=== PATIENT | female | born 1965 | race Caucasian/White ===

== ENCOUNTER 2016-07-30 09:33 | Inpatient (IN) | payer MEDICARE, OTHER ==
[~2016-07-30] VITALS: Ht 162.6 cm; Wt 93.5 kg
[~2016-07-30 09:33] MED LIST: ALBU1AER INH; CYCL-36 PO; CYMB60CA PO; DICL25 PO; DOXY100T OR; FEXO180 PO; GLUCTAB PO; GLYB1.2538 PO; INSULIN; LISI2.5T55 PO; LYRI50CA2 PO; OXYC-360 PO; PERC10TA27 PO; PRED20 PO; QUET1TAB65 PO; RANI150C PO; SIMV40TA PO; XANA1TAB6 PO
[2016-07-30 09:35] VITALS: BP 128/62; PULSE 109; RESP 16; TEMP 98.2
--- NOTE | 2016-07-30 09:37 | PD ---
HPI Chief Complaint: Altered Mental Status Time Seen by Provider: 09:37 Travel History International Travel<30 days: No Contact w/Intl Traveler<30days: No Traveled to known affect area: No History of Present Illness HPI 50-year-old female into the emergency room sent by her doctor from the [facility] for an abnormal blood test that was done yesterday. Blood work shows a white count of 27,000 with 58% bands. As per them patient has been on and off altered mental status. Patient is here and awake and answering questions appropriately. Although she has a slurred speech. She knows where she was and she knows the year. She does not recall the date and the month. He cardiac in triage but afebrile. Patient says that she feels fine. She does not have any cough, headache, fever, chills or any pain anywhere. She did the blood test as a pretty top test for oral surgery. Patient says she is due to have 12 teeth taken out. Patient has history of bipolar disorder in addition. Blood pressure is within normal limit. [facility] Past Medical History Narrative Medical List of her past medical, surgical, social and family history is reviewed from the nursing note. Anxiety: Yes COPD: Yes Diabetes: Yes Diminished Hearing: Yes Hypertension: Yes Musculoskeletal: Yes Neurologic: Yes (C SPINE SURGERY) Psychiatric: Yes Reproductive: Yes Respiratory: Yes : 3 Para: 1 Past Surgical History Section: Yes Eye Surgery: Yes Hysterectomy: Yes Neurologic Surgery: Yes (C SPINE SURGERY; LOWER BACK SURGERY) Other Surgery: Yes (RIGHT KNEE SURGERY X 2) Social History Alcohol Use: No Tobacco Use: Yes (QUIT SMOKING TODAY) Substance Use: No Allergies-Medications (Allergen,Severity, Reaction): Coded Allergies: Sulfa (Verified Allergy, Severe, RASH, 03/09/12) Cipro (Verified Allergy, Unknown, 07/30/16) Erythromycin (Verified Allergy, Unknown, 07/30/16) Ofloxacin (Verified Allergy, Unknown, 07/30/16) Comments List of her allergies reviewed from the nursing note. Reported Meds & Prescriptions Reported Meds & Active Scripts Active Reported Aldactone (Spironolactone) 50 Mg Tab 50 Mg PO DAILY Amitiza (Lubiprostone) 24 Mcg Cap 24 Mg PO BID Amitriptyline (Amitriptyline HCl) 25 Mg Tab 25 Mg PO HS Xanax (Alprazolam) 1 Mg Tab 1 Mg PO Q8H PRN Novolog Inj (Insulin Aspart) 1,000 Unit/10 Ml Vial 0 SQ DIRECTED Sliding Scale as directed. Zantac (Ranitidine HCl) 150 Mg Tab 150 Mg PO BID Senna S (Sennosides-Docusate Sodium) 8.6-50 Mg Tab 2 Tab PO HS Symbicort Inh (Budesonide/Formoterol Fumarate) 160-4.5 Mcg/Act Aero 1 Puff INH Q12HR Atrovent HFA 12.9 GM Inh (Ipratropium Buckner) 17 Mcg/Act Aer 2 Puff INH QID Lyrica (Pregabalin) 100 Mg Cap 100 Mg PO DAILY Percocet (Oxycodone-Acetaminophen) 10-325 mg Tab 1 Tab PO Q6H PRN Duoneb (Ipratropium-Albuterol Neb) 0.5-2.5 Mg/3 Ml Neb 1 Nebule INH Q6HR NEB PRN Quetiapine (Quetiapine Fumarate) 300 Mg Tab 300 Mg PO HS Liquitears Opth (Polyvinyl Alcohol) 1.4% Soln 2 Drop EACH EYE Q2HR PRN Nyata (Nystatin (Topical)) 100,000 Unit/Gm Pow 100,000 Units TOP DAILY Melatonin (Melatonin (Bulk)) 1 Pow Pow 3 Mg PO HS Quetiapine Fumarate ER (Quetiapine Fumarate) 150 Mg Tab 100 Mg PO BID Restasis Opth Drops (Cyclosporine Opth Drops) 0.05% Emul 1 Drop EACH EYE HS Sodium Chloride 1 Gm Tab 1 Gm PO DAILY Metformin ER (Metformin HCl) 1,000 Mg Ada 1,000 Mg PO BID With evening meal Novolog Inj (Insulin Aspart) 1,000 Unit/10 Ml Vial 7 Units SQ TIDAC Depakote DR (Divalproex Sodium) 500 Mg Tabdr 500 Mg PO Q8HR Atorvastatin (Atorvastatin Calcium) 20 Mg Tab 20 Mg PO HS Flexeril (Cyclobenzaprine HCl) 10 Mg Tab 10 Mg PO TID Neurontin (Gabapentin) 300 Mg Cap 900 Mg PO TID Lantus Inj (Insulin Glargine) 1,000 Unit/10 Ml Vial 26 Units SQ HS Narrative Medication List of her home medications reviewed from the nursing note. Review of Systems Except as stated in HPI: all other systems reviewed are Neg Physical Exam Narrative GENERAL: Awake, alert, obese, no obvious distress, slurred speech SKIN: Warm and dry. HEAD: Atraumatic. Normocephalic. EYES: Pupils equal and round. No scleral icterus. No injection or drainage. ENT: No nasal bleeding or discharge. Mucous membranes pink and moist. NECK: Trachea midline. No JVD. CARDIOVASCULAR: Regular rate and rhythm. No murmur appreciated. RESPIRATORY: No accessory muscle use. Clear to auscultation. Breath sounds equal bilaterally. GASTROINTESTINAL: Abdomen soft, non-tender, nondistended. Hepatic and splenic margins not palpable. MUSCULOSKELETAL: No obvious deformities. No clubbing. No cyanosis. No edema. NEUROLOGICAL: Awake and alert. No obvious cranial nerve deficits. Motor grossly within normal limits. Slurred speech. PSYCHIATRIC: Appropriate mood and affect; insight and judgment normal. Data Data Last Documented VS Vital Signs Date Time Temp Pulse Resp B/P Pulse Ox O2 Delivery O2 Flow Rate FiO2 07/30/16 09:40 92 Nasal Cannula 2.00 07/30/16 09:40 103 16 07/30/16 09:35 98.2 128/62 Orders Complete Blood Count With Diff (07/30/16 09:45) Comprehensive Metabolic Panel (07/30/16 09:45) Lactic Acid Sepsis Protocol (07/30/16 09:45) Urinalysis - C+S If Indicated (07/30/16 09:45) Blood Culture (07/30/16 09:45) Chest, Single Ap (07/30/16 09:45) Blood Glucose (07/30/16 09:45) Ecg Monitoring (07/30/16 09:45) Iv Access Insert/Monitor (07/30/16 09:45) Oximetry (07/30/16 09:45) Oxygen Administration (07/30/16 09:45) Ct Brain W/O Iv Contrast(Rout) (07/30/16 09:45) Vancomycin Inj (Vancomycin Inj) (07/30/16 09:45) Piperacil-Tazo 4.5 Gm Premix (Zosyn 4.5 (07/30/16 09:45) Sodium Chlor 0.9% 1000 Ml Inj (Ns 1000 M (07/30/16 09:45) Sodium Chlor 0.9% 1000 Ml Inj (Ns 1000 M (07/30/16 09:45) Sodium Chlor 0.9% 1000 Ml Inj (Ns 1000 M (07/30/16 09:45) ^ Straight Catheter (07/30/16 10:44) Admit Order (Ed Use Only) (07/30/16 11:10) Labs Laboratory Tests Test 07/30/16 09:50 White Blood Count 26.0 TH/MM3 Red Blood Count 4.69 MIL/MM3 Hemoglobin 11.7 GM/DL Hematocrit 35.5 % Mean Corpuscular Volume 75.5 FL Mean Corpuscular Hemoglobin 24.9 PG Mean Corpuscular Hemoglobin 32.9 % Concent Red Cell Distribution Width 16.9 % Platelet Count 433 TH/MM3 Mean Platelet Volume 6.6 FL Neutrophils (%) (Auto) 72.4 % Lymphocytes (%) (Auto) 16.1 % Monocytes (%) (Auto) 10.4 % Eosinophils (%) (Auto) 0.8 % Basophils (%) (Auto) 0.3 % Neutrophils # (Auto) 18.9 TH/MM3 Lymphocytes # (Auto) 4.2 TH/MM3 Monocytes # (Auto) 2.7 TH/MM3 Eosinophils # (Auto) 0.2 TH/MM3 Basophils # (Auto) 0.1 TH/MM3 CBC Comment AUTO DIFF Differential Total Cells 100 Counted Neutrophils % (Manual) 57 % Band Neutrophils % 17 % Lymphocytes % 17 % Monocytes % 9 % Neutrophils # (Manual) 19.2 TH/MM3 Differential Comment FINAL DIFF MANUAL Toxic Granulation 1+ Platelet Estimate NORMAL Platelet Morphology Comment NORMAL Ovalocytes 1+ Sodium Level 136 MEQ/L Potassium Level 3.7 MEQ/L Chloride Level 96 MEQ/L Carbon Dioxide Level 29.9 MEQ/L Anion Gap 10 MEQ/L Blood Urea Nitrogen 4 MG/DL Creatinine 0.48 MG/DL Estimat Glomerular Filtration 136 ML/MIN Rate Random Glucose 90 MG/DL Hemoglobin A1c 8.5 % Lactic Acid Level 2.7 mmol/L Calcium Level 8.4 MG/DL Total Bilirubin 0.2 MG/DL Aspartate Amino Transf 8 U/L (AST/SGOT) Alanine Aminotransferase 11 U/L (ALT/SGPT) Alkaline Phosphatase 135 U/L Total Protein 6.1 GM/DL Albumin 2.4 GM/DL Triglycerides Level 136 MG/DL Cholesterol Level 76 MG/DL LDL Cholesterol 15 MG/DL HDL Cholesterol 33.5 MG/DL Cholesterol/HDL Ratio 2.26 RATIO Lipase 27 U/L Thyroid Stimulating Hormone 2.140 uIU/ML 3rd Gen Valproic Acid (Depakene) Level 110 MCG/ML Ethyl Alcohol Level LESS THAN 3 MG/DL MDM Medical Decision Making Medical Screen Exam Complete: Yes Emergency Medical Condition: Yes Medical Record Reviewed: Yes Differential Diagnosis Sepsis, pneumonia, UTI Narrative Course 11:14 AM blood test results are back and patient does have leukocytosis and bandemia. Her lactic acid is elevated as well. I gave her IV Zosyn, IV Vancomycin and IV fluid as per the sepsis protocol. Chest x-rays within normal limits. Awaiting for the UA. She her source is unknown for the septicemia. She is admitted to the residents at this point. Critical Care Narrative Aggregate critical care time was 30 minutes. Time to perform other separately billable procedures was not included in the critical care time. My time did not include minutes spent treating any other patients simultaneously or on activities that did not directly contribute to the patient's treatment. The services I provided to this patient were to treat and/or prevent clinically significant deterioration that could result in: Sepsis, sepsis protocol I provided critical care services requiring my management, as noted below: Chart data review, documentation time, medication orders and management, vital sign assessments/reviewing monitor data, ordering and reviewing lab tests, ordering and interpreting/reviewing x-rays and diagnostic studies, care of the patient and discussion of the patient with the admitting physicians. Procedures EKG Prior to Arrival: No Sepsis Criteria SIRS Criteria (2 or more): Heart rate over 90, WBC > 76126, < 4000 or > 10% bands Severe Sepsis (+one): Lactate >2 Diagnosis Primary Impression: Sepsis Qualified Code: A41.9 - Sepsis, due to unspecified organism Admitting Information Admitting Physician Requests: Fabián Miner MD Jul 30, 2016 09:37
[2016-07-30 09:40] VITALS: O2SAT 92
[2016-07-30] MEDS ORDERED: VANCOMYCIN INJ 1,000 MG in SODIUM CHLOR 0.9% 250 ML INJ 250 ML IV STA (09:45)
[2016-07-30] MEDS ORDERED: PIPERACIL-TAZO 4.5 GM PREMIX 100 ML IV STA (09:45)
[2016-07-30] MEDS ORDERED: SODIUM CHLOR 0.9% 1000 ML INJ 1,000 ML IV ONE ×3 (09:45)
[2016-07-30 10:11] LABS: AUTOMATED NEUTROPHIL # 18.9 TH/MM3 (1.8-7.7); BASOPHIL # 0.1 TH/MM3 (0-0.2); BASOPHIL % 0.3 % (0.0-2.0); EOSINOPHIL # 0.2 TH/MM3 (0-0.4); EOSINOPHIL % 0.8 % (0.0-4.0); HEMATOCRIT 35.5 % (35.0-46.0); LYMPH % 16.1 % (9.0-44.0); LYMPHOCYTE # 4.2 TH/MM3 (1.0-4.8); MEAN CELL VOLUME 75.5 FL (80.0-100.0); MEAN CORPUSCULAR HEMOGLOBIN 24.9 PG (27.0-34.0); MEAN CORPUSCULAR HGB CONC 32.9 % (32.0-36.0); MONO % 10.4 % (0.0-8.0); NEUT % 72.4 % (16.0-70.0); PLATELET COUNT 433 TH/MM3 (150-450); RED BLOOD COUNT 4.69 MIL/MM3 (4.00-5.30); RED CELL DISTRIBUTION WIDTH 16.9 % (11.6-17.2)
[2016-07-30 10:13] LABS: HEMO FLAGS AUTO DIFF
--- NOTE | 2016-07-30 10:23 | RADRPT ---
EXAM DATE/TIME: 07/30/2016 09:55 [facility] COMPARISON: CHEST SINGLE AP, March 09, 2012, 9:49. INDICATIONS : Syncope. Fall. MEDICAL HISTORY : None. SURGICAL HISTORY : None. ENCOUNTER: Initial ACUITY: 1 day PAIN SCORE: 0/10 LOCATION: Bilateral chest FINDINGS: A single view of the chest demonstrates the lungs to be symmetrically aerated without evidence of mas s, infiltrate or effusion. The cardiomediastinal contours are unremarkable. Osseous structures are intact. CONCLUSION: No acute disease. No significant change has occurred. Lefty Alexander MD on July 30, 2016 at 10:21 Board Certified Radiologist. This report was verified electronically.
[2016-07-30] MEDS ORDERED: NYST0.1P TOP (10:27)
[2016-07-30] MEDS ORDERED: DEPA500T PO (10:27)
[2016-07-30] MEDS ORDERED: NOVOLOGP2 SQ ×2 (10:27→10:28)
[2016-07-30] MEDS ORDERED: REST0.05 EACH EYE (10:27)
[2016-07-30] MEDS ORDERED: METF-382 PO (10:27)
[2016-07-30] MEDS ORDERED: ATOR20TA15 PO (10:27)
[2016-07-30] MEDS ORDERED: NEUR300C PO (10:27)
[2016-07-30] MEDS ORDERED: LANTUS2P SQ (10:27)
[2016-07-30] MEDS ORDERED: CYCL1TAB29 PO (10:27)
[2016-07-30] MEDS ORDERED: QUET-87 PO (10:27)
[2016-07-30] MEDS ORDERED: SODI1TAB PO (10:27)
[2016-07-30] MEDS ORDERED: MELAPOW2 PO (10:27)
[2016-07-30] MEDS ORDERED: SENN8.6T8 PO (10:28)
[2016-07-30] MEDS ORDERED: AMIT25TA9 PO (10:28)
[2016-07-30] MEDS ORDERED: AMIT24CA5 PO (10:28)
[2016-07-30] MEDS ORDERED: QUET1TAB10 PO (10:28)
[2016-07-30] MEDS ORDERED: ALDA50TA2 PO (10:28)
[2016-07-30] MEDS ORDERED: XANA1TAB2 PO (10:28)
[2016-07-30] MEDS ORDERED: POLY120S EACH EYE (10:28)
[2016-07-30] MEDS ORDERED: IPRASOL NEB (10:28)
[2016-07-30] MEDS ORDERED: SYMB160A INH (10:28)
[2016-07-30] MEDS ORDERED: ZANT150T2 PO (10:28)
[2016-07-30] MEDS ORDERED: IPRA17I INH (10:28)
[2016-07-30] MEDS ORDERED: LYRI100C PO (10:28)
[2016-07-30] MEDS ORDERED: PERC10TA27 PO (10:28)
[2016-07-30 10:29] LABS: ALT (GPT) 11 U/L (10-53); ANION GAP 10 MEQ/L (5-15); AST (GOT) 8 U/L (15-37); BICARBONATE 29.9 MEQ/L (21.0-32.0); BLOOD UREA NITROGEN 4 MG/DL (7-18); CHLORIDE 96 MEQ/L (98-107); GLOMERULAR FILTRATION RATE 136 ML/MIN (>89); POTASSIUM 3.7 MEQ/L (3.5-5.1); SODIUM (NA) 136 MEQ/L (136-145)
[2016-07-30 10:31] LABS: ALKALINE PHOSPHATASE 135 U/L (45-117); TOTAL BILIRUBIN ADULT 0.2 MG/DL (0.2-1.0)
--- NOTE | 2016-07-30 10:41 | RADRPT ---
EXAM DATE/TIME: 07/30/2016 10:19 [facility] COMPARISON: No previous studies available for comparison. INDICATIONS : Altered mental status. Dizziness. Blurred vision. RADIATION DOSE: 38.18 CTDIvol (mGy) MEDICAL HISTORY : Hypertension. Chronic obstructive pulmonary disease. Diabetes. SURGICAL HISTORY : C-spine surgery. ENCOUNTER: Initial ACUITY: 2 days PAIN SCALE: 0/10 LOCATION: cranial TECHNIQUE: Multiple contiguous axial images were obtained of the head. Using automated exposure control and adj ustment of the mA and/or kV according to patient size, radiation dose was kept as low as reasonably a chievable to obtain optimal diagnostic quality images. FINDINGS: CEREBRUM: The ventricles are normal for age. No evidence of midline shift, mass lesion, hemorrhage or acute in farction. No extra-axial fluid collections are seen. POSTERIOR FOSSA: The cerebellum and brainstem are intact. The 4th ventricle is midline. The cerebellopontine angle i s unremarkable. EXTRACRANIAL: The visualized portion of the orbits is intact. SKULL: The calvaria is intact. No evidence of skull fracture. CONCLUSION: No acute disease. No evidence of acute infarct, hemorrhage, mass or edema. Leroy Herrera MD on July 30, 2016 at 10:38 Board Certified Radiologist. This report was verified electronically.
[2016-07-30 10:56] LABS: BANDS 17 % (0-6); NEUTROPHIL # MANUAL DIFF 19.2 TH/MM3 (1.8-7.7); POLYS (SEG NEUTROPHILS) 57 % (16-70); WBC DIFF SAMPLE 100
[2016-07-30 10:57] LABS: OVALOCYTES 1+ (NORMAL); PLATELET ESTIMATE SMEAR NORMAL (NORMAL); PLATELET MORPHOLOGY NORMAL (NORMAL); SCAN/DIFF FINAL DIFF MANUAL; TOXIC GRANULATION 1+ (NORMAL)
--- NOTE | 2016-07-30 11:40 | HHI.HP ---
[facility] Service Family Medicine Primary Care Physician Candido Bird MD Admission Diagnosis sepsis, leukocytosis Diagnoses: International Travel<30 Days: No Contact w/Intl Traveler<30days: No Known Affected Area: No History of Present Illness Patient is a 50-year-old female with a past medical history of insulin- dependent diabetes, bipolar depression, panic disorder, hyperlipidemia, that presents to the [place] ED from [facility] for an abnormal white blood cell count that was performed in preparation for dental surgery. The CBC performed at the [facility] showed a white blood cell count of 27,000 with 58% bands. The patient's nurse at the rehabilitation center states that she did not actually meet her this morning; by the time she got to the patient's room, she had already left for [place]. She did not take any of her medications today. The patient states that one week ago she fell and hit her head, and has had nausea and dizziness since then. She has also been very sleepy and states that right now, all she wants to do is sleep. She denies vomiting. She does not remember when last she had a bowel movement but states that she had diarrhea the last time. She has also not had much of an appetite. She complains of abdominal pain from 2 hernias in her only current region. She states that she had abdominal hernia surgery about 2 months ago. However they continue to recur, but her surgeon told her that they are just cosmetic and there's nothing to do right now. She would like to have hernia surgery if possible during this admission. (Dulce Guajardo MD R1) Review of Systems Constitutional: COMPLAINS OF: Dizziness, Change in appetite (does not want to eat), DENIES: Fever, Chills, Night Sweats Eyes: DENIES: Blurred vision, Eye pain, Vision loss Ears, nose, mouth, throat: DENIES: Nasal discharge, Running Nose, Sinus Pain Respiratory: COMPLAINS OF: Cough (occaionally), Sputum production (occasionally ), Shortness of breath Cardiovascular: COMPLAINS OF: Chest pain (only during panic attacks), DENIES: Syncope Gastrointestinal: COMPLAINS OF: Abdominal pain (hernia), Constipation, DENIES : Nausea, Vomiting Genitourinary: DENIES: Abnormal vaginal bleeding, Dysuria Musculoskeletal: COMPLAINS OF: Joint pain (hands, back, knees), Back pain, Neck pain Integumentary: DENIES: Pruritus, Rash Neurologic: DENIES: Headache, Paresthesias, Seizures Psychiatric: DENIES: Hallucinations, Suicidal Ideation, Homicidal Ideation (Eko ,Dulce Gary MD R1) Past Family Social History Past Medical History -Major depressive disorder -Bipolar disorder -Anxiety disorder -Insulin-dependent diabetes -Polyneuropathy -Uterine cancer -Hyperlipidemia -GERD -COPD -Migraine headache -Acute conjunctivitis, left eye Past Surgical History section Eye surgery Hysterectomy C-spine surgery, lower back surgery Right knee surgery 2 Umbilical hernia Surgery Reported Medications Reported Meds & Active Scripts Active Reported Aldactone (Spironolactone) 50 Mg Tab 50 Mg PO DAILY Amitiza (Lubiprostone) 24 Mcg Cap 24 Mg PO BID Amitriptyline (Amitriptyline HCl) 25 Mg Tab 25 Mg PO HS Xanax (Alprazolam) 1 Mg Tab 1 Mg PO Q8H PRN Novolog Inj (Insulin Aspart) 1,000 Unit/10 Ml Vial 0 SQ DIRECTED Sliding Scale as directed. Zantac (Ranitidine HCl) 150 Mg Tab 150 Mg PO BID Senna S (Sennosides-Docusate Sodium) 8.6-50 Mg Tab 2 Tab PO HS Symbicort Inh (Budesonide/Formoterol Fumarate) 160-4.5 Mcg/Act Aero 1 Puff INH Q12HR Atrovent HFA 12.9 GM Inh (Ipratropium [place]) 17 Mcg/Act Aer 2 Puff INH QID Lyrica (Pregabalin) 100 Mg Cap 100 Mg PO DAILY Percocet (Oxycodone-Acetaminophen) 10-325 mg Tab 1 Tab PO Q6H PRN Duoneb (Ipratropium-Albuterol Neb) 0.5-2.5 Mg/3 Ml Neb 1 Nebule INH Q6HR NEB PRN Quetiapine (Quetiapine Fumarate) 300 Mg Tab 300 Mg PO HS Liquitears Opth (Polyvinyl Alcohol) 1.4% Soln 2 Drop EACH EYE Q2HR PRN Nyata (Nystatin (Topical)) 100,000 Unit/Gm Pow 100,000 Units TOP DAILY Melatonin (Melatonin (Bulk)) 1 Pow Pow 3 Mg PO HS Quetiapine Fumarate ER (Quetiapine Fumarate) 150 Mg Tab 100 Mg PO BID Restasis Opth Drops (Cyclosporine Opth Drops) 0.05% Emul 1 Drop EACH EYE HS Sodium Chloride 1 Gm Tab 1 Gm PO DAILY Metformin ER (Metformin HCl) 1,000 Mg Ada 1,000 Mg PO BID With evening meal Novolog Inj (Insulin Aspart) 1,000 Unit/10 Ml Vial 7 Units SQ TIDAC Depakote DR (Divalproex Sodium) 500 Mg Tabdr 500 Mg PO Q8HR Atorvastatin (Atorvastatin Calcium) 20 Mg Tab 20 Mg PO HS Flexeril (Cyclobenzaprine HCl) 10 Mg Tab 10 Mg PO TID Neurontin (Gabapentin) 300 Mg Cap 900 Mg PO TID Lantus Inj (Insulin Glargine) 1,000 Unit/10 Ml Vial 26 Units SQ HS (Dulce Guajardo MD R1) Allergies: Coded Allergies: Sulfa (Verified Allergy, Severe, RASH, 03/09/12) Cipro (Verified Allergy, Unknown, 07/30/16) Erythromycin (Verified Allergy, Unknown, 07/30/16) Ofloxacin (Verified Allergy, Unknown, 07/30/16) Family History Mother, sister - DM Heart disease - unknown HTN - unknown Social History Normally smokes 1ppd x 33 years Denies alcohol use Lives in retirement - been there for >1 year (Dulce Guajardo MD R1) Physical Exam Vital Signs Vital Signs Date Time Temp Pulse Resp B/P Pulse Ox O2 Delivery O2 Flow Rate FiO2 07/30/16 09:40 103 16 92 Room Air 07/30/16 09:40 92 Nasal Cannula 2 07/30/16 09:40 92 Nasal Cannula 2 07/30/16 09:35 98.2 109 16 128/62 Physical Exam GENERAL: This is a well-nourished, well-developed patient, in no apparent distress. SKIN: No rashes, ecchymoses or lesions. Cool and dry. No sacral ulcers HEAD: Tender bitemporally, no lumps or lesions identified. Normocephalic. No facial drooping EYES: Pupils equal round and reactive. Extraocular motions intact. No scleral icterus. No injection or drainage. ENT: Nose without bleeding, purulent drainage or septal hematoma. Throat without erythema, tonsillar hypertrophy or exudate. Uvula midline. Airway patent. NECK: Trachea midline. No JVD or lymphadenopathy. Supple, nontender, no meningeal signs. CARDIOVASCULAR: Tachycardic rate and regular rhythm without murmurs, gallops, or rubs. RESPIRATORY: Clear to auscultation. Breath sounds equal bilaterally but poor effort. No wheezes, rales, or rhonchi. GASTROINTESTINAL: Obese abdomen, umbilical surgical scar from previous hernia surgery, tender to palpation mostly in the mid and right lower abdomen with some guarding MUSCULOSKELETAL: Extremities without clubbing, cyanosis, or edema. No joint tenderness, effusion, or edema noted. No calf tenderness. NEUROLOGICAL: Awake and alert. Cranial nerves II through XII intact. Intact finger to nose. Patient unable to lift up lower extremities from the bed due to chronic low back pain. Five out of 5 muscle strength in all muscle groups. Slurred speech. Laboratory Laboratory Tests Test 07/30/16 09:50 White Blood Count 26.0 Red Blood Count 4.69 Hemoglobin 11.7 Hematocrit 35.5 Mean Corpuscular Volume 75.5 Mean Corpuscular Hemoglobin 24.9 Mean Corpuscular Hemoglobin 32.9 Concent Red Cell Distribution Width 16.9 Platelet Count 433 Mean Platelet Volume 6.6 Neutrophils (%) (Auto) 72.4 Lymphocytes (%) (Auto) 16.1 Monocytes (%) (Auto) 10.4 Eosinophils (%) (Auto) 0.8 Basophils (%) (Auto) 0.3 Neutrophils # (Auto) 18.9 Lymphocytes # (Auto) 4.2 Monocytes # (Auto) 2.7 Eosinophils # (Auto) 0.2 Basophils # (Auto) 0.1 CBC Comment AUTO DIFF Differential Total Cells 100 Counted Neutrophils % (Manual) 57 Band Neutrophils % 17 Lymphocytes % 17 Monocytes % 9 Neutrophils # (Manual) 19.2 Differential Comment FINAL DIFF MANUAL Toxic Granulation 1+ Platelet Estimate NORMAL Platelet Morphology Comment NORMAL Ovalocytes 1+ Sodium Level 136 Potassium Level 3.7 Chloride Level 96 Carbon Dioxide Level 29.9 Anion Gap 10 Blood Urea Nitrogen 4 Creatinine 0.48 Estimat Glomerular Filtration 136 Rate Random Glucose 90 Lactic Acid Level 2.7 Calcium Level 8.4 Total Bilirubin 0.2 Aspartate Amino Transf 8 (AST/SGOT) Alanine Aminotransferase 11 (ALT/SGPT) Alkaline Phosphatase 135 Total Protein 6.1 Albumin 2.4 Date/Time Procedure Status Source Growth 07/30/16 09:50 Aerobic Blood Culture Received Blood Peripheral Pending 07/30/16 09:50 Anaerobic Blood Culture Received Blood Peripheral Pending (Eko,Dulce Gary MD R1) Result Diagram: 07/30/16 0950 07/30/16 0950 Imaging Last [address] 07/30/1645 Signed Impressions: Service Date/Time: July 10:19 - CONCLUSION: No acute disease. No evidence of acute infarct, hemorrhage, mass or edema. Leroy Herrera MD Chest X-Ray 07/30/1645 Signed Impressions: Service Date/Time: July 09:55 - CONCLUSION: No acute disease. No significant change has occurred. Lefty Alexander MD Chest X-Ray 07/30/16 0000 Signed Impressions: Service Date/Time: July 12:30 - CONCLUSION: 1. Minimal basilar atelectasis or scarring. No effusion or pneumothorax. Lefty Alexander MD Course Patient received 31 L normal saline boluses in the ED. Vancomycin and Zosyn were administered. (Dulce Guajardo MD R1) Assessment and Plan Assessment and Plan 50-year-old female with a past medical history of diabetes, bipolar depression, panic disorder, uterine cancer, and hyperlipidemia presents to the [place] ED from her retirement with a chief complaint of altered mental status and elevated white blood cell count. Patient meets sepsis criteria with tachycardia , elevated white blood cell count, and elevated lactate of 2.7. At this time the source is unknown. The patient will be admitted for workup of sepsis, administration of IV antibiotics and fluids. Code Status Full code Discussed Condition With Seen and examined with Dr. Anderson, PGY 2. Discussed with Dr. Mayers. (Dulce Guajardo MD R1) Attending Attestation The patient has been seen and examined. The chart and all resident notes have been reviewed. I agree that inpatient care is appropriate and that a two midnight stay is expected for the reasons documented in the resident history and physical. I have discussed this with the resident and certify the resident s order for inpatient admission. (Sendy Mayers MD) Problem List: (1) Sepsis Status: Acute Plan: -Patient meets SIRS criteria with elevated WBC at 26 and tachycardia to 109 on admission -Afebrile admission -Source unknown currently - will work up -Lactic acid was initially elevated at 2.7, decreased to 1.2 -Chest x-ray not concerning for pneumonia, shows minimal basilar atelectasis or scarring -Urinalysis shows large leukocyte esterase with 17 WBC but may be contaminated due to 15 squamous epithelial cells -We will repeat urinalysis with catheterized specimen -Blood cultures pending -Will treat empirically with: Vancomycin 1000 mg IV every 12 hours, patient received one dose in the ED Zosyn 3.375 mg IV every 6 hours, patient received one dose in the ED Normal saline at 155 mL per hour -Tylenol 650 mg Q6h PRN pain 1-10 of fever greater than 101F -Zofran 4mg IV Q6h PRN nausea/vomiting (2) Altered mental status Status: Acute Plan: -The nature of patient's altered mental status is unclear, retirement did not report her being altered -Patient reports dizziness on sitting up from a supine position -However patient takes multiple medications in similar classes, which can contribute to AMS -In addition, patient reports recently falling and hitting her head, which can cause concussive symptoms -Valproic acid level was elevated at 110, reference range 50-100 -We will hold patient's valproic acid until recheck is within normal limits -Also hold Amitriptyline and reduce Gabapentin dose to 300mg TID -Psychiatry consult to assist with medication management -CT head without contrast was negative for acute infarct, hemorrhage, mass, or edema -EKG ordered -2-D echo ordered but patient refused -Orthostatic vital signs -UDS -Will consider EEG if patient's status worsens -Continuous pulse oximetry with supplemental oxygen -Vital signs every 4 hours -Neurochecks every 4 hours -OOB with assistance -Fall precautions -Monitor Is & Os (3) Recent history of diarrhea Status: Acute Plan: -Pt reports recent history of diarrheal stools although she says she feels constipated currently -Will check C difficile antigen -Empiric treatment with Flagyl 500mg PO Q8h -Discontinue antibiotic if negative (4) Chronic Medical Problems Status: Acute Plan: Diabetes: Hemoglobin A1c 8.5. Random glucose 90 on CMP. Patient takes Lantus 26 units subcutaneous at bedtime at home as well as Novolin sliding scale Will hold home Lantus. Accu-Cheks with low NovoLog SSI. Will add Levemir as needed Diabetic polyneuropathy: Continue gabapentin at reduced dose of 300 mg by mouth 3 times a day, Lyrica COPD: Albuterol nebulizer every 4 hours while awake Hypertension: Patient was normotensive on admission. Continue spironolactone 50 mg by mouth daily. Will monitor blood pressures and cover with hydralazine when necessary as needed -Hydralazine 10mg PO QID prn SBP >= 160, DBP >= 90 -Vasotec 1.25mg IV Q8h prn SBP >= 180, DBP >= 100 Hyperlipidemia: Continue atorvastatin 20 mg by mouth at bedtime Bipolar Depression: Holding amitriptyline and Depakote as above Panic/anxiety disorder: Will continue Seroquel 100 mg by mouth twice a day and 300 mg by mouth at bedtime Chronic low back pain: Home Percocet 10-325 mg every 6 hours when necessary. Holding Flexeril due to AMS and dizziness (5) FEN/DVT PPX/GI PPX Status: Acute Plan: Fluids: NS @ 155 mls/hr IV Electrolytes: Will monitor and replace as needed Nutrition: Heart healthy diet DVT Prophylaxis: Lovenox 40 mg subcutaneous GI Prophylaxis: Protonix 40 mg PO daily AM labs: CBC, CMP (Dulce Guajardo MD R1) Physician Certification 2 Midnight Certification Type: Admission for Inpatient Services Order for Inpatient Services The services are ordered in accordance with Medicare regulations or non- Medicare payer requirements, as applicable. In the case of services not specified as inpatient-only, they are appropriately provided as inpatient services in accordance with the 2-midnight benchmark. Estimated LOS (days): 3 days is the estimated time the patient will need to remain in the hospital, assuming treatment plan goals are met and no additional complications. Post-Hospital Plan: SNF (Dulce Guajardo MD R1) Problem Qualifiers (1) Sepsis: Qualified Code: A41.9 - Sepsis, due to unspecified organism Dulce Guajardo MD R1 Jul 30, 2016 11:40 Sendy Mayers MD Jul 31, 2016 09:25
[2016-07-30 12:00] LABS: LACTIC ACID GHOST NOT REPORTABLE
[2016-07-30] MEDS ORDERED: ONDANSETRON HCL 4 MG/2 ML VIAL IV PRN (12:15)
[2016-07-30] MEDS ORDERED: ACETAMINOPHEN 325 MG TAB PO PRN (12:15)
[2016-07-30] MEDS ORDERED: hydrALAZINE HCL 10 MG TAB PO PRN (12:15)
[2016-07-30] MEDS ORDERED: SYRINGE/BAG 1 EA PO SCH (12:15)
[2016-07-30 12:30] VITALS: BP 126/64; PULSE 103; RESP 16; O2SAT 98
[2016-07-30] MEDS ORDERED: GLUCAGON 1 MG/ML VIAL OTHER PRN (12:30)
[2016-07-30] MEDS ORDERED: DEXTROSE 50% IN WATER 50 ML VIAL(D50) IV PUSH PRN (12:30)
[2016-07-30] MEDS ORDERED: RESP: ALBUTEROL 2.5 MG/3 ML NEB (PRN) NEB (12:30)
[2016-07-30] MEDS: POLYETHYLENE GLYCOL 17 GM PKG PO SCH (12:45)
[2016-07-30 12:46] LABS: BACTERIA, URINE RARE /hpf; BLOOD, URINE NEG (NEG); GLUCOSE,URINE NEG (NEG); KETONE, URINE NEG (NEG); MUCUS URINE FEW /lpf (OCC); NITRITE,URINE NEG (NEG); PH, URINE 6.5 (5.0-8.5); SQUAMOUS EPITHELIAL CELL URINE 15 /hpf (0-5); TRANSITIONAL EPI CELLS, URINE <1 /hpf; URINE COLOR YELLOW (YELLW/STRAW)
[2016-07-30 12:58] LABS: COMMENT (UR) CATH-CULTURE IND; CULTURE IF INDICATED CATH CULTURE IND
[2016-07-30 13:00] VITALS: BP 134/68; PULSE 103; RESP 16; O2SAT 96
[2016-07-30] MEDS ORDERED: GABAPENTIN 300 MG CAP PO SCH (13:00)
[2016-07-30] MEDS: BUDESONIDE-FORMOTEROL 160/4.5 MCG INHALER INH SCH ×2 (13:35→22:55)
[2016-07-30] MEDS: ENOXAPARIN SODIUM 40 MG/0.4 ML SYRINGE SQ SCH (13:36)
[2016-07-30] MEDS ORDERED: DIVALPROEX DR 500 MG TABEC PO SCH (14:00)
[2016-07-30 14:02] LABS: HDL CHOLESTEROL 33.5 MG/DL (40.0-60.0)
[2016-07-30] MEDS: NICOTINE 7 MG/24 HR PATCH TD SCH (14:14)
[2016-07-30] MEDS: SODIUM CHLOR 0.9% 1000 ML INJ 1,000 ML IV SCH ×2 (14:15→17:29)
--- NOTE | 2016-07-30 14:21 | RADRPT ---
EXAM DATE/TIME: 07/30/2016 12:30 [place] COMPARISON: No previous studies available for comparison. INDICATIONS : Weakness, high WBC, dizziness. MEDICAL HISTORY : None. SURGICAL HISTORY : None. ENCOUNTER: Initial ACUITY: 2 days PAIN SCORE: 0/10 LOCATION: Bilateral chest FINDINGS: PA and lateral views of the chest demonstrate no focal consolidation. Minimal basilar atelectasis or scarring. No effusion. No pneumothorax noted heart size within normal limits. CONCLUSION: 1. Minimal basilar atelectasis or scarring. No effusion or pneumothorax. Lefty Alexander MD on July 30, 2016 at 14:18 Board Certified Radiologist. This report was verified electronically.
[2016-07-30 14:32] LABS: HEMOGLOBIN A1a 1.6 %; HEMOGLOBIN A1b 1.4 %; HEMOGLOBIN Ao 81.4 %; HEMOGLOBIN F 1.3 %; HEMOGLOBIN LA1C 1.7 %; HEMOGLOBIN P3 3.5 %
[2016-07-30 14:35] LABS: LDL CHOLESTEROL 15 MG/DL (0-99)
[2016-07-30] MEDS: QUEtiapine FUMARATE 100 MG TAB PO SCH ×2 (15:45→22:57)
[2016-07-30] MEDS: PREGABALIN 100 MG CAP PO SCH (15:45)
[2016-07-30] MEDS: INSULIN ASPART SUPPLEMENTAL SCALE SQ SCH ×2 (16:00→21:00)
[2016-07-30] MEDS: metroNIDAZOLE 500 MG TAB PO SCH ×2 (16:00→22:56)
[2016-07-30] MEDS: RESP: ALBUTEROL 2.5 MG/IPRATROPIUM 0.5 MG NEB (SCH) NEB ×2 (16:05→19:35)
[2016-07-30] MEDS: PIPERACIL-TAZO 3.375 GM PREMIX 50 ML IV SCH ×2 (16:46→23:00)
[2016-07-30 17:00] VITALS: BP 149/91; PULSE 97; RESP 20; TEMP 96.6; O2SAT 97
[2016-07-30] MEDS: ALPRAZolam 1 MG TAB PO PRN (17:22)
[2016-07-30] MEDS: oxyCODONE/ACETAMINOPHEN 10 MG/325 MG TAB PO PRN ×2 (17:23→23:23)
[2016-07-30] MEDS: GABAPENTIN 300 MG CAP PO SCH (17:23)
[2016-07-30] MEDS ORDERED: ENALAPRILAT 1.25 MG/ML VIAL IV PUSH PRN (19:15)
[2016-07-30 20:00] VITALS: BP_SYST 119; BP_SYST 125; BP_SYST 131; BP_DIAS 55; BP_DIAS 56; PULSE 103; PULSE 106; RESP 18; RESP 19; TEMP 97.6; TEMP 98.2; O2SAT 93; O2SAT 96
[2016-07-30] MEDS ORDERED: CYCLOSPORINE OPTH EACH EYE SCH (21:00)
[2016-07-30] MEDS: REMOVE OLD NICODERM (NICOTINE) PATCH TD SCH (21:00)
[2016-07-30] MEDS ORDERED: QUEtiapine FUMARATE 100 MG TAB PO SCH (21:00)
[2016-07-30] MEDS ORDERED: QUEtiapine FUMARATE 300 MG TAB PO SCH (21:00)
--- NOTE | 2016-07-30 21:16 | HHI.FPPN ---
Subjective Subjective Patient seen and examined. Case reviewed and discussed Please refer to resident H&P for further details regarding HPI, ROS, PMH, SurgHx , FH and SocHx In summary, patient is a 50yoF presenting with a one week history of lightheadedness. Of note, she was hospitalized one week ago after a fall and treated for hyponatremia. Her SNF noted her to have leukocytosis >20k and sent her to the hospital for evaluation She is seen in her hospital bed in the ED and has no complaints to offer aside from her lightheadedness and fatigue. She reports she has been very sleepy over the last week No fevers, chills, urinary or resp symptoms. No cough, shortness of breath. She does complain of diarrhea. [facility] Objective Objective Last Impressions Head CT 07/30/16944 Signed Impressions: Service Date/Time: July 10:19 - CONCLUSION: No acute disease. No evidence of acute infarct, hemorrhage, mass or edema. Leroy Herrera MD Chest X-Ray 07/30/16944 Signed Impressions: Service Date/Time: July 09:55 - CONCLUSION: No acute disease. No significant change has occurred. Lefty Alexander MD Laboratory Tests - Abnormals Test 07/30/16 07/30/16 09:50 12:20 White Blood Count 26.0 TH/MM3 Mean Corpuscular Volume 75.5 FL Mean Corpuscular Hemoglobin 24.9 PG Mean Platelet Volume 6.6 FL Neutrophils (%) (Auto) 72.4 % Monocytes (%) (Auto) 10.4 % Neutrophils # (Auto) 18.9 TH/MM3 Monocytes # (Auto) 2.7 TH/MM3 Band Neutrophils % 17 % Monocytes % 9 % Neutrophils # (Manual) 19.2 TH/MM3 Toxic Granulation 1+ Ovalocytes 1+ Chloride Level 96 MEQ/L Blood Urea Nitrogen 4 MG/DL Creatinine 0.48 MG/DL Hemoglobin A1c 8.5 % Lactic Acid Level 2.7 mmol/L Calcium Level 8.4 MG/DL Aspartate Amino Transf 8 U/L (AST/SGOT) Alkaline Phosphatase 135 U/L Total Protein 6.1 GM/DL Albumin 2.4 GM/DL Cholesterol Level 76 MG/DL HDL Cholesterol 33.5 MG/DL Lipase 27 U/L Valproic Acid (Depakene) Level 110 MCG/ML Urine Turbidity HAZY Urine Leukocyte Esterase LARGE Urine WBC 17 /hpf Urine Bacteria RARE /hpf Urine Mucus FEW /lpf Vital Signs 07/30/16 07/30/16 07/30/16 07/30/16 09:35 09:40 09:40 09:40 Temp 98.2 Pulse 109 103 Resp 16 16 B/P 128/62 Pulse Ox 92 92 92 O2 Delivery Nasal Cannula Nasal Cannula Room Air O2 Flow Rate 2 2 07/30/16 07/30/16 07/30/16 12:30 13:00 17:00 Temp 96.6 Pulse 103 103 97 Resp 16 16 20 B/P 126/64 134/68 149/91 Pulse Ox 98 96 97 O2 Delivery Room Air Nasal Cannula O2 Flow Rate 2 Physical exam GENERAL: wdwn female, sitting in her hospital bed, NAD SKIN: Warm and dry. No rashes HEAD: Normocephalic. AT EYES: No scleral icterus. No injection or drainage. ENT: OP with poor dentition, multiple broken teeth which are tender to palpation , no obvious purulent drainage. NECK: Supple, trachea midline. No JVD or lymphadenopathy. CARDIOVASCULAR: Regular rate and rhythm without murmurs, gallops, or rubs. RESPIRATORY: Breath sounds equal and clear bilaterally. No accessory muscle use. GASTROINTESTINAL: Abdomen soft, mild diffuse tenderness, nondistended. Normal active BS. MUSCULOSKELETAL: No cyanosis, or edema. NO calf tenderness. BACK: Nontender without obvious deformity. No CVA tenderness. NEURO: Awake, but sleepy. Slightly slurred speech. Follows commands, answers questions. Assessment Assessment 50yoF admitted with: SIRS r/o C diff colitis Bipolar Polypharmacy Valproic acid toxicity Severe leukocytosis Falls at NH PLAN PLAN Blood cultures, urine Check c diff Empiric antibiotic therapy IVF resuscitation Hold select home meds- as patient has many sedating medications Monitor valproic acid level Check UDS Trend cbc DVT proph Patient seen and examined. Case reviewed and discussed Agree with plan of care as discussed with me and documented in the resident note. Sendy Mayers MD Jul 30, 2016 21:16
[2016-07-30 21:56] LABS: AUTOMATED NEUTROPHIL # 15.5 TH/MM3 (1.8-7.7); BASOPHIL # 0.1 TH/MM3 (0-0.2); BASOPHIL % 0.4 % (0.0-2.0); EOSINOPHIL # 0.2 TH/MM3 (0-0.4); EOSINOPHIL % 0.8 % (0.0-4.0); LYMPH % 17.4 % (9.0-44.0); LYMPHOCYTE # 3.7 TH/MM3 (1.0-4.8); MEAN CELL VOLUME 75.7 FL (80.0-100.0); MEAN CORPUSCULAR HEMOGLOBIN 24.8 PG (27.0-34.0); MEAN CORPUSCULAR HGB CONC 32.8 % (32.0-36.0); MONO % 9.4 % (0.0-8.0); PLATELET COUNT 372 TH/MM3 (150-450); RED BLOOD COUNT 3.83 MIL/MM3 (4.00-5.30); RED CELL DISTRIBUTION WIDTH 16.8 % (11.6-17.2); WHITE BLOOD COUNT 21.5 TH/MM3 (4.0-11.0)
[2016-07-30 22:02] LABS: HEMO FLAGS AUTO DIFF
[2016-07-30 22:35] LABS: BANDS 15 % (0-6); BASOPHILS 1 % (0-2); EOSINOPHILS 1 % (0-4); MYELOCYTES 1 % (0-0); NEUTROPHIL # MANUAL DIFF 15.7 TH/MM3 (1.8-7.7); POLYS (SEG NEUTROPHILS) 57 % (16-70); WBC DIFF SAMPLE 100
[2016-07-30 22:37] LABS: SCAN/DIFF FINAL DIFF MANUAL
[2016-07-30 22:38] LABS: OVALOCYTES 1+ (NORMAL); PLATELET ESTIMATE SMEAR NORMAL (NORMAL); PLATELET MORPHOLOGY NORMAL (NORMAL)
[2016-07-30] MEDS: DOCUSATE SODIUM 50 MG/SENNA 8.6 MG TAB PO SCH (22:57)
[2016-07-30] MEDS: ATORVASTATIN 20 MG TAB PO SCH (22:57)
[2016-07-30] MEDS: VANCOMYCIN INJ 1,000 MG in SODIUM CHLOR 0.9% 250 ML INJ 250 ML IV SCH (23:04)
[2016-07-31] VITALS (7 sets, daily range): BP systolic 98–142; BP diastolic 58–78; PULSE 89–99; RESP 17–20; TEMP 96.5–98.2; O2SAT 93–97
[2016-07-31] MEDS: ARTIFICIAL TEARS OPTH SOLN 15 ML BTL EACH EYE PRN (00:11)
[2016-07-31 02:31] LABS: AMPHETAMINE, URINE NEG (NEG); BARBITURATES, URINE NEG (NEG); COCAINE, URINE NEG (NEG)
[2016-07-31] MEDS: PIPERACIL-TAZO 3.375 GM PREMIX 50 ML IV SCH ×3 (04:15→17:12)
[2016-07-31] MEDS: INSULIN ASPART SUPPLEMENTAL SCALE SQ SCH ×4 (05:39→22:43)
[2016-07-31] MEDS: oxyCODONE/ACETAMINOPHEN 10 MG/325 MG TAB PO PRN ×3 (05:42→18:18)
[2016-07-31 06:49] LABS: AUTOMATED NEUTROPHIL # 12.9 TH/MM3 (1.8-7.7); BASOPHIL # 0.1 TH/MM3 (0-0.2); BASOPHIL % 0.3 % (0.0-2.0); EOSINOPHIL # 0.3 TH/MM3 (0-0.4); EOSINOPHIL % 1.8 % (0.0-4.0); HEMATOCRIT 30.5 % (35.0-46.0); LYMPH % 16.5 % (9.0-44.0); MEAN CELL VOLUME 75.8 FL (80.0-100.0); MEAN CORPUSCULAR HEMOGLOBIN 24.8 PG (27.0-34.0); MEAN CORPUSCULAR HGB CONC 32.8 % (32.0-36.0); MONO % 9.4 % (0.0-8.0); PLATELET COUNT 376 TH/MM3 (150-450); RED BLOOD COUNT 4.02 MIL/MM3 (4.00-5.30)
[2016-07-31 06:51] LABS: HEMO FLAGS AUTO DIFF
[2016-07-31 07:16] LABS: ALKALINE PHOSPHATASE 110 U/L (45-117); ALT (GPT) 7 U/L (10-53); ANION GAP 6 MEQ/L (5-15); AST (GOT) 6 U/L (15-37); BICARBONATE 34.5 MEQ/L (21.0-32.0); BLOOD UREA NITROGEN 4 MG/DL (7-18); CHLORIDE 97 MEQ/L (98-107); GLOMERULAR FILTRATION RATE 164 ML/MIN (>89); MAGNESIUM 1.5 MG/DL (1.5-2.5); POTASSIUM 3.1 MEQ/L (3.5-5.1); SODIUM (NA) 137 MEQ/L (136-145); TOTAL BILIRUBIN ADULT 0.2 MG/DL (0.2-1.0)
[2016-07-31] MEDS: RESP: ALBUTEROL 2.5 MG/IPRATROPIUM 0.5 MG NEB (SCH) NEB ×4 (08:02→19:25)
[2016-07-31 08:12] LABS: BANDS 37 % (0-6); EOSINOPHILS 2 % (0-4); METAMYELOCYTES 1 % (0-1); NEUTROPHIL # MANUAL DIFF 13.7 TH/MM3 (1.8-7.7); PLATELET ESTIMATE SMEAR NORMAL (NORMAL); POLYS (SEG NEUTROPHILS) 38 % (16-70); WBC DIFF SAMPLE 100
[2016-07-31 08:13] LABS: OVALOCYTES 1+ (NORMAL); PLATELET MORPHOLOGY NORMAL (NORMAL); SCAN/DIFF FINAL DIFF MANUAL
[2016-07-31] MEDS: POLYETHYLENE GLYCOL 17 GM PKG PO SCH (09:00)
[2016-07-31] MEDS: DOCUSATE SODIUM 50 MG/SENNA 8.6 MG TAB PO SCH ×2 (09:00→22:19)
[2016-07-31] MEDS: ALPRAZolam 1 MG TAB PO PRN (09:58)
[2016-07-31] MEDS: SPIRONOLACTONE 50 MG TAB PO SCH (09:58)
[2016-07-31] MEDS: PREGABALIN 100 MG CAP PO SCH (09:58)
[2016-07-31] MEDS: NICOTINE 7 MG/24 HR PATCH TD SCH (09:58)
[2016-07-31] MEDS: QUEtiapine FUMARATE 100 MG TAB PO SCH (09:59)
[2016-07-31] MEDS: metroNIDAZOLE 500 MG TAB PO SCH ×2 (09:59→17:13)
[2016-07-31] MEDS: GABAPENTIN 300 MG CAP PO SCH ×3 (09:59→17:13)
[2016-07-31] MEDS: BUDESONIDE-FORMOTEROL 160/4.5 MCG INHALER INH SCH ×2 (09:59→22:29)
[2016-07-31] MEDS: VANCOMYCIN INJ 1,000 MG in SODIUM CHLOR 0.9% 250 ML INJ 250 ML IV SCH (10:43)
[2016-07-31] MEDS ORDERED: DIATRIZOATE MEGLUM/DIATRIZOATE SOD 9 ML CUP PO ONE (11:00)
--- NOTE | 2016-07-31 11:54 | PD.CONS ---
Provisional Diagnosis Admission Date Jul 30, 2016 at 11:11 [place] I. Bipolar disorder Slade II. Deferred Slade III. COPD, GERD, DM, migraine, HTN, Slade IV. Previous suicidal attempts Slade V. 55 History of Present Illness Service Psychiatry Consult Requested By Primary Care Physician Candido Bird MD HPI The patient is a 50-year-old woman, domicile in a [facility], single , poor family support, with psychiatric history of bipolar disorder, anxiety, no previous psychiatric hospitalizations, 2 previous suicide attempts, receiving outpatient psychiatric care in his living facility by visiting psychiatrist, she is on Depakote 500 mg twice a day, Seroquel 100 mg in the morning and 400 mg at night, Xanax 1 mg 3 times a day Amitriptyline 25 mg at bedtime, past medical history of insulin-dependent diabetes, hyperlipidemia, GERD, COPD, that presents to the [facility] from [facility] for an abnormal white blood cell count that was performed in preparation for dental surgery. The CBC performed at the [facility] showed a white blood cell count of 27,000 with 58% bands. Depakote levels were also increased, 110, now 70. On psychiatric evaluation patient is found sleeping, difficult to arouse, once awaking irritable, lethargic, with slurred speech at times incoherent. Patient stated that she is feeling much better now, but very sleepy. She denies any potential distress, she reports sadness related with her current medical condition, but denies depression, denies anxiety, denies hopelessness, denies helplessness denies worthlessness, denies problems with appetite or sleep, denies suicidal and homicidal ideation. She also denies psychosis, denies paranoia, denies visual and auditory hallucinations. Patient reports that she has many reasons to live for, she has a granddaughter that she loves and she is a God believer. Patient is fully oriented 3, with fragmented thought, , at times thought blocking due to the sedation. Patient denies anxiety at this moment. She denies the use of drugs and alcohol. Review of Systems Constitutional: DENIES: Diaphoretic episodes, Fatigue, Fever, Weight gain, Weight loss, Chills, Dizziness, Change in appetite, Night Sweats Endocrine: DENIES: Abnorml menstrual pattern, Heat/cold intolerance, Polydipsia , Polyuria, Polyphagia Eyes: DENIES: Blurred vision, Diplopia, Eye inflammation, Eye pain, Vision loss , Photosensitivity, Double Vision Respiratory: DENIES: Apneas, Cough, Snoring, Wheezing, Hemoptysis, Sputum production, Shortness of breath Cardiovascular: DENIES: Chest pain, Palpitations, Syncope, Dyspnea on Exertion , PND, Lower Extremity Edema, Orthopnea, Claudication Integumentary: DENIES: Abnormal pigmentation, Pruritus, Rash, Nail changes, Breast masses, Breast skin changes, Nipple discharge Hematologic/lymphatic: DENIES: Bruising, Lymphadenopathy Immunologic/allergic: DENIES: Eczema, Urticaria Neurologic: DENIES: Abnormal gait, Headache, Localized weakness, Paresthesias, Seizures, Speech Problems, Tremor, Poor Balance Psychiatric: DENIES: Anxiety, Confusion, Mood changes, Depression, Hallucinations, Agitation, Suicidal Ideation, Homicidal Ideation, Delusions Past Family Social History Coded Allergies: Sulfa (Verified Allergy, Severe, RASH, 03/09/12) Cipro (Verified Allergy, Unknown, 07/30/16) Erythromycin (Verified Allergy, Unknown, 07/30/16) Ofloxacin (Verified Allergy, Unknown, 07/30/16) Reported Medications Spironolactone (Aldactone)50 Mg Tab50 Mg PO DAILY #30 TAB Ref 0 07/30/16 Lubiprostone (Amitiza)24 Mcg Cap24 Mg PO BID Ref 0 07/30/16 Amitriptyline 25 Mg Tab25 Mg PO HS #30 TAB Ref 0 07/30/16 Alprazolam (Xanax)1 Mg Tab1 Mg PO Q8H PRN (ANXIETY) Ref 0 07/30/16 Insulin Aspart Inj (Novolog Inj)1,000 Unit/10 Ml Vial SQ DIRECTED #10 ML Ref 0 Sliding Scale as directed. 07/30/16 Ranitidine (Zantac)150 Mg [id number] Mg PO BID #60 TAB Ref 0 07/30/16 Sennosides-Docusate Sodium (Senna S)8.6-50 Mg Tab2 Tab PO HS 07/30/16 Budesonide-Formoterol Inh (Symbicort Inh)160-4.5 Mcg/Act Aero1 Puff INH Q12HR # 1 INHALER Ref 0 07/30/16 Ipratropium HFA 12.9 GM Inh (Atrovent HFA 12.9 GM Inh)17 Mcg/Act Aer2 Puff INH QID #1 INHALER Ref 0 07/30/16 Pregabalin (Lyrica)100 Mg [id number] Mg PO DAILY #30 CAP Ref 0 07/30/16 Oxycodone-Acetaminophen (Percocet)10-325 mg Tab1 Tab PO Q6H PRN (PAIN) Ref 0 07/30/16 Ipratropium-Albuterol Neb (Duoneb)0.5-2.5 Mg/3 Ml Neb1 Nebule INH Q6HR NEB PRN ( WHEEZING) #120 NEBULE Ref 0 07/30/16 Quetiapine 300 Mg Pbf356 Mg PO HS #30 TAB Ref 0 07/30/16 Polyvinyl Alcohol Opth (Liquitears Opth)1.4% Soln2 Drop EACH EYE Q2HR PRN (DRY EYE) 07/30/16 Nystatin (Topical) (Nyata)100,000 Unit/Gm Bac275,000 Units TOP DAILY 07/30/16 Melatonin (Bulk) (Melatonin)1 Pow Pow3 Mg PO HS 07/30/16 Quetiapine Fumarate (Quetiapine Fumarate ER)150 Mg [id number] Mg PO BID 07/30/16 Cyclosporine Opth Drops (Restasis Opth Drops)0.05% Emul1 Drop EACH EYE HS #1 BOX Ref 0 07/30/16 Sodium Chloride 1 Gm Tab1 Gm PO DAILY Ref 0 07/30/16 Metformin ER 1,000 Mg Taber1,000 Mg PO BID #30 TAB Ref 0 With evening meal 07/30/16 Insulin Aspart Inj (Novolog Inj)1,000 Unit/10 Ml Vial7 Units SQ TIDAC #10 ML Ref 0 07/30/16 Divalproex (Niharika KEYS)500 Mg [id number] Mg PO Q8HR #60 TAB Ref 0 07/30/16 Atorvastatin 20 Mg Tab20 Mg PO HS #30 TAB Ref 0 07/30/16 Cyclobenzaprine (Flexeril)10 Mg Tab10 Mg PO TID #90 TAB Ref 0 07/30/16 Gabapentin (Neurontin)300 Mg Hap864 Mg PO TID #90 CAP Ref 0 07/30/16 Insulin Glargine Inj (Lantus Inj)1,000 Unit/10 Ml Vial26 Units SQ HS Ref 0 07/30/16 Current Medications Medications (Trade) Dose Ordered Sig/Krystal Route Start Time Stop Time Status Last Admin (Lovenox Inj) 40 mg Q24H SQ 07/30/16 14:00 (Apresoline) 10 mg Q6H PRN PO 07/30/16 12:15 Ondansetron HCl 4 mg 4 mg Q6H PRN IV 07/30/16 12:15 (NS 1000 ml Inj) 1,000 ml @ 155 mls/hr Q6H28M IV 07/30/16 12:01 07/30/16 17:29 (Tylenol) 650 mg Q4H PRN PO 07/30/16 12:15 (Habitrol 7 Mg Patch.24 Hr) 1 patch DAILY TD 07/30/16 12:15 07/31/16 09:58 (Xanax) 1 mg Q8H PRN PO 07/30/16 12:15 07/31/16 09:58 (Elavil) 25 mg HS PO 07/30/16 21:00 Hold (Lipitor) 20 mg HS PO 07/30/16 21:00 07/30/16 22:57 (Symbicort 160-4.5 Inh) 1 puff Q12HR INH 07/30/16 14:00 07/31/16 09:59 (Percocet 10-325 Mg) 1 tab Q6H PRN PO 07/30/16 12:15 07/31/16 05:42 (Tears Naturale Opth Soln) 2 drop Q2HR PRN EACH EYE 07/30/16 12:15 07/31/16 00:11 (Aldactone) 50 mg DAILY PO 07/31/16 09:00 07/31/16 09:58 Patient Own Medication PT OWN MED: Cyclosporine Opth .. HS EACH EYE 07/30/16 21:00 Hold (Ladan-Colace) 2 tab BID PO 07/30/16 21:00 07/30/16 22:57 (Miralax) 17 gm DAILY PO 07/30/16 12:45 (D50w (Vial) Inj) 25 ml UNSCH PRN IV PUSH 07/30/16 12:30 Glucagon 1 mg 1 mg UNSCH PRN OTHER 07/30/16 12:30 Vancomycin HCl 1000 mg/Sodium Chloride 250 ml @ 250 mls/hr Q12H IV 07/30/16 22:00 07/31/16 10:43 (Zosyn 3.375 Gm Premix) 50 ml @ 100 mls/hr Q6H IV 07/30/16 16:00 07/31/16 09:58 Miscellaneous Information 1 HS TD 07/30/16 21:00 07/30/16 21:00 (Flagyl) 500 mg Q8H PO 07/30/16 16:00 07/31/16 09:59 (Neurontin) 300 mg TID PO 07/30/16 18:00 07/31/16 09:59 (SEROquel) 100 mg BID PO 07/30/16 15:45 07/31/16 09:59 (Lyrica) 100 mg DAILY PO 07/30/16 15:45 07/31/16 09:58 (SEROquel) 300 mg HS PO 07/30/16 21:00 07/31/16 00:11 (Vasotec Inj) 1.25 mg Q8H PRN IV PUSH 07/30/16 19:15 Family History She denies Social History Patient was born and raised in [place], she does in [facility], she is in a [facility], she is single, unemployed, her highest level of education is college. Physical Exam Vital Signs Vital Signs Date Time Temp Pulse Resp B/P Pulse Ox O2 Delivery O2 Flow Rate FiO2 07/31/16 08:07 97 21 07/31/16 08:00 97.1 89 20 98/58 07/30/16 13:00 Nasal Cannula 2 I/O 07/30/16 07/30/16 07/31/16 08:00 16:00 00:00 Intake Total 480 ml Balance 480 ml Mental Status Examination Appearance woman, overweight, disheveled, irritable, poorly cooperative, at times incoherent Speech: Other (slurred ) Orientation: x3 Memory: Unremarkable Thought Process: Logical Thought Content: Unremarkable Hallucination Type: None Attention and Concentration: Good Suicidal Ideation: No Homicidal Ideation: No Previous Homicide Attempts: No Judgement: Impulsive Affect: Irritable Mood: Irritable Motor Activity: Normal gait Assessment & Plan Problem List: (1) Bipolar disorder in full remission Assessment & Plan: At the moment of this evaluation the patient does not present any symptomatology of depression, anxiety, jay or psychosis. Patient denies suicidal or homicidal ideation, she denies visual and auditory hallucinations. She does seems to be lethargic, sedated, with marked slurred speech. Since Depakote level is now therapeutic, and continue Depakote 500 mg twice a day and also the Seroquel just at 400 mg at night, discontinued the daytime dose of Seroquel until patient is less sedated. Hold Xanax and amitriptyline. Patient does not meet criteria for psychiatric admission at this moment. Psycho education, support, motivation provided. Consult outpatient. ICD Code: F31.70 Assessment & Plan Estimated LOS: David Cristina MD Jul 31, 2016 11:54
--- NOTE | 2016-07-31 12:10 | HHI.FPPN ---
Subjective Remarks Patient was lying up in bed this morning. She stated that she did not sleep much last night. She continues to endorse severe abdominal pain. Conversation was a bit difficult, but patient was able to be redirected enough to convince her to consent to a CT of her abdomen with oral contrast and an echocardiogram of her heart. (Dulce Guajardo MD R1) Objective Vitals Vital Signs Date Time Temp Pulse Resp B/P Pulse Ox O2 Delivery O2 Flow Rate FiO2 07/31/16 08:07 97 21 07/31/16 08:00 97.1 89 20 98/58 94 07/31/16 07:00 19 07/31/16 00:00 98.2 94 17 102/58 94 07/30/16 20:00 97.6 103 18 96 07/30/16 20:00 119/55 07/30/16 20:00 98.2 106 19 125/55 93 07/30/16 17:00 96.6 97 20 149/91 97 07/30/16 13:00 103 16 134/68 96 Nasal Cannula 2 07/30/16 12:30 103 16 126/64 98 Room Air I/O 07/30/16 07/30/16 07/30/16 07/31/16 07/31/16 07/31/16 07:00 15:00 23:00 07:00 15:00 23:00 Intake Total 480 ml 367 ml Balance 480 ml 367 ml Intake Oral 480 ml IV Total 367 ml # Voids 1 # Bowel Movements 0 (Dulce Guajardo MD R1) Result Diagram: 07/31/16 0630 07/31/16 0630 Imaging Last 48 hours Impressions Abdomen/Pelvis CT 07/31/16 0000 Signed Impressions: Service Date/Time: Sunday, July 31, 2016 13:04 - CONCLUSION: Moderate severity uncomplicated pancolitis. This is nonspecific, presumably infectious. C. difficile colitis would be in the differential. Active ulcerative colitis would be conceivable if the patient has that history. Hector Blackwell MD Head CT 07/30/1645 Signed Impressions: Service Date/Time: July 10:19 - CONCLUSION: No acute disease. No evidence of acute infarct, hemorrhage, mass or edema. Leroy Herrera MD Chest X-Ray 3/9/17 0945 Signed Impressions: Service Date/Time: July 09:55 - CONCLUSION: No acute disease. No significant change has occurred. Lefty Alexander MD Chest X-Ray 07/30/16 0000 Signed Impressions: Service Date/Time: July 12:30 - CONCLUSION: 1. Minimal basilar atelectasis or scarring. No effusion or pneumothorax. Lefty Alexander MD Objective Remarks GENERAL: This is a well-nourished, well-developed patient, in no apparent distress. SKIN: No rashes, ecchymoses or lesions. Cool and dry. HEAD: Normocephalic. No facial drooping EYES: Pupils equal round and reactive. Extraocular motions intact. No scleral icterus. No injection or drainage. ENT: Nose without bleeding, purulent drainage or septal hematoma. Throat without erythema, tonsillar hypertrophy or exudate. Uvula midline. Airway patent. NECK: Trachea midline. No JVD or lymphadenopathy. Supple, nontender, no meningeal signs. CARDIOVASCULAR: Tachycardic rate and regular rhythm without murmurs, gallops, or rubs. RESPIRATORY: Clear to auscultation. Breath sounds equal bilaterally but poor effort. No wheezes, rales, or rhonchi. GASTROINTESTINAL: Obese abdomen, umbilical surgical scar from previous hernia surgery, exquisitely tender to palpation mostly in the mid and right lower abdomen with guarding MUSCULOSKELETAL: Extremities without clubbing, cyanosis, or edema. No joint tenderness, effusion, or edema noted. No calf tenderness. NEUROLOGICAL: Awake and alert. Cranial nerves II through XII intact. Intact finger to nose. Moving all extremities. Five out of 5 muscle strength in all muscle groups. Slurred speech. (Eko,Dulce U R1) A/P Assessment and Plan 50-year-old female with a past medical history of diabetes, bipolar depression, panic disorder, uterine cancer, and hyperlipidemia presents to the [facility] from her [facility]ial with a chief complaint of altered mental status and elevated white blood cell count. Patient meets sepsis criteria with tachycardia , elevated white blood cell count, and elevated lactate of 2.7, which trended down to 1.2. The patient was admitted for workup of sepsis, administration of IV antibiotics and fluids. CT abdomen and pelvis was performed on 07/31 which showed uncomplicated pancolitis with high suspicion for clostridium difficile infection. Stool sample will be sent for analysis for C. difficile. Discharge Planning Pending clinical improvement (Eko,Dulce Gary MD R1) Attending Attestation Patient seen and examined with the resident team. Case reviewed and discussed Agree with plan of care as discussed with me and documented in the resident note. (Sendy Mayers MD) Problem List: (1) Sepsis Status: Acute Plan: -Patient met SIRS criteria on admission with elevated WBC at 26 and tachycardia to 109 on admission -Afebrile admission -Source suspected to be C. difficile colitis -Lactic acid was initially elevated at 2.7, decreased to 1.2 -Chest x-ray not concerning for pneumonia, shows minimal basilar atelectasis or scarring -Repeat catheterized urinalysis pending, initial urinalysis appeared to be contaminated -Blood cultures pending -Continue Vancomycin 1000 mg IV every 12 hours, patient received one dose in the ED Zosyn 3.375 mg IV every 6 hours, patient received one dose in the ED Normal saline at 155 mL per hour -Tylenol 650 mg Q6h PRN pain 1-10 of fever greater than 101F -Zofran 4mg IV Q6h PRN nausea/vomiting (2) Altered mental status Status: Acute Plan: -The nature of patient's altered mental status is unclear, custodial did not report her being altered -Patient reports dizziness on sitting up from a supine position -However patient takes multiple medications in similar classes, which can contribute to AMS -In addition, patient reports recently falling and hitting her head, which can cause concussive symptoms -Valproic acid level was elevated at 110, reference range 50-100, now within normal limits at 70 -Psychiatry consult to assist with medication management, recommend: -Continue Depakote 500 mg PO twice a day -Continue Seroquel 400 mg by mouth at bedtime -Hold Xanax and amitriptyline -CT head without contrast was negative for acute infarct, hemorrhage, mass, or edema -EKG showed sinus tachycardia with no ST changes suspicious for a STEMI -2-D echo ordered -Orthostatic vital signs WNL -UDS positive for benzodiazepine, for which patient has a prescription -Will consider EEG if patient's status worsens -Continuous pulse oximetry with supplemental oxygen -Vital signs every 4 hours -Neurochecks every 4 hours -OOB with assistance -Fall precautions -Monitor Is & Os (3) Recent history of diarrhea Status: Acute Plan: -Pt reports recent history of diarrheal stools although she says she feels constipated currently -CT abdomen/pelvis shows moderate severity uncomplicated pancolitis, presumably infectious with C. difficile colitis and ulcerative colitis in the differential -Will check C difficile antigen once patient has a stool sample -Empiric treatment with Flagyl 500mg PO Q8h (4) Chronic Medical Problems Status: Acute Plan: Diabetes: Hemoglobin A1c 8.5. Random glucose 90 on CMP. Patient takes Lantus 26 units subcutaneous at bedtime at home as well as Novolin sliding scale Will hold home Lantus. Accu-Cheks with low NovoLog SSI. Will add Levemir as needed Diabetic polyneuropathy: Continue gabapentin at reduced dose of 300 mg by mouth 3 times a day, continue Lyrica at current home dose COPD: Albuterol nebulizer every 4 hours while awake Hypertension: Patient was normotensive on admission. Continue spironolactone 50 mg by mouth daily. Will monitor blood pressures and cover with hydralazine when necessary as needed -Hydralazine 10mg PO QID prn SBP >= 160, DBP >= 90 -Vasotec 1.25mg IV Q8h prn SBP >= 180, DBP >= 100 Hyperlipidemia: Continue atorvastatin 20 mg by mouth at bedtime Bipolar Depression: Holding amitriptyline and Xanax Panic/anxiety disorder: Per psychiatry recommendations, will continue Seroquel 300 mg by mouth at bedtime Chronic low back pain: Continue home Percocet 10-325 mg every 6 hours when necessary. Holding Flexeril due to AMS and dizziness (5) FEN/DVT PPX/GI PPX Status: Acute Plan: Fluids: NS @ 155 mls/hr IV Electrolytes: Will monitor and replace as needed Nutrition: Heart healthy diet DVT Prophylaxis: Lovenox 40 mg subcutaneous GI Prophylaxis: Protonix 40 mg PO daily (Dulce Guajardo MD R1) Problem Qualifiers (1) Sepsis: Qualified Code: A41.9 - Sepsis, due to unspecified organism Dulce Guajardo MD R1 Jul 31, 2016 12:10 Sendy Mayers MD Jul 31, 2016 16:23
[2016-07-31] MEDS ORDERED: IOHEXOL 350 MG/ML 10 ML VIAL (for RAD DIAG) IV ONE (13:09)
[2016-07-31] MEDS: ENOXAPARIN SODIUM 40 MG/0.4 ML SYRINGE SQ SCH (13:28)
--- NOTE | 2016-07-31 13:34 | RADRPT ---
EXAM DATE/TIME: 07/31/2016 13:04 [facility] COMPARISON: No previous studies available for comparison. INDICATIONS : Leukocytosis. IV CONTRAST: 90 cc Omnipaque 350 (iohexol) IV ORAL CONTRAST: Prescribed oral contrast ingested. RADIATION DOSE: 15.00 CTDIvol (mGy) MEDICAL HISTORY : Hypertension. Gastroesophageal reflux disease. Hernia, hiatal.Diabetes. SURGICAL HISTORY : Hysterectomy. section. ENCOUNTER: Initial ACUITY: 1 day PAIN SCALE: 3/10 LOCATION: Bilateral abdomen TECHNIQUE: Volumetric scanning of the abdomen and pelvis was performed. Using automated exposure control and ad justment of the mA and/or kV according to patient size, radiation dose was kept as low as reasonably achievable to obtain optimal diagnostic quality images. FINDINGS: LOWER LUNGS: Mild dependent consolidation seen of both bases, right more so than left. LIVER: Homogeneous density without lesion. There is no dilation of the biliary tree. No calcified gallston es. SPLEEN: Normal size without lesion. PANCREAS: Within normal limits. KIDNEYS: Normal in size and shape. There is no mass, stone or hydronephrosis. ADRENAL GLANDS: Within normal limits. VASCULAR: There is no aortic aneurysm. BOWEL/MESENTERY: Moderate severity wall thickening and inflammatory changes are seen diffusely of the colon. There is probably an associated degree of colonic ileus. I don't see an obstruction. No abscess or perforation . ABDOMINAL WALL: Within normal limits. RETROPERITONEUM: There is no lymphadenopathy. BLADDER: No wall thickening or mass. REPRODUCTIVE: Within normal limits. INGUINAL: There is no lymphadenopathy or hernia. MUSCULOSKELETAL: No acute bony abnormality. CONCLUSION: Moderate severity uncomplicated pancolitis. This is nonspecific, presumably infectious. C. difficile colitis would be in the differential. Active ulcerative colitis would be conceivable if the patient h as that history. Hector Blackwell MD on July 31, 2016 at 13:26 Board Certified Radiologist. This report was verified electronically.
[2016-07-31] MEDS ORDERED: DIVALPROEX DR 500 MG TABEC PO SCH (14:00)
[2016-07-31] MEDS: GABAPENTIN 400 MG CAP PO SCH (18:18)
--- NOTE | 2016-07-31 19:02 | EC ---
Study Study Date:07/31/2016 STUDY CONCLUSIONS SUMMARY - Left ventricle: The cavity size was normal. Wall thickness was normal. Systolic function was normal. The estimated ejection fraction was in the range of 55% to 60%. Wall motion was normal; there were no regional wall motion abnormalities. - Aortic valve: Valve area: 2.09cm^2 (Vmax). If LV function is below 40, please consider prescribing an ACEI or ARB or document rationale for non-use. PROCEDURE DATA STUDY STATUS: Elective. Procedure: Transthoracic echocardiography. Image quality was good. Scanning was performed from the parasternal, apical, and subcostal acoustic windows. Study completion: The patient tolerated the procedure well. Transthoracic echocardiography. M-mode, complete 2D, complete spectral Doppler, and color Doppler. Height: Height: 64in. Weight: Weight: 204.6lb. Body mass index: BMI: 35.2kg/m^2. Body surface area: BSA: 1.98m^2. Patient status: Inpatient. CARDIAC ANATOMY LEFT VENTRICLE: The cavity size was normal. Wall thickness was normal. Systolic function was normal. The estimated ejection fraction was in the range of 55% to 60%. Wall motion was normal; there were no regional wall motion abnormalities. AORTIC VALVE: Trileaflet; normal thickness leaflets. Doppler: Transvalvular velocity was within the normal range. There was no stenosis. No regurgitation. Valve area: 2.09cm^2 (Vmax). Indexed valve area: 1.06cm^2/m^2 (Vmax). Peak gradient: 12mm Hg (S). AORTA: Aortic root: The aortic root was normal in size. MITRAL VALVE: Structurally normal valve. Doppler: Transvalvular velocity was within the normal range. There was no evidence for stenosis. No regurgitation. Peak gradient: 4mm Hg (D). LEFT ATRIUM: The atrium was normal in size. RIGHT VENTRICLE: The cavity size was normal. Wall thickness was normal. PULMONIC VALVE: Doppler: Transvalvular velocity was within the normal range. There was no evidence for stenosis. No regurgitation. TRICUSPID VALVE: Structurally normal valve. Doppler: Transvalvular velocity was within the normal range. No regurgitation. PULMONARY ARTERY: The main pulmonary artery was normal-sized. Systolic pressure was within the normal range. RIGHT ATRIUM: The atrium was normal in size. PERICARDIUM: There was no pericardial effusion. SYSTEMIC VEINS: Inferior vena cava: The vessel was normal in size. Patient weight: 204.6lb _Ejection fraction:_ 65-75% _Fractional shortening:_ 32% up to 5Kg 5-11.5Kg 11.6-22.9Kg 23-45Kg 45-57Kg Aortic Root 7-13 <17 13-22 17-27 17-27 LA diam 6-13 <23 24-38 33-47 37-40 RVID 10-17 7-15 7-15 7-18 8-17 LVIDd 12-22 <32 24-38 33-47 37-40 LVPW 2-4 3-6 5-7 6-8 7-8 IVS 2-4 3-6 5-7 6-8 7-8 BASIC MEASUREMENTS ADULT NORMAL Left ventricle LV internal dimension, ED, chordal *39 mm 43-52 level, PLAX LV internal dimension, ES, chordal 29.3 mm 23-38 level, PLAX Fractional shortening, chordal level, *25 % >29 PLAX LV posterior wall thickness, ED 9.51 mm IVS/LVPW ratio, ED 0.96 <1.3 Ventricular septum Septal thickness, ED 9.1 mm Aortic valve Leaflet separation 19 mm 15-26 BASIC MEASUREMENTS ADULT NORMAL Aortic valve Leaflet separation 19 mm 15-26 Aorta Root diameter, ED 25 mm 20-37 Left atrium Anterior-posterior dimension, ES 34 mm 19-40 Anterior-posterior dimension index, ES 1.72 cm/m^2 <2.2 LA/aortic root ratio 1.36 DOPPLER MEASUREMENTS ADULT NORMAL Main pulmonary artery Pressure, S 30 mm Hg =30 Aortic valve Peak velocity, S 170 cm/s Peak gradient, S 12 mm Hg Valve area, Vmax 2.09 cm^2 Valve area index, Vmax 1.06 cm^2/m^2 Mitral valve Peak E-wave velocity 96.3 cm/s Peak A-wave velocity 104 cm/s Deceleration time 222 ms 150-230 Peak gradient, D 4 mm Hg Peak E/A ratio 0.9 Tricuspid valve Regurgitant peak velocity 271 cm/s Peak RV-RA gradient, S 29 mm Hg Maximal regurgitant velocity 271 cm/s Systemic veins Estimated CVP 10 mm Hg Right ventricle RV pressure, S *39 mm Hg <30 Pulmonic valve Peak velocity, S 148 cm/s LEGEND: Mean values are shown as u=mean value. Asterisk (*) childs values outside specified normal range. Prepared and signed by Juan Ramon Alexis [id number]
--- NOTE | 2016-07-31 19:42 | EKG ---
Date Performed: 07/30/2016 Time Performed: 20:16:43 PTAGE: 50 years EKG: SINUS TACHYCARDIA NONSPECIFIC T-WAVE ABNORMALITY ABNORMAL RHYTHM ECG INTERPRETATION BASED O N A DEFAULT AGE OF 39 YEARS PREVIOUS TRACING : 03/09/2012 09.30 Compared to prior tracing no significant change DOCTOR: Tyler Benitez Interpretating Date/Time 07/31/2016 19:40:53
[2016-07-31] MEDS: REMOVE OLD NICODERM (NICOTINE) PATCH TD SCH (21:00)
[2016-07-31] MEDS: AMITRIPTYLINE HCL 25 MG TAB PO SCH (21:00)
--- NOTE | 2016-07-31 21:50 | PD.ID.CON ---
History of Present Illness Service ID Consult Requested By Dr Green Reason for Consult leukocytosis Primary Care Physician Candido Bird MD Diagnoses: History of Present Illness 50 yo female with multiple medical and psych problems co abdominal pain for weeks, got worse in the last 2 weeks also diarrhea x 2 weeks, liquid, no blood; poor appetite Pt resides in [facility] Abdomen with cárdenas colitis Pt is afebrile but significant leukocytoss in 18-22 K range with bandemia of 37 % She is on zosyn and vancomycin Pt is not cooperative on stoiol collection Review of Systems Except as stated in HPI: all other systems reviewed are Neg Past Family Social History Allergies: Coded Allergies: Sulfa (Verified Allergy, Severe, RASH, 03/09/12) Cipro (Verified Allergy, Unknown, 07/30/16) Erythromycin (Verified Allergy, Unknown, 07/30/16) Ofloxacin (Verified Allergy, Unknown, 07/30/16) Past Medical History -Major depressive disorder -Bipolar disorder -Anxiety disorder -Insulin-dependent diabetes -Polyneuropathy -Uterine cancer -Hyperlipidemia -GERD -COPD -Migraine headache -Acute conjunctivitis, left eye Past Surgical History section Eye surgery Hysterectomy C-spine surgery, lower back surgery Right knee surgery 2 Umbilical hernia Surgery Active Ordered Medications Medications where reviewed in EMR Antibiotics Include: zosyn and vancomycin Family History Non-Contributory. Social History + Tobacco. 1ppd x 33 yrs No ETOH. No Illicit Drugs. resides in group home Physical Exam Vital Signs Vital Signs Date Time Temp Pulse Resp B/P Pulse Ox O2 Delivery O2 Flow Rate FiO2 07/31/16 20:00 98.0 99 18 127/62 93 07/31/16 19:31 94 21 07/31/16 16:12 97.3 97 18 121/68 94 07/31/16 12:00 96.5 95 18 142/78 94 07/31/16 08:07 97 21 07/31/16 08:00 97.1 89 20 98/58 94 07/31/16 07:00 19 07/31/16 00:00 98.2 94 17 102/58 94 Physical Exam CONSTITUTIONAL/GENERAL: This is an adequately nourished patient, in no apparent distress. TUBES/LINES/DRAINS: SKIN: No jaundice, rashes, or lesions. Skin temperature appropriate. Not diaphoretic. HEAD: Atraumatic. Normocephalic. EYES: Pupils equal and round and reactive. Extraocular motions intact. No scleral icterus. No injection or drainage. Fundi not examined. ENT: Hearing grossly normal. Nose without bleeding or purulent drainage. Oral mucosae moist, poor dentition NECK: Trachea midline. Supple, nontender. No palpable thyroid enlargement or nodularity. CARDIOVASCULAR: Regular rate and rhythm without murmurs, gallops, or rubs. No JVD. Peripheral pulses symmetric. RESPIRATORY/CHEST: Symmetric, unlabored respirations. Clear to auscultation. Breath sounds equal bilaterally. No wheezes, rales, or rhonchi. GASTROINTESTINAL: Abdomen soft, markedly tender to palpation in all 4 quadrants with g/ ? rebound, + moderaretely distended. No hepato-splenomegaly, or palpable masses. No guarding. Bowel sounds present GENITOURINARY: Without palpable bladder distension. MUSCULOSKELETAL: Extremities without clubbing, cyanosis, or edema. No joint tenderness or effusion noted. No calf tenderness. No mottling or clubbing. LYMPHATICS: No palpable cervical or supraclavicular adenopathy. NEUROLOGICAL: Awake and alert. Motor and sensory grossly within normal limits. Follows commands.Normal speech Moves all extremities. PSYCHIATRIC: No obvious anxiety/depression. no apparent hallucinations or other psychotic thought process. Laboratory Laboratory Tests Test 07/30/16 07/31/16 21:50 06:30 White Blood Count 21.5 18.0 Red Blood Count 3.83 4.02 Hemoglobin 9.5 10.0 Hematocrit 29.0 30.5 Mean Corpuscular Volume 75.7 75.8 Mean Corpuscular Hemoglobin 24.8 24.8 Mean Corpuscular Hemoglobin 32.8 32.8 Concent Red Cell Distribution Width 16.8 17.0 Platelet Count 372 376 Mean Platelet Volume 6.3 6.4 Neutrophils (%) (Auto) 72.0 72.0 Lymphocytes (%) (Auto) 17.4 16.5 Monocytes (%) (Auto) 9.4 9.4 Eosinophils (%) (Auto) 0.8 1.8 Basophils (%) (Auto) 0.4 0.3 Neutrophils # (Auto) 15.5 12.9 Lymphocytes # (Auto) 3.7 3.0 Monocytes # (Auto) 2.0 1.7 Eosinophils # (Auto) 0.2 0.3 Basophils # (Auto) 0.1 0.1 CBC Comment AUTO DIFF AUTO DIFF Differential Total Cells 100 100 Counted Neutrophils % (Manual) 57 38 Band Neutrophils % 15 37 Lymphocytes % 22 16 Monocytes % 3 6 Eosinophils % 1 2 Basophils % 1 Neutrophils # (Manual) 15.7 13.7 Myelocytes 1 Differential Comment FINAL DIFF FINAL DIFF MANUAL MANUAL Platelet Estimate NORMAL NORMAL Platelet Morphology Comment NORMAL NORMAL Ovalocytes 1+ 1+ Metamyelocytes 1 Atypical Lymphocytes Sodium Level 137 Potassium Level 3.1 Chloride Level 97 Carbon Dioxide Level 34.5 Anion Gap 6 Blood Urea Nitrogen 4 Creatinine 0.41 Estimat Glomerular Filtration 164 Rate Random Glucose 144 Calcium Level 7.6 Phosphorus Level 3.4 Magnesium Level 1.5 Total Bilirubin 0.2 Aspartate Amino Transf 6 (AST/SGOT) Alanine Aminotransferase 7 (ALT/SGPT) Alkaline Phosphatase 110 Total Protein 5.1 Albumin 1.9 Valproic Acid (Depakene) Level 70 Date/Time Procedure Status Source Growth 07/30/16 12:20 Urine Culture - Preliminary Resulted Urine Catheterized Urine IMMATURE GROWTH - REINCUBATE 07/30/16 09:50 Aerobic Blood Culture - Preliminary Resulted Blood Peripheral NO GROWTH IN 1 DAY 07/30/16 09:50 Anaerobic Blood Culture - Preliminary Resulted Blood Peripheral NO GROWTH IN 1 DAY Result Diagram: 07/31/16 0630 07/31/16 0630 Imaging Last Impressions Abdomen/Pelvis CT 07/31/16 0000 Signed Impressions: Service Date/Time: Sunday, July 31, 2016 13:04 - CONCLUSION: Moderate severity uncomplicated pancolitis. This is nonspecific, presumably infectious. C. difficile colitis would be in the differential. Active ulcerative colitis would be conceivable if the patient has that history. Hector Blackwell MD Head CT 07/30/16944 Signed Impressions: Service Date/Time: July 10:19 - CONCLUSION: No acute disease. No evidence of acute infarct, hemorrhage, mass or edema. Leroy Herrera MD Chest X-Ray 07/30/16944 Signed Impressions: Service Date/Time: July 09:55 - CONCLUSION: No acute disease. No significant change has occurred. Lefty Alexander MD Assessment and Plan Assessment and Plan Colitis, likely C.diff (exposure risk factors), quite severe Leukocytosis - 2/2 C.diff Bacteriuria - disregard current UA since she has 15 sq epi cells present - stool for C.diff - FALGUNI lu - start po radha and Alessia Lucero MD Jul 31, 2016 21:49
[2016-07-31] MEDS: ATORVASTATIN 20 MG TAB PO SCH (22:18)
[2016-07-31] MEDS: QUEtiapine FUMARATE 200 MG TAB PO SCH (22:19)
[2016-07-31] MEDS: DIVALPROEX DR 500 MG TABEC PO SCH (22:19)
[2016-07-31] MEDS: VANCOMYCIN 500 MG VIAL (FOR ORAL USE ONLY) PO SCH (22:25)
[2016-07-31] MEDS: metroNIDAZOLE 500 MG INJ 100 ML IV SCH (23:27)
[2016-08-01] VITALS (8 sets, daily range): BP systolic 109–133; BP diastolic 60–77; PULSE 95–102; RESP 18–20; TEMP 96.7–97.9; O2SAT 90–98
[2016-08-01 03:47] LABS: C. DIFF EPI 027 PRESUMPTIVE NEGATIVE (NEGATIVE); C. DIFF TOXIN PCR NEGATIVE (NEGATIVE)
[2016-08-01] MEDS: VANCOMYCIN 500 MG VIAL (FOR ORAL USE ONLY) PO SCH ×5 (03:49→22:00)
[2016-08-01] MEDS: ARTIFICIAL TEARS OPTH SOLN 15 ML BTL EACH EYE PRN (04:42)
[2016-08-01] MEDS: oxyCODONE/ACETAMINOPHEN 10 MG/325 MG TAB PO PRN ×3 (04:42→19:37)
[2016-08-01] MEDS: INSULIN ASPART SUPPLEMENTAL SCALE SQ SCH ×4 (05:44→20:59)
[2016-08-01 06:05] LABS: AUTOMATED NEUTROPHIL # 14.9 TH/MM3 (1.8-7.7); BASOPHIL % 0.2 % (0.0-2.0); EOSINOPHIL # 0.1 TH/MM3 (0-0.4); EOSINOPHIL % 0.7 % (0.0-4.0); HEMATOCRIT 31.4 % (35.0-46.0); LYMPH % 17.7 % (9.0-44.0); LYMPHOCYTE # 3.8 TH/MM3 (1.0-4.8); MEAN CORPUSCULAR HEMOGLOBIN 24.9 PG (27.0-34.0); MEAN CORPUSCULAR HGB CONC 33.2 % (32.0-36.0); NEUT % 69.4 % (16.0-70.0); PLATELET COUNT 447 TH/MM3 (150-450); RED BLOOD COUNT 4.19 MIL/MM3 (4.00-5.30); RED CELL DISTRIBUTION WIDTH 16.4 % (11.6-17.2); WHITE BLOOD COUNT 21.5 TH/MM3 (4.0-11.0)
[2016-08-01 06:07] LABS: ALT (GPT) 8 U/L (10-53); ANION GAP 10 MEQ/L (5-15); AST (GOT) 5 U/L (15-37); BICARBONATE 28.2 MEQ/L (21.0-32.0); BLOOD UREA NITROGEN 3 MG/DL (7-18); CHLORIDE 99 MEQ/L (98-107); GLOMERULAR FILTRATION RATE 147 ML/MIN (>89); POTASSIUM 3.6 MEQ/L (3.5-5.1); SODIUM (NA) 137 MEQ/L (136-145)
[2016-08-01 06:08] LABS: ALKALINE PHOSPHATASE 119 U/L (45-117); TOTAL BILIRUBIN ADULT 0.1 MG/DL (0.2-1.0)
[2016-08-01 06:09] LABS: HEMO FLAGS AUTO DIFF
[2016-08-01] MEDS: RESP: ALBUTEROL 2.5 MG/IPRATROPIUM 0.5 MG NEB (SCH) NEB ×4 (07:54→19:37)
[2016-08-01 07:56] LABS: BANDS 24 % (0-6); BASOPHILS 1 % (0-2); MYELOCYTES 2 % (0-0); NEUTROPHIL # MANUAL DIFF 16.8 TH/MM3 (1.8-7.7); POLYS (SEG NEUTROPHILS) 52 % (16-70); WBC DIFF SAMPLE 100
[2016-08-01 07:57] LABS: OVALOCYTES 1+ (NORMAL); PLATELET ESTIMATE SMEAR NORMAL (NORMAL); PLATELET MORPHOLOGY NORMAL (NORMAL); SCAN/DIFF FINAL DIFF MANUAL
--- NOTE | 2016-08-01 08:36 | HHI.FPPN ---
Subjective Remarks Patient lying comfortably in bed, not agitated this morning, except that she wanted has Xanax medication which was stopped by psychiatry to be reinstated. Informed her about her echo, CT scan results and negative C. difficile test. I let her know that we may need another stool sample for further stool studies and she was very agreeable. Also discussed the possibility of colonoscopy which she said she would agree to last long as she sedated. (Dulce Guajardo MD R1) Objective Vitals Vital Signs Date Time Temp Pulse Resp B/P Pulse Ox O2 Delivery O2 Flow Rate FiO2 08/01/16 07:57 98 21 08/01/16 05:44 20 08/01/16 04:00 97.0 101 18 133/67 97 08/01/16 00:00 97.1 102 18 115/60 92 07/31/16 20:00 98.0 99 18 127/62 93 07/31/16 19:31 94 21 07/31/16 16:12 97.3 97 18 121/68 94 07/31/16 12:00 96.5 95 18 142/78 94 I/O 07/31/16 07/31/16 07/31/16 08/01/16 08/01/16 08/01/16 07:00 15:00 23:00 07:00 15:00 23:00 Intake Total 367 ml 840 ml 1042 ml 984 ml Balance 367 ml 840 ml 1042 ml 984 ml Intake Oral 840 ml 480 ml 240 ml IV Total 367 ml 562 ml 744 ml # Voids 4 3 1 # Bowel Movements 1 (Dulce Guajardo MD R1) Result Diagram: 08/01/16 0436 08/01/16 0436 Imaging Last Impressions Abdomen/Pelvis CT 07/31/16 0000 Signed Impressions: Service Date/Time: Sunday, July 31, 2016 13:04 - CONCLUSION: Moderate severity uncomplicated pancolitis. This is nonspecific, presumably infectious. C. difficile colitis would be in the differential. Active ulcerative colitis would be conceivable if the patient has that history. Hector Blackwell MD Head CT 07/30/16 0945 Signed Impressions: Service Date/Time: July 10:19 - CONCLUSION: No acute disease. No evidence of acute infarct, hemorrhage, mass or edema. Leroy Herrera MD Chest X-Ray 07/30/16 0945 Signed Impressions: Service Date/Time: July 09:55 - CONCLUSION: No acute disease. No significant change has occurred. Lefty Alexander MD Objective Remarks GENERAL: This is a well-nourished, well-developed patient, in no apparent distress. SKIN: No rashes, ecchymoses or lesions. Cool and dry. HEAD: Normocephalic. No facial droop EYES: Pupils equal round and reactive. Extraocular motions intact. No scleral icterus. No injection or drainage. ENT: Nose without bleeding, purulent drainage or septal hematoma. Throat without erythema, tonsillar hypertrophy or exudate. Uvula midline. Airway patent. NECK: Trachea midline. No JVD or lymphadenopathy. Supple, nontender, no meningeal signs. CARDIOVASCULAR: Tachycardic rate and regular rhythm without murmurs, gallops, or rubs. RESPIRATORY: Clear to auscultation. Breath sounds equal bilaterally but poor effort. No wheezes, rales, or rhonchi. GASTROINTESTINAL: Obese abdomen, umbilical surgical scar from previous hernia surgery, exquisitely tender to palpation mostly in the mid and right lower abdomen with guarding MUSCULOSKELETAL: Extremities without clubbing, cyanosis, or edema. No joint tenderness, effusion, or edema noted. No calf tenderness. NEUROLOGICAL: Awake and alert. Cranial nerves II through XII intact. Intact finger to nose. Moving all extremities appropriately. (JarrodoDulce MD R1) A/P Assessment and Plan 50-year-old female with a past medical history of diabetes, bipolar depression, panic disorder, uterine cancer, and hyperlipidemia presents to [facility] from her [facility] with a chief complaint of altered mental status and elevated white blood cell count. Patient meets sepsis criteria with tachycardia , elevated white blood cell count, and elevated lactate of 2.7, which trended down to 1.2. The patient was admitted for workup of sepsis, administration of IV antibiotics and fluids. CT abdomen and pelvis was performed on 07/31 which showed uncomplicated pancolitis with high suspicion for clostridium difficile infection ulcerative colitis. Stool sample was negative for C. difficile. Discharge Planning Pending clinical improvement (JarrodoDulce MD R1) Attending Attestation Patient seen and examined. Case reviewed and discussed. Agree with plan of care as discussed with me and documented in the resident note. (Sendy Mayers MD) Problem List: (1) Pancolitis Status: Acute Plan: -Patient met SIRS criteria on admission with elevated WBC at 26 and tachycardia to 109 on admission -Afebrile on admission -Lactic acid was initially elevated at 2.7, decreased to 1.2 -Blood cultures no growth 1 day -Chest x-ray not concerning for pneumonia, only shows minimal basilar atelectasis or scarring -Source suspected to be C. difficile colitis, however C. difficile test was negative -We'll check for stool enteric pathogens, ova and parasites, stool leukocytes, H. pylori -ID consulted -Started Vancomycin 125 mg Q6h PO suspension by mouth -Flagyl 500 mg IV every 8 hours -Antibiotic history Vancomycin 1000 mg IV every 12 hours, discontinued on 07/31 Zosyn 3.375 mg IV every 6 hours, discontinued on 07/31 -Tylenol 650 mg Q6h PRN pain 1-10 of fever greater than 101F -Zofran 4mg IV Q6h PRN nausea/vomiting (2) Altered mental status Status: Resolved Plan: -The nature of patient's altered mental status is unclear, fdc did not report her being altered -Patient reports dizziness on sitting up from a supine position -However patient takes multiple medications in similar classes, which can contribute to AMS -In addition, patient reports recently falling and hitting her head, which can cause concussive symptoms -Valproic acid level was elevated at 110, reference range 50-100, now within normal limits at 70 -Psychiatry consult to assist with medication management, recommend: -Continue Depakote 500 mg PO twice a day -Continue Seroquel 400 mg by mouth at bedtime -Hold Xanax and amitriptyline -CT head without contrast was negative for acute infarct, hemorrhage, mass, or edema -EKG showed sinus tachycardia with no ST changes suspicious for a STEMI -2-D echo ordered -Orthostatic vital signs WNL -UDS positive for benzodiazepine, for which patient has a prescription -Will consider EEG if patient's status worsens -Continuous pulse oximetry with supplemental oxygen -Vital signs every 4 hours -Neurochecks every 4 hours -OOB with assistance -Fall precautions -Monitor Is & Os (3) Recent history of diarrhea Status: Acute Plan: -Pt reports recent history of diarrheal stools although she says she feels constipated currently -CT abdomen/pelvis shows moderate severity uncomplicated pancolitis, presumably infectious with C. difficile colitis and ulcerative colitis in the differential -Will check C difficile antigen once patient has a stool sample -Empiric treatment with Flagyl 500mg PO Q8h (4) Chronic Medical Problems Status: Acute Plan: Diabetes: Hemoglobin A1c 8.5. Patient takes Lantus 26 units subcutaneous at bedtime at home as well as Novolin sliding scale Will hold home Lantus. Accu-Cheks with low NovoLog SSI. Will add Levemir as needed Diabetic polyneuropathy: Continue gabapentin at reduced dose of 400 mg by mouth 3 times a day, continue Lyrica at current home dose COPD: Albuterol nebulizer every 4 hours while awake Hypertension: Patient was normotensive on admission -Continue spironolactone 50 mg by mouth daily -Hydralazine 10mg PO QID prn SBP >= 160, DBP >= 90 -Vasotec 1.25mg IV Q8h prn SBP >= 180, DBP >= 100 Hyperlipidemia: Continue atorvastatin 20 mg by mouth at bedtime Bipolar Depression: Holding amitriptyline and Xanax Panic/anxiety disorder: Per psychiatry recommendations, will continue Seroquel 400 mg by mouth at bedtime Chronic low back pain: Continue home Percocet 10-325 mg every 6 hours when necessary. Holding Flexeril due to AMS and dizziness (5) FEN/DVT PPX/GI PPX Status: Acute Plan: Fluids: Oral fluids Electrolytes: Will monitor and replace as needed Nutrition: Heart healthy diet DVT Prophylaxis: Lovenox 40 mg subcutaneous GI Prophylaxis: Protonix 40 mg PO daily (Dulce Guajardo MD R1) Dulce Guajardo MD R1 Aug 01, 2016 08:36 Sendy Mayers MD Aug 06, 2016 17:46
[2016-08-01] MEDS: DOCUSATE SODIUM 50 MG/SENNA 8.6 MG TAB PO SCH (09:00)
[2016-08-01] MEDS: POLYETHYLENE GLYCOL 17 GM PKG PO SCH (09:00)
[2016-08-01] MEDS: GABAPENTIN 400 MG CAP PO SCH ×3 (09:03→18:10)
[2016-08-01] MEDS: BUDESONIDE-FORMOTEROL 160/4.5 MCG INHALER INH SCH ×2 (09:03→20:38)
[2016-08-01] MEDS: SPIRONOLACTONE 50 MG TAB PO SCH (09:03)
[2016-08-01] MEDS: DIVALPROEX DR 500 MG TABEC PO SCH ×2 (09:03→20:55)
[2016-08-01] MEDS: PREGABALIN 100 MG CAP PO SCH (09:04)
[2016-08-01] MEDS: NICOTINE 7 MG/24 HR PATCH TD SCH (09:04)
[2016-08-01] MEDS: metroNIDAZOLE 500 MG INJ 100 ML IV SCH ×2 (09:05→18:14)
[2016-08-01] MEDS: ENOXAPARIN SODIUM 40 MG/0.4 ML SYRINGE SQ SCH (13:59)
--- NOTE | 2016-08-01 14:33 | PD.CONS ---
HPI History of Present Illness This is a 50 year old female with a past medical history of insulin-dependent diabetes, bipolar depression, panic disorder, hyperlipidemia, who was sent to the emergency department for abnormal out patient labs that were done for preparation for dental surgery. [place] [address]. Abdomen/ Pelvis CT 07/31/16 Moderate severity uncomplicated pancolitis. This is nonspecific, presumably infectious. C. difficile colitis would be in the differential. Active ulcerative colitis would be conceivable if the patient has that history. Patient reports diarrhea on off for a couple of months. Sates , for a while there she couldn't go out to a smoke a cigarette which is something that she loves to do. States, she would have the diarrhea for few days , then have normal bms for few days. She report a loss in appetite recently. She denies nausea, vomiting, or hematochezia or melena. She reports diffused abdomen cramps especially preceding having a BM. She denies recent abx, sick contact or travel. Denies previous history of this, denies previous colonoscopy. Stools negative for C-diff, stool cx pending. (Cris Gunter) PFSH Past Medical History - Major depressive disorder -Bipolar disorder -Anxiety disorder -Insulin-dependent diabetes -Polyneuropathy -Uterine cancer -Hyperlipidemia -GERD -COPD -Migraine headache -Acute conjunctivitis, left eye Past Surgical History section Eye surgery Hysterectomy C-spine surgery, lower back surgery Right knee surgery 2 Umbilical hernia Surgery (Cris Gunter) Coded Allergies: Sulfa (Verified Allergy, Severe, RASH, 03/09/12) Cipro (Verified Allergy, Unknown, 07/30/16) Erythromycin (Verified Allergy, Unknown, 07/30/16) Ofloxacin (Verified Allergy, Unknown, 07/30/16) Medications Current Medications Medications (Trade) Dose Ordered Sig/Krystal Route Start Time Stop Time Status Last Admin (Lovenox Inj) 40 mg Q24H SQ 07/30/16 14:00 07/31/16 13:28 (Apresoline) 10 mg Q6H PRN PO 07/30/16 12:15 (Zofran Inj) 4 mg Q6H PRN IV 07/30/16 12:15 (Tylenol) 650 mg Q4H PRN PO 07/30/16 12:15 (Habitrol 7 Mg Patch.24 Hr) 1 patch DAILY TD 07/30/16 12:15 08/01/16 09:04 (Xanax) 1 mg Q8H PRN PO 07/30/16 12:15 Hold 07/31/16 09:58 (Elavil) 25 mg HS PO 07/30/16 21:00 (Lipitor) 20 mg HS PO 07/30/16 21:00 07/31/16 22:18 (Symbicort 160-4.5 Inh) 1 puff Q12HR INH 07/30/16 14:00 08/01/16 09:03 (Percocet 10-325 Mg) 1 tab Q6H PRN PO 07/30/16 12:15 08/01/16 11:23 (Tears Naturale Opth Soln) 2 drop Q2HR PRN EACH EYE 07/30/16 12:15 08/01/16 04:42 (Aldactone) 50 mg DAILY PO 07/31/16 09:00 08/01/16 09:03 Patient Own Medication PT OWN MED: Cyclosporine Opth .. HS EACH EYE 07/30/16 21:00 Hold (Ladan-Colace) 2 tab BID PO 07/30/16 21:00 Hold 07/31/16 22:19 (D50w (Vial) Inj) 25 ml UNSCH PRN IV PUSH 07/30/16 12:30 (Glucagon Inj) 1 mg UNSCH PRN OTHER 07/30/16 12:30 Miscellaneous Information 1 HS TD 07/30/16 21:00 07/31/16 21:00 (Lyrica) 100 mg DAILY PO 07/30/16 15:45 08/01/16 09:04 (Vasotec Inj) 1.25 mg Q8H PRN IV PUSH 07/30/16 19:15 (Depakote Dr) 500 mg Q12HR PO 07/31/16 21:00 08/01/16 09:03 (Neurontin) 400 mg TID PO 07/31/16 18:00 08/01/16 09:03 (SEROquel) 400 mg HS PO 07/31/16 21:00 07/31/16 22:19 Vancomycin HCl 125 mg 125 mg Q6H PO 07/31/16 22:00 08/01/16 10:00 (Flagyl 500 Mg Inj) 100 ml @ 100 mls/hr Q8H IV 08/01/16 01:00 08/01/16 09:05 (Xanax) 0.5 mg Q8H PRN PO 08/01/16 11:45 Family History No family history of colon cancer or IBD Social History Normally smokes 1ppd x 33 years Denies alcohol use (Cris Gunter) Review of Systems Constitutional: COMPLAINS OF: Fatigue, Change in appetite Endocrine: DENIES: Polyuria Eyes: DENIES: Double Vision Ears, nose, mouth, throat: DENIES: Hoarseness Respiratory: DENIES: Shortness of breath Cardiovascular: DENIES: Lower Extremity Edema Gastrointestinal: COMPLAINS OF: Abdominal pain, Diarrhea, Anorexia, DENIES: Black stools, Bloody stools, Constipation, Nausea, Vomiting, Difficulty Swallowing, Swelling of Abdomen, Heartburn, Hematemesis Genitourinary: DENIES: Nocturia Musculoskeletal: DENIES: Back pain Integumentary: DENIES: Jaundice Hematologic/lymphatic: DENIES: Bruising Immunologic/allergic: DENIES: Eczema Neurologic: DENIES: Abnormal gait Psychiatric: COMPLAINS OF: Anxiety (Cris Gunter) GI Exam Vitals I&O Vital Signs Date Time Temp Pulse Resp B/P Pulse Ox O2 Delivery O2 Flow Rate FiO2 08/01/16 11:50 97.9 100 20 129/69 92 08/01/16 07:57 98 21 08/01/16 07:50 96.7 95 20 113/64 90 08/01/16 05:44 20 08/01/16 04:00 97.0 101 18 133/67 97 08/01/16 00:00 97.1 102 18 115/60 92 07/31/16 20:00 98.0 99 18 127/62 93 07/31/16 19:31 94 21 07/31/16 16:12 97.3 97 18 121/68 94 I/O 07/31/16 07/31/16 07/31/16 08/01/16 08/01/16 08/01/16 07:00 15:00 23:00 07:00 15:00 23:00 Intake Total 367 ml 840 ml 1042 ml 984 ml Balance 367 ml 840 ml 1042 ml 984 ml Intake Oral 840 ml 480 ml 240 ml IV Total 367 ml 562 ml 744 ml # Voids 4 3 1 # Bowel Movements 1 Imaging Last Impressions Abdomen/Pelvis CT 07/31/16 0000 Signed Impressions: Service Date/Time: Sunday, July 31, 2016 13:04 - CONCLUSION: Moderate severity uncomplicated pancolitis. This is nonspecific, presumably infectious. C. difficile colitis would be in the differential. Active ulcerative colitis would be conceivable if the patient has that history. Hector Blackwell MD Head CT 07/30/1645 Signed Impressions: Service Date/Time: July 10:19 - CONCLUSION: No acute disease. No evidence of acute infarct, hemorrhage, mass or edema. Leroy Herrera MD Chest X-Ray 07/30/1645 Signed Impressions: Service Date/Time: July 09:55 - CONCLUSION: No acute disease. No significant change has occurred. Lefty Alexander MD Laboratory Test 07/31/16 08/01/16 08/01/16 17:30 02:32 04:36 Nasal Screen MRSA (PCR) NEGATIVE Stool C. difficile Toxin (PCR) NEGATIVE Stl C. difficile Toxin PRESUMPTIVE Epiderm 027 NEGATIVE White Blood Count 21.5 TH/MM3 Red Blood Count 4.19 MIL/MM3 Hemoglobin 10.4 GM/DL Hematocrit 31.4 % Mean Corpuscular Volume 75.0 FL Mean Corpuscular Hemoglobin 24.9 PG Mean Corpuscular Hemoglobin 33.2 % Concent Red Cell Distribution Width 16.4 % Platelet Count 447 TH/MM3 Mean Platelet Volume 6.8 FL Neutrophils (%) (Auto) 69.4 % Lymphocytes (%) (Auto) 17.7 % Monocytes (%) (Auto) 12.0 % Eosinophils (%) (Auto) 0.7 % Basophils (%) (Auto) 0.2 % Neutrophils # (Auto) 14.9 TH/MM3 Lymphocytes # (Auto) 3.8 TH/MM3 Monocytes # (Auto) 2.6 TH/MM3 Eosinophils # (Auto) 0.1 TH/MM3 Basophils # (Auto) 0.0 TH/MM3 CBC Comment AUTO DIFF Differential Total Cells 100 Counted Neutrophils % (Manual) 52 % Band Neutrophils % 24 % Lymphocytes % 12 % Monocytes % 9 % Basophils % 1 % Neutrophils # (Manual) 16.8 TH/MM3 Myelocytes 2 % Differential Comment FINAL DIFF MANUAL Platelet Estimate NORMAL Platelet Morphology Comment NORMAL Ovalocytes 1+ Sodium Level 137 MEQ/L Potassium Level 3.6 MEQ/L Chloride Level 99 MEQ/L Carbon Dioxide Level 28.2 MEQ/L Anion Gap 10 MEQ/L Blood Urea Nitrogen 3 MG/DL Creatinine 0.45 MG/DL Estimat Glomerular Filtration 147 ML/MIN Rate Random Glucose 115 MG/DL Calcium Level 8.3 MG/DL Total Bilirubin 0.1 MG/DL Aspartate Amino Transf 5 U/L (AST/SGOT) Alanine Aminotransferase 8 U/L (ALT/SGPT) Alkaline Phosphatase 119 U/L Total Protein 5.5 GM/DL Albumin 2.0 GM/DL Date/Time Procedure Status Source Growth 08/01/16 02:32 Cryptosporidium Exam Received Stool Stool Pending 08/01/16 02:32 Stool Pus (JENNIFER) Received Stool Stool Pending 08/01/16 02:32 Giardia Antigen (JENNIFER) Received Stool Stool Pending 08/01/16 02:32 Received Stool Stool Pending 07/30/16 12:20 Urine Culture - Final Complete Urine Catheterized Urine 10-50,000 CFU/ML MIXED GRAM POSITIVE ... 07/30/16 09:50 Aerobic Blood Culture - Preliminary Resulted Blood Peripheral NO GROWTH IN 2 DAYS 07/30/16 09:50 Anaerobic Blood Culture - Preliminary Resulted Blood Peripheral NO GROWTH IN 2 DAYS Physical Examination HEENT: normocephalic; atraumatic; no jaundice. NECK: Neck is supple, no JVD, no lymphadenopathy. CHEST: Chest is clear to auscultation and percussion. CARDIAC: Regular rate and rhythm with no murmur gallop or rubs. ABDOMEN: Soft, nondistended, obese, diffused tenderness but more on RUQ ; no hepatosplenomegaly; bowel sounds are present in all four quadrants. EXTREMITIES: No clubbing, cyanosis, or edema. SKIN: Normal; no rash; no jaundice. SHOWER ROOM ATTENDANT: No focal deficits; alert and oriented times three. (Cris Gunter) Assessment and Plan Plan - Pancolitis- on off diarrhea for a couple of months Abdomen/Pelvis CT 07/31/16 Moderate severity uncomplicated pancolitis. This is nonspecific, presumably infectious. C. difficile colitis would be in the differential. Active ulcerative colitis would be conceivable if the patient has that history. Patient reports diarrhea on off for a couple of months. Sates, for a while there she couldn't go out to a smoke a cigarette which is something that she loves to do. States, she would have the diarrhea for few days, then have normal bms for few days. She report a loss in appetite recently. She denies nausea, vomiting, or hematochezia or melena. She reports diffused abdomen cramps especially preceding having a BM. She denies recent abx, sick contact or travel. Denies previous history of this, denies previous colonoscopy. Stools negative for C-diff, stool cx pending. - SIRS/leukocytosis/ tachycardiac on admission- urine, and blood cx pending, Zosyn and jonio, flagyl, ID on the case - AMS - Not clear etiology improving - Bipolar, anxiety issues per attending, psych consulted Plan: - GLADIS - Cont. Flagyl and vanco - Colonoscopy on Wednesday - Clear liquid tomorrow - Golytely tomorrow - NPO Wednesday mn - Monitor labs - Supportive care - Patient seen and examined by Dr. Lund and myself and this note is written on his behalf. (Cris Gunter) Physician Comments Seen and examined with OCCUPATIONAL THERAPY DIRECTOR, colitis, on antibiotics. Egd/colonoscopy on wednesday. Thank you (Doris Lund MD) Cris Gunter Aug 01, 2016 14:33 Doris Lund MD Aug 02, 2016 14:45
[2016-08-01] MEDS: ALPRAZolam 0.5 MG TAB PO PRN (19:37)
[2016-08-01] MEDS: FAMOTIDINE 20 MG TAB PO PRN ×2 (20:54→22:24)
[2016-08-01] MEDS: ATORVASTATIN 20 MG TAB PO SCH (20:55)
[2016-08-01] MEDS: QUEtiapine FUMARATE 200 MG TAB PO SCH (20:56)
[2016-08-01] MEDS: REMOVE OLD NICODERM (NICOTINE) PATCH TD SCH (20:59)
[2016-08-01] MEDS: AMITRIPTYLINE HCL 25 MG TAB PO SCH (21:00)
[2016-08-02] VITALS (8 sets, daily range): BP systolic 114–128; BP diastolic 63–73; PULSE 98–102; RESP 17–20; TEMP 96.9–99.8; O2SAT 90–98
[2016-08-02] MEDS: metroNIDAZOLE 500 MG INJ 100 ML IV SCH ×3 (00:27→16:12)
[2016-08-02] MEDS: oxyCODONE/ACETAMINOPHEN 10 MG/325 MG TAB PO PRN ×4 (01:56→21:06)
[2016-08-02] MEDS ORDERED: DIPHENOXYLATE/ATROPINE 2.5 MG/0.025 MG TAB PO ONE (02:00)
[2016-08-02] MEDS ORDERED: PANTOPRAZOLE SOD 20 MG DELAYED RELEASE TAB PO ONE (02:00)
[2016-08-02] MEDS: VANCOMYCIN 500 MG VIAL (FOR ORAL USE ONLY) PO SCH ×4 (04:00→21:14)
[2016-08-02] MEDS: INSULIN ASPART SUPPLEMENTAL SCALE SQ SCH ×4 (05:43→21:08)
[2016-08-02] MEDS: RESP: ALBUTEROL 2.5 MG/IPRATROPIUM 0.5 MG NEB (SCH) NEB ×3 (07:29→15:56)
[2016-08-02] MEDS: DIVALPROEX DR 500 MG TABEC PO SCH ×2 (09:58→21:07)
[2016-08-02] MEDS: PREGABALIN 100 MG CAP PO SCH (09:58)
[2016-08-02] MEDS: SPIRONOLACTONE 50 MG TAB PO SCH (09:58)
[2016-08-02] MEDS: GABAPENTIN 400 MG CAP PO SCH ×3 (09:58→16:18)
[2016-08-02] MEDS: BUDESONIDE-FORMOTEROL 160/4.5 MCG INHALER INH SCH ×2 (09:59→21:09)
[2016-08-02] MEDS: NICOTINE 7 MG/24 HR PATCH TD SCH (10:05)
[2016-08-02 10:29] LABS: BASOPHIL # 0.1 TH/MM3 (0-0.2); BASOPHIL % 0.5 % (0.0-2.0); EOSINOPHIL # 0.2 TH/MM3 (0-0.4); EOSINOPHIL % 1.2 % (0.0-4.0); HEMATOCRIT 32.2 % (35.0-46.0); LYMPH % 16.2 % (9.0-44.0); LYMPHOCYTE # 2.8 TH/MM3 (1.0-4.8); MEAN CELL VOLUME 75.9 FL (80.0-100.0); MEAN CORPUSCULAR HEMOGLOBIN 25.3 PG (27.0-34.0); MEAN CORPUSCULAR HGB CONC 33.3 % (32.0-36.0); MONO % 13.5 % (0.0-8.0); NEUT % 68.6 % (16.0-70.0); PLATELET COUNT 577 TH/MM3 (150-450); RED BLOOD COUNT 4.25 MIL/MM3 (4.00-5.30); WHITE BLOOD COUNT 17.5 TH/MM3 (4.0-11.0)
[2016-08-02 10:30] LABS: HEMO FLAGS AUTO DIFF
--- NOTE | 2016-08-02 10:42 | HHI.FPPN ---
Subjective Remarks Patient is feeling okay this morning. She is resting comfortably and sleeping fine. She continues to have the same abdominal pain. Denies fever, chills. No chest pain or shortness of breath. (Fabian Anderson MD R2) Objective Vitals Vital Signs Date Time Temp Pulse Resp B/P Pulse Ox O2 Delivery O2 Flow Rate FiO2 08/02/16 07:50 98.1 102 20 119/66 90 08/02/16 07:31 93 21 08/02/16 04:00 97.0 98 17 115/63 95 08/02/16 03:28 19 08/02/16 00:00 96.9 98 18 117/68 96 08/01/16 20:00 97.5 97 18 118/65 97 121/77 123/67 08/01/16 19:37 92 21 08/01/16 15:50 96.7 99 20 109/71 93 08/01/16 11:50 97.9 100 20 129/69 92 I/O 08/01/16 08/01/16 08/01/16 08/02/16 08/02/16 08/02/16 07:00 15:00 23:00 07:00 15:00 23:00 Intake Total 984 ml 924 ml 870 ml 240 ml Balance 984 ml 924 ml 870 ml 240 ml Intake Oral 240 ml 924 ml 720 ml 240 ml IV Total 744 ml 150 ml # Voids 1 4 4 2 # Bowel Movements 1 1 1 1 (Fabian Anderson MD R2) Result Diagram: 08/02/16 0951 08/01/16 0436 Objective Remarks GENERAL: This is a well-nourished, well-developed patient, in no apparent distress. SKIN: No rashes, ecchymoses or lesions. Cool and dry. HEAD: Normocephalic. No facial droop EYES: Pupils equal round and reactive. Extraocular motions intact. No scleral icterus. No injection or drainage. ENT: Nose without bleeding, purulent drainage or septal hematoma. Throat without erythema, tonsillar hypertrophy or exudate. Uvula midline. Airway patent. NECK: Trachea midline. No JVD or lymphadenopathy. Supple, nontender, no meningeal signs. CARDIOVASCULAR: Tachycardic rate and regular rhythm without murmurs, gallops, or rubs. RESPIRATORY: Clear to auscultation. Breath sounds equal bilaterally but poor effort. No wheezes, rales, or rhonchi. GASTROINTESTINAL: Obese abdomen, umbilical surgical scar from previous hernia surgery, tender to palpation in all 4 abdominal quadrants. MUSCULOSKELETAL: Extremities without clubbing, cyanosis, or edema. No joint tenderness, effusion, or edema noted. No calf tenderness. NEUROLOGICAL: Awake and alert. Cranial nerves II through XII intact. Intact finger to nose. Moving all extremities appropriately. (Fabian Anderson MD R2) A/P Assessment and Plan 50-year-old female with a past medical history of diabetes, bipolar depression, panic disorder, uterine cancer, and hyperlipidemia presents to the [facility] from her [facility] with a chief complaint of altered mental status and elevated white blood cell count. Patient meets sepsis criteria with tachycardia , elevated white blood cell count, and elevated lactate of 2.7, which trended down to 1.2. The patient was admitted for workup of sepsis, administration of IV antibiotics and fluids. CT abdomen and pelvis was performed on 07/31 which showed uncomplicated pancolitis with high suspicion for clostridium difficile infection ulcerative colitis. Stool sample was negative for C. difficile. Discharge Planning Pending clinical improvement (Fabian Anderson MD R2) Attending Attestation Patient seen and examined. Case reviewed and discussed. Agree with plan of care as discussed with me and documented in the resident note. (Sendy Mayers MD) Problem List: (1) Pancolitis Status: Acute Plan: GI consult Infectious disease consult Vancomycin by mouth 125 mg every 6 hours (started 07/31) Flagyl 500 mg IV every 8 hours (started 07/31) Leukocytosis improving GI planning for colonoscopy on Wednesday Nothing by mouth at midnight Pain controlled: Percocet 1 tab every 6 hours. Chronic pain meds continued as discussed below (2) Altered mental status Status: Resolved Plan: This is likely the patient's baseline as discussed with her [facility]. (3) Recent history of diarrhea Status: Acute Plan: C. difficile negative Continue treatment of pancolitis as above (4) Chronic Medical Problems Status: Acute Plan: Diabetes: Hemoglobin A1c 8.5. Patient takes Lantus 26 units subcutaneous at bedtime at home as well as Novolin sliding scale Will hold home Lantus. Accu-Cheks with low NovoLog SSI. Will add Levemir as needed Diabetic polyneuropathy: Continue gabapentin at reduced dose of 400 mg by mouth 3 times a day, continue Lyrica at current home dose COPD: Albuterol nebulizer every 4 hours while awake Hypertension: Patient was normotensive on admission -Continue spironolactone 50 mg by mouth daily -Hydralazine 10mg PO QID prn SBP >= 160, DBP >= 90 -Vasotec 1.25mg IV Q8h prn SBP >= 180, DBP >= 100 Hyperlipidemia: Continue atorvastatin 20 mg by mouth at bedtime Bipolar Depression: Holding amitriptyline and Xanax Panic/anxiety disorder: Per psychiatry recommendations, will continue Seroquel 400 mg by mouth at bedtime Chronic low back pain: Continue home Percocet 10-325 mg every 6 hours when necessary. Holding Flexeril due to AMS and dizziness (5) FEN/DVT PPX/GI PPX Status: Acute Plan: Fluids: Tolerating by mouth Electrolytes: Will monitor and replace as needed Nutrition: Clear liquid diet. Nothing by mouth at midnight for expected colonoscopy DVT Prophylaxis: Lovenox 40 mg subcutaneous GI Prophylaxis: Protonix 40 mg PO daily (Fabian Anderson MD R2) Fabian Anderson MD R2 Aug 02, 2016 10:42 Sendy Mayers MD Aug 06, 2016 17:46
[2016-08-02 10:46] LABS: ALKALINE PHOSPHATASE 123 U/L (45-117); ALT (GPT) 7 U/L (10-53); ANION GAP 8 MEQ/L (5-15); AST (GOT) 6 U/L (15-37); BICARBONATE 30.6 MEQ/L (21.0-32.0); BLOOD UREA NITROGEN 2 MG/DL (7-18); CHLORIDE 100 MEQ/L (98-107); GLOMERULAR FILTRATION RATE 203 ML/MIN (>89); POTASSIUM 3.3 MEQ/L (3.5-5.1); SODIUM (NA) 139 MEQ/L (136-145); TOTAL BILIRUBIN ADULT 0.2 MG/DL (0.2-1.0)
--- NOTE | 2016-08-02 11:03 | HHI.GIFU ---
Subjective Remarks 50 yo female lying in bed in no apparent distress. Reports she continues to have diffuse abdominal pain prior to having a BM. Has had a few BM today. No nausea or vomiting. (Yu Reina) Objective Vitals I&O Vital Signs Date Time Temp Pulse Resp B/P Pulse Ox O2 Delivery O2 Flow Rate FiO2 08/02/16 07:50 98.1 102 20 119/66 90 08/02/16 07:31 93 21 08/02/16 04:00 97.0 98 17 115/63 95 08/02/16 03:28 19 08/02/16 00:00 96.9 98 18 117/68 96 08/01/16 20:00 97.5 97 18 118/65 97 121/77 123/67 08/01/16 19:37 92 21 08/01/16 15:50 96.7 99 20 109/71 93 08/01/16 11:50 97.9 100 20 129/69 92 I/O 08/01/16 08/01/16 08/01/16 08/02/16 08/02/16 08/02/16 07:00 15:00 23:00 07:00 15:00 23:00 Intake Total 984 ml 924 ml 870 ml 240 ml Balance 984 ml 924 ml 870 ml 240 ml Intake Oral 240 ml 924 ml 720 ml 240 ml IV Total 744 ml 150 ml # Voids 1 4 4 2 # Bowel Movements 1 1 1 1 Laboratory Laboratory Tests Test 08/02/16 09:51 White Blood Count 17.5 Red Blood Count 4.25 Hemoglobin 10.7 Hematocrit 32.2 Mean Corpuscular Volume 75.9 Mean Corpuscular Hemoglobin 25.3 Mean Corpuscular Hemoglobin 33.3 Concent Red Cell Distribution Width 17.0 Platelet Count 577 Mean Platelet Volume 6.9 Neutrophils (%) (Auto) 68.6 Lymphocytes (%) (Auto) 16.2 Monocytes (%) (Auto) 13.5 Eosinophils (%) (Auto) 1.2 Basophils (%) (Auto) 0.5 Neutrophils # (Auto) 12.0 Lymphocytes # (Auto) 2.8 Monocytes # (Auto) 2.4 Eosinophils # (Auto) 0.2 Basophils # (Auto) 0.1 CBC Comment AUTO DIFF Sodium Level 139 Potassium Level 3.3 Chloride Level 100 Carbon Dioxide Level 30.6 Anion Gap 8 Blood Urea Nitrogen 2 Creatinine 0.34 Estimat Glomerular Filtration 203 Rate Random Glucose 106 Calcium Level 7.9 Total Bilirubin 0.2 Aspartate Amino Transf 6 (AST/SGOT) Alanine Aminotransferase 7 (ALT/SGPT) Alkaline Phosphatase 123 Total Protein 5.5 Albumin 1.8 Date/Time Procedure Status Source Growth 08/01/16 02:32 Cryptosporidium Exam Resulted Stool Stool Pending 08/01/16 02:32 Stool Pus (JENNIFER) - Final Resulted Stool Stool RARE WBC 08/01/16 02:32 Giardia Antigen (JENNIFER) Resulted Stool Stool Pending 08/01/16 02:32 Received Stool Stool Pending 07/30/16 12:20 Urine Culture - Final Complete Urine Catheterized Urine 10-50,000 CFU/ML MIXED GRAM POSITIVE ... 07/30/16 09:50 Aerobic Blood Culture - Preliminary Resulted Blood Peripheral NO GROWTH IN 2 DAYS 07/30/16 09:50 Anaerobic Blood Culture - Preliminary Resulted Blood Peripheral NO GROWTH IN 2 DAYS Imaging Last Impressions Abdomen/Pelvis CT 07/31/16 0000 Signed Impressions: Service Date/Time: Sunday, July 31, 2016 13:04 - CONCLUSION: Moderate severity uncomplicated pancolitis. This is nonspecific, presumably infectious. C. difficile colitis would be in the differential. Active ulcerative colitis would be conceivable if the patient has that history. Hector Blackwell MD Head CT 07/30/1630 Signed Impressions: Service Date/Time: July 10:19 - CONCLUSION: No acute disease. No evidence of acute infarct, hemorrhage, mass or edema. Leroy Herrera MD Chest X-Ray 07/30/16944 Signed Impressions: Service Date/Time: July 09:55 - CONCLUSION: No acute disease. No significant change has occurred. Lefty Alexander MD Physical Exam HEENT: PERRLA; normocephalic; atraumatic; no jaundice. NECK: Neck is supple, no JVD, no lymphadenopathy. CHEST: CTA CARDIAC: RRR with no murmur gallop or rubs. ABDOMEN: Soft, nondistended, nontender; no hepatosplenomegaly; bowel sounds x 4 quadrants. EXTREMITIES: No clubbing, cyanosis, or edema. SKIN: Normal; no rash; no jaundice. BAR ROLLER: No focal deficits; A&O x3. (Yu Reina) Assessment and Plan Plan ASSESSMENT: -Pancolitis--Intermittent diarrhea for a couple of months. Abdomen/Pelvis CT 03/09-->Moderate severity uncomplicated pancolitis. This is nonspecific, presumably infectious. C. difficile colitis would be in the differential. Active ulcerative colitis would be conceivable if the patient has that history. Recent loss of appetite. Denies nausea, vomiting, or hematochezia or melena. Diffuse abdominal cramps especially preceding having a BM. She denies recent abx , sick contact or travel. Denies previous history of this, denies previous colonoscopy. Stools negative for C-diff, stool cx pending. - SIRS/leukocytosis/ tachycardiac on admission--Urine culture shows possible contamination, blood culture no growth in 2 days. Leukocytosis improving, Neutrophils 68.6% and WBC 17.5. Zosyn and [place], yl, ID on the case. - AMS--Not clear etiology improving. This is baseline per attending. - Bipolar, anxiety issues per attending, psych consulted PLAN: - GLADIS - Cont. Flagyl and Vanco - Colonoscopy on Wednesday - Clear liquid diet today - Golytely prep today - NPO today at ID - Monitor labs - Supportive care -Further recommendations to follow based on results of above. Patient seen and examined by Dr. Lund and myself and this note is written on his behalf. (Yu Reina) Physician Comments Seen and examined with MILAD, colonoscopy tomorrow for colitis. Stool studies - ve so far. Continue antibiotics. (Doris Lund MD) Yu Reina Aug 02, 2016 11:03 Doris Lund MD Aug 02, 2016 15:05
[2016-08-02 11:15] LABS: BANDS 30 % (0-6); EOSINOPHILS 2 % (0-4); MYELOCYTES 2 % (0-0); POLYS (SEG NEUTROPHILS) 42 % (16-70); WBC DIFF SAMPLE 100
[2016-08-02 11:16] LABS: KERATOCYTES OCC (NORMAL); OVALOCYTES 1+ (NORMAL); PLATELET ESTIMATE SMEAR HIGH (NORMAL); PLATELET MORPHOLOGY NORMAL (NORMAL); SCAN/DIFF FINAL DIFF MANUAL
[2016-08-02] MEDS: ENOXAPARIN SODIUM 40 MG/0.4 ML SYRINGE SQ SCH (14:31)
[2016-08-02] MEDS ORDERED: PEG (High)/E-LYTE SOLN 4000 ML BTL PO ONE (16:00)
[2016-08-02] MEDS: ALPRAZolam 0.5 MG TAB PO PRN (16:16)
[2016-08-02] MEDS: FAMOTIDINE 20 MG TAB PO PRN (18:04)
[2016-08-02] MEDS: AMITRIPTYLINE HCL 25 MG TAB PO SCH (21:07)
[2016-08-02] MEDS: QUEtiapine FUMARATE 200 MG TAB PO SCH (21:07)
[2016-08-02] MEDS: ATORVASTATIN 20 MG TAB PO SCH (21:07)
[2016-08-02] MEDS: REMOVE OLD NICODERM (NICOTINE) PATCH TD SCH (21:09)
[2016-08-03] VITALS (8 sets, daily range): BP systolic 105–129; BP diastolic 55–72; PULSE 88–110; RESP 18–22; TEMP 96.6–98.6; O2SAT 88–97
[2016-08-03] MEDS: metroNIDAZOLE 500 MG INJ 100 ML IV SCH ×3 (01:09→16:59)
[2016-08-03] MEDS: VANCOMYCIN 500 MG VIAL (FOR ORAL USE ONLY) PO SCH ×3 (04:16→17:00)
[2016-08-03] MEDS: ALPRAZolam 0.5 MG TAB PO PRN ×3 (04:16→22:41)
[2016-08-03] MEDS: oxyCODONE/ACETAMINOPHEN 10 MG/325 MG TAB PO PRN ×3 (04:16→18:10)
[2016-08-03] MEDS: INSULIN ASPART SUPPLEMENTAL SCALE SQ SCH ×4 (06:11→22:53)
[2016-08-03] MEDS: RESP: ALBUTEROL 2.5 MG/IPRATROPIUM 0.5 MG NEB (SCH) NEB ×2 (07:51→13:36)
[2016-08-03] MEDS: DIVALPROEX DR 500 MG TABEC PO SCH ×2 (08:12→22:35)
[2016-08-03] MEDS: GABAPENTIN 400 MG CAP PO SCH ×3 (08:12→18:11)
[2016-08-03] MEDS: PREGABALIN 100 MG CAP PO SCH (08:12)
[2016-08-03] MEDS: NICOTINE 7 MG/24 HR PATCH TD SCH (08:12)
[2016-08-03] MEDS: SPIRONOLACTONE 50 MG TAB PO SCH (08:12)
[2016-08-03] MEDS: BUDESONIDE-FORMOTEROL 160/4.5 MCG INHALER INH SCH ×2 (08:12→22:33)
--- NOTE | 2016-08-03 09:40 | HHI.FPPN ---
Subjective Remarks Patient has been nothing by mouth since midnight, tolerated the GoLYTELY bowel prep moderately well. She still reports crampy abdominal pain. It is about the same as yesterday. She reports feeling feverish over the past 24 hours, but there have been no documented elevated temperatures. She denies any blood in her stool. She denies chest pain, shortness of breath, or syncopal episodes. She has had several bowel movements since midnight. (Delonte Ugalde MD R2) Objective Vitals Vital Signs Date Time Temp Pulse Resp B/P Pulse Ox O2 Delivery O2 Flow Rate FiO2 08/03/16 09:16 98.0 110 18 105/63 93 08/03/16 04:00 98.6 105 18 129/65 95 08/03/16 00:00 98.5 106 18 118/66 94 122/72 124/68 08/02/16 20:00 98.0 99 18 128/73 95 08/02/16 15:58 98 21 08/02/16 15:00 99.8 101 20 114/63 90 08/02/16 11:30 98.0 99 20 125/71 94 I/O 08/02/16 08/02/16 08/02/16 08/03/16 08/03/16 08/03/16 07:00 15:00 23:00 07:00 15:00 23:00 Intake Total 240 ml 402 ml 970 ml 110 ml Output Total 3 ml 450 ml Balance 240 ml 399 ml 520 ml 110 ml Intake Oral 240 ml 402 ml 720 ml IV Total 250 ml 110 ml Output Urine Total 3 ml 450 ml # Voids 2 1 # Bowel Movements 1 1 1 1 (Delonte Ugalde MD R2) Result Diagram: 08/02/1651 08/02/16 0951 Objective Remarks GENERAL: This is a well-nourished, well-developed patient, in no apparent distress. SKIN: No rashes, ecchymoses or lesions. Cool and dry. HEAD: Normocephalic. No facial droop EYES: Pupils equal round and reactive. Extraocular motions intact. No scleral icterus. No injection or drainage. ENT: Nose without bleeding, purulent drainage or septal hematoma. Throat without erythema, tonsillar hypertrophy or exudate. Uvula midline. Airway patent. NECK: Trachea midline. No JVD or lymphadenopathy. Supple, nontender, no meningeal signs. CARDIOVASCULAR: Tachycardic rate and regular rhythm without murmurs, gallops, or rubs. RESPIRATORY: Clear to auscultation. Breath sounds equal bilaterally but poor effort. No wheezes, rales, or rhonchi. GASTROINTESTINAL: Obese abdomen, umbilical surgical scar from previous hernia surgery, tender to palpation in all 4 abdominal quadrants. MUSCULOSKELETAL: Extremities without clubbing, cyanosis, or edema. No joint tenderness, effusion, or edema noted. No calf tenderness. NEUROLOGICAL: Awake and alert. Cranial nerves II through XII intact. Intact finger to nose. Moving all extremities appropriately. (Delonte Ugalde MD R2) A/P Assessment and Plan 50-year-old female with a past medical history of diabetes, bipolar depression, panic disorder, uterine cancer, and hyperlipidemia presents to the [facility] ED from her [facility] with a chief complaint of altered mental status and elevated white blood cell count. Patient meets sepsis criteria with tachycardia , elevated white blood cell count, and elevated lactate of 2.7, which trended down to 1.2. The patient was admitted for workup of sepsis, administration of IV antibiotics and fluids. CT abdomen and pelvis was performed on 07/31 which showed uncomplicated pancolitis with high suspicion for clostridium difficile infection ulcerative colitis. Stool sample was negative for C. difficile. Discharge Planning Pending clinical improvement (Delonte Ugalde MD R2) Attending Attestation Patient seen and examined. Case reviewed and discussed. Agree with plan of care as discussed with me and documented in the resident note. (Sendy Mayers MD) Problem List: (1) Pancolitis Status: Acute Plan: GI consult Infectious disease consult Vancomycin by mouth 125 mg every 6 hours (started 07/31--) Flagyl 500 mg IV every 8 hours (started 07/31--) Leukocytosis improving Colonoscopy to be done 08/03. Nothing by mouth since midnight Pain controlled: Percocet 1 tab every 6 hours. Chronic pain meds continued as discussed below. (2) Altered mental status Status: Resolved Plan: This is likely the patient's baseline as discussed with her [facility]. Likely related to polypharmacy. (3) Recent history of diarrhea Status: Acute Plan: C. difficile negative Continue treatment of pancolitis as above (4) Chronic Medical Problems Status: Acute Plan: Diabetes: Hemoglobin A1c 8.5. Patient takes Lantus 26 units subcutaneous at bedtime at home as well as Novolin sliding scale Will hold home Lantus. Accu-Cheks with low NovoLog SSI. Will add Levemir as needed Diabetic polyneuropathy: Continue gabapentin at reduced dose of 400 mg by mouth 3 times a day, continue Lyrica at current home dose COPD: Albuterol nebulizer every 4 hours while awake Hypertension: Patient was normotensive on admission -Continue spironolactone 50 mg by mouth daily -Hydralazine 10mg PO QID prn SBP >= 160, DBP >= 90 -Vasotec 1.25mg IV Q8h prn SBP >= 180, DBP >= 100 Hyperlipidemia: Continue atorvastatin 20 mg by mouth at bedtime Bipolar Depression: Holding amitriptyline and Xanax Panic/anxiety disorder: Per psychiatry recommendations, will continue Seroquel 400 mg by mouth at bedtime Chronic low back pain: Continue home Percocet 10-325 mg every 6 hours when necessary. Holding Flexeril due to AMS and dizziness (5) FEN/DVT PPX/GI PPX Status: Acute Plan: Fluids: Tolerating by mouth Electrolytes: Will monitor and replace as needed Nutrition: Clear liquid diet. Nothing by mouth at midnight for expected colonoscopy DVT Prophylaxis: Lovenox 40 mg subcutaneous GI Prophylaxis: Famotidine [address] Mayers. (Delonte Ugalde MD R2) Delonte Ugalde MD R2 Aug 03, 2016 09:40 Sendy Mayers MD Aug 06, 2016 17:46
[2016-08-03] MEDS ORDERED: PROPOFOL 200 MG/20 ML AMP IV ONE (10:27)
--- NOTE | 2016-08-03 10:41 | GIPROC ---
[facility] [address] [facility], [address] COLONOSCOPY PROCEDURE REPORT EXAM DATE: 08/03/2016 PATIENT NAME: Felipa Rockwell MR #: [id number] BIRTHDATE: 1965 ENDOSCOPIST: Doris Lund MD ORDER #: [id number] [employer]BER[employer] SALES MANAGER: Deheraj Walls and Demian Sargent STATUS: inpatient INDICATIONS: The patient is a 50 yr old female here for a colonoscopy due to abdominal pain and unexplained diarrhea PROCEDURE PERFORMED: Colonoscopy with biopsy MEDICATIONS: None and Per Anesthesia. PREP QUALITY: The [place] Bowel Prep Score was Right colon 0, Mid colon 1, and Left colon 1. Total = 2. PREP TYPE:GoLytely ESTIMATED BLOOD LOSS: None CONSENT: The patient understands the risks and benefits of the procedure and understands that these risks include, but are not limited to: sedation, allergic reaction, infection, perforation and/or bleeding. Alternative means of evaluation and treatment include, among others: physical exam, x-rays, and/or surgical intervention. The patient elects to proceed with this endoscopic procedure. medical equipment was checked for proper function. Hand hygiene and appropriate measures for infection prevention was taken. After the risks, benefits and alternatives of the procedure were thoroughly explained, Informed consent was verified, confirmed and timeout was successfully executed by the treatment team. A digital exam revealed external hemorrhoids The Pentax [id number] endoscope was introduced through the anus and advanced to the cecum, which was identified by both the appendix and ileocecal valve. The instrument was then slowly withdrawn as the colon was fully examined. COLON FINDINGS: A circumferential diffuse patch of abnormal mucosa was found throughout the entire examined colon. The mucosa was congested, erythematous, friable and had granularity and superficial ulcers. This was likely consistent with ulcerative colitis disease. Multiple biopsies were performed using cold forceps. Retroflexed views revealed internal hemorrhoids and Retroflexed views revealed small internal hemorrhoids The scope was then completely withdrawn from the patient and the procedure terminated. PROCEDURE WITHDRAWAL TIME:6minutes ADVERSE EVENTS: There were no complications. IMPRESSIONS: 1. Circumferential diffuse abnormal mucosa was found throughout the entire examined colon; The mucosa was congested, erythematous, friable and had granularity and superficial ulcers; multiple biopsies were performed using cold forceps 2. Retroflexed views revealed internal hemorrhoids 3. Retroflexed views revealed small internal hemorrhoids 4. Revealed external hemorrhoids RECOMMENDATIONS: 1. Await biopsy results. Biopsy results will not be ready for 7-10 days. If you don't hear from us in two weeks, call our office for results. 2. Continue surveillance 3. Yearly hemoccult 4. Solumederol 40mg 1vp Q 8 hours RECALL: Return 4 weeks Colonoscopy, pending biopsy results Doris Lund MD eSigned: Doris Lund MD 08/03/2016 10:40 AM cc: PATIENT NAME: Felipa Rockwell MR#: [id number]
[2016-08-03] MEDS: ENOXAPARIN SODIUM 40 MG/0.4 ML SYRINGE SQ SCH (14:04)
[2016-08-03] MEDS: methylPREDNISolone SOD SUCC 40 MG/1 ML VIAL IV PUSH SCH ×2 (14:04→22:32)
[2016-08-03 14:21] LABS: BASOPHIL # 0.1 TH/MM3 (0-0.2); BASOPHIL % 0.4 % (0.0-2.0); EOSINOPHIL # 0.2 TH/MM3 (0-0.4); EOSINOPHIL % 1.1 % (0.0-4.0); HEMATOCRIT 29.7 % (35.0-46.0); LYMPH % 18.3 % (9.0-44.0); LYMPHOCYTE # 3.2 TH/MM3 (1.0-4.8); MEAN CELL VOLUME 75.1 FL (80.0-100.0); MEAN CORPUSCULAR HEMOGLOBIN 24.6 PG (27.0-34.0); MEAN CORPUSCULAR HGB CONC 32.8 % (32.0-36.0); MONO % 12.5 % (0.0-8.0); NEUT % 67.7 % (16.0-70.0); PLATELET COUNT 460 TH/MM3 (150-450); RED BLOOD COUNT 3.96 MIL/MM3 (4.00-5.30); WHITE BLOOD COUNT 17.7 TH/MM3 (4.0-11.0)
[2016-08-03 14:22] LABS: HEMO FLAGS AUTO DIFF
[2016-08-03 14:54] LABS: ANION GAP 9 MEQ/L (5-15); AST (GOT) 7 U/L (15-37); BICARBONATE 31.5 MEQ/L (21.0-32.0); BLOOD UREA NITROGEN 2 MG/DL (7-18); CHLORIDE 99 MEQ/L (98-107); GLOMERULAR FILTRATION RATE 218 ML/MIN (>89); POTASSIUM 3.1 MEQ/L (3.5-5.1); SODIUM (NA) 139 MEQ/L (136-145)
[2016-08-03 14:57] LABS: ALKALINE PHOSPHATASE 128 U/L (45-117); ALT (GPT) 8 U/L (10-53); TOTAL BILIRUBIN ADULT 0.2 MG/DL (0.2-1.0)
[2016-08-03 15:36] LABS: BANDS 19 % (0-6); BASOPHILS 1 % (0-2); EOSINOPHILS 1 % (0-4); MYELOCYTES 1 % (0-0); NEUTROPHIL # MANUAL DIFF 14.3 TH/MM3 (1.8-7.7); POLYS (SEG NEUTROPHILS) 61 % (16-70); WBC DIFF SAMPLE 100
[2016-08-03 15:37] LABS: OVALOCYTES 1+ (NORMAL); PLATELET ESTIMATE SMEAR HIGH (NORMAL); PLATELET MORPHOLOGY NORMAL (NORMAL); SCAN/DIFF FINAL DIFF MANUAL; STOMATOCYTES 1+ (NORMAL)
[2016-08-03] MEDS ORDERED: POTASSIUM CHLORIDE 10 MEQ CONTROLLED RELEASE TAB PO ONE (17:15)
--- NOTE | 2016-08-03 18:04 | HHI.PR ---
Addendum to Inpatient Note Additional Information colonooscopy results noted: cw ulcerative colitis - dc empiric C.diff tx Alessia Hernandez MD Aug 03, 2016 18:04
[2016-08-03] MEDS: REMOVE OLD NICODERM (NICOTINE) PATCH TD SCH (21:00)
[2016-08-03] MEDS: ATORVASTATIN 20 MG TAB PO SCH (22:32)
[2016-08-03] MEDS: AMITRIPTYLINE HCL 25 MG TAB PO SCH (22:32)
[2016-08-03] MEDS: QUEtiapine FUMARATE 200 MG TAB PO SCH (22:32)
[2016-08-04] VITALS (9 sets, daily range): BP systolic 101–112; BP diastolic 59–72; PULSE 61–93; RESP 18–22; TEMP 96.6–98.1; O2SAT 92–97
[2016-08-04] MEDS: oxyCODONE/ACETAMINOPHEN 10 MG/325 MG TAB PO PRN ×4 (00:08→21:05)
[2016-08-04 03:31] LABS: NORTRIPTYLINE <20 ng/mL (70-170)
[2016-08-04] MEDS: methylPREDNISolone SOD SUCC 40 MG/1 ML VIAL IV PUSH SCH ×3 (05:42→21:15)
[2016-08-04] MEDS: INSULIN ASPART SUPPLEMENTAL SCALE SQ SCH ×4 (05:47→21:31)
[2016-08-04 08:42] LABS: AUTOMATED NEUTROPHIL # 14.3 TH/MM3 (1.8-7.7); BASOPHIL # 0.1 TH/MM3 (0-0.2); BASOPHIL % 0.6 % (0.0-2.0); EOSINOPHIL % 0.2 % (0.0-4.0); HEMATOCRIT 31.1 % (35.0-46.0); LYMPH % 9.4 % (9.0-44.0); LYMPHOCYTE # 1.6 TH/MM3 (1.0-4.8); MEAN CELL VOLUME 74.6 FL (80.0-100.0); MEAN CORPUSCULAR HEMOGLOBIN 24.3 PG (27.0-34.0); MEAN CORPUSCULAR HGB CONC 32.6 % (32.0-36.0); MONO % 3.3 % (0.0-8.0); NEUT % 86.5 % (16.0-70.0); PLATELET COUNT 444 TH/MM3 (150-450); RED BLOOD COUNT 4.16 MIL/MM3 (4.00-5.30); RED CELL DISTRIBUTION WIDTH 17.3 % (11.6-17.2); WHITE BLOOD COUNT 16.5 TH/MM3 (4.0-11.0)
[2016-08-04 08:43] LABS: HEMO FLAGS AUTO DIFF
[2016-08-04 09:00] LABS: BICARBONATE 34.2 MEQ/L (21.0-32.0)
[2016-08-04 09:15] LABS: BANDS 6 % (0-6); MYELOCYTES 2 % (0-0); NEUTROPHIL # MANUAL DIFF 14.9 TH/MM3 (1.8-7.7); POLYS (SEG NEUTROPHILS) 82 % (16-70); WBC DIFF SAMPLE 100
[2016-08-04 09:16] LABS: OVALOCYTES 1+ (NORMAL); PLATELET ESTIMATE SMEAR NORMAL (NORMAL); PLATELET MORPHOLOGY NORMAL (NORMAL); SCAN/DIFF FINAL DIFF MANUAL
[2016-08-04] MEDS: BUDESONIDE-FORMOTEROL 160/4.5 MCG INHALER INH SCH ×2 (09:55→21:14)
[2016-08-04] MEDS: SPIRONOLACTONE 50 MG TAB PO SCH (09:55)
[2016-08-04] MEDS: GABAPENTIN 400 MG CAP PO SCH ×3 (09:55→17:37)
[2016-08-04] MEDS: PREGABALIN 100 MG CAP PO SCH (09:55)
[2016-08-04] MEDS: NICOTINE 7 MG/24 HR PATCH TD SCH (09:55)
[2016-08-04] MEDS: DIVALPROEX DR 500 MG TABEC PO SCH ×2 (09:55→21:14)
--- NOTE | 2016-08-04 12:20 | HHI.FPPN ---
Subjective Remarks Patient doing well, continues to have tolerable abd pain. 8 bowel movements noted over the past 24 hours. No fever, chills, chest pain, sob. (Rebeka Shultz MD) Objective Vitals Vital Signs Date Time Temp Pulse Resp B/P Pulse Ox O2 Delivery O2 Flow Rate FiO2 08/04/16 11:00 93 Nasal Cannula 2.00 08/04/16 10:00 97.8 78 20 108/72 93 08/04/16 04:00 97.7 61 18 111/60 93 08/04/16 02:13 93 Nasal Cannula 08/04/16 00:00 96.7 93 18 112/67 93 08/03/16 20:00 96.6 102 18 106/63 94 08/03/16 16:00 96.6 100 22 119/70 93 08/03/16 12:30 97.5 88 20 109/55 97 I/O 08/03/16 08/03/16 08/03/16 08/04/16 08/04/16 08/04/16 07:00 15:00 23:00 07:00 15:00 23:00 Intake Total 110 ml 560 ml 960 ml 360 ml Output Total 400 ml Balance 110 ml 560 ml 560 ml 360 ml Intake Oral 360 ml 960 ml 360 ml IV Total 110 ml 200 ml Output Urine Total 400 ml # Voids 1 3 2 1 # Bowel Movements 1 5 2 1 0 (Rebeka Shultz MD) Result Diagram: 08/04/16 0800 08/04/16 0800 Objective Remarks GENERAL: This is a well-nourished, well-developed patient, in no apparent distress. SKIN: No rashes, ecchymoses or lesions. Cool and dry. HEAD: Normocephalic. No facial droop EYES: Pupils equal round and reactive. Extraocular motions intact. No scleral icterus. No injection or drainage. ENT: Nose without bleeding, purulent drainage or septal hematoma. Throat without erythema, tonsillar hypertrophy or exudate. Uvula midline. Airway patent. NECK: Trachea midline. No JVD or lymphadenopathy. Supple, nontender, no meningeal signs. CARDIOVASCULAR: Tachycardic rate and regular rhythm without murmurs, gallops, or rubs. RESPIRATORY: Clear to auscultation. Breath sounds equal bilaterally but poor effort. No wheezes, rales, or rhonchi. GASTROINTESTINAL: Obese abdomen, umbilical surgical scar from previous hernia surgery, tender to palpation in all 4 abdominal quadrants. MUSCULOSKELETAL: Extremities without clubbing, cyanosis, or edema. No joint tenderness, effusion, or edema noted. No calf tenderness. NEUROLOGICAL: Awake and alert. Cranial nerves II through XII intact. Intact finger to nose. Moving all extremities appropriately. (Rebeka Shultz MD) Urinary Catheter: No (Rebeka Shultz MD) Vascular Central Line Catheter: No (Rebeka Shultz MD) A/P Assessment and Plan 50-year-old female with a past medical history of diabetes, bipolar depression, panic disorder, uterine cancer, and hyperlipidemia presents to the [facility] ED from her longterm with a chief complaint of altered mental status and elevated white blood cell count. Patient meets sepsis criteria with tachycardia , elevated white blood cell count, and elevated lactate of 2.7, which trended down to 1.2. The patient was admitted for workup of sepsis, administration of IV antibiotics and fluids. CT abdomen and pelvis was performed on 07/31 which showed uncomplicated pancolitis with high suspicion for clostridium difficile infection ulcerative colitis. Stool sample was negative for C. difficile. Discharge Planning Pending clinical improvement (Rebeka Shultz MD) Attending Attestation Patient seen and examined. Case reviewed and discussed. Agree with plan of care as discussed with me and documented in the resident note. (Sendy Mayers MD) Problem List: (1) Ulcerative colitis Status: Acute Plan: GI consulted. Colonoscopy completed on 08/03, consistent with UC. Leukocytosis improving. Infectious disease consulted -Solumedrol 40 mg IV q8h -DC Vancomycin by mouth 125 mg every 6 hours (started 07/31--08/03) -DC Flagyl 500 mg IV every 8 hours (started 07/31--08/03) -Awaiting further GI recs -Pain controlled: Percocet 1 tab every 6 hours prn pain. Chronic pain meds continued as discussed below. (2) Pancolitis Status: Acute Plan: GI consult Infectious disease consult Vancomycin by mouth 125 mg every 6 hours (started 07/31--) Flagyl 500 mg IV every 8 hours (started 07/31--) Leukocytosis improving Colonoscopy to be done 08/03. Nothing by mouth since midnight Pain controlled: Percocet 1 tab every 6 hours. Chronic pain meds continued as discussed below. (3) Altered mental status Status: Resolved Plan: This is likely the patient's baseline as discussed with her longterm. Likely related to polypharmacy. (4) Recent history of diarrhea Status: Acute Plan: C. difficile negative Continue treatment of UC as above (5) Chronic Medical Problems Status: Acute Plan: Diabetes: Hemoglobin A1c 8.5. Patient takes Lantus 26 units subcutaneous at bedtime at home as well as Novolin sliding scale Will hold home Lantus. Accu-Cheks with low NovoLog SSI. Patient receiving 16 U in the past 24 hours. Will add Levemir as needed Diabetic polyneuropathy: Continue gabapentin at reduced dose of 400 mg by mouth 3 times a day, continue Lyrica at current home dose COPD: Albuterol nebulizer every 4 hours while awake Hypertension: Patient was normotensive on admission -Continue spironolactone 50 mg by mouth daily -Hydralazine 10mg PO QID prn SBP >= 160, DBP >= 90 -Vasotec 1.25mg IV Q8h prn SBP >= 180, DBP >= 100 Hyperlipidemia: Continue atorvastatin 20 mg by mouth at bedtime Bipolar Depression: Holding amitriptyline and Xanax Panic/anxiety disorder: Per psychiatry recommendations, will continue Seroquel 400 mg by mouth at bedtime Chronic low back pain: Continue home Percocet 10-325 mg every 6 hours when necessary. Holding Flexeril due to AMS and dizziness (6) FEN/DVT PPX/GI PPX Status: Acute Plan: Fluids: Tolerating by mouth Electrolytes: Will monitor and replace as needed Nutrition: Heart healthy diet DVT Prophylaxis: Lovenox 40 mg subcutaneous GI Prophylaxis: Famotidine 20 mg. sdw: Dr. Belinda Shultz WDW Dr. Mayers (Rebeka Shultz MD) Rebeka Shultz MD Aug 04, 2016 12:20 Sendy Mayers MD Aug 06, 2016 17:46
[2016-08-04] MEDS: ENOXAPARIN SODIUM 40 MG/0.4 ML SYRINGE SQ SCH (13:37)
[2016-08-04] MEDS: ALPRAZolam 0.5 MG TAB PO PRN ×2 (13:41→21:15)
--- NOTE | 2016-08-04 16:58 | HHI.GIFU ---
Subjective Remarks Feeling better,still has lower abdominal tenderness, (Kaia Sandoval) Objective Vitals I&O Vital Signs Date Time Temp Pulse Resp B/P Pulse Ox O2 Delivery O2 Flow Rate FiO2 08/04/16 12:00 98.1 85 18 110/67 92 08/04/16 11:00 93 Nasal Cannula 2.00 08/04/16 10:00 97.8 78 20 108/72 93 08/04/16 04:00 97.7 61 18 111/60 93 08/04/16 02:13 93 Nasal Cannula 08/04/16 00:00 96.7 93 18 112/67 93 08/03/16 20:00 96.6 102 18 106/63 94 I/O 08/03/16 08/03/16 08/03/16 08/04/16 08/04/16 08/04/16 07:00 15:00 23:00 07:00 15:00 23:00 Intake Total 110 ml 560 ml 960 ml 1320 ml Output Total 400 ml Balance 110 ml 560 ml 560 ml 1320 ml Intake Oral 360 ml 960 ml 1320 ml IV Total 110 ml 200 ml Output Urine Total 400 ml # Voids 1 3 2 2 # Bowel Movements 1 5 2 1 0 Laboratory Laboratory Tests Test 08/04/16 08:00 White Blood Count 16.5 Red Blood Count 4.16 Hemoglobin 10.1 Hematocrit 31.1 Mean Corpuscular Volume 74.6 Mean Corpuscular Hemoglobin 24.3 Mean Corpuscular Hemoglobin 32.6 Concent Red Cell Distribution Width 17.3 Platelet Count 444 Mean Platelet Volume 6.7 Neutrophils (%) (Auto) 86.5 Lymphocytes (%) (Auto) 9.4 Monocytes (%) (Auto) 3.3 Eosinophils (%) (Auto) 0.2 Basophils (%) (Auto) 0.6 Neutrophils # (Auto) 14.3 Lymphocytes # (Auto) 1.6 Monocytes # (Auto) 0.5 Eosinophils # (Auto) 0.0 Basophils # (Auto) 0.1 CBC Comment AUTO DIFF Differential Total Cells 100 Counted Neutrophils % (Manual) 82 Band Neutrophils % 6 Lymphocytes % 6 Monocytes % 4 Neutrophils # (Manual) 14.9 Myelocytes 2 Differential Comment FINAL DIFF MANUAL Platelet Estimate NORMAL Platelet Morphology Comment NORMAL Ovalocytes 1+ Hematology Comments Sodium Level 134 Potassium Level 4.0 Chloride Level 96 Carbon Dioxide Level 34.2 Anion Gap 4 Blood Urea Nitrogen 4 Creatinine 0.32 Estimat Glomerular Filtration 218 Rate Random Glucose 247 Calcium Level 8.1 Date/Time Procedure Status Source Growth 08/01/16 02:32 Cryptosporidium Exam - Final Complete Stool Stool NEGATIVE - NO CRYPTOSPORIDIUM ANTIGEN... 08/01/16 02:32 Stool Pus (JENNIFER) - Final Complete Stool Stool RARE WBC 08/01/16 02:32 Giardia Antigen (JENNIFER) - Final Complete Stool Stool NEGATIVE - NO GIARDIA ANTIGEN DETECTE... 08/01/16 02:32 - Final Complete Stool Stool NO ENTERIC PATHOGENS DETECTED BY PCR... Imaging Last Impressions Abdomen/Pelvis CT 07/31/16 0000 Signed Impressions: Service Date/Time: Sunday, July 31, 2016 13:04 - CONCLUSION: Moderate severity uncomplicated pancolitis. This is nonspecific, presumably infectious. C. difficile colitis would be in the differential. Active ulcerative colitis would be conceivable if the patient has that history. Hector Blackwell MD Head CT 07/30/16 0945 Signed Impressions: Service Date/Time: July 10:19 - CONCLUSION: No acute disease. No evidence of acute infarct, hemorrhage, mass or edema. Leroy Herrera MD Chest X-Ray 07/30/16 0945 Signed Impressions: Service Date/Time: July 09:55 - CONCLUSION: No acute disease. No significant change has occurred. Lefty Alexander MD Physical Exam HEENT: PERRLA; normocephalic; atraumatic; no jaundice. NECK: Neck is supple, no JVD, no lymphadenopathy. CHEST: CTA CARDIAC: RRR with no murmur gallop or rubs. ABDOMEN: Soft, nondistended, tender; no hepatosplenomegaly; bowel sounds x 4 quadrants. EXTREMITIES: No clubbing, cyanosis, or edema. SKIN: Normal; no rash; no jaundice. AED TRAINER: No focal deficits; A&O x3. (Kaia Sandoval) Assessment and Plan Plan ASSESSMENT: -Pancolitis--Intermittent diarrhea for a couple of months. Abdomen/Pelvis CT 03/09-->Moderate severity uncomplicated pancolitis. This is nonspecific, presumably infectious. C. difficile colitis would be in the differential. Active ulcerative colitis would be conceivable if the patient has that history. Recent loss of appetite. Denies nausea, vomiting, or hematochezia or melena. Diffuse abdominal cramps especially preceding having a BM. She denies recent abx , sick contact or travel. Denies previous history of this, denies previous colonoscopy. Stools negative for C-diff, stool cx pending. - SIRS/leukocytosis/ tachycardiac on admission--Urine culture shows possible contamination, blood culture no growth in 2 days. Leukocytosis improving, Neutrophils 68.6% and WBC 17.5. Zosyn and Vanco, Flagyl, ID on the case. - AMS--Not clear etiology improving. This is baseline per attending. - Bipolar, anxiety issues per attending, psych consulted 08/04/12-Still having loose stools colonoscopy done 08/03/13 showed --1. Circumferential diffuse abnormal mucosa was found throughout the entire examined colon; The mucosa was congested, erythematous, friable and had granularity and superficial ulcers; multiple biopsies were performed and showed findings consistent with chronic inflammatory bowel disease -ulcerative colitis. C- diff negative. PLAN: - Heart healthy diet - Continue steroids - Discontinue Flagyl and Vanco - Monitor labs - Supportive care Will sign off can follow up outpatient with GI. Patient seen and examined by Dr. Lund and myself and this note is written on his behalf. (Kaia Sandoval) Physician Comments Seen and examined with MILAD, Colonoscopy/biopsies suggestive of IBD. Switch solumederol to po prednisone 30 mg tomorrow , dc antibiotics. Add Asacol 800mg 1 po tid with meals. Gi fu upon dc in 1 week. Will sign off, thank you (Doris Lund MD) Kaia Sandoval Aug 04, 2016 16:58 Doris Lund MD Aug 04, 2016 18:06
[2016-08-04] MEDS: REMOVE OLD NICODERM (NICOTINE) PATCH TD SCH (21:00)
[2016-08-04] MEDS: AMITRIPTYLINE HCL 25 MG TAB PO SCH (21:14)
[2016-08-04] MEDS: ATORVASTATIN 20 MG TAB PO SCH (21:14)
[2016-08-04] MEDS: QUEtiapine FUMARATE 200 MG TAB PO SCH (22:48)
[2016-08-04] MEDS ORDERED: RESP: ALBUTEROL 2.5 MG/IPRATROPIUM 0.5 MG NEB (PRN) NEB (23:00)
[2016-08-05] VITALS (7 sets, daily range): BP systolic 112–146; BP diastolic 72–74; PULSE 63–73; RESP 16–20; TEMP 95.7–98.2; O2SAT 90–97
[2016-08-05] MEDS: oxyCODONE/ACETAMINOPHEN 10 MG/325 MG TAB PO PRN ×3 (06:10→18:26)
[2016-08-05] MEDS: methylPREDNISolone SOD SUCC 40 MG/1 ML VIAL IV PUSH SCH ×3 (06:11→21:36)
[2016-08-05] MEDS: INSULIN ASPART SUPPLEMENTAL SCALE SQ SCH ×4 (06:12→21:32)
--- NOTE | 2016-08-05 07:22 | HHI.FPPN ---
Subjective Remarks Patient sleeping wehn I entered the room. Overall she feels well. She is complaining of chronic lower back pain and being uncomfortable in the hospital bed. This is at her baseline. Her abdominal pain is "getting better." Her diarrhea is decreased and she had one BM at 3 am that was semi-formed but still liquidy. She denies chest pain, sob, or vomiting. She is tolerating whole meals and likes the hamburgers at the hospital. (Delonte Ugalde MD R2) Objective Vitals Vital Signs Date Time Temp Pulse Resp B/P Pulse Ox O2 Delivery O2 Flow Rate FiO2 08/05/16 00:00 97.3 73 16 112/74 97 08/04/16 23:59 97 Nasal Cannula 2.50 08/04/16 20:10 96.6 78 18 101/59 95 08/04/16 16:00 96.7 72 22 106/69 95 08/04/16 12:00 98.1 85 18 110/67 92 08/04/16 11:00 93 Nasal Cannula 2.00 08/04/16 10:00 97.8 78 20 108/72 93 I/O 08/04/16 08/04/16 08/04/16 08/05/16 08/05/16 08/05/16 07:00 15:00 23:00 07:00 15:00 23:00 Intake Total 1320 ml 1000 ml 300 ml Balance 1320 ml 1000 ml 300 ml Intake Oral 1320 ml 1000 ml 300 ml # Voids 2 2 3 2 # Bowel Movements 1 0 0 0 (Delonte Ugalde MD R2) Result Diagram: 08/04/16 0800 08/04/16 0800 Objective Remarks GENERAL: This is a well-nourished, well-developed patient, in no apparent distress. SKIN: No rashes, ecchymoses or lesions. Cool and dry. HEAD: Normocephalic. No facial droop EYES: Pupils equal round and reactive. Extraocular motions intact. No scleral icterus. No injection or drainage. ENT: Nose without bleeding, purulent drainage or septal hematoma. Throat without erythema, tonsillar hypertrophy or exudate. Uvula midline. Airway patent. NECK: Trachea midline. No JVD or lymphadenopathy. Supple, nontender, no meningeal signs. CARDIOVASCULAR: Tachycardic rate and regular rhythm without murmurs, gallops, or rubs. RESPIRATORY: Clear to auscultation. Breath sounds equal bilaterally but poor effort. No wheezes, rales, or rhonchi. GASTROINTESTINAL: Obese abdomen, umbilical surgical scar from previous hernia surgery, tender to palpation in all 4 abdominal quadrants. MUSCULOSKELETAL: Extremities without clubbing, cyanosis, or edema. No joint tenderness, effusion, or edema noted. No calf tenderness. NEUROLOGICAL: Awake and alert. Cranial nerves II through XII intact. Intact finger to nose. Moving all extremities appropriately. (Delonte Ugalde MD R2) A/P Assessment and Plan 50-year-old female with a past medical history of diabetes, bipolar depression, panic disorder, uterine cancer, and hyperlipidemia presents to the [facility] ED from her alf with a chief complaint of altered mental status and elevated white blood cell count. Patient meets sepsis criteria with tachycardia , elevated white blood cell count, and elevated lactate of 2.7, which trended down to 1.2. The patient was admitted for workup of sepsis, administration of IV antibiotics and fluids. CT abdomen and pelvis was performed on 07/31 which showed uncomplicated pancolitis with high suspicion for clostridium difficile infection ulcerative colitis. Stool sample was negative for C. difficile. Colonoscopy was suggestive of ulcerative colitis and steroids were initiated. She has been cleared from GI standpoint. Discharge Planning Pending clinical improvement (Delonte Ugalde MD R2) Attending Attestation Patient seen and examined. Case reviewed and discussed. Agree with plan of care as discussed with me and documented in the resident note. (Sendy Mayers MD) Problem List: (1) Ulcerative colitis Status: Acute Plan: GI consulted. Colonoscopy completed on 08/03, consistent with UC. Leukocytosis improving. Infectious disease consulted -Solumedrol 40 mg IV q8h -->20 mg q 8 hr. We will transition to PO equivalent tomorrow 08/06, ~prednisone 160 mg daily (after 3 days of IV steroid). Will need gradual wean as outpatient and close follow up with GI. -DC Vancomycin by mouth 125 mg every 6 hours (started 07/31--08/03) -DC Flagyl 500 mg IV every 8 hours (started 07/31--08/03) -Cleared by GI. -Pain controlled: Percocet 1 tab every 6 hours prn pain. Chronic pain meds continued as discussed below. (2) Pancolitis Status: Acute Plan: GI consult Infectious disease consult Vancomycin by mouth 125 mg every 6 hours (started 07/31--) Flagyl 500 mg IV every 8 hours (started 07/31--) Leukocytosis improving Colonoscopy to be done 08/03. Nothing by mouth since midnight Pain controlled: Percocet 1 tab every 6 hours. Chronic pain meds continued as discussed below. (3) Altered mental status Status: Resolved Plan: This is likely the patient's baseline as discussed with her alf. Likely related to polypharmacy. (4) Recent history of diarrhea Status: Acute Plan: C. difficile negative Continue treatment of UC as above (5) Chronic Medical Problems Status: Acute Plan: Diabetes: Hemoglobin A1c 8.5. Patient takes Lantus 26 units subcutaneous at bedtime at home as well as Novolin sliding scale Will hold home Lantus. Accu-Cheks with low NovoLog SSI. Patient receiving 24 U in the past 24 hours. Will add levemir 10 units BID. Diabetic polyneuropathy: Continue gabapentin at reduced dose of 400 mg by mouth 3 times a day, continue Lyrica at current home dose COPD: Albuterol nebulizer every 4 hours while awake Hypertension: Patient was normotensive on admission -Continue spironolactone 50 mg by mouth daily -Hydralazine 10mg PO QID prn SBP >= 160, DBP >= 90 -Vasotec 1.25mg IV Q8h prn SBP >= 180, DBP >= 100 Hyperlipidemia: Continue atorvastatin 20 mg by mouth at bedtime Bipolar Depression: Holding amitriptyline and Xanax Panic/anxiety disorder: Per psychiatry recommendations, will continue Seroquel 400 mg by mouth at bedtime Chronic low back pain: Continue home Percocet 10-325 mg every 6 hours when necessary. Holding Flexeril due to AMS and dizziness (6) FEN/DVT PPX/GI PPX Status: Acute Plan: Fluids: Tolerating by mouth Electrolytes: Will monitor and replace as needed Nutrition: Heart healthy diet DVT Prophylaxis: Lovenox 40 mg subcutaneous GI Prophylaxis: Famotidine [address] Mayers (Delonte Ugalde MD R2) Delonte Ugalde MD R2 Aug 05, 2016 07:22 Sendy Mayers MD Aug 06, 2016 17:45
[2016-08-05 09:41] LABS: AUTOMATED NEUTROPHIL # 15.5 TH/MM3 (1.8-7.7); BASOPHIL % 0.2 % (0.0-2.0); EOSINOPHIL # 0.2 TH/MM3 (0-0.4); EOSINOPHIL % 1.1 % (0.0-4.0); LYMPHOCYTE # 2.3 TH/MM3 (1.0-4.8); MEAN CORPUSCULAR HEMOGLOBIN 24.8 PG (27.0-34.0); MEAN CORPUSCULAR HGB CONC 32.2 % (32.0-36.0); MONO % 4.8 % (0.0-8.0); NEUT % 81.9 % (16.0-70.0); PLATELET COUNT 371 TH/MM3 (150-450); RED BLOOD COUNT 4.02 MIL/MM3 (4.00-5.30); RED CELL DISTRIBUTION WIDTH 16.6 % (11.6-17.2)
[2016-08-05 09:44] LABS: HEMO FLAGS AUTO DIFF
[2016-08-05 09:49] LABS: ALKALINE PHOSPHATASE 127 U/L (45-117); ALT (GPT) 8 U/L (10-53); ANION GAP 9 MEQ/L (5-15); AST (GOT) 9 U/L (15-37); BICARBONATE 26.7 MEQ/L (21.0-32.0); CHLORIDE 92 MEQ/L (98-107); GLOMERULAR FILTRATION RATE 164 ML/MIN (>89); POTASSIUM 4.7 MEQ/L (3.5-5.1); SODIUM (NA) 128 MEQ/L (136-145); TOTAL BILIRUBIN ADULT LESS THAN 0.1 MG/DL (0.2-1.0)
[2016-08-05 09:53] LABS: BLOOD UREA NITROGEN 7 MG/DL (7-18)
[2016-08-05 10:38] LABS: BANDS 22 % (0-6); NEUTROPHIL # MANUAL DIFF 16.7 TH/MM3 (1.8-7.7); POLYS (SEG NEUTROPHILS) 66 % (16-70); WBC DIFF SAMPLE 100
[2016-08-05 10:39] LABS: OVALOCYTES 1+ (NORMAL); TOXIC VACUOLATION PRESENT (NONE SEEN)
[2016-08-05 10:40] LABS: PLATELET ESTIMATE SMEAR NORMAL (NORMAL); PLATELET MORPHOLOGY NORMAL (NORMAL)
[2016-08-05 10:42] LABS: SCAN/DIFF FINAL DIFF MANUAL
[2016-08-05 10:43] LABS: KERATOCYTES 1+ (NORMAL)
[2016-08-05] MEDS: BUDESONIDE-FORMOTEROL 160/4.5 MCG INHALER INH SCH ×2 (12:32→21:33)
[2016-08-05] MEDS: GABAPENTIN 400 MG CAP PO SCH ×3 (12:33→18:26)
[2016-08-05] MEDS: DIVALPROEX DR 500 MG TABEC PO SCH ×2 (12:33→21:34)
[2016-08-05] MEDS: INSULIN DETEMIR 100 UNITS/ML VIAL SQ SCH ×2 (12:33→21:33)
[2016-08-05] MEDS: REMOVE OLD NICODERM (NICOTINE) PATCH TD SCH (12:34)
[2016-08-05] MEDS: PREGABALIN 100 MG CAP PO SCH (12:34)
[2016-08-05] MEDS: NICOTINE 7 MG/24 HR PATCH TD SCH (12:34)
[2016-08-05] MEDS: ALPRAZolam 0.5 MG TAB PO PRN ×2 (12:34→21:33)
[2016-08-05] MEDS: SPIRONOLACTONE 50 MG TAB PO SCH (12:34)
[2016-08-05] MEDS: ENOXAPARIN SODIUM 40 MG/0.4 ML SYRINGE SQ SCH (13:38)
[2016-08-05] MEDS: ATORVASTATIN 20 MG TAB PO SCH (21:34)
[2016-08-05] MEDS: AMITRIPTYLINE HCL 25 MG TAB PO SCH (21:34)
[2016-08-06] VITALS (8 sets, daily range): BP systolic 116–154; BP diastolic 63–89; PULSE 56–100; RESP 16–20; TEMP 95.8–97.7; O2SAT 93–96
[2016-08-06] MEDS: QUEtiapine FUMARATE 200 MG TAB PO SCH ×2 (00:13→20:55)
[2016-08-06] MEDS: oxyCODONE/ACETAMINOPHEN 10 MG/325 MG TAB PO PRN ×4 (00:14→21:59)
[2016-08-06] MEDS: INSULIN ASPART SUPPLEMENTAL SCALE SQ SCH ×4 (06:13→21:02)
[2016-08-06] MEDS: methylPREDNISolone SOD SUCC 40 MG/1 ML VIAL IV PUSH SCH (06:13)
[2016-08-06] MEDS ORDERED: PILL SPLITTER OTHER PRN (07:15)
[2016-08-06 08:24] LABS: AUTOMATED NEUTROPHIL # 13.9 TH/MM3 (1.8-7.7); BASOPHIL # 0.1 TH/MM3 (0-0.2); BASOPHIL % 0.5 % (0.0-2.0); LYMPH % 13.1 % (9.0-44.0); LYMPHOCYTE # 2.3 TH/MM3 (1.0-4.8); MEAN CELL VOLUME 74.3 FL (80.0-100.0); MEAN CORPUSCULAR HEMOGLOBIN 25.4 PG (27.0-34.0); MEAN CORPUSCULAR HGB CONC 34.2 % (32.0-36.0); NEUT % 80.4 % (16.0-70.0); PLATELET COUNT 524 TH/MM3 (150-450); RED BLOOD COUNT 4.04 MIL/MM3 (4.00-5.30); RED CELL DISTRIBUTION WIDTH 16.6 % (11.6-17.2); WHITE BLOOD COUNT 17.3 TH/MM3 (4.0-11.0)
[2016-08-06 08:26] LABS: HEMO FLAGS AUTO DIFF
[2016-08-06 08:29] LABS: BICARBONATE 29.6 MEQ/L (21.0-32.0); POTASSIUM 4.5 MEQ/L (3.5-5.1)
[2016-08-06 09:34] LABS: BANDS 28 % (0-6); METAMYELOCYTES 3 % (0-1); MYELOCYTES 10 % (0-0); NEUTROPHIL # MANUAL DIFF 14.4 TH/MM3 (1.8-7.7); POLYS (SEG NEUTROPHILS) 42 % (16-70); WBC DIFF SAMPLE 100
[2016-08-06 09:35] LABS: OVALOCYTES 1+ (NORMAL); PLATELET ESTIMATE SMEAR HIGH (NORMAL); PLATELET MORPHOLOGY NORMAL (NORMAL); SCAN/DIFF FINAL DIFF MANUAL
[2016-08-06] MEDS: SPIRONOLACTONE 50 MG TAB PO SCH (09:43)
[2016-08-06] MEDS: ALPRAZolam 0.5 MG TAB PO PRN ×2 (09:43→20:58)
[2016-08-06] MEDS: REMOVE OLD NICODERM (NICOTINE) PATCH TD SCH (09:44)
[2016-08-06] MEDS: INSULIN DETEMIR 100 UNITS/ML VIAL SQ SCH (09:44)
[2016-08-06] MEDS: NICOTINE 7 MG/24 HR PATCH TD SCH (09:44)
[2016-08-06] MEDS: GABAPENTIN 400 MG CAP PO SCH ×3 (09:45→18:52)
[2016-08-06] MEDS: DIVALPROEX DR 500 MG TABEC PO SCH ×2 (09:45→20:55)
[2016-08-06] MEDS: predniSONE 20 MG TAB PO SCH (09:46)
[2016-08-06] MEDS: BUDESONIDE-FORMOTEROL 160/4.5 MCG INHALER INH SCH ×2 (09:46→20:57)
[2016-08-06] MEDS: PREGABALIN 100 MG CAP PO SCH (09:46)
--- NOTE | 2016-08-06 11:13 | HHI.FPPN ---
Subjective Remarks Patient was seen and examined this morning. She notes that she feels tired. She has the same abdominal pain "because of hernia" as before. She notes normal non- bloody bowel movements, no nausea or vomiting. She does not want to go home today. Notably, her bedside glucose has been in the upper 300s (max 420) in the last 24 hr. Levemir 10U BID was initiated yesterday evening. She is getting up and moving around without dizziness or other difficulty. (Leidy Shultz MD R1 ) Objective Vitals Vital Signs Date Time Temp Pulse Resp B/P Pulse Ox O2 Delivery O2 Flow Rate FiO2 08/06/16 09:49 16 08/06/16 07:50 95.8 61 20 128/79 95 08/06/16 06:16 96.9 56 16 148/89 96 08/06/16 00:00 97.4 66 16 129/79 94 08/05/16 20:00 97.5 68 16 139/74 94 08/05/16 19:28 93 21 08/05/16 15:50 98.2 72 20 127/72 97 08/05/16 15:00 93 Nasal Cannula 21 08/05/16 11:50 97.3 64 20 146/74 I/O 08/05/16 08/05/16 08/05/16 08/06/16 08/06/16 08/06/16 07:00 15:00 23:00 07:00 15:00 23:00 Intake Total 300 ml 840 ml 300 ml Balance 300 ml 840 ml 300 ml Intake Oral 300 ml 840 ml 300 ml # Voids 2 3 1 # Bowel Movements 0 1 0 (Leidy Shultz MD R1) Result Diagram: 08/06/16 0603 08/06/16 0603 Imaging Last Impressions Abdomen/Pelvis CT 07/31/16 0000 Signed Impressions: Service Date/Time: Sunday, July 31, 2016 13:04 - CONCLUSION: Moderate severity uncomplicated pancolitis. This is nonspecific, presumably infectious. C. difficile colitis would be in the differential. Active ulcerative colitis would be conceivable if the patient has that history. Hector Blackwell MD Head CT 07/30/16 0945 Signed Impressions: Service Date/Time: July 10:19 - CONCLUSION: No acute disease. No evidence of acute infarct, hemorrhage, mass or edema. Leroy Herrera MD Chest X-Ray 07/30/16 0993 Signed Impressions: Service Date/Time: July 09:55 - CONCLUSION: No acute disease. No significant change has occurred. Lefty Alexander MD Objective Remarks GENERAL: This is a well-nourished, well-developed female, resting in bed. SKIN: No rashes, ecchymoses or lesions. Cool and dry. HEAD: Normocephalic. Atraumatic. EYES: Pupils equal round and reactive. Extraocular motions intact. No scleral icterus. No injection or drainage. ENT: Nose without bleeding, purulent drainage or septal hematoma. Throat without erythema, tonsillar hypertrophy or exudate. Uvula midline. Airway patent. NECK: Trachea midline. No JVD or lymphadenopathy. Supple, nontender, no meningeal signs. CARDIOVASCULAR: Regular rate and regular rhythm without murmurs, gallops, or rubs. RESPIRATORY: Clear to auscultation. Breath sounds equal bilaterally but poor effort. No wheezes, rales, or rhonchi. GASTROINTESTINAL: Obese abdomen, umbilical surgical scar from previous hernia surgery, not obviously tender to palpation today. Bowel sounds are normal. MUSCULOSKELETAL: Extremities without clubbing, cyanosis, or edema. No joint tenderness, effusion, or edema noted. No calf tenderness. NEUROLOGICAL: Awake and alert. Cranial nerves II through XII intact. Grossly normal strength in extremities. Moving all extremities appropriately. Medications and IVs Inpatient Medications Acetaminophen (Tylenol) 650 mg Q4H PRN PO SEE LABEL COMMENTS; Start 07/30/16 at 12:15 Albuterol Sulfate (Albuterol Neb) 2.5 mg Q4HR NEB PRN NEB SHORTNESS OF BREATH; Start 07/30/16 at 12:30; Stop 07/30/16 at 15:40; Status DC Albuterol/ Ipratropium (Duoneb Neb) 1 ampule Q4HR NEB PRN NEB SHORTNESS OF BREATH Last administered on 08/04/16 23:58; Start 08/04/16 at 23:00 Alprazolam (Xanax) 0.5 mg Q8H PRN PO ANXIETY AND/OR AGITATION Last administered on 08/06/16 09:43; Start 08/01/16 at 11:45 Amitriptyline HCl (Elavil) 25 mg HS PO Last administered on 08/05/16 21:34; Start 07/30/16 at 21:00 Artificial Tears (Tears Naturale Opth Soln) 2 drop Q2HR PRN EACH EYE DRY EYE Last administered on 08/01/16 04:42; Start 07/30/16 at 12:15 Atorvastatin Calcium (Lipitor) 20 mg HS PO Last administered on 08/05/16 21:34 ; Start 07/30/16 at 21:00 Azathioprine (Imuran) 50 mg DAILY@06 PO Last administered on 08/06/16 13:30; Start 08/06/16 at 12:15 Budesonide/ Formoterol Fumarate (Symbicort 160-4.5 Inh) 1 puff Q12HR INH Last administered on 08/06/16 09:46; Start 07/30/16 at 14:00 Dextrose (D50w (Vial) Inj) 25 ml UNSCH PRN IV PUSH HYPOGLYCEMIA-SEE COMMENTS; Start 07/30/16 at 12:30 Diatrizoate Meglum/ Diatrizoate Sod ( Gastroview Liq) 18 ml ONCE ONCE PO Last administered on 07/31/16 10:42; Start 07/31/16 at 11:00; Stop 07/31/16 at 11:01; Status DC Diphenoxylate HCl/ Atropine (Lomotil Tab) 1 tab ONCE ONCE PO Last administered on 08/02/16 01:55; Start 08/02/16 at 02:00; Stop 08/02/16 at 02:01 ; Status DC Divalproex Sodium (Depakote Dr) 500 mg Q12HR PO Last administered on 08/06/16 09:45; Start 07/31/16 at 21:00 Enalaprilat (Vasotec Inj) 1.25 mg Q8H PRN IV PUSH SBP >= 180, DBP >= 100; Start 07/30/16 at 19:15 Enoxaparin Sodium (Lovenox Inj) 40 mg Q24H SQ Last administered on 08/05/16 13 :38; Start 07/30/16 at 14:00 Famotidine (Pepcid) 20 mg BID PRN PO ACID REFLUX Last administered on 3/12/ 17at 18:04; Start 08/01/16 at 21:00 Gabapentin (Neurontin) 400 mg TID PO Last administered on 08/06/16 13:30; Start 07/31/16 at 18:00 Glucagon (Glucagon Inj) 1 mg UNSCH PRN OTHER HYPOGLYCEMIA-SEE COMMENTS; Start 07/30/16 at 12:30 Hydralazine HCl (Apresoline) 10 mg Q6H PRN PO SBP>160, DBP>90; Start 07/30/16 at 12:15 Insulin Aspart (NovoLOG SUPPLEMENTAL SCALE) 1 ACHS SLIDING SCALE SQ Last administered on 08/06/16 13:30; Start 08/05/16 at 21:00 Insulin Aspart 1 1 ACHS SLIDING SCALE SQ Last administered on 08/05/16 16:23 ; Start 07/30/16 at 16:00; Stop 08/05/16 at 20:45; Status DC Insulin Detemir (Levemir Inj) 10 units BID SQ Last administered on 08/06/16 09 :44; Start 08/05/16 at 09:00 Methylprednisolone Sodium Succinate (SoluMEDROL INJ) 20 mg Q8HR IV PUSH Last administered on 08/06/16 06:13; Start 08/05/16 at 22:00; Stop 08/06/16 at 06:57 ; Status DC Metronidazole (Flagyl 500 Mg Inj) 100 ml @ 100 mls/hr Q8H IV Last administered on 08/03/16 16:59; Start 08/01/16 at 01:00; Stop 08/03/16 at 18:05 ; Status DC Metronidazole (Flagyl) 500 mg Q8H PO Last administered on 07/31/16 17:13; Start 07/30/16 at 16:00; Stop 07/31/16 at 22:02; Status DC Miscellaneous (Pill Splitter) 1 ea UNSCH PRN OTHER SEE LABEL COMMENTS; Start at 07:15 Miscellaneous Information 1 HS TD Last administered on 08/06/16 09:44; Start 07/30/16 at 21:00 Nicotine (Habitrol 7 Mg Patch.24 Hr) 1 patch DAILY TD Last administered on 08/06 09:44; Start 07/30/16 at 12:15 Ondansetron HCl 4 mg 4 mg Q6H PRN IV NAUSEA OR VOMITING Last administered on 23:19; Start 07/30/16 at 12:15 Oxycodone/ Acetaminophen (Percocet 10-325 Mg) 1 tab Q6H PRN PO PAIN Last administered on 08/06/16 06:14; Start 07/30/16 at 12:15 Pantoprazole Sodium (Protonix) 20 mg ONCE ONCE PO ; Start 08/02/16 at 02:00; Stop 08/02/16 at 02:01; Status DC Patient Own Medication PT OWN MED: Cyclosporine Opth .. HS EACH EYE ; Start 07/30/16 at 21:00; Status Hold Piperacillin Sod/ Tazobactam Sod (Zosyn 3.375 Gm Premix) 50 ml @ 100 mls/hr Q6H IV Last administered on 07/31/16 17:12; Start 07/30/16 at 16:00; Stop 07/31 at 21:51; Status DC Piperacillin Sod/ Tazobactam Sod (Zosyn 4.5 Gm Premix) 100 ml @ 200 mls/hr ONCE STAT IV Last administered on 07/30/16 10:33; Start 07/30/16 at 09:45; Stop 07/30/16 at 10:14; Status DC Polyethylene Glycol (Miralax) 17 gm DAILY PO ; Start 07/30/16 at 12:45; Stop 04/09 at 11:35; Status DC Polyethylene Glycol/ Electrolytes (Colyte Liq) 4,000 ml ONCE ONCE PO Last administered on 08/02/16 16:11; Start 08/02/16 at 16:00; Stop 08/02/16 at 16:01 ; Status DC Potassium Chloride (KCl) 30 meq ONCE ONCE PO Last administered on 08/03/16 18 :10; Start 08/03/16 at 17:15; Stop 08/03/16 at 17:16; Status DC Prednisone (Deltasone) 30 mg DAILY PO Last administered on 08/06/16 09:46; Start 08/06/16 at 09:00 Pregabalin (Lyrica) 100 mg DAILY PO Last administered on 08/06/16 09:46; Start 07/30/16 at 15:45 Quetiapine Fumarate (SEROquel) 400 mg HS PO Last administered on 08/06/16 00: 13; Start 07/31/16 at 21:00 Senna/Docusate Sodium (Ladan-Colace) 2 tab BID PO Last administered on 22:19; Start 07/30/16 at 21:00; Status Hold Sodium Chloride (NS 1000 ml Inj) 1,000 ml @ 155 mls/hr Q6H28M IV Last administered on 07/30/16 17:29; Start 07/30/16 at 12:01; Stop 08/01/16 at 06:24; Status DC Spironolactone (Aldactone) 50 mg DAILY PO Last administered on 08/06/16 09:43 ; Start 07/31/16 at 09:00 Vancomycin HCl 125 mg 125 mg Q6H PO Last administered on 08/03/16 17:00; Start 07/31/16 at 22:00; Stop 08/03/16 at 18:05; Status DC Vancomycin HCl 1000 mg/Sodium Chloride 250 ml @ 250 mls/hr Q12H IV Last administered on 07/31/16 10:43; Start 07/30/16 at 22:00; Stop 07/31/16 at 21:51 ; Status DC (Leidy Shultz MD R1) A/P Assessment and Plan 50-year-old female with a past medical history of diabetes, bipolar depression, panic disorder, uterine cancer, and hyperlipidemia presents to the [place] ED from her skilled nursing with a chief complaint of altered mental status and elevated white blood cell count. Patient meets sepsis criteria with tachycardia , elevated white blood cell count, and elevated lactate of 2.7, which trended down to 1.2. The patient was admitted for workup of sepsis, administration of IV antibiotics and fluids. CT abdomen and pelvis was performed on 07/31 which showed uncomplicated pancolitis with high suspicion for clostridium difficile infection ulcerative colitis. Stool sample was negative for C. difficile. Colonoscopy was suggestive of ulcerative colitis and steroids were initiated. She has been cleared from GI standpoint to continue PO prednisone and azathioprine as outpatient, with follow-up with GI one week after discharge. Discharge Planning Possibly tomorrow, blood sugars are elevated and insulin needs to be adjusted ( Leidy Shultz MD R1) Attending Attestation Patient seen and examined. Case reviewed and discussed. Agree with plan of care as discussed with me and documented in the resident note. (Sendy Mayers MD) Problem List: (1) Ulcerative colitis Status: Acute Plan: GI consulted. Colonoscopy completed on 08/03, consistent with UC. Leukocytosis improving. Infectious disease consulted -Solumedrol 40 mg IV q8h per GI, transitioned to prednisone 30mg daily. She will start azathioprine 50 mg daily as well. -DC Vancomycin by mouth 125 mg every 6 hours (started 07/31--08/03) -DC Flagyl 500 mg IV every 8 hours (started 07/31--08/03) -Cleared by GI. -Pain controlled: Percocet 1 tab every 6 hours prn pain. Chronic pain meds continued as discussed below. (2) Pancolitis Status: Acute Plan: GI consult Infectious disease consult Vancomycin by mouth 125 mg every 6 hours (started 07/31--discontinued 08/03) Flagyl 500 mg IV every 8 hours (started 07/31--discontinued 08/03) Leukocytosis improving Colonoscopy completed 08/03 showing IBD Pain controlled: Percocet 1 tab every 6 hours. Chronic pain meds continued as discussed below. (3) Altered mental status Status: Resolved Plan: This is likely the patient's baseline as discussed with her skilled nursing. Likely related to polypharmacy. (4) Recent history of diarrhea Status: Acute Plan: C. difficile negative Continue treatment of UC as above (5) Chronic Medical Problems Status: Acute Plan: Diabetes: Hemoglobin A1c 8.5. Patient takes Lantus 26 units subcutaneous at bedtime at home as well as Novolin sliding scale Will hold home Lantus. Accu-Cheks with moderate NovoLog SSI. Patient required 12 U insulin this after due to BSG 380s, 36U total since last night in addition to Levemir 10 units BID started last night, will likely need increase tomorrow. Will initiate diabetic diet though she had not eaten much today per nurse Diabetic polyneuropathy: Continue gabapentin at reduced dose of 400 mg by mouth 3 times a day, continue Lyrica at current home dose COPD: Albuterol nebulizer every 4 hours while awake Hypertension: Patient was normotensive on admission -Continue spironolactone 50 mg by mouth daily -Hydralazine 10mg PO QID prn SBP >= 160, DBP >= 90 -Vasotec 1.25mg IV Q8h prn SBP >= 180, DBP >= 100 Hyperlipidemia: Continue atorvastatin 20 mg by mouth at bedtime Bipolar Depression/Panic/anxiety disorder: Per psychiatry recommendations, will continue Seroquel 400 mg by mouth at bedtime. Otherwise, continue psych meds at home dose aside from Xanax, which was decreased to 0.5mg q8hr PRN Chronic low back pain: Continue home Percocet 10-325 mg every 6 hours when necessary. Holding Flexeril due to AMS and dizziness (6) FEN/DVT PPX/GI PPX Status: Acute Plan: Fluids: Tolerating by mouth Electrolytes: Will monitor and replace as needed Nutrition: Heart healthy diet DVT Prophylaxis: Lovenox 40 mg subcutaneous GI Prophylaxis: Famotidine [address] Mayers (Leidy Shultz MD R1) Leidy Shultz MD R1 Aug 06, 2016 11:13 Sendy Mayers MD Aug 06, 2016 17:45
[2016-08-06] MEDS ORDERED: PRED20 PO (12:15)
[2016-08-06] MEDS ORDERED: QUET1TAB9 PO (12:15)
[2016-08-06] MEDS ORDERED: ALPR.5 PO (12:15)
[2016-08-06] MEDS ORDERED: AZAT50 PO (12:15)
--- NOTE | 2016-08-06 12:16 | HHI.DCPOC ---
Discharge Care Plan Diagnosis: (1) Ulcerative colitis Goals to Promote Your Health * To prevent worsening of your condition and complications * To maintain your health at the optimal level Directions to Meet Your Goals Take your medications as prescribed Follow your dietary instruction Follow activity as directed Keep your appointments as scheduled Take your immunizations and boosters as scheduled If your symptoms worsen call your PCP, if no PCP go to Urgent Care Center or Emergency Room Smoking is Dangerous to Your Health. Avoid second hand smoke Call the 24-hour hour crisis hotline for domestic abuse at Leidy Shultz MD R1 Aug 06, 2016 12:16 Sendy Mayers MD Aug 06, 2016 17:45
[2016-08-06] MEDS: azaTHIOprine 50 MG TAB PO SCH (13:30)
[2016-08-06] MEDS ORDERED: PERC10TA27 PO (14:32)
[2016-08-06] MEDS ORDERED: OXYC1TAB36 PO (14:53)
[2016-08-06] MEDS ORDERED: INSULIN ASPART 1,000 UNITS/10 ML VIAL SQ ONE (17:15)
[2016-08-06] MEDS: ENOXAPARIN SODIUM 40 MG/0.4 ML SYRINGE SQ SCH (17:27)
[2016-08-06] MEDS: INSULIN ASPART 1,000 UNITS/10 ML VIAL SQ SCH (19:11)
[2016-08-06] MEDS: AMITRIPTYLINE HCL 25 MG TAB PO SCH (20:55)
[2016-08-06] MEDS: ATORVASTATIN 20 MG TAB PO SCH (20:55)
[2016-08-06] MEDS ORDERED: INSULIN DETEMIR 100 UNITS/ML VIAL SQ SCH (21:00)
[2016-08-07] VITALS: BP 119/57; PULSE 88; RESP 18; TEMP 97.1; O2SAT 93
[2016-08-07 04:00] VITALS: BP 134/71; PULSE 63; RESP 18; TEMP 97.6; O2SAT 96
[2016-08-07] MEDS: azaTHIOprine 50 MG TAB PO SCH (05:34)
[2016-08-07] MEDS: oxyCODONE/ACETAMINOPHEN 10 MG/325 MG TAB PO PRN (05:38)
[2016-08-07] MEDS: INSULIN ASPART SUPPLEMENTAL SCALE SQ SCH ×3 (05:40→16:18)
[2016-08-07 07:17] LABS: BASOPHIL # 0.1 TH/MM3 (0-0.2); BASOPHIL % 0.7 % (0.0-2.0); EOSINOPHIL % 0.2 % (0.0-4.0); HEMATOCRIT 35.1 % (35.0-46.0); LYMPH % 29.6 % (9.0-44.0); LYMPHOCYTE # 4.9 TH/MM3 (1.0-4.8); MEAN CELL VOLUME 75.4 FL (80.0-100.0); MEAN CORPUSCULAR HEMOGLOBIN 24.5 PG (27.0-34.0); MEAN CORPUSCULAR HGB CONC 32.5 % (32.0-36.0); MONO % 8.8 % (0.0-8.0); NEUT % 60.7 % (16.0-70.0); PLATELET COUNT 468 TH/MM3 (150-450); RED BLOOD COUNT 4.65 MIL/MM3 (4.00-5.30); RED CELL DISTRIBUTION WIDTH 16.7 % (11.6-17.2); WHITE BLOOD COUNT 16.4 TH/MM3 (4.0-11.0)
[2016-08-07 07:21] LABS: HEMO FLAGS AUTO DIFF
[2016-08-07 07:39] LABS: BICARBONATE 29.6 MEQ/L (21.0-32.0); POTASSIUM 3.9 MEQ/L (3.5-5.1)
--- NOTE | 2016-08-07 08:25 | HHI.FPPN ---
Subjective Remarks Patient was seen and examined this morning. She states she continues to feel tired bulbi ready to go back to her rehabilitation today. She notes that her sugars are still high and she would "hate to have to come back for high blood sugars." She notes that her belly pain is persistent and stable. She denies having had a bowel movement since her colonoscopy but is passing flatus. She denies any issues with urination. She denies fevers, chills, chest pain, shortness of breath. She denies leg pain. (Leidy Shultz MD R1) Objective Vitals Vital Signs Date Time Temp Pulse Resp B/P Pulse Ox O2 Delivery O2 Flow Rate FiO2 08/07/16 04:00 97.6 63 18 134/71 96 08/07/16 00:00 97.1 88 18 119/57 93 08/06/16 23:05 20 08/06/16 20:57 97.7 100 16 116/63 95 08/06/16 20:02 93 21 08/06/16 16:24 16 08/06/16 15:00 97.7 95 20 154/80 95 08/06/16 13:31 93 Nasal Cannula 21 08/06/16 11:50 97.6 68 20 142/80 96 I/O 08/06/16 08/06/16 08/06/16 08/07/16 08/07/16 08/07/16 07:00 15:00 23:00 07:00 15:00 23:00 Intake Total 300 ml 240 ml 480 ml Balance 300 ml 240 ml 480 ml Intake Oral 300 ml 240 ml 480 ml # Voids 1 3 2 # Bowel Movements 0 0 (Leidy Shultz MD R1) Result Diagram: 08/07/16 0633 08/07/16 0633 Imaging Last Impressions Abdomen/Pelvis CT 07/31/16 0000 Signed Impressions: Service Date/Time: Sunday, July 31, 2016 13:04 - CONCLUSION: Moderate severity uncomplicated pancolitis. This is nonspecific, presumably infectious. C. difficile colitis would be in the differential. Active ulcerative colitis would be conceivable if the patient has that history. Hector Blackwell MD Head CT 07/30/16 0945 Signed Impressions: Service Date/Time: July 10:19 - CONCLUSION: No acute disease. No evidence of acute infarct, hemorrhage, mass or edema. Leroy Herrera MD Chest X-Ray 07/30/16 [id number] Signed Impressions: Service Date/Time: July 09:55 - CONCLUSION: No acute disease. No significant change has occurred. Lefty Alexander MD Objective Remarks GENERAL: This is a well-nourished, well-developed obese female, resting in bed. SKIN: No rashes, ecchymoses or lesions. Cool and dry. HEAD: Normocephalic. Atraumatic. EYES: Pupils equal round and reactive. Extraocular motions intact. No scleral icterus. No injection or drainage. ENT: Nose without bleeding, purulent drainage or septal hematoma. Throat without erythema, tonsillar hypertrophy or exudate. Uvula midline. Airway patent. NECK: Trachea midline. No JVD or lymphadenopathy. CARDIOVASCULAR: Regular rate and regular rhythm without murmurs, gallops, or rubs. RESPIRATORY: Clear to auscultation. Breath sounds equal bilaterally. No wheezes , rales, or rhonchi. GASTROINTESTINAL: Obese abdomen, umbilical surgical scar from previous hernia surgery, not tender to palpation today. Bowel sounds are normal. MUSCULOSKELETAL: Extremities without clubbing, cyanosis, or edema. No joint tenderness, effusion, or edema noted. No calf tenderness. NEUROLOGICAL: Awake and alert. Cranial nerves II through XII intact. Grossly normal strength in extremities. Moving all extremities appropriately. Medications and IVs Inpatient Medications Acetaminophen (Tylenol) 650 mg Q4H PRN PO SEE LABEL COMMENTS; Start 07/30/16 at 12:15 Albuterol Sulfate (Albuterol Neb) 2.5 mg Q4HR NEB PRN NEB SHORTNESS OF BREATH; Start 07/30/16 at 12:30; Stop 07/30/16 at 15:40; Status DC Albuterol/ Ipratropium (Duoneb Neb) 1 ampule Q4HR NEB PRN NEB SHORTNESS OF BREATH Last administered on 08/04/16 23:58; Start 08/04/16 at 23:00 Alprazolam (Xanax) 0.5 mg Q8H PRN PO ANXIETY AND/OR AGITATION Last administered on 08/06/16 20:58; Start 08/01/16 at 11:45 Amitriptyline HCl (Elavil) 25 mg HS PO Last administered on 08/06/16 20:55; Start 07/30/16 at 21:00 Artificial Tears (Tears Naturale Opth Soln) 2 drop Q2HR PRN EACH EYE DRY EYE Last administered on 08/01/16 04:42; Start 07/30/16 at 12:15 Atorvastatin Calcium (Lipitor) 20 mg HS PO Last administered on 08/06/16 20:55 ; Start 07/30/16 at 21:00 Azathioprine (Imuran) 50 mg DAILY@06 PO Last administered on 08/07/16 05:34; Start 08/06/16 at 12:15 Budesonide/ Formoterol Fumarate (Symbicort 160-4.5 Inh) 1 puff Q12HR INH Last administered on 08/06/16 20:57; Start 07/30/16 at 14:00 Dextrose (D50w (Vial) Inj) 25 ml UNSCH PRN IV PUSH HYPOGLYCEMIA-SEE COMMENTS; Start 07/30/16 at 12:30 Diatrizoate Meglum/ Diatrizoate Sod ( Gastroview Liq) 18 ml ONCE ONCE PO Last administered on 07/31/16 10:42; Start 07/31/16 at 11:00; Stop 07/31/16 at 11:01; Status DC Diphenoxylate HCl/ Atropine (Lomotil Tab) 1 tab ONCE ONCE PO Last administered on 08/02/16 01:55; Start 08/02/16 at 02:00; Stop 08/02/16 at 02:01 ; Status DC Divalproex Sodium (Depakote Dr) 500 mg Q12HR PO Last administered on 08/06/16 20:55; Start 07/31/16 at 21:00 Enalaprilat (Vasotec Inj) 1.25 mg Q8H PRN IV PUSH SBP >= 180, DBP >= 100; Start 07/30/16 at 19:15 Enoxaparin Sodium (Lovenox Inj) 40 mg Q24H SQ Last administered on 08/06/16 17 :27; Start 07/30/16 at 14:00 Famotidine (Pepcid) 20 mg BID PRN PO ACID REFLUX Last administered on 18:04; Start 08/01/16 at 21:00 Gabapentin (Neurontin) 400 mg TID PO Last administered on 08/06/16 18:52; Start 07/31/16 at 18:00 Glucagon (Glucagon Inj) 1 mg UNSCH PRN OTHER HYPOGLYCEMIA-SEE COMMENTS; Start 07/30/16 at 12:30 Hydralazine HCl (Apresoline) 10 mg Q6H PRN PO SBP>160, DBP>90; Start 07/30/16 at 12:15 Insulin Aspart (NovoLOG SUPPLEMENTAL SCALE) 1 ACHS SLIDING SCALE SQ Last administered on 08/07/16 05:40; Start 08/05/16 at 21:00 Insulin Aspart (NovoLOG INJ) 10 units ONCE ONCE SQ Last administered on 17:27; Start 08/06/16 at 17:15; Stop 08/06/16 at 17:16; Status DC Insulin Aspart 1 1 ACHS SLIDING SCALE SQ Last administered on 08/05/16 16:23 ; Start 07/30/16 at 16:00; Stop 08/05/16 at 20:45; Status DC Insulin Detemir (Levemir Inj) 20 units BID SQ ; Start 08/07/16 at 09:00 Methylprednisolone Sodium Succinate (SoluMEDROL INJ) 20 mg Q8HR IV PUSH Last administered on 08/06/16 06:13; Start 08/05/16 at 22:00; Stop 08/06/16 at 06:57 ; Status DC Metronidazole (Flagyl 500 Mg Inj) 100 ml @ 100 mls/hr Q8H IV Last administered on 08/03/16 16:59; Start 08/01/16 at 01:00; Stop 08/03/16 at 18:05 ; Status DC Metronidazole (Flagyl) 500 mg Q8H PO Last administered on 07/31/16 17:13; Start 07/30/16 at 16:00; Stop 07/31/16 at 22:02; Status DC Miscellaneous (Pill Splitter) 1 ea UNSCH PRN OTHER SEE LABEL COMMENTS; Start at 07:15 Miscellaneous Information 1 HS TD Last administered on 08/06/16 09:44; Start 07/30/16 at 21:00 Nicotine (Habitrol 7 Mg Patch.24 Hr) 1 patch DAILY TD Last administered on 08/06 09:44; Start 07/30/16 at 12:15 Ondansetron HCl 4 mg 4 mg Q6H PRN IV NAUSEA OR VOMITING Last administered on 23:19; Start 07/30/16 at 12:15 Oxycodone/ Acetaminophen (Percocet 10-325 Mg) 1 tab Q6H PRN PO PAIN Last administered on 08/07/16 05:38; Start 07/30/16 at 12:15 Pantoprazole Sodium (Protonix) 20 mg ONCE ONCE PO ; Start 08/02/16 at 02:00; Stop 08/02/16 at 02:01; Status DC Patient Own Medication PT OWN MED: Cyclosporine Opth . HS EACH EYE ; Start 07/30/16 at 21:00; Status Hold Piperacillin Sod/ Tazobactam Sod (Zosyn 3.375 Gm Premix) 50 ml @ 100 mls/hr Q6H IV Last administered on 07/31/16 17:12; Start 07/30/16 at 16:00; Stop 07/31 at 21:51; Status DC Piperacillin Sod/ Tazobactam Sod (Zosyn 4.5 Gm Premix) 100 ml @ 200 mls/hr ONCE STAT IV Last administered on 07/30/16 10:33; Start 07/30/16 at 09:45; Stop 07/30/16 at 10:14; Status DC Polyethylene Glycol (Miralax) 17 gm DAILY PO ; Start 07/30/16 at 12:45; Stop 04/09 at 11:35; Status DC Polyethylene Glycol/ Electrolytes (Colyte Liq) 4,000 ml ONCE ONCE PO Last administered on 08/02/16 16:11; Start 08/02/16 at 16:00; Stop 08/02/16 at 16:01 ; Status DC Potassium Chloride (KCl) 30 meq ONCE ONCE PO Last administered on 08/03/16 18 :10; Start 08/03/16 at 17:15; Stop 08/03/16 at 17:16; Status DC Prednisone (Deltasone) 30 mg DAILY PO Last administered on 08/06/16 09:46; Start 08/06/16 at 09:00 Pregabalin (Lyrica) 100 mg DAILY PO Last administered on 08/06/16 09:46; Start 07/30/16 at 15:45 Quetiapine Fumarate (SEROquel) 400 mg HS PO Last administered on 08/06/16 20: 55; Start 07/31/16 at 21:00 Senna/Docusate Sodium (Ladan-Colace) 2 tab BID PO Last administered on 22:19; Start 07/30/16 at 21:00; Status Hold Sodium Chloride (NS 1000 ml Inj) 1,000 ml @ 155 mls/hr Q6H28M IV Last administered on 07/30/16 17:29; Start 07/30/16 at 12:01; Stop 08/01/16 at 06:24; Status DC Spironolactone (Aldactone) 50 mg DAILY PO Last administered on 08/06/16 09:43 ; Start 07/31/16 at 09:00 Vancomycin HCl 125 mg 125 mg Q6H PO Last administered on 08/03/16 17:00; Start 07/31/16 at 22:00; Stop 08/03/16 at 18:05; Status DC Vancomycin HCl 1000 mg/Sodium Chloride 250 ml @ 250 mls/hr Q12H IV Last administered on 07/31/16 10:43; Start 07/30/16 at 22:00; Stop 07/31/16 at 21:51 ; Status DC (Leidy Shultz MD R1) Urinary Catheter: No (Leidy Shultz MD R1) Vascular Central Line Catheter: No (Leidy Shultz MD R1) A/P Assessment and Plan 50-year-old female with a past medical history of diabetes, bipolar depression, panic disorder, uterine cancer, and hyperlipidemia presents to the [facility] ED from her halfway with a chief complaint of altered mental status and elevated white blood cell count. Patient meets sepsis criteria with tachycardia , elevated white blood cell count, and elevated lactate of 2.7, which trended down to 1.2. The patient was admitted for workup of sepsis, administration of IV antibiotics and fluids. CT abdomen and pelvis was performed on 07/31 which showed uncomplicated pancolitis with high suspicion for clostridium difficile infection ulcerative colitis. Stool sample was negative for C. difficile. Colonoscopy was suggestive of ulcerative colitis and steroids were initiated. She has been cleared from GI standpoint to continue PO prednisone and azathioprine as outpatient, with follow-up with GI one week after discharge. Discharge Planning Possibly today or tomorrow, blood sugars are elevated and insulin needs to be adjusted (Leidy Shultz MD R1) Attending Attestation Patient examined and case discussed with resident physicians I have read the above note and agree with the assessment/plan as discussed with me I was involved in all medical decision making for this patient Raymond Adams M.D. (Raymond Adams MD) Problem List: (1) Ulcerative colitis Status: Acute Plan: GI consulted. Colonoscopy completed on 08/03, consistent with UC. Leukocytosis improving. Infectious disease consulted -Solumedrol 40 mg IV q8h per GI for 3 days post procedure, transitioned to prednisone 30mg daily. She will start azathioprine 50 mg daily as well. -DC Vancomycin by mouth 125 mg every 6 hours (started 07/31--08/03) -DC Flagyl 500 mg IV every 8 hours (started 07/31--08/03) -Cleared by GI. -Pain controlled: Percocet 1 tab every 6 hours prn pain. Chronic pain meds continued as discussed below. (2) Pancolitis Status: Acute Plan: GI consult Infectious disease consult Vancomycin by mouth 125 mg every 6 hours (started 07/31--discontinued 08/03) Flagyl 500 mg IV every 8 hours (started 07/31--discontinued 08/03) Leukocytosis improving Colonoscopy completed 08/03 showing IBD Pain controlled: Percocet 1 tab every 6 hours. Chronic pain meds continued as discussed below. (3) Altered mental status Status: Resolved Plan: This is likely the patient's baseline as discussed with her halfway. Likely related to polypharmacy. (4) Recent history of diarrhea Status: Acute Plan: C. difficile negative Continue treatment of UC as above (5) Chronic Medical Problems Status: Acute Plan: Diabetes: As above Diabetic polyneuropathy: Continue gabapentin at reduced dose of 400 mg by mouth 3 times a day, continue Lyrica at current home dose COPD: Albuterol nebulizer every 4 hours while awake Hypertension: Patient was normotensive on admission -Continue spironolactone 50 mg by mouth daily -Hydralazine 10mg PO QID prn SBP >= 160, DBP >= 90 -Vasotec 1.25mg IV Q8h prn SBP >= 180, DBP >= 100 Hyperlipidemia: Continue atorvastatin 20 mg by mouth at bedtime Bipolar Depression/Panic/anxiety disorder: Per psychiatry recommendations, will continue Seroquel 400 mg by mouth at bedtime. Otherwise, continue psych meds at home dose aside from Xanax, which was decreased to 0.5mg q8hr PRN Chronic low back pain: Continue home Percocet 10-325 mg every 6 hours when necessary. Holding Flexeril due to AMS and dizziness (6) Diabetes mellitus Status: Acute Plan: Hemoglobin A1c 8.5. Patient takes Lantus 26 units subcutaneous at bedtime at home as well as Novolin sliding scale Hold home Lantus Accu-Cheks with moderate NovoLog SSI Patient is at bedside glucoses approximately 420 with serum reflecting this value Patient required a total of 53 additional units of NovoLog by SSI over the last 24 hours. She received 15 units of Levemir overnight on 08/05. Switch to Levemir 20 units twice a day today, continue NovoLog 5 units 3 times a day before meals, with moderate SSI. Diabetic diet Once showing better blood sugar control, patient may be discharged (7) FEN/DVT PPX/GI PPX Status: Acute Plan: Fluids: Tolerating by mouth Electrolytes: Will monitor and replace as needed Nutrition: Heart healthy diet DVT Prophylaxis: Lovenox 40 mg subcutaneous GI Prophylaxis: Famotidine [address] Mayers (Leidy Shultz MD R1) Leidy Shultz MD R1 Aug 07, 2016 08:25 Raymond Adams MD Aug 07, 2016 16:28
[2016-08-07 08:28] LABS: BANDS 21 % (0-6); EOSINOPHILS 1 % (0-4); METAMYELOCYTES 5 % (0-1); MYELOCYTES 9 % (0-0); OVALOCYTES 1+ (NORMAL); POLYS (SEG NEUTROPHILS) 32 % (16-70); WBC DIFF SAMPLE 100
[2016-08-07 08:29] LABS: PLATELET ESTIMATE SMEAR HIGH (NORMAL); PLATELET MORPHOLOGY NORMAL (NORMAL)
[2016-08-07 08:31] LABS: ACANTHOCYTES OCC (NORMAL); KERATOCYTES OCC (NORMAL)
[2016-08-07 08:32] LABS: SCAN/DIFF FINAL DIFF MANUAL; TOXIC VACUOLATION PRESENT (NONE SEEN)
[2016-08-07] MEDS ORDERED: INSULIN DETEMIR 100 UNITS/ML VIAL SQ SCH (09:00)
[2016-08-07 09:15] VITALS: BP 144/75; PULSE 66; RESP 16; TEMP 96; O2SAT 97
[2016-08-07] MEDS: GABAPENTIN 400 MG CAP PO SCH ×3 (09:25→16:18)
[2016-08-07] MEDS: predniSONE 20 MG TAB PO SCH (09:25)
[2016-08-07] MEDS: PREGABALIN 100 MG CAP PO SCH (09:25)
[2016-08-07] MEDS: DIVALPROEX DR 500 MG TABEC PO SCH (09:26)
[2016-08-07] MEDS: NICOTINE 7 MG/24 HR PATCH TD SCH (09:26)
[2016-08-07] MEDS: SPIRONOLACTONE 50 MG TAB PO SCH (09:26)
[2016-08-07] MEDS: INSULIN ASPART 1,000 UNITS/10 ML VIAL SQ SCH ×3 (09:26→16:17)
[2016-08-07 10:00] VITALS: O2SAT 96
[2016-08-07 12:00] VITALS: BP 138/80; PULSE 73; RESP 16; TEMP 97.2; O2SAT 96
[2016-08-07] MEDS: BUDESONIDE-FORMOTEROL 160/4.5 MCG INHALER INH SCH (15:23)
[2016-08-07 16:00] VITALS: BP 110/60; PULSE 90; RESP 16; TEMP 97.3; O2SAT 97
[2016-08-07] MEDS: ENOXAPARIN SODIUM 40 MG/0.4 ML SYRINGE SQ SCH (16:19)
--- NOTE | 2016-08-07 17:31 | HHI.DS ---
Discharge Summary Admission Date Jul 30, 2016 at 11:11 Discharge Date: Aug 07, 2016 Admitting Diagnosis sepsis, leukocytosis (1) Ulcerative colitis Plan: GI consulted. Colonoscopy completed on 08/03, consistent with UC. Leukocytosis improving. Infectious disease consulted -Solumedrol 40 mg IV q8h per GI for 3 days post procedure, transitioned to prednisone 30mg daily. -Azathioprine 50 mg daily started 08/06/16 to be continued as outpatient. -DC Vancomycin by mouth 125 mg every 6 hours (started 07/31--08/03) -DC Flagyl 500 mg IV every 8 hours (started 07/31--08/03) -Cleared by GI. -Pain controlled: Percocet 1 tab every 6 hours prn pain. Chronic pain meds continued as discussed below. (2) Pancolitis Plan: GI consulted as above Infectious disease consulted as inpt, assisted in management of complicated inflammatory bowel, as was considered possibly infectious at admission Vancomycin by mouth 125 mg every 6 hours (started 07/31--discontinued 08/03) Flagyl 500 mg IV every 8 hours (started 07/31--discontinued 08/03) Leukocytosis improving Colonoscopy completed 08/03 showing ulcerative colitis Pain controlled: Percocet 1 tab every 6 hours. Chronic pain meds continued as discussed below. (3) Altered mental status Plan: This is likely the patient's baseline as discussed with her longterm. Likely related to polypharmacy. (4) Recent history of diarrhea Plan: C. difficile negative Continue treatment of UC as above (5) Chronic Medical Problems Plan: Diabetes: As above Diabetic polyneuropathy: Continue gabapentin at reduced dose of 400 mg by mouth 3 times a day, continue Lyrica at current home dose COPD: Albuterol nebulizer every 4 hours while awake Hypertension: Patient was normotensive on admission -Continue spironolactone 50 mg by mouth daily -Hydralazine 10mg PO QID prn SBP >= 160, DBP >= 90 -Vasotec 1.25mg IV Q8h prn SBP >= 180, DBP >= 100 Hyperlipidemia: Continue atorvastatin 20 mg by mouth at bedtime Bipolar Depression/Panic/anxiety disorder: Per psychiatry recommendations, will continue Seroquel 400 mg by mouth at bedtime. Otherwise, continue psych meds at home dose aside from Xanax, which was decreased to 0.5mg q8hr PRN Chronic low back pain: Continue home Percocet 10-325 mg every 6 hours when necessary. Holding Flexeril due to AMS and dizziness (6) Diabetes mellitus Plan: Hemoglobin A1c 8.5. Patient takes Lantus 26 units subcutaneous at bedtime at home as well as Novolin sliding scale Hold home Lantus Accu-Cheks with moderate NovoLog SSI Patient is at bedside glucoses approximately 420 with serum reflecting this value Patient required a total of 53 additional units of NovoLog by SSI over the last 24 hours. She received 15 units of Levemir overnight on 08/05. Switch to Levemir 20 units twice a day today, continue NovoLog 5 units 3 times a day before meals, with moderate SSI. Diabetic diet Once showing better blood sugar control, patient may be discharged (7) FEN/DVT PPX/GI PPX Plan: Fluids: Tolerating by mouth Electrolytes: Will monitor and replace as needed Nutrition: Heart healthy diet DVT Prophylaxis: Lovenox 40 mg subcutaneous GI Prophylaxis: Famotidine [address] [facility], infectious disease Brief History Patient is a 50-year-old female with a past medical history of insulin- dependent diabetes, bipolar depression, panic disorder, hyperlipidemia, that presents to the [place] ED from [facility] for an abnormal white blood cell count that was performed in preparation for dental surgery. The CBC performed at the rehabilitation center showed a white blood cell count of 27,000 with 58% bands. The patient's nurse at the rehabilitation center states that she did not actually meet her this morning; by the time she got to the patient's room, she had already left for [place]. She did not take any of her medications today. The patient states that one week ago she fell and hit her head, and has had nausea and dizziness since then. She has also been very sleepy and states that right now, all she wants to do is sleep. She denies vomiting. She does not remember when last she had a bowel movement but states that she had diarrhea the last time. She has also not had much of an appetite. She complains of abdominal pain from 2 hernias in her only current region. She states that she had abdominal hernia surgery about 2 months ago. However they continue to recur, but her surgeon told her that they are just cosmetic and there's nothing to do right now. She would like to have hernia surgery if possible during this admission. CBC/BMP: 08/07/16 0633 08/07/16 0633 Significant Findings Laboratory Tests Test 08/05/16 08/06/16 08/06/16 08/07/16 08:45 06:03 17:20 06:33 White Blood Count 19.0 TH/MM3 17.3 TH/MM3 16.4 TH/MM3 (4.0-11.0) (4.0-11.0) (4.0-11.0) Hemoglobin 10.0 GM/DL 10.3 GM/DL 11.4 GM/DL (11.6-15.3) (11.6-15.3) (11.6-15.3) Hematocrit 31.0 % 30.0 % (35.0-46.0) (35.0-46.0) Mean Corpuscular Volume 77.0 FL 74.3 FL 75.4 FL (80.0-100.0) (80.0-100.0) (80.0-100.0) Mean Corpuscular Hemoglobin 24.8 PG 25.4 PG 24.5 PG (27.0-34.0) (27.0-34.0) (27.0-34.0) Neutrophils (%) (Auto) 81.9 % 80.4 % (16.0-70.0) (16.0-70.0) Neutrophils # (Auto) 15.5 TH/MM3 13.9 TH/MM3 10.0 TH/MM3 (1.8-7.7) (1.8-7.7) (1.8-7.7) Band Neutrophils % 22 % (0-6) 28 % (0-6) 21 % (0-6) Lymphocytes % 5 % (9-44) Neutrophils # (Manual) 16.7 TH/MM3 14.4 TH/MM3 11.0 TH/MM3 (1.8-7.7) (1.8-7.7) (1.8-7.7) Toxic Vacuolation PRESENT (NONE PRESENT (NONE SEEN) SEEN) Ovalocytes 1+ (NORMAL) 1+ (NORMAL) 1+ (NORMAL) Keratocytes 1+ (NORMAL) OCC (NORMAL) Sodium Level 128 MEQ/L 130 MEQ/L 135 MEQ/L (136-145) (136-145) (136-145) Chloride Level 92 MEQ/L 90 MEQ/L 93 MEQ/L (98-107) (98-107) (98-107) Creatinine 0.41 MG/DL 0.42 MG/DL 0.46 MG/DL (0.50-1.00) (0.50-1.00) (0.50-1.00) Random Glucose 318 MG/DL 324 MG/DL 419 MG/DL 229 MG/DL (74-106) (74-106) (74-106) (74-106) Calcium Level 7.9 MG/DL 8.4 MG/DL 8.3 MG/DL (8.5-10.1) (8.5-10.1) (8.5-10.1) Total Bilirubin LESS THAN 0.1 MG/DL (0.2-1.0) Aspartate Amino Transf 9 U/L (15-37) (AST/SGOT) Alanine Aminotransferase 8 U/L (10-53) (ALT/SGPT) Alkaline Phosphatase 127 U/L (45-117) Total Protein 5.4 GM/DL (6.4-8.2) Albumin 1.9 GM/DL (3.4-5.0) Platelet Count 524 TH/MM3 468 TH/MM3 (150-450) (150-450) Monocytes # (Auto) 1.0 TH/MM3 1.4 TH/MM3 (0-0.9) (0-0.9) Metamyelocytes 3 % (0-1) 5 % (0-1) Myelocytes 10 % (0-0) 9 % (0-0) Platelet Estimate HIGH (NORMAL) HIGH (NORMAL) Mean Platelet Volume 6.5 FL (7.0-11.0) Monocytes (%) (Auto) 8.8 % (0.0-8.0) Lymphocytes # (Auto) 4.9 TH/MM3 (1.0-4.8) Acanthocytes OCC (NORMAL) Imaging Last Impressions Abdomen/Pelvis CT 07/31/16 0000 Signed Impressions: Service Date/Time: Sunday, July 31, 2016 13:04 - CONCLUSION: Moderate severity uncomplicated pancolitis. This is nonspecific, presumably infectious. C. difficile colitis would be in the differential. Active ulcerative colitis would be conceivable if the patient has that history. Hector Blackwell MD Head CT 07/30/1645 Signed Impressions: Service Date/Time: July 10:19 - CONCLUSION: No acute disease. No evidence of acute infarct, hemorrhage, mass or edema. Leroy Herrera MD Chest X-Ray 07/30/1645 Signed Impressions: Service Date/Time: July 09:55 - CONCLUSION: No acute disease. No significant change has occurred. Lefty Alexander MD PE at Discharge GENERAL: This is a well-nourished, well-developed obese female, resting in bed. SKIN: No rashes, ecchymoses or lesions. Cool and dry. HEAD: Normocephalic. Atraumatic. EYES: Pupils equal round and reactive. Extraocular motions intact. No scleral icterus. No injection or drainage. ENT: Nose without bleeding, purulent drainage or septal hematoma. Throat without erythema, tonsillar hypertrophy or exudate. Uvula midline. Airway patent. NECK: Trachea midline. No JVD or lymphadenopathy. CARDIOVASCULAR: Regular rate and regular rhythm without murmurs, gallops, or rubs. RESPIRATORY: Clear to auscultation. Breath sounds equal bilaterally. No wheezes , rales, or rhonchi. GASTROINTESTINAL: Obese abdomen, umbilical surgical scar from previous hernia surgery, not tender to palpation today. Bowel sounds are normal. MUSCULOSKELETAL: Extremities without clubbing, cyanosis, or edema. No joint tenderness, effusion, or edema noted. No calf tenderness. NEUROLOGICAL: Awake and alert. Cranial nerves II through XII intact. Grossly normal strength in extremities. Moving all extremities appropriately. Hospital Course Patient admitted from long-term stay at [facility], presenting with altered mental status. She was noted to have increased WBC count to 26 at a pre- procedural dental appointment. She was also noted to have sustained a fall approximately one week before presentation. CT head on admission negative for bleed or other acute change. UA was dirty but not obvious source of infection. She was noted to have abdominal pain, with CT abdomen/pelvis showing pancolitis. C diff was negative. Vancomycin and Flagyl were initiated empirically. GI was consulted. She underwent colonoscopy on 08/03 with findings suggesting of IBD, and was started on IV solumedrol that day (antibx were discontinued). She remained afebrile throughout hospital stay. She did have tachycardia on 08/05 which resolved. Echocardiogram was performed during hospitalization which was unremarkable. She has history of psychiatric illness for which she is on multiple psychotropic medications, and psychiatry was consulted to assist in medication management. Symptoms improved, patient cleared for discharge 08/06 on PO prednisone, Asacol, and follow-up with GI. She is to continue psych meds including Xanax, Amitryptiline, Lyrica, Depakote, and Seroquel, and will follow up with Psychiatry. She was discharged back to [facility] through assistance on 08/07 after her elevated blood sugars were managed for another day with insulin titration, likely related to steroid initiation. Pt Condition on Discharge: Stable Discharge Disposition: Discharge to SNF Discharge Instructions DIET: Follow Instructions for: Heart Healthy Diet Activities you can perform: Regular-No Restrictions Follow up Referrals: Appointment for Follow Up - 1 Week Gastroenterology - 1 Week with Doris Lund MD New Medications: Azathioprine (Azathioprine) 50 Mg Tab 50 MG PO DAILY Hazardous agent use appropriate precautions for handling and disposal. Inflammation #30 Ref 0 TAB Oxycodone-Acetaminophen (Oxycodone-Acetaminophen) 10-325 mg Tab 1 TAB PO Q6H PRN PAIN #30 Ref 0 TAB Alprazolam (Xanax) 0.5 Mg Tab 0.5 MG PO Q8H PRN ANXIETY AND/OR AGITATION #30 TAB Prednisone (Prednisone) 20 Mg Tab 30 MG PO DAILY #30 TAB Quetiapine (Quetiapine) 200 Mg Tab 400 MG PO HS #30 TAB Continued Medications: Amitriptyline (Amitriptyline) 25 Mg Tab 25 MG PO HS Control Depression #30 Ref 0 TAB Atorvastatin (Atorvastatin) 20 Mg Tab 20 MG PO HS Cholesterol Management #30 Ref 0 TAB Budesonide-Formoterol Inh (Symbicort Inh) 160-4.5 Mcg/Act Aero 1 PUFF INH Q12HR #1 Ref 0 INHALER Cyclobenzaprine (Flexeril) 10 Mg Tab 10 MG PO TID Muscle Spasm #90 Ref 0 TAB Cyclosporine Opth Drops (Restasis Opth Drops) 0.05% Emul 1 DROP EACH EYE HS Dry Eye #1 Ref [address] (Depakote DR) 500 Mg Tabdr 500 MG PO Q8HR Control Seizures #60 Ref 0 TAB Gabapentin (Neurontin) 300 Mg Cap 900 MG PO TID #90 Ref 0 CAP Insulin Aspart Inj (Novolog Inj) 1,000 Unit/10 Ml Vial 7 UNITS SQ TIDAC Blood Sugar Management #10 Ref 0 ML Insulin Aspart Inj (Novolog Inj) 1,000 Unit/10 Ml Vial 0 SQ DIRECTED Sliding Scale as directed. Blood Sugar Management #10 Ref 0 ML Insulin Glargine Inj (Lantus Inj) 1,000 Unit/10 Ml Vial 26 UNITS SQ HS Blood Sugar Management Ref 0 VIAL Ipratropium HFA 12.9 GM Inh (Atrovent HFA 12.9 GM Inh) 17 Mcg/Act Aer 2 PUFF INH QID #1 Ref 0 INHALER Ipratropium-Albuterol Neb (Duoneb) 0.5-2.5 Mg/3 Ml Neb 1 NEBULE INH Q6HR NEB PRN WHEEZING #120 Ref 0 NEBULE Melatonin (Bulk) (Melatonin) 1 Pow Pow 3 MG PO HS Metformin ER (Metformin ER) 1,000 Mg Ada 1000 MG PO BID With evening meal Blood Sugar Management #30 Ref 0 TAB Nystatin (Topical) (Nyata) 100,000 Unit/Gm Pow 023105 UNITS TOP DAILY Polyvinyl Alcohol Opth (Liquitears Opth) 1.4% Soln 2 DROP EACH EYE Q2HR PRN DRY EYE Pregabalin (Lyrica) 100 Mg Cap 100 MG PO DAILY #30 Ref 0 CAP Ranitidine (Zantac) 150 Mg Tab 150 MG PO BID Reduce Stomach Acid #60 Ref 0 TAB Sennosides-Docusate Sodium (Senna S) 8.6-50 Mg Tab 2 TAB PO HS Sodium Chloride (Sodium Chloride) 1 Gm Tab 1 GM PO DAILY Electrolyte Replacement Ref 0 TAB Spironolactone (Aldactone) 50 Mg Tab 50 MG PO DAILY #30 Ref 0 TAB Discontinued Medications: Alprazolam (Xanax) 1 Mg Tab 1 MG PO Q8H PRN ANXIETY Ref 0 TAB Lubiprostone (Amitiza) 24 Mcg Cap 24 MG PO BID Constipation Ref 0 CAP Quetiapine (Quetiapine) 300 Mg Tab 300 MG PO HS #30 Ref 0 TAB Quetiapine Fumarate (Quetiapine Fumarate ER) 150 Mg Tab 100 MG PO BID Leidy Shultz MD R1 Aug 07, 2016 17:31
== END 2016-08-07 17:38 | DRG 872 ==
LOC: NEPC 09:33 → NEDA 11:11 → HOCA 17:12
PROVIDERS: ADMIT Family Medicine; ATTEND Family Medicine
PROC: 0DBN8ZX Excision of Sigmoid Colon, Via Natural or Artificial Opening Endoscopic, Diagnostic (ICD-10-PCS; 2016-08-03)
PROC: 0DBP8ZX Excision of Rectum, Via Natural or Artificial Opening Endoscopic, Diagnostic (ICD-10-PCS; 2016-08-03)
PROC: 0DBK8ZX Excision of Ascending Colon, Via Natural or Artificial Opening Endoscopic, Diagnostic (ICD-10-PCS; principal; 2016-08-03 09:18)
DX: A41.9 Sepsis, unspecified organism (principal); E11.42 Type 2 diabetes mellitus with diabetic polyneuropathy; K51.019 Ulcerative (chronic) pancolitis with unspecified complications; I10 Essential (primary) hypertension; F41.0 Panic disorder [episodic paroxysmal anxiety]; J44.9 Chronic obstructive pulmonary disease, unspecified; E78.5 Hyperlipidemia, unspecified; F17.210 Nicotine dependence, cigarettes, uncomplicated; G43.909 Migraine, unspecified, not intractable, without status migrainosus; K21.9 Gastro-esophageal reflux disease without esophagitis; F31.70 Bipolar disorder, currently in remission, most recent episode unspecified; G89.29 Other chronic pain; M54.5 Low back pain; Z79.4 Long term (current) use of insulin; K64.8 Other hemorrhoids
CPT/HCPCS: 70450; 71010; 71020; 74177; 76937; 80048; 80053; 80061; 80164; 80307; 80335; 81001; 82947; 82948; 83036; 83605; 83690; 83735; 84100; 84443; 85007; 85027; 87040; 87086; 87205; 87328; 87329; 87338; 87493; 87506; 87641; 88305; 93005; 93306; 94640; 94664; 96365; G0480; J1650; J1815; J2405; J2543; J2920; J3370; J7030; J7050; J7500; J7512; Q9963; Q9967

== ENCOUNTER 2016-08-30 08:46 | Inpatient (IN) | payer MEDICARE, OTHER ==
[2016-08-30] VITALS (8 sets, daily range): BP systolic 113–134; BP diastolic 61–77; PULSE 86–104; RESP 16–20; TEMP 97.5–97.7; O2SAT 92–98
[~2016-08-30] VITALS: Ht 160 cm; Wt 90.2 kg
[~2016-08-30 08:46] MED LIST changes: -ALBU1AER INH; +ALDA50TA2 PO; +ALPR.5 PO; +AMIT25TA9 PO; +ATOR20TA15 PO; +AZAT50 PO; -CYCL-36 PO; +CYCL1TAB29 PO; -CYMB60CA PO; +DEPA500T PO; -DICL25 PO; -DOXY100T OR; -FEXO180 PO; -GLUCTAB PO; -GLYB1.2538 PO; -INSULIN; +IPRA17I INH; +IPRASOL NEB; +LANTUS2P SQ; -LISI2.5T55 PO; +LYRI100C PO; -LYRI50CA2 PO; +MELAPOW2 PO; +METF-382 PO; +NEUR300C PO; +NOVOLOGP2 SQ; +NYST0.1P TOP; -OXYC-360 PO; +OXYC1TAB36 PO; -PERC10TA27 PO; +POLY120S EACH EYE; -QUET1TAB65 PO; +QUET1TAB9 PO; -RANI150C PO; +REST0.05 EACH EYE; +SENN8.6T8 PO; -SIMV40TA PO; +SODI1TAB PO; +SYMB160A INH; -XANA1TAB6 PO; +ZANT150T2 PO
[2016-08-30] MEDS ORDERED: SODIUM CHLOR 0.9% 1000 ML INJ 700 ML IV ONE (09:47)
[2016-08-30] MEDS ORDERED: SODIUM CHLOR 0.9% 1000 ML INJ 1,000 ML IV ONE ×2 (09:47)
[2016-08-30] MEDS ORDERED: PIPERACIL-TAZO 4.5 GM PREMIX 100 ML IV STA (09:47)
[2016-08-30] MEDS ORDERED: VANCOMYCIN INJ 1,000 MG in SODIUM CHLOR 0.9% 250 ML INJ 250 ML IV ONE (10:00)
[2016-08-30] MEDS: RESP: ALBUTEROL 2.5 MG/IPRATROPIUM 0.5 MG NEB (SCH) INH ×2 (10:11→10:12)
--- NOTE | 2016-08-30 10:18 | PD ---
HPI Chief Complaint: Abnormal Results Time Seen by Provider: 09:08 Travel History International Travel<30 days: No Contact w/Intl Traveler<30days: No Traveled to known affect area: No History of Present Illness HPI 50-year-old female came to the emergency room sent from the rehabilitation for possible sepsis. Patient has been complaining of dizziness for almost a week now and her blood test at the rehabilitation done yesterday showed a white count of 33,000. She does have 1-2 episodes of diarrhea as well. No history of fever that was noticed here or at the [place] [facility]. Patient says she has been coughing and has some shortness of breath. She has history of COPD. Her oxygen saturation was 92-93% on room air but would go up to 95% when she took a deep breath. Patient is a difficult historian since once I ask her questions she typically starts talking a lot and answers are tangential and not to the point. PFSH Past Medical History Narrative Medical List of her past medical, surgical, social and family history is reviewed from the nursing note. Arthritis: No Asthma: No Autoimmune Disease: No Bipolar Disorder: Yes Anxiety: Yes Depression: Yes (MANIC) Heart Rhythm Problems: No Cancer: Yes (UTERINE CANCER) Chest Pain: No Congestive Heart Failure: No COPD: Yes Cerebrovascular Accident: No Diabetes: Yes (INSULIN/METFORMIN) Patient Takes Glucophage: Yes Diminished Hearing: Yes GERD: Yes Genitourinary: No Hiatal Hernia: Yes Hypertension: Yes Immune Disorder: No Implanted Vascular Access Dvce: Yes Musculoskeletal: Yes Neurologic: Yes Psychiatric: Yes Reproductive: No Respiratory: Yes Migraines: No Seizures: No Sickle Cell Disease: No Sleep Apnea: No Ulcer: No Influenza Vaccination: No ?: Not : 3 Para: 1 Past Surgical History Abdominal Surgery: No AICD: No Arteriovenous Shunt: No Cardiac Surgery: No Section: Yes Ear Surgery: No Eye Surgery: No Genitourinary Surgery: No Gynecologic Surgery: No Hysterectomy: Yes Insulin Pump: No Joint Replacement: Yes (R KNEE) Neurologic Surgery: Yes (C SPINE SURGERY; LOWER BACK SURGERY) Oral Surgery: No Pacemaker: No Thoracic Surgery: No Tonsillectomy: Yes Other Surgery: Yes (RIGHT KNEE SURGERY X 2) Social History Alcohol Use: No Tobacco Use: Yes ("few" a day) Substance Use: No Allergies-Medications (Allergen,Severity, Reaction): Coded Allergies: Sulfa (Verified Allergy, Severe, RASH, 08/30/16) Cipro (Verified Allergy, Unknown, 08/30/16) Erythromycin (Verified Allergy, Unknown, 08/30/16) Ofloxacin (Verified Allergy, Unknown, 08/30/16) Comments List of her allergies reviewed from the nursing note. Reported Meds & Prescriptions Reported Meds & Active Scripts Active Oxycodone-Acetaminophen 10-325 mg Tab 1 Tab PO Q6H PRN Azathioprine 50 Mg Tab 50 Mg PO DAILY Hazardous agent use appropriate precautions for handling and disposal. Prednisone 20 Mg Tab 30 Mg PO DAILY Quetiapine (Quetiapine Fumarate) 200 Mg Tab 400 Mg PO HS Xanax (Alprazolam) 0.5 Mg Tab 0.5 Mg PO Q8H PRN Reported Duoneb (Ipratropium-Albuterol Neb) 0.5-2.5 Mg/3 Ml Neb 1 Nebule INH Q6HR PRN Atrovent HFA 12.9 GM Inh (Ipratropium [place]) 17 Mcg/Act Aer 2 Puff INH QID Acetaminophen 325 Mg Tab 650 Mg PO Q4HR PRN Restasis Opth Drops (Cyclosporine Opth Drops) 0.05% Emul 2 Drop EACH EYE HS Prednisone (21) 10 mg tab Dose Pack (Prednisone) 10 Mg Pack 10 Mg PO DAILY [address] (Mesalamine) 800 Mg Tab 1,600 Mg PO BID [address] (Doxycycline Hyclate) 100 Mg Tab 100 Mg PO BID Melatonin 3 Mg Tab 3 Mg PO HS Aldactone (Spironolactone) 50 Mg Tab 50 Mg PO DAILY Amitriptyline (Amitriptyline HCl) 25 Mg Tab 25 Mg PO HS Novolog Inj (Insulin Aspart) 1,000 Unit/10 Ml Vial 0 SQ DIRECTED Sliding Scale as directed. Zantac (Ranitidine HCl) 150 Mg Tab 150 Mg PO BID Senna S (Sennosides-Docusate Sodium) 8.6-50 Mg Tab 2 Tab PO HS Symbicort Inh (Budesonide/Formoterol Fumarate) 160-4.5 Mcg/Act Aero 1 Puff INH Q12HR Atrovent HFA 12.9 GM Inh (Ipratropium [place]) 17 Mcg/Act Aer 2 Puff INH QID Lyrica (Pregabalin) 100 Mg Cap 100 Mg PO DAILY Duoneb (Ipratropium-Albuterol Neb) 0.5-2.5 Mg/3 Ml Neb 1 Nebule INH Q6HR NEB PRN Liquitears Opth (Polyvinyl Alcohol) 1.4% Soln 2 Drop EACH EYE Q2HR PRN Nyata (Nystatin (Topical)) 100,000 Unit/Gm Pow 100,000 Units TOP DAILY Restasis Opth Drops (Cyclosporine Opth Drops) 0.05% Emul 1 Drop EACH EYE HS Sodium Chloride 1 Gm Tab 1 Gm PO DAILY Metformin ER (Metformin HCl) 1,000 Mg Ada 1,000 Mg PO BID With evening meal Novolog Inj (Insulin Aspart) 1,000 Unit/10 Ml Vial 7 Units SQ TIDAC Depakote [address] (Divalproex Sodium) 500 Mg Tabdr 500 Mg PO Q8HR Atorvastatin (Atorvastatin Calcium) 20 Mg Tab 20 Mg PO HS Flexeril (Cyclobenzaprine HCl) 10 Mg Tab 10 Mg PO TID Neurontin (Gabapentin) 300 Mg Cap 900 Mg PO TID Lantus Inj (Insulin Glargine) 1,000 Unit/10 Ml Vial 26 Units SQ HS Narrative Medication List of her home medications reviewed from the nursing note Review of Systems Except as stated in HPI: all other systems reviewed are Neg Physical Exam Narrative GENERAL: Awake, alert, obese, moderate distress SKIN: Focused skin assessment warm/dry. Pale HEAD: Atraumatic. Normocephalic. EYES: Pupils equal and round. No scleral icterus. No injection or drainage. ENT: No nasal bleeding or discharge. Mucous membranes pink and moist. NECK: Trachea midline. No JVD. CARDIOVASCULAR: Regular rate and rhythm. No murmur appreciated. RESPIRATORY: Decreased air entry bilaterally, end expiratory wheeze and coarse crackles GASTROINTESTINAL: Abdomen soft, non-tender, nondistended. Hepatic and splenic margins not palpable. MUSCULOSKELETAL: No obvious deformities. No clubbing. No cyanosis. No edema. NEUROLOGICAL: Awake and alert. No obvious cranial nerve deficits. Motor grossly within normal limits. Normal speech. PSYCHIATRIC: Appropriate mood and affect; insight and judgment normal. Data Data Last Documented VS Vital Signs Date Time Temp Pulse Resp B/P Pulse Ox O2 Delivery O2 Flow Rate FiO2 08/30/16 11:00 93 16 128/77 95 Room Air 08/30/16 10:13 21 08/30/16 08:52 97.7 Orders Complete Blood Count With Diff (08/30/16 09:47) Comprehensive Metabolic Panel (08/30/16 09:47) Lactic Acid Sepsis Protocol (08/30/16 09:47) Urinalysis - C+S If Indicated (08/30/16 09:47) Blood Culture (08/30/16 09:47) Chest, Single Ap (08/30/16 09:47) Blood Glucose (08/30/16 09:47) Ecg Monitoring (08/30/16 09:47) Iv Access Insert/Monitor (08/30/16 09:47) Oximetry (08/30/16 09:47) Oxygen Administration (08/30/16 09:47) Piperacil-Tazo 4.5 Gm Premix (Zosyn 4.5 (08/30/16 09:47) Sodium Chlor 0.9% 1000 Ml Inj (Ns 1000 M (08/30/16 09:47) Sodium Chlor 0.9% 1000 Ml Inj (Ns 1000 M (08/30/16 09:47) Sodium Chlor 0.9% 1000 Ml Inj (Ns 1000 M (08/30/16 09:47) Vancomycin Inj (Vancomycin Inj) (08/30/16 10:00) Albuterol-Ipratropium Neb (Duoneb Neb) (08/30/16 10:00) Potassium Chloride Eff (K-Lyte Cl Eff) (08/30/16 11:00) Admit Order (Ed Use Only) (08/30/16 11:26) Labs Laboratory Tests Test 08/30/16 08/30/16 09:56 09:57 White Blood Count 28.8 TH/MM3 Red Blood Count 4.19 MIL/MM3 Hemoglobin 10.4 GM/DL Hematocrit 32.5 % Mean Corpuscular Volume 77.6 FL Mean Corpuscular Hemoglobin 24.8 PG Mean Corpuscular Hemoglobin 32.0 % Concent Red Cell Distribution Width 18.4 % Platelet Count 388 TH/MM3 Mean Platelet Volume 6.9 FL Neutrophils (%) (Auto) 79.1 % Lymphocytes (%) (Auto) 14.6 % Monocytes (%) (Auto) 5.3 % Eosinophils (%) (Auto) 0.8 % Basophils (%) (Auto) 0.2 % Neutrophils # (Auto) 22.7 TH/MM3 Lymphocytes # (Auto) 4.2 TH/MM3 Monocytes # (Auto) 1.5 TH/MM3 Eosinophils # (Auto) 0.2 TH/MM3 Basophils # (Auto) 0.1 TH/MM3 CBC Comment AUTO DIFF Differential Total Cells 100 Counted Neutrophils % (Manual) 35 % Band Neutrophils % 34 % Lymphocytes % 19 % Monocytes % 6 % Eosinophils % 2 % Neutrophils # (Manual) 21.0 TH/MM3 Metamyelocytes 1 % Myelocytes 3 % Nucleated Red Blood Cells 1 /100 WBC Differential Comment FINAL DIFF MANUAL Platelet Estimate NORMAL Platelet Morphology Comment NORMAL Ovalocytes 1+ Sodium Level 134 MEQ/L Potassium Level 3.1 MEQ/L Chloride Level 97 MEQ/L Carbon Dioxide Level 29.4 MEQ/L Anion Gap 8 MEQ/L Blood Urea Nitrogen 5 MG/DL Creatinine 0.44 MG/DL Estimat Glomerular Filtration 151 ML/MIN Rate Random Glucose 122 MG/DL Calcium Level 8.6 MG/DL Total Bilirubin 0.2 MG/DL Aspartate Amino Transf 6 U/L (AST/SGOT) Alanine Aminotransferase 9 U/L (ALT/SGPT) Alkaline Phosphatase 136 U/L Total Creatine Kinase 20 U/L Troponin I LESS THAN 0.02 NG/ML Total Protein 5.9 GM/DL Albumin 2.2 GM/DL Lactic Acid Level 2.2 mmol/L MDM Medical Decision Making Medical Screen Exam Complete: Yes Emergency Medical Condition: Yes Medical Record Reviewed: Yes Differential Diagnosis Sepsis, pneumonia, C. difficile, UTI Narrative Course 10:16 AM a repeat blood work has been ordered from today which includes the sepsis workup. She is covered with IV fluid and antibiotic as per sepsis protocol. Patient will require admission. I have ordered stool for C. difficile as well if she has a bowel movement. Critical Care Narrative Aggregate critical care time was 30 minutes. Time to perform other separately billable procedures was not included in the critical care time. My time did not include minutes spent treating any other patients simultaneously or on activities that did not directly contribute to the patient's treatment. The services I provided to this patient were to treat and/or prevent clinically significant deterioration that could result in: Sepsis, sepsis protocol I provided critical care services requiring my management, as noted below: Chart data review, documentation time, medication orders and management, vital sign assessments/reviewing monitor data, ordering and reviewing lab tests, ordering and interpreting/reviewing x-rays and diagnostic studies, care of the patient and discussion of the patient with the admitting physicians. Procedures EKG Prior to Arrival: No Diagnosis Primary Impression: Leukocytosis Qualified Code: D72.829 - Leukocytosis, unspecified type Additional Impressions: Sepsis Qualified Code: A41.9 - Sepsis, due to unspecified organism Acute exacerbation of chronic obstructive pulmonary disease (COPD) Admitting Information Admitting Physician Requests: it Fabián Denton MD Aug 30, 2016 10:18
[2016-08-30 10:34] LABS: AUTOMATED NEUTROPHIL # 22.7 TH/MM3 (1.8-7.7); BASOPHIL # 0.1 TH/MM3 (0-0.2); BASOPHIL % 0.2 % (0.0-2.0); EOSINOPHIL # 0.2 TH/MM3 (0-0.4); EOSINOPHIL % 0.8 % (0.0-4.0); HEMATOCRIT 32.5 % (35.0-46.0); LYMPH % 14.6 % (9.0-44.0); LYMPHOCYTE # 4.2 TH/MM3 (1.0-4.8); MEAN CELL VOLUME 77.6 FL (80.0-100.0); MEAN CORPUSCULAR HEMOGLOBIN 24.8 PG (27.0-34.0); MONO % 5.3 % (0.0-8.0); NEUT % 79.1 % (16.0-70.0); PLATELET COUNT 388 TH/MM3 (150-450); RED BLOOD COUNT 4.19 MIL/MM3 (4.00-5.30); RED CELL DISTRIBUTION WIDTH 18.4 % (11.6-17.2); WHITE BLOOD COUNT 28.8 TH/MM3 (4.0-11.0)
[2016-08-30 10:35] LABS: HEMO FLAGS AUTO DIFF
--- NOTE | 2016-08-30 10:38 | RADRPT ---
EXAM DATE/TIME: 08/30/2016 09:45 [facility] COMPARISON: CHEST SINGLE AP, July 30, 2016, 9:55. INDICATIONS : Cough MEDICAL HISTORY : None. SURGICAL HISTORY : None. ENCOUNTER: Initial ACUITY: 1 month PAIN SCORE: 0/10 LOCATION: chest FINDINGS: A single view of the chest demonstrates the lungs to be symmetrically aerated without evidence of mas s, infiltrate or effusion. The cardiomediastinal contours are unremarkable. Osseous structures are intact. CONCLUSION: Normal examination. Julia Martínez MD on August 30, 2016 at 10:36 Board Certified Radiologist. This report was verified electronically.
[2016-08-30 10:42] LABS: ALT (GPT) 9 U/L (10-53); ANION GAP 8 MEQ/L (5-15); AST (GOT) 6 U/L (15-37); BICARBONATE 29.4 MEQ/L (21.0-32.0); BLOOD UREA NITROGEN 5 MG/DL (7-18); CHLORIDE 97 MEQ/L (98-107); GLOMERULAR FILTRATION RATE 151 ML/MIN (>89); POTASSIUM 3.1 MEQ/L (3.5-5.1); SODIUM (NA) 134 MEQ/L (136-145)
[2016-08-30 10:45] LABS: ALKALINE PHOSPHATASE 136 U/L (45-117); TOTAL BILIRUBIN ADULT 0.2 MG/DL (0.2-1.0)
[2016-08-30 11:06] LABS: BANDS 34 % (0-6); CORRECTED NUCLEATED RBC 1 /100 WBC (0-0); EOSINOPHILS 2 % (0-4); METAMYELOCYTES 1 % (0-1); MYELOCYTES 3 % (0-0); OVALOCYTES 1+ (NORMAL); PLATELET ESTIMATE SMEAR NORMAL (NORMAL); PLATELET MORPHOLOGY NORMAL (NORMAL); POLYS (SEG NEUTROPHILS) 35 % (16-70); SCAN/DIFF FINAL DIFF MANUAL; WBC DIFF SAMPLE 100
[2016-08-30] MEDS: POTASSIUM CHLORIDE 25 MEQ EFFERVESCENT TAB NG SCH (11:38)
[2016-08-30] MEDS ORDERED: GLUCAGON 1 MG/ML VIAL OTHER PRN (12:00)
[2016-08-30] MEDS ORDERED: SODIUM CHLORIDE 0.9% FLUSH 10 ML FLUSH IV FLUSH PRN (12:00)
[2016-08-30] MEDS ORDERED: DEXTROSE 50% IN WATER 50 ML VIAL(D50) IV PUSH PRN (12:00)
[2016-08-30] MEDS ORDERED: PRED10PA PO (12:06)
[2016-08-30] MEDS ORDERED: ACET325T PO (12:06)
[2016-08-30] MEDS ORDERED: DOXY1TAB6 PO (12:06)
[2016-08-30] MEDS ORDERED: REST0.05 EACH EYE (12:06)
[2016-08-30] MEDS ORDERED: MELA3TAB PO (12:06)
[2016-08-30] MEDS ORDERED: MESA1TAB2 PO (12:06)
--- NOTE | 2016-08-30 12:06 | HHI.HP ---
[facility]ician Unknown Admission Diagnosis Sepsis Diagnoses: (1) Sepsis Diagnosis: Principal (2) Acute exacerbation of chronic obstructive pulmonary disease (COPD) (3) Leukocytosis (4) Diabetes mellitus (5) Ulcerative colitis Chief Complaint: Dyspnea, chest pain, abnormal labs Travel History International Travel<30 Days: No Contact w/Intl Traveler <30 Da: No Traveled to Known Affected Are: No Sepsis Criteria SIRS Criteria (2 or more): Heart rate over 90, WBC > 22793, < 4000 or > 10% bands Sepsis Criteria (SIRS+source): Infect source susp/known Severe Sepsis (+one): Lactate >2 Criteria Outcome: Meets severe sepsis criteria History of Present Illness The patient is a 50-year-old female with history of COPD and ulcerative colitis who presented to the emergency department from [facility] for evaluation of possible sepsis. She has had dizziness, cough, chest pain, dyspnea for the past week. Labs were done yesterday at the [facility] and her white blood cells were elevated at 33,000. She reports diarrhea recently. She was diagnosed with ulcerative colitis last month during her hospitalization here. She describes Sternal chest pain. She reports that it feels like a pressure, tightness. She states that the pain is much worse with coughing or taking a deep breath. Sitting straight up makes the pain better. She feels somewhat short of breath and has been wheezing recently. Review of Systems Constitutional: COMPLAINS OF: Night Sweats, DENIES: Fever, Chills Eyes: DENIES: Blurred vision, Vision loss Ears, nose, mouth, throat: DENIES: Hearing loss Respiratory: COMPLAINS OF: Cough, Wheezing, Shortness of breath, DENIES: Sputum production Cardiovascular: COMPLAINS OF: Chest pain, Dyspnea on Exertion, DENIES: Palpitations, Lower Extremity Edema Gastrointestinal: COMPLAINS OF: Diarrhea, Nausea, DENIES: Abdominal pain, Constipation, Vomiting Genitourinary: DENIES: Urinary frequency, Urinary incontinence, Urgency, Hematuria, Dysuria, Nocturia Musculoskeletal: DENIES: Joint pain, Muscle aches Integumentary: DENIES: Pruritus, Rash Hematologic/lymphatic: DENIES: Bruising Neurologic: DENIES: Headache Past Family Social History Past Medical History History of bipolar disorder History of uterine cancer Diabetes mellitus GERD Anxiety COPD Hypertension Past Surgical History section Cervical spine surgery Lumbar spine surgery Right knee surgery 2 Tonsillectomy Hysterectomy Reported Medications Oxycodone-Acetaminophen 10-325 mg Tab 1 Tab PO Q6H PRN Azathioprine 50 Mg Tab 50 Mg PO DAILY Hazardous agent use appropriate precautions for handling and disposal. Prednisone 20 Mg Tab 30 Mg PO DAILY Quetiapine (Quetiapine Fumarate) 200 Mg Tab 400 Mg PO HS Xanax (Alprazolam) 0.5 Mg Tab 0.5 Mg PO Q8H PRN Aldactone (Spironolactone) 50 Mg Tab 50 Mg PO DAILY Amitriptyline (Amitriptyline HCl) 25 Mg Tab 25 Mg PO HS Novolog Inj (Insulin Aspart) 1,000 Unit/10 Ml Vial 0 SQ DIRECTED Sliding Scale as directed. Zantac (Ranitidine HCl) 150 Mg Tab 150 Mg PO BID Senna S (Sennosides-Docusate Sodium) 8.6-50 Mg Tab 2 Tab PO HS Symbicort Inh (Budesonide/Formoterol Fumarate) 160-4.5 Mcg/Act Aero 1 Puff INH Q12HR Atrovent HFA 12.9 GM Inh (Ipratropium [place]) 17 Mcg/Act Aer 2 Puff INH QID Lyrica (Pregabalin) 100 Mg Cap 100 Mg PO DAILY Duoneb (Ipratropium-Albuterol Neb) 0.5-2.5 Mg/3 Ml Neb 1 Nebule INH Q6HR NEB PRN Liquitears Opth (Polyvinyl Alcohol) 1.4% Soln 2 Drop EACH EYE Q2HR PRN Nyata (Nystatin (Topical)) 100,000 Unit/Gm Pow 100,000 Units TOP DAILY Melatonin (Melatonin (Bulk)) 1 Pow Pow 3 Mg PO HS Restasis Opth Drops (Cyclosporine Opth Drops) 0.05% Emul 1 Drop EACH EYE HS Sodium Chloride 1 Gm Tab 1 Gm PO DAILY Metformin ER (Metformin HCl) 1,000 Mg Ada 1,000 Mg PO BID With evening meal Novolog Inj (Insulin Aspart) 1,000 Unit/10 Ml Vial 7 Units SQ TIDAC Depakote DR (Divalproex Sodium) 500 Mg Tabdr 500 Mg PO Q8HR Atorvastatin (Atorvastatin Calcium) 20 Mg Tab 20 Mg PO HS Flexeril (Cyclobenzaprine HCl) 10 Mg Tab 10 Mg PO TID Neurontin (Gabapentin) 300 Mg Cap 900 Mg PO TID Lantus Inj (Insulin Glargine) 1,000 Unit/10 Ml Vial 26 Units SQ HS Allergies: Coded Allergies: Sulfa (Verified Allergy, Severe, RASH, 08/30/16) Cipro (Verified Allergy, Unknown, 08/30/16) Erythromycin (Verified Allergy, Unknown, 08/30/16) Ofloxacin (Verified Allergy, Unknown, 08/30/16) Family History Patient does not know her family history. Social History Significant history of smoking. Has cut back considerably, but continues to smoke a few cigarettes daily. Denies alcohol or illicit drug use. Physical Exam Vital Signs Vital Signs Date Time Temp Pulse Resp B/P Pulse Ox O2 Delivery O2 Flow Rate FiO2 08/30/16 10:13 92 21 08/30/16 08:52 97.7 98 16 134/74 93 Physical Exam GENERAL: Obese female in no acute distress. HEENT: Normocephalic, atraumatic. Pupils equal, round and reactive. Extraocular movements intact. No scleral icterus. No injection or drainage. Oropharynx is clear. Mucous membranes are moist. Poor dentition. CARDIOVASCULAR: Regular rate and rhythm without murmurs, gallops, or rubs. RESPIRATORY: Diffuse wheeze. Breathing is non-labored. GASTROINTESTINAL: Abdomen soft, non-tender, nondistended. EXTREMITIES: No lower extremity edema. No calf tenderness. PSYCH: Alert and oriented x 3. Laboratory Laboratory Tests Test 08/30/16 08/30/16 09:56 09:57 White Blood Count 28.8 Red Blood Count 4.19 Hemoglobin 10.4 Hematocrit 32.5 Mean Corpuscular Volume 77.6 Mean Corpuscular Hemoglobin 24.8 Mean Corpuscular Hemoglobin 32.0 Concent Red Cell Distribution Width 18.4 Platelet Count 388 Mean Platelet Volume 6.9 Neutrophils (%) (Auto) 79.1 Lymphocytes (%) (Auto) 14.6 Monocytes (%) (Auto) 5.3 Eosinophils (%) (Auto) 0.8 Basophils (%) (Auto) 0.2 Neutrophils # (Auto) 22.7 Lymphocytes # (Auto) 4.2 Monocytes # (Auto) 1.5 Eosinophils # (Auto) 0.2 Basophils # (Auto) 0.1 CBC Comment AUTO DIFF Differential Total Cells 100 Counted Neutrophils % (Manual) 35 Band Neutrophils % 34 Lymphocytes % 19 Monocytes % 6 Eosinophils % 2 Neutrophils # (Manual) 21.0 Metamyelocytes 1 Myelocytes 3 Nucleated Red Blood Cells 1 Differential Comment FINAL DIFF MANUAL Platelet Estimate NORMAL Platelet Morphology Comment NORMAL Ovalocytes 1+ Sodium Level 134 Potassium Level 3.1 Chloride Level 97 Carbon Dioxide Level 29.4 Anion Gap 8 Blood Urea Nitrogen 5 Creatinine 0.44 Estimat Glomerular Filtration 151 Rate Random Glucose 122 Calcium Level 8.6 Total Bilirubin 0.2 Aspartate Amino Transf 6 (AST/SGOT) Alanine Aminotransferase 9 (ALT/SGPT) Alkaline Phosphatase 136 Total Protein 5.9 Albumin 2.2 Lactic Acid Level 2.2 Date/Time Procedure Status Source Growth 08/30/16 09:56 Aerobic Blood Culture Received Blood Peripheral Pending 08/30/16 09:56 Anaerobic Blood Culture Received Blood Peripheral Pending Result Diagram: 08/30/1695508/30/16955 Imaging Last Impressions Chest X-Ray 08/30/1647 Signed Impressions: Service Date/Time: Tuesday, August 30, 2016 09:45 - CONCLUSION: Normal examination. Julia Martínez MD Septic Shock Reassessment Heart: Regular rate and rhythm Lungs: Other (wheeze) Skin: Warm Assessment and Plan Assessment and Plan 1. Severe sepsis: Patient needs criteria based on leukocytosis, tachycardia, elevated serum lactic acid level. Presumed source is respiratory. Chest x-ray appears clear, my reading. Continue empiric antibiotics. Consult infectious disease. Monitor labs. 2. COPD with exacerbation: Continue bronchodilators, steroids, antibiotics, supplemental oxygen. 3. Insulin-dependent diabetes mellitus: Continue basal insulin. Monitor Accu- Cheks and cover with sliding scale insulin. 4. Anxiety, bipolar disorder: Continue Seroquel, Xanax. 5. GERD: Continue Zantac. 6. Hyperlipidemia: Continue statin. 7. Ulcerative colitis: Continue azathioprine. We'll hold prednisone as patient is on Solu-Medrol for COPD exacerbation. 8. Neuropathy: Continue Lyrica. 9. DVT prophylaxis: Subcutaneous heparin. Problem Qualifiers (1) Sepsis: Qualified Code: A41.9 - Sepsis, due to unspecified organism (2) Leukocytosis: Qualified Code: D72.829 - Leukocytosis, unspecified type Lane Harris MD Aug 30, 2016 12:06
[2016-08-30] MEDS ORDERED: ONDANSETRON HCL 4 MG/2 ML VIAL IVP PRN (12:15)
[2016-08-30] MEDS ORDERED: ACETAMINOPHEN 325 MG TAB PO PRN ×2 (12:15)
[2016-08-30] MEDS ORDERED: ARTIFICIAL TEARS OPTH SOLN 15 ML BTL EACH EYE PRN (12:15)
[2016-08-30 12:20] LABS: LACTIC ACID GHOST NOT REPORTABLE
[2016-08-30 12:23] LABS: BLOOD, URINE NEG (NEG); COMMENT (UR) CATH-CULT NOT IND; CULTURE IF INDICATED CATH CULTURE NOT IND; GLUCOSE,URINE NEG (NEG); KETONE, URINE NEG (NEG); NITRITE,URINE NEG (NEG); PH, URINE 6.5 (5.0-8.5); SQUAMOUS EPITHELIAL CELL URINE 1 /hpf (0-5); URINE COLOR YELLOW (YELLW/STRAW)
[2016-08-30] MEDS ORDERED: IPRA17I INH (12:50)
[2016-08-30] MEDS ORDERED: IPRASOL INH (12:50)
[2016-08-30 13:29] LABS: CREATINE KINASE 20 U/L (26-192)
[2016-08-30] MEDS: HEPARIN SODIUM - SQ 10,000 UNITS/ML VIAL SQ SCH ×2 (13:48→20:30)
[2016-08-30] MEDS: DIVALPROEX DR 500 MG TABEC PO SCH ×2 (13:48→20:24)
[2016-08-30] MEDS: ACETAMINOPHEN/HYDROcodone 325 MG/7.5 MG TAB PO PRN ×3 (13:49→22:08)
--- NOTE | 2016-08-30 14:37 | PD.ID.CON ---
History of Present Illness Service ID Consult Requested By Reason for Consult Evaluation and Mment of Sepsis in pt with Ulcerative Colitis. Primary Care Physician Unknown Diagnoses: History of Present Illness is 50 y/o CF with PMHx of COPD, new diagnosis of ulcerative colitis. She reports since discharge she has had cough and has been treated with 3 different antibiotics. She reports sternal chest pain exacerbated by coughing and deep inspiration. She reports a tightness across upper abdomen. [facility] possible sepsis. She has had dizziness, cough, chest pain, dyspnea for the past week. [facility] the [facility] and her white blood cells were elevated at 33,000. She reports diarrhea almost all day at [facility] for last 1 week increased in frequency and volume plus very liquid. She was diagnosed with ulcerative colitis last month during her hospitalization here. ID consulted for evaluation and Mment of Sepsis. Review of Systems ROS Limitations: Poor Historian Past Family Social History Allergies: Coded Allergies: Sulfa (Verified Allergy, Severe, RASH, 08/30/16) Cipro (Verified Allergy, Unknown, 08/30/16) Erythromycin (Verified Allergy, Unknown, 08/30/16) Ofloxacin (Verified Allergy, Unknown, 08/30/16) Past Medical History History of bipolar disorder History of uterine cancer Diabetes mellitus GERD Anxiety COPD Hypertension Past Surgical History section Cervical spine surgery Lumbar spine surgery Right knee surgery 2 Tonsillectomy Hysterectomy Reported Medications Reported Meds & Active Scripts Active Oxycodone-Acetaminophen 10-325 mg Tab 1 Tab PO Q6H PRN Azathioprine 50 Mg Tab 50 Mg PO DAILY Hazardous agent use appropriate precautions for handling and disposal. Prednisone 20 Mg Tab 30 Mg PO DAILY Quetiapine (Quetiapine Fumarate) 200 Mg Tab 400 Mg PO HS Xanax (Alprazolam) 0.5 Mg Tab 0.5 Mg PO Q8H PRN Reported Duoneb (Ipratropium-Albuterol Neb) 0.5-2.5 Mg/3 Ml Neb 1 Nebule INH Q6HR PRN Atrovent HFA 12.9 GM Inh (Ipratropium [place]) 17 Mcg/Act Aer 2 Puff INH QID Acetaminophen 325 Mg Tab 650 Mg PO Q4HR PRN Restasis Opth Drops (Cyclosporine Opth Drops) 0.05% Emul 2 Drop EACH EYE HS Prednisone (21) 10 mg tab Dose Pack (Prednisone) 10 Mg Pack 10 Mg PO DAILY [address] (Mesalamine) 800 Mg Tab 1,600 Mg PO BID [address] (Doxycycline Hyclate) 100 Mg Tab 100 Mg PO BID Melatonin 3 Mg Tab 3 Mg PO HS Aldactone (Spironolactone) 50 Mg Tab 50 Mg PO DAILY Amitriptyline (Amitriptyline HCl) 25 Mg Tab 25 Mg PO HS Novolog Inj (Insulin Aspart) 1,000 Unit/10 Ml Vial 0 SQ DIRECTED Sliding Scale as directed. Zantac (Ranitidine HCl) 150 Mg Tab 150 Mg PO BID Senna S (Sennosides-Docusate Sodium) 8.6-50 Mg Tab 2 Tab PO HS Symbicort Inh (Budesonide/Formoterol Fumarate) 160-4.5 Mcg/Act Aero 1 Puff INH Q12HR Atrovent HFA 12.9 GM Inh (Ipratropium [place]) 17 Mcg/Act Aer 2 Puff INH QID Lyrica (Pregabalin) 100 Mg Cap 100 Mg PO DAILY Duoneb (Ipratropium-Albuterol Neb) 0.5-2.5 Mg/3 Ml Neb 1 Nebule INH Q6HR NEB PRN Liquitears Opth (Polyvinyl Alcohol) 1.4% Soln 2 Drop EACH EYE Q2HR PRN Nyata (Nystatin (Topical)) 100,000 Unit/Gm Pow 100,000 Units TOP DAILY Restasis Opth Drops (Cyclosporine Opth Drops) 0.05% Emul 1 Drop EACH EYE HS Sodium Chloride 1 Gm Tab 1 Gm PO DAILY Metformin ER (Metformin HCl) 1,000 Mg Ada 1,000 Mg PO BID With evening meal Novolog Inj (Insulin Aspart) 1,000 Unit/10 Ml Vial 7 Units SQ TIDAC Depakote DR (Divalproex Sodium) 500 Mg Tabdr 500 Mg PO Q8HR Atorvastatin (Atorvastatin Calcium) 20 Mg Tab 20 Mg PO HS Flexeril (Cyclobenzaprine HCl) 10 Mg Tab 10 Mg PO TID Neurontin (Gabapentin) 300 Mg Cap 900 Mg PO TID Lantus Inj (Insulin Glargine) 1,000 Unit/10 Ml Vial 26 Units SQ HS Active Ordered Medications Current Medications Medications (Trade) Dose Ordered Sig/Krystal Route Start Time Stop Time Status Last Admin (K-Lyte Cl Eff) 25 meq DAILY NG 08/30/16 11:00 08/30/16 11:38 (NS Flush) 2 ml UNSCH PRN IV FLUSH 08/30/16 12:00 (NS Flush) 2 ml BID IV FLUSH 08/30/16 21:00 Heparin Sodium (Porcine) 5000 units 5,000 units Q8H SQ 08/30/16 13:00 08/30/16 13:48 (Zosyn 4.5 Gm Premix) 100 ml @ 200 mls/hr Q6H IV 08/30/16 16:00 (Vibramycin) 100 mg BID PO 08/30/16 21:00 (D50w (Vial) Inj) 25 ml UNSCH PRN IV PUSH 08/30/16 12:00 (Glucagon Inj) 1 mg UNSCH PRN OTHER 08/30/16 12:00 (Tylenol) 650 mg Q4HR PRN PO 08/30/16 12:15 (Xanax) 0.5 mg Q8H PRN PO 08/30/16 12:15 (Elavil) 25 mg HS PO 08/30/16 21:00 (Lipitor) 20 mg HS PO 08/30/16 21:00 (Imuran) 50 mg DAILY PO 08/31/16 09:00 (Symbicort 160-4.5 Inh) 1 puff Q12HR INH 08/30/16 21:00 (Depakote Dr) 500 mg Q8HR PO 08/30/16 14:00 08/30/16 13:48 (NovoLOG INJ) 7 units TIDAC SQ 08/30/16 17:00 (Levemir Inj) 26 units HS SQ 08/30/16 21:00 (Asacol Hd Dr) 1,600 mg BID PO 08/30/16 21:00 (Tears Naturale Opth Soln) 2 drop Q2HR PRN EACH EYE 08/30/16 12:15 (Lyrica) 100 mg DAILY PO 08/31/16 09:00 (SEROquel) 400 mg HS PO 08/30/16 21:00 (Sodium Chloride) 1 gm DAILY PO 08/31/16 09:00 (Aldactone) 50 mg DAILY PO 08/31/16 09:00 Patient Own Medication PT OWN MED:(Cyclosporine Opth Dr... HS EACH EYE 08/30/16 21:00 (Melatonin) 5 mg HS PO 08/30/16 21:00 (Pepcid) 20 mg BID PO 08/30/16 21:00 (Zofran Inj) 4 mg Q6H PRN IVP 08/30/16 12:15 (Milk Of Rupesh Freed) 30 ml Q12H PRN PO 08/30/16 12:15 (Tylenol) 650 mg Q6H PRN PO 08/30/16 12:15 ([place] 5-325 Mg) 1 tab Q4H PRN PO 08/30/16 12:15 ([place] 7.5-325 Mg) 1 tab Q4H PRN PO 08/30/16 12:15 08/30/16 13:49 Family History reviewed and NC to current ID problems. Social History resident of long-term. Smoking many years. Plans on quitting. Physical Exam Vital Signs Vital Signs Date Time Temp Pulse Resp B/P Pulse Ox O2 Delivery O2 Flow Rate FiO2 08/30/16 13:47 97.7 95 20 132/68 98 08/30/16 11:00 93 16 128/77 95 Room Air 08/30/16 10:13 92 21 08/30/16 08:52 97.7 98 16 134/74 93 Physical Exam GENERAL: This is a well-nourished, well-developed patient, in no apparent distress. SKIN: No rashes, ecchymoses or lesions. Cool and dry. HEAD: Atraumatic. Normocephalic. No temporal or scalp tenderness. EYES: Pupils equal round and reactive. Extraocular motions intact. No scleral icterus. No injection or drainage. ENT: Nose without bleeding, purulent drainage or septal hematoma. Throat without erythema, tonsillar hypertrophy or exudate. Uvula midline. Airway patent. NECK: Trachea midline.Supple, nontender, no meningeal signs. CARDIOVASCULAR: RRR RESPIRATORY: Clear to auscultation. Breath sounds equal bilaterally. No wheezes , rales, or rhonchi. GASTROINTESTINAL: Abdomen soft, non-tender, nondistended. MUSCULOSKELETAL: Extremities without clubbing, cyanosis, or edema. NEUROLOGICAL: Awake and alert. Grossly non focal Psych: cooperative, flight of ideas. IV line sites with no e.o infection. Laboratory Laboratory Tests Test 08/30/16 08/30/16 08/30/16 08/30/16 09:56 09:57 12:07 13:28 White Blood Count 28.8 Red Blood Count 4.19 Hemoglobin 10.4 Hematocrit 32.5 Mean Corpuscular Volume 77.6 Mean Corpuscular Hemoglobin 24.8 Mean Corpuscular Hemoglobin 32.0 Concent Red Cell Distribution Width 18.4 Platelet Count 388 Mean Platelet Volume 6.9 Neutrophils (%) (Auto) 79.1 Lymphocytes (%) (Auto) 14.6 Monocytes (%) (Auto) 5.3 Eosinophils (%) (Auto) 0.8 Basophils (%) (Auto) 0.2 Neutrophils # (Auto) 22.7 Lymphocytes # (Auto) 4.2 Monocytes # (Auto) 1.5 Eosinophils # (Auto) 0.2 Basophils # (Auto) 0.1 CBC Comment AUTO DIFF Differential Total Cells 100 Counted Neutrophils % (Manual) 35 Band Neutrophils % 34 Lymphocytes % 19 Monocytes % 6 Eosinophils % 2 Neutrophils # (Manual) 21.0 Metamyelocytes 1 Myelocytes 3 Nucleated Red Blood Cells 1 Differential Comment FINAL DIFF MANUAL Platelet Estimate NORMAL Platelet Morphology Comment NORMAL Ovalocytes 1+ Sodium Level 134 Potassium Level 3.1 Chloride Level 97 Carbon Dioxide Level 29.4 Anion Gap 8 Blood Urea Nitrogen 5 Creatinine 0.44 Estimat Glomerular Filtration 151 Rate Random Glucose 122 Calcium Level 8.6 Total Bilirubin 0.2 Aspartate Amino Transf 6 (AST/SGOT) Alanine Aminotransferase 9 (ALT/SGPT) Alkaline Phosphatase 136 Total Creatine Kinase 20 Troponin I LESS THAN 0.02 Total Protein 5.9 Albumin 2.2 Lactic Acid Level 2.2 1.6 Urine Color YELLOW Urine Turbidity CLEAR Urine pH 6.5 Urine Specific [place] 1.021 Urine Protein TRACE Urine Glucose (UA) NEG Urine Ketones NEG Urine Occult Blood NEG Urine Nitrite NEG Urine Bilirubin NEG Urine Urobilinogen LESS THAN 2.0 Urine Leukocyte Esterase NEG Urine RBC LESS THAN 1 Urine WBC 4 Urine Squamous Epithelial 1 Cells Microscopic Urinalysis Comment CATH-CULT NOT IND Date/Time Procedure Status Source Growth 08/30/16 09:56 Aerobic Blood Culture Received Blood Peripheral Pending 08/30/16 09:56 Anaerobic Blood Culture Received Blood Peripheral Pending Result Diagram: 08/30/1656 08/30/1656 Imaging Last Impressions Chest X-Ray 08/30/16 0947 Signed Impressions: Service Date/Time: Tuesday, August 30, 2016 09:45 - CONCLUSION: Normal examination. Julia Martínez MD Assessment and Plan Assessment and Plan Sepsis present on admission. Possible tracheobronchitis. COPD exacerbation. Diarrhea: Ulcerative colitis but also at risk of Cdiff as she was on antibiotics prior to admission. Bipolar disorder, depression, anxiety, Recs: Continue Zosyn IV Continue Doxy oral Start Oral Vanco Check bladder scan if post void urine > [address] for I/O monitoring and retention. Check Cdiff PCR. Follow cultures Follow clinically. d/w . Roxi Marcus MD Aug 30, 2016 14:37
[2016-08-30] MEDS: PIPERACIL-TAZO 4.5 GM PREMIX 100 ML IV SCH ×2 (15:33→20:23)
[2016-08-30] MEDS: ALPRAZolam 0.5 MG TAB PO PRN ×2 (15:33→23:12)
[2016-08-30] MEDS: INSULIN ASPART SUPPLEMENTAL SCALE SQ SCH ×2 (15:35→20:31)
[2016-08-30] MEDS: RESP: ALBUTEROL 2.5 MG/IPRATROPIUM 0.5 MG NEB (SCH) NEB ×2 (15:41→20:06)
[2016-08-30] MEDS: methylPREDNISolone SOD SUCC 40 MG/1 ML VIAL IV PUSH SCH ×2 (17:49→23:12)
[2016-08-30] MEDS: INSULIN ASPART 1,000 UNITS/10 ML VIAL SQ SCH (17:49)
[2016-08-30] MEDS: VANCOMYCIN 500 MG VIAL (FOR ORAL USE ONLY) PO SCH ×2 (17:50→20:27)
[2016-08-30] MEDS: QUEtiapine FUMARATE 200 MG TAB PO SCH (20:24)
[2016-08-30] MEDS: ATORVASTATIN 20 MG TAB PO SCH (20:25)
[2016-08-30] MEDS: MELATONIN 5 MG TAB PO SCH (20:25)
[2016-08-30] MEDS: DOXYCYCLINE HYCLATE 100 MG CAP PO SCH (20:25)
[2016-08-30] MEDS: FAMOTIDINE 20 MG TAB PO SCH (20:26)
[2016-08-30] MEDS: AMITRIPTYLINE HCL 25 MG TAB PO SCH (20:26)
[2016-08-30] MEDS: INSULIN DETEMIR 100 UNITS/ML VIAL SQ SCH (20:30)
[2016-08-30] MEDS: MESALAMINE HD 800 MG DELAYED RELEASE TAB PO SCH (21:00)
[2016-08-30] MEDS: SODIUM CHLORIDE 0.9% FLUSH 10 ML FLUSH IV FLUSH SCH (21:00)
[2016-08-30] MEDS: CYCLOSPORINE OPTH EACH EYE SCH (21:00)
[2016-08-30] MEDS: BUDESONIDE-FORMOTEROL 160/4.5 MCG INHALER INH SCH (21:00)
[2016-08-30 21:15] LABS: CREATINE KINASE 27 U/L (26-192)
[2016-08-31] VITALS (9 sets, daily range): BP systolic 122–152; BP diastolic 67–83; PULSE 60–85; RESP 16–19; TEMP 97.3–98; O2SAT 95–98
[2016-08-31] MEDS: ACETAMINOPHEN/HYDROcodone 325 MG/7.5 MG TAB PO PRN ×4 (01:59→23:37)
[2016-08-31 02:15] LABS: AUTOMATED NEUTROPHIL # 19.3 TH/MM3 (1.8-7.7); BASOPHIL # 0.1 TH/MM3 (0-0.2); BASOPHIL % 0.5 % (0.0-2.0); EOSINOPHIL % 0.2 % (0.0-4.0); HEMATOCRIT 29.8 % (35.0-46.0); LYMPH % 7.2 % (9.0-44.0); LYMPHOCYTE # 1.5 TH/MM3 (1.0-4.8); MEAN CELL VOLUME 78.2 FL (80.0-100.0); MEAN CORPUSCULAR HEMOGLOBIN 25.2 PG (27.0-34.0); MEAN CORPUSCULAR HGB CONC 32.2 % (32.0-36.0); MONO % 0.7 % (0.0-8.0); NEUT % 91.4 % (16.0-70.0); PLATELET COUNT 347 TH/MM3 (150-450); RED BLOOD COUNT 3.81 MIL/MM3 (4.00-5.30); RED CELL DISTRIBUTION WIDTH 18.4 % (11.6-17.2); WHITE BLOOD COUNT 21.1 TH/MM3 (4.0-11.0)
[2016-08-31 02:22] LABS: HEMO FLAGS AUTO DIFF
[2016-08-31 02:33] LABS: ANION GAP 11 MEQ/L (5-15); BICARBONATE 26.2 MEQ/L (21.0-32.0); BLOOD UREA NITROGEN 5 MG/DL (7-18); CHLORIDE 98 MEQ/L (98-107); CREATINE KINASE 46 U/L (26-192); GLOMERULAR FILTRATION RATE 143 ML/MIN (>89); POTASSIUM 4.3 MEQ/L (3.5-5.1); SODIUM (NA) 135 MEQ/L (136-145)
[2016-08-31 03:13] LABS: BANDS 28 % (0-6); METAMYELOCYTES 6 % (0-1); MYELOCYTES 1 % (0-0); PLATELET ESTIMATE SMEAR NORMAL (NORMAL); PLATELET MORPHOLOGY NORMAL (NORMAL); POLYS (SEG NEUTROPHILS) 60 % (16-70); SCAN/DIFF FINAL DIFF MANUAL; WBC DIFF SAMPLE 100
[2016-08-31 03:14] LABS: ACANTHOCYTES OCC (NORMAL); OVALOCYTES 1+ (NORMAL)
[2016-08-31 03:15] LABS: TOXIC GRANULATION 1+ (NORMAL)
[2016-08-31] MEDS: RESP: ALBUTEROL 2.5 MG/IPRATROPIUM 0.5 MG NEB (SCH) NEB ×4 (03:33→21:18)
[2016-08-31] MEDS: PIPERACIL-TAZO 4.5 GM PREMIX 100 ML IV SCH ×2 (04:18→09:15)
[2016-08-31] MEDS: HEPARIN SODIUM - SQ 10,000 UNITS/ML VIAL SQ SCH ×3 (04:19→20:56)
[2016-08-31] MEDS: DIVALPROEX DR 500 MG TABEC PO SCH ×3 (05:52→20:56)
[2016-08-31] MEDS: methylPREDNISolone SOD SUCC 40 MG/1 ML VIAL IV PUSH SCH ×4 (05:52→23:36)
[2016-08-31] MEDS: INSULIN ASPART SUPPLEMENTAL SCALE SQ SCH ×4 (06:07→20:51)
[2016-08-31] MEDS: INSULIN ASPART 1,000 UNITS/10 ML VIAL SQ SCH ×3 (08:00→16:46)
[2016-08-31] MEDS ORDERED: PANTOPRAZOLE SOD 40 MG DELAYED RELEASE TAB PO SCH (09:00)
[2016-08-31] MEDS: PREGABALIN 100 MG CAP PO SCH (09:00)
[2016-08-31] MEDS: SODIUM CHLORIDE 0.9% FLUSH 10 ML FLUSH IV FLUSH SCH ×2 (09:00→23:40)
[2016-08-31] MEDS: BUDESONIDE-FORMOTEROL 160/4.5 MCG INHALER INH SCH ×2 (09:00→22:27)
[2016-08-31] MEDS: SPIRONOLACTONE 50 MG TAB PO SCH (09:15)
[2016-08-31] MEDS: azaTHIOprine 50 MG TAB PO SCH (09:15)
[2016-08-31] MEDS: MESALAMINE HD 800 MG DELAYED RELEASE TAB PO SCH ×2 (09:15→20:55)
[2016-08-31] MEDS: SODIUM CHLORIDE 1 GRAM TAB PO SCH (09:15)
[2016-08-31] MEDS: VANCOMYCIN 500 MG VIAL (FOR ORAL USE ONLY) PO SCH (09:15)
[2016-08-31] MEDS: FAMOTIDINE 20 MG TAB PO SCH ×2 (09:15→20:55)
[2016-08-31] MEDS: DOXYCYCLINE HYCLATE 100 MG CAP PO SCH (09:15)
[2016-08-31] MEDS: POTASSIUM CHLORIDE 25 MEQ EFFERVESCENT TAB NG SCH (09:16)
[2016-08-31] MEDS: ALPRAZolam 0.5 MG TAB PO PRN ×2 (11:37→19:30)
[2016-08-31] MEDS: ACETAMINOPHEN/HYDROcodone 325 MG/5 MG TAB PO PRN ×2 (11:37→15:22)
[2016-08-31] MEDS: MAGNESIUM HYDROXIDE SUSP 30 ML CUP PO PRN ×2 (11:42→11:50)
--- NOTE | 2016-08-31 11:48 | HHI.PR ---
Subjective Remarks Follow up sepsis, COPD, diabetes. The patient states that she feels "much better " today. Still with wheezing, cough. Objective Vitals Vital Signs Date Time Temp Pulse Resp B/P Pulse Ox O2 Delivery O2 Flow Rate FiO2 08/31/16 09:31 95 21 08/31/16 08:26 97.3 60 19 150/67 98 08/31/16 07:45 78 08/31/16 00:00 97.3 85 18 122/70 95 08/30/16 20:09 97 21 08/30/16 20:00 97.5 86 20 113/61 95 08/30/16 19:50 91 08/30/16 16:00 97.7 104 18 124/62 94 08/30/16 13:47 97.7 95 20 132/68 98 I/O 08/30/16 08/30/16 08/30/16 08/31/16 08/31/16 08/31/16 07:00 15:00 23:00 07:00 15:00 23:00 Intake Total 540 ml 398 ml 482 ml Balance 540 ml 398 ml 482 ml Intake Oral 540 ml 240 ml 480 ml IV Total 158 ml 2 ml Bladder Scan Volume Amount 9 ml # Voids 1 0 2 # Bowel Movements 0 0 0 Result Diagram: 08/31/16 0156 08/31/16 0156 Imaging Last Impressions Chest X-Ray 08/30/1647 Signed Impressions: Service Date/Time: Tuesday, August 30, 2016 09:45 - CONCLUSION: Normal examination. Julia Martínez MD Objective Remarks General: No acute distress. Heart: Regular rate and rhythm. No murmur. Lungs: Diffuse wheeze. Breathing is nonlabored. Abdomen: Soft, nontender, nondistended. Extremities: No lower extremity edema. Psych: Alert and oriented. Procedures None Urinary Catheter: No Vascular Central Line Catheter: No A/P Problem List: (1) Sepsis ICD Code: A41.9 Status: Acute (2) Acute exacerbation of chronic obstructive pulmonary disease (COPD) ICD Code: J44.1 Status: Acute (3) Leukocytosis ICD Code: D72.829 Status: Acute (4) Diabetes mellitus ICD Code: E11.9 Status: Acute (5) Ulcerative colitis ICD Code: K51.90 Status: Acute Assessment and Plan 1. Severe sepsis: Improved. Patient met criteria based on leukocytosis, tachycardia, elevated serum lactic acid level. Presumed source is respiratory. Chest x-ray appears clear, my reading. Continue empiric antibiotics. Appreciate infectious disease recommendations. WBCs are trending down. Lactic acidosis has resolved. 2. COPD with exacerbation: Continue bronchodilators, steroids, antibiotics, supplemental oxygen. 3. Insulin-dependent diabetes mellitus: Continue basal and prandial insulin. Monitor Accu-Cheks and cover with sliding scale insulin. 4. Anxiety, bipolar disorder: Continue Seroquel, Xanax. 5. GERD: Continue Zantac. 6. Hyperlipidemia: Continue statin. 7. Ulcerative colitis: Continue azathioprine. Hold prednisone as patient is on Solu-Medrol for COPD exacerbation. 8. Neuropathy: Continue Lyrica. 9. DVT prophylaxis: Subcutaneous heparin. Problem Qualifiers (1) Sepsis: Qualified Code: A41.9 - Sepsis, due to unspecified organism (2) Leukocytosis: Qualified Code: D72.829 - Leukocytosis, unspecified type Lane Harris MD Aug 31, 2016 11:48
--- NOTE | 2016-08-31 14:05 | EKG ---
Date Performed: 08/30/2016 Time Performed: 12:50:26 PTAGE: 50 years EKG: Sinus rhythm Since previous tracing, no significant change noted NORMAL ECG PREVIOUS TRACING : 07/30/2016 20.16 DOCTOR: Arina Parker Interpretating Date/Time 08/31/2016 14:04:01
--- NOTE | 2016-08-31 14:06 | EKG ---
Date Performed: 08/30/2016 Time Performed: 17:28:54 PTAGE: 50 years EKG: Sinus rhythm Since previous tracing, no significant change noted NORMAL ECG PREVIOUS TRACING : 08/30/2016 12.50 DOCTOR: Arina Parker Interpretating Date/Time 08/31/2016 14:04:16
--- NOTE | 2016-08-31 14:15 | HHI.IDPN ---
Subjective Subjective Remarks is 50 y/o CF with PMHx of COPD, new diagnosis of ulcerative colitis. She reports since discharge she has had cough and has been treated with 3 different antibiotics. She reports sternal chest pain exacerbated by coughing and deep inspiration. She reports a tightness across upper abdomen. She presented to the emergency department from senior living facility for evaluation of possible sepsis. She has had dizziness, cough, chest pain, dyspnea for the past week. Labs were done yesterday at the [facility] and her white blood cells were elevated at 33,000. She reports diarrhea almost all day at [facility] for last 1 week increased in frequency and volume plus very liquid. She was diagnosed with ulcerative colitis last month during her hospitalization here. Overnight events reviewed. No fevers No rash No diarrhea Antibiotics Zosyn IV Vanco oral Doxy oral. Lines Line sites with no e.o infection Past Medical History reviewed Allergies: Coded Allergies: Sulfa (Verified Allergy, Severe, RASH, 08/30/16) Cipro (Verified Allergy, Unknown, 08/30/16) Erythromycin (Verified Allergy, Unknown, 08/30/16) Ofloxacin (Verified Allergy, Unknown, 08/30/16) Objective . Vital Signs Date Time Temp Pulse Resp B/P Pulse Ox O2 Delivery O2 Flow Rate FiO2 08/31/16 12:29 98.0 69 19 149/83 97 08/31/16 09:31 95 21 08/31/16 08:26 97.3 60 19 150/67 98 08/31/16 07:45 78 08/31/16 00:00 97.3 85 18 122/70 95 08/30/16 20:09 97 21 08/30/16 20:00 97.5 86 20 113/61 95 08/30/16 19:50 91 08/30/16 16:00 97.7 104 18 124/62 94 08/30/16 08/30/16 08/31/16 15:00 23:00 07:00 Intake Total 540 ml 398 ml 482 ml Balance 540 ml 398 ml 482 ml Intake Oral 540 ml 240 ml 480 ml IV Total 158 ml 2 ml Bladder Scan Volume Amount 9 ml # Voids 1 0 2 # Bowel Movements 0 0 0 . Laboratory Tests Test 08/30/16 08/31/16 09:56 01:56 White Blood Count 28.8 TH/MM3 21.1 TH/MM3 Red Blood Count 4.19 MIL/MM3 3.81 MIL/MM3 Hemoglobin 10.4 GM/DL 9.6 GM/DL Hematocrit 32.5 % 29.8 % Mean Corpuscular Volume 77.6 FL 78.2 FL Mean Corpuscular Hemoglobin 24.8 PG 25.2 PG Mean Corpuscular Hemoglobin 32.0 % 32.2 % Concent Red Cell Distribution Width 18.4 % 18.4 % Platelet Count 388 TH/MM3 347 TH/MM3 Mean Platelet Volume 6.9 FL 6.9 FL Neutrophils (%) (Auto) 79.1 % 91.4 % Lymphocytes (%) (Auto) 14.6 % 7.2 % Monocytes (%) (Auto) 5.3 % 0.7 % Eosinophils (%) (Auto) 0.8 % 0.2 % Basophils (%) (Auto) 0.2 % 0.5 % Neutrophils # (Auto) 22.7 TH/MM3 19.3 TH/MM3 Lymphocytes # (Auto) 4.2 TH/MM3 1.5 TH/MM3 Monocytes # (Auto) 1.5 TH/MM3 0.1 TH/MM3 Eosinophils # (Auto) 0.2 TH/MM3 0.0 TH/MM3 Basophils # (Auto) 0.1 TH/MM3 0.1 TH/MM3 CBC Comment AUTO DIFF AUTO DIFF Differential Total Cells 100 100 Counted Neutrophils % (Manual) 35 % 60 % Band Neutrophils % 34 % 28 % Lymphocytes % 19 % 5 % Monocytes % 6 % Eosinophils % 2 % Neutrophils # (Manual) 21.0 TH/MM3 20.0 TH/MM3 Metamyelocytes 1 % 6 % Myelocytes 3 % 1 % Nucleated Red Blood Cells 1 /100 WBC Differential Comment FINAL DIFF FINAL DIFF MANUAL MANUAL Platelet Estimate NORMAL NORMAL Platelet Morphology Comment NORMAL NORMAL Ovalocytes 1+ 1+ Toxic Granulation 1+ Acanthocytes OCC Laboratory Tests Test 08/30/16 08/30/16 08/30/16 08/30/16 09:56 09:57 13:28 19:45 Sodium Level 134 MEQ/L Potassium Level 3.1 MEQ/L Chloride Level 97 MEQ/L Carbon Dioxide Level 29.4 MEQ/L Anion Gap 8 MEQ/L Blood Urea Nitrogen 5 MG/DL Creatinine 0.44 MG/DL Estimat Glomerular Filtration 151 ML/MIN Rate Random Glucose 122 MG/DL Calcium Level 8.6 MG/DL Total Bilirubin 0.2 MG/DL Aspartate Amino Transf 6 U/L (AST/SGOT) Alanine Aminotransferase 9 U/L (ALT/SGPT) Alkaline Phosphatase 136 U/L Total Creatine Kinase 20 U/L 27 U/L Troponin I LESS THAN 0.02 LESS THAN 0.02 NG/ML NG/ML Total Protein 5.9 GM/DL Albumin 2.2 GM/DL Lactic Acid Level 2.2 mmol/L 1.6 mmol/L Test 08/31/16 01:56 Sodium Level 135 MEQ/L Potassium Level 4.3 MEQ/L Chloride Level 98 MEQ/L Carbon Dioxide Level 26.2 MEQ/L Anion Gap 11 MEQ/L Blood Urea Nitrogen 5 MG/DL Creatinine 0.46 MG/DL Estimat Glomerular Filtration 143 ML/MIN Rate Random Glucose 192 MG/DL Calcium Level 8.3 MG/DL Total Creatine Kinase 46 U/L Troponin I LESS THAN 0.02 NG/ML Microbiology Date/Time Procedure Status Source Growth 08/30/16 09:45 Aerobic Blood Culture - Preliminary Resulted Blood Peripheral NO GROWTH IN 1 DAY 08/30/16 09:45 Anaerobic Blood Culture - Preliminary Resulted Blood Peripheral NO GROWTH IN 1 DAY 08/30/16 09:56 Aerobic Blood Culture - Preliminary Resulted Blood Peripheral NO GROWTH IN 1 DAY 08/30/16 09:56 Anaerobic Blood Culture - Preliminary Resulted Blood Peripheral NO GROWTH IN 1 DAY Imaging Last Impressions Chest X-Ray 08/30/16946 Signed Impressions: Service Date/Time: Tuesday, August 30, 2016 09:45 - CONCLUSION: Normal examination. Julia Martínez MD Physical Exam GENERAL: This is a well-nourished, well-developed patient, in no apparent distress. SKIN: No rashes, ecchymoses or lesions. Cool and dry. HEAD: Atraumatic. Normocephalic. No temporal or scalp tenderness. EYES: Pupils equal round and reactive. Extraocular motions intact. No scleral icterus. No injection or drainage. ENT: Nose without bleeding, purulent drainage or septal hematoma. Throat without erythema, tonsillar hypertrophy or exudate. Uvula midline. Airway patent. NECK: Trachea midline.Supple, nontender, no meningeal signs. CARDIOVASCULAR: RRR RESPIRATORY: Clear to auscultation. Breath sounds equal bilaterally. No wheezes , rales, or rhonchi. GASTROINTESTINAL: Abdomen soft, non-tender, nondistended. MUSCULOSKELETAL: Extremities without clubbing, cyanosis, or edema. NEUROLOGICAL: Awake and alert. Grossly non focal Psych: cooperative, flight of ideas. IV line sites with no e.o infection. Assessment & Plan Remarks Sepsis present on admission. Possible tracheobronchitis. COPD exacerbation. Leucocytosis: infection, steroids. Diarrhea: Ulcerative colitis but also at risk of Cdiff as she was on antibiotics prior to admission. Bipolar disorder, depression, anxiety, Recs: DC Zosyn IV DC Doxy oral Start oral augmentin DC Oral Vanco (patient had no BMs overnight, is actually reporting constipation. If continues to do well and WBC trending down ok to DC home on oral augmentin for 7 days for tracheobronchitis. Follow cultures Follow clinically. d/w . Roxi Marcus MD Aug 31, 2016 14:14
[2016-08-31] MEDS ORDERED: NICOTINE 14 MG/24 HR PATCH T-DERMAL ONE (20:00)
[2016-08-31] MEDS: INSULIN DETEMIR 100 UNITS/ML VIAL SQ SCH (20:49)
[2016-08-31] MEDS: ATORVASTATIN 20 MG TAB PO SCH (20:55)
[2016-08-31] MEDS: AMOXICILLIN/CLAVULANATE K 500 MG TAB PO SCH (20:56)
[2016-08-31] MEDS: AMITRIPTYLINE HCL 25 MG TAB PO SCH (20:57)
[2016-08-31] MEDS: CYCLOSPORINE OPTH EACH EYE SCH (21:00)
[2016-08-31] MEDS: MELATONIN 5 MG TAB PO SCH (23:38)
[2016-08-31] MEDS: QUEtiapine FUMARATE 200 MG TAB PO SCH (23:38)
[2016-09-01] VITALS (8 sets, daily range): BP systolic 126–155; BP diastolic 62–77; PULSE 67–88; RESP 14–18; TEMP 97.5–97.8; O2SAT 94–97
[2016-09-01] MEDS: MAGNESIUM HYDROXIDE SUSP 30 ML CUP PO PRN (00:30)
[2016-09-01] MEDS: RESP: ALBUTEROL 2.5 MG/IPRATROPIUM 0.5 MG NEB (SCH) NEB ×4 (05:03→21:07)
[2016-09-01] MEDS: methylPREDNISolone SOD SUCC 40 MG/1 ML VIAL IV PUSH SCH ×2 (05:50→20:45)
[2016-09-01] MEDS: HEPARIN SODIUM - SQ 10,000 UNITS/ML VIAL SQ SCH ×3 (05:50→20:44)
[2016-09-01] MEDS: INSULIN ASPART SUPPLEMENTAL SCALE SQ SCH ×4 (05:54→20:46)
[2016-09-01] MEDS: INSULIN ASPART 1,000 UNITS/10 ML VIAL SQ SCH ×3 (05:54→15:36)
[2016-09-01] MEDS: ACETAMINOPHEN/HYDROcodone 325 MG/7.5 MG TAB PO PRN ×4 (05:55→20:44)
[2016-09-01] MEDS: AMOXICILLIN/CLAVULANATE K 500 MG TAB PO SCH ×3 (05:55→20:43)
[2016-09-01] MEDS: DIVALPROEX DR 500 MG TABEC PO SCH ×3 (05:55→20:43)
[2016-09-01] MEDS: FAMOTIDINE 20 MG TAB PO SCH ×2 (08:40→20:43)
[2016-09-01] MEDS: SODIUM CHLORIDE 1 GRAM TAB PO SCH (08:40)
[2016-09-01] MEDS: ALPRAZolam 0.5 MG TAB PO PRN ×2 (08:40→17:07)
[2016-09-01] MEDS: MESALAMINE HD 800 MG DELAYED RELEASE TAB PO SCH ×2 (08:40→20:43)
[2016-09-01] MEDS: SPIRONOLACTONE 50 MG TAB PO SCH (08:40)
[2016-09-01] MEDS: SODIUM CHLORIDE 0.9% FLUSH 10 ML FLUSH IV FLUSH SCH ×2 (08:41→20:45)
[2016-09-01] MEDS: POTASSIUM CHLORIDE 25 MEQ EFFERVESCENT TAB NG SCH (08:41)
[2016-09-01] MEDS: PREGABALIN 100 MG CAP PO SCH (08:41)
[2016-09-01] MEDS: azaTHIOprine 50 MG TAB PO SCH (08:45)
[2016-09-01] MEDS: BUDESONIDE-FORMOTEROL 160/4.5 MCG INHALER INH SCH ×2 (08:47→20:45)
--- NOTE | 2016-09-01 11:09 | HHI.PR ---
Subjective Remarks Follow up sepsis, COPD, diabetes. Patient states that she is feeling somewhat better today. She had a bowel movement this morning. Abdominal pain has improved. Not short of breath currently. Objective Vitals Vital Signs Date Time Temp Pulse Resp B/P Pulse Ox O2 Delivery O2 Flow Rate FiO2 09/01/16 09:57 96 09/01/16 08:32 97.5 72 18 152/77 95 09/01/16 04:00 97.7 68 14 155/74 94 09/01/16 00:00 97.5 67 16 148/66 97 08/31/16 21:20 95 21 08/31/16 20:00 97.4 71 16 152/71 96 08/31/16 16:01 97.8 62 18 145/77 97 08/31/16 15:04 69 08/31/16 12:29 98.0 69 19 149/83 97 I/O 08/31/16 08/31/16 08/31/16 09/01/16 09/01/16 09/01/16 07:00 15:00 23:00 07:00 15:00 23:00 Intake Total 482 ml 700 ml 480 ml 0 ml Balance 482 ml 700 ml 480 ml 0 ml Intake Oral 480 ml 600 ml 480 ml 0 ml IV Total 2 ml 100 ml # Voids 2 2 0 1 # Bowel Movements 0 0 0 0 Result Diagram: 08/31/166 08/31/16 0156 Imaging Last Impressions Chest X-Ray 08/30/16 0947 Signed Impressions: Service Date/Time: Tuesday, August 30, 2016 09:45 - CONCLUSION: Normal examination. Julia Martínez MD Objective Remarks General: No acute distress. Heart: Regular rate and rhythm. No murmur. Lungs: Scattered wheeze. Breathing is nonlabored. Abdomen: Soft, nontender, nondistended. Extremities: No lower extremity edema. Psych: Alert and oriented. Procedures None Urinary Catheter: No Vascular Central Line Catheter: No A/P Problem List: (1) Sepsis ICD Code: A41.9 Status: Acute (2) Acute exacerbation of chronic obstructive pulmonary disease (COPD) ICD Code: J44.1 Status: Acute (3) Leukocytosis ICD Code: D72.829 Status: Acute (4) Diabetes mellitus ICD Code: E11.9 Status: Acute (5) Ulcerative colitis ICD Code: K51.90 Status: Acute Assessment and Plan 1. Severe sepsis: Improved. Patient met criteria based on leukocytosis, tachycardia, elevated serum lactic acid level. Presumed source is respiratory. Chest x-ray appears clear, my reading. Continue empiric antibiotics. Appreciate infectious disease recommendations. WBCs are trending down. Lactic acidosis has resolved. Labs are pending today. 2. COPD with exacerbation: Continue bronchodilators, steroids, antibiotics, supplemental oxygen. Taper steroids. 3. Insulin-dependent diabetes mellitus: Continue basal and prandial insulin. Monitor Accu-Cheks and cover with sliding scale insulin. 4. Anxiety, bipolar disorder: Continue Seroquel, Xanax. 5. GERD: Continue Zantac. 6. Hyperlipidemia: Continue statin. 7. Ulcerative colitis: Continue azathioprine. Continue steroids. 8. Neuropathy: Continue Lyrica. 9. DVT prophylaxis: Subcutaneous heparin. Discharge Planning Possible discharge to SNF tomorrow. Problem Qualifiers (1) Sepsis: Qualified Code: A41.9 - Sepsis, due to unspecified organism (2) Leukocytosis: Qualified Code: D72.829 - Leukocytosis, unspecified type Lane Harris MD Sep 01, 2016 11:09
[2016-09-01 12:00] LABS: AUTOMATED NEUTROPHIL # 19.3 TH/MM3 (1.8-7.7); BASOPHIL # 0.1 TH/MM3 (0-0.2); BASOPHIL % 0.5 % (0.0-2.0); EOSINOPHIL % 0.1 % (0.0-4.0); LYMPH % 12.7 % (9.0-44.0); LYMPHOCYTE # 2.9 TH/MM3 (1.0-4.8); MEAN CELL VOLUME 77.6 FL (80.0-100.0); MEAN CORPUSCULAR HEMOGLOBIN 24.7 PG (27.0-34.0); MEAN CORPUSCULAR HGB CONC 31.9 % (32.0-36.0); MONO % 1.6 % (0.0-8.0); NEUT % 85.1 % (16.0-70.0); PLATELET COUNT 444 TH/MM3 (150-450); RED BLOOD COUNT 4.12 MIL/MM3 (4.00-5.30); RED CELL DISTRIBUTION WIDTH 18.7 % (11.6-17.2); WHITE BLOOD COUNT 22.7 TH/MM3 (4.0-11.0)
[2016-09-01 12:02] LABS: HEMO FLAGS AUTO DIFF
[2016-09-01 12:37] LABS: BICARBONATE 26.9 MEQ/L (21.0-32.0); POTASSIUM 4.5 MEQ/L (3.5-5.1)
[2016-09-01] MEDS: RESP: ALBUTEROL 2.5 MG/IPRATROPIUM 0.5 MG NEB (PRN) NEB (12:41)
[2016-09-01 13:00] LABS: BANDS 26 % (0-6); CORRECTED NUCLEATED RBC 1 /100 WBC (0-0); METAMYELOCYTES 7 % (0-1); MYELOCYTES 2 % (0-0); NEUTROPHIL # MANUAL DIFF 20.2 TH/MM3 (1.8-7.7); OVALOCYTES 1+ (NORMAL); PLATELET ESTIMATE SMEAR NORMAL (NORMAL); PLATELET MORPHOLOGY NORMAL (NORMAL); POLYS (SEG NEUTROPHILS) 54 % (16-70); SCAN/DIFF FINAL DIFF MANUAL; WBC DIFF SAMPLE 100
[2016-09-01 13:01] LABS: ACANTHOCYTES OCC (NORMAL)
[2016-09-01] MEDS: BENZONATATE 100 MG CAP PO PRN ×2 (15:21→23:16)
[2016-09-01] MEDS ORDERED: REMOVE OLD PATCH T-DERMAL ONE (20:00)
[2016-09-01] MEDS: ATORVASTATIN 20 MG TAB PO SCH (20:44)
[2016-09-01] MEDS: MELATONIN 5 MG TAB PO SCH (20:44)
[2016-09-01] MEDS: INSULIN DETEMIR 100 UNITS/ML VIAL SQ SCH (20:46)
[2016-09-01] MEDS: AMITRIPTYLINE HCL 25 MG TAB PO SCH (20:48)
[2016-09-01] MEDS: CYCLOSPORINE OPTH EACH EYE SCH (21:00)
[2016-09-01] MEDS: QUEtiapine FUMARATE 200 MG TAB PO SCH (23:17)
[2016-09-02] VITALS (8 sets, daily range): BP systolic 119–156; BP diastolic 66–77; PULSE 69–91; RESP 17–20; TEMP 97.3–98.3; O2SAT 94–98
[2016-09-02] MEDS: ACETAMINOPHEN/HYDROcodone 325 MG/7.5 MG TAB PO PRN ×6 (00:26→22:04)
[2016-09-02] MEDS: ALPRAZolam 0.5 MG TAB PO PRN ×3 (00:30→18:04)
[2016-09-02] MEDS: RESP: ALBUTEROL 2.5 MG/IPRATROPIUM 0.5 MG NEB (SCH) NEB ×4 (03:22→21:28)
[2016-09-02] MEDS: AMOXICILLIN/CLAVULANATE K 500 MG TAB PO SCH ×3 (06:06→20:56)
[2016-09-02] MEDS: HEPARIN SODIUM - SQ 10,000 UNITS/ML VIAL SQ SCH ×3 (06:07→21:00)
[2016-09-02] MEDS: DIVALPROEX DR 500 MG TABEC PO SCH ×3 (06:07→20:56)
[2016-09-02] MEDS: INSULIN ASPART 1,000 UNITS/10 ML VIAL SQ SCH ×3 (06:08→16:07)
[2016-09-02] MEDS: INSULIN ASPART SUPPLEMENTAL SCALE SQ SCH ×4 (06:08→21:01)
[2016-09-02] MEDS: SODIUM CHLORIDE 0.9% FLUSH 10 ML FLUSH IV FLUSH SCH ×2 (09:00→21:08)
[2016-09-02 10:05] LABS: AUTOMATED NEUTROPHIL # 13.8 TH/MM3 (1.8-7.7); BASOPHIL % 0.2 % (0.0-2.0); HEMATOCRIT 29.4 % (35.0-46.0); LYMPH % 19.7 % (9.0-44.0); LYMPHOCYTE # 3.6 TH/MM3 (1.0-4.8); MEAN CELL VOLUME 76.1 FL (80.0-100.0); MEAN CORPUSCULAR HEMOGLOBIN 25.9 PG (27.0-34.0); MONO % 4.7 % (0.0-8.0); NEUT % 75.4 % (16.0-70.0); PLATELET COUNT 494 TH/MM3 (150-450); RED BLOOD COUNT 3.86 MIL/MM3 (4.00-5.30); RED CELL DISTRIBUTION WIDTH 18.1 % (11.6-17.2); WHITE BLOOD COUNT 18.3 TH/MM3 (4.0-11.0)
[2016-09-02] MEDS: FAMOTIDINE 20 MG TAB PO SCH ×2 (10:09→20:57)
[2016-09-02] MEDS: SODIUM CHLORIDE 1 GRAM TAB PO SCH (10:09)
[2016-09-02] MEDS: MESALAMINE HD 800 MG DELAYED RELEASE TAB PO SCH ×2 (10:10→20:57)
[2016-09-02] MEDS: PREGABALIN 100 MG CAP PO SCH (10:10)
[2016-09-02] MEDS: POTASSIUM CHLORIDE 25 MEQ EFFERVESCENT TAB NG SCH (10:10)
[2016-09-02] MEDS: azaTHIOprine 50 MG TAB PO SCH (10:10)
[2016-09-02] MEDS: SPIRONOLACTONE 50 MG TAB PO SCH (10:10)
[2016-09-02 10:11] LABS: HEMO FLAGS AUTO DIFF
[2016-09-02] MEDS: methylPREDNISolone SOD SUCC 40 MG/1 ML VIAL IV PUSH SCH ×2 (10:11→21:09)
[2016-09-02] MEDS: BUDESONIDE-FORMOTEROL 160/4.5 MCG INHALER INH SCH ×2 (10:11→20:53)
[2016-09-02 10:46] LABS: BANDS 16 % (0-6); METAMYELOCYTES 5 % (0-1); MYELOCYTES 4 % (0-0); NEUTROPHIL # MANUAL DIFF 15.4 TH/MM3 (1.8-7.7); POLYS (SEG NEUTROPHILS) 59 % (16-70); WBC DIFF SAMPLE 100
[2016-09-02 10:47] LABS: OVALOCYTES 1+ (NORMAL); PLATELET ESTIMATE SMEAR HIGH (NORMAL); PLATELET MORPHOLOGY NORMAL (NORMAL); SCAN/DIFF FINAL DIFF MANUAL
--- NOTE | 2016-09-02 13:13 | HHI.PR ---
Subjective Remarks Follow up sepsis, COPD, diabetes. Patient states that she is still wheezing. Still feels weak, but improving. Cough is nonproductive. Objective Vitals Vital Signs Date Time Temp Pulse Resp B/P Pulse Ox O2 Delivery O2 Flow Rate FiO2 09/02/16 11:53 98.3 84 18 131/77 96 09/02/16 09:25 95 21 09/02/16 08:00 97.6 69 18 140/66 94 09/02/16 00:00 97.3 83 17 140/68 98 09/01/16 21:10 94 21 09/01/16 19:55 97.8 83 18 126/62 97 09/01/16 16:12 97.8 70 17 144/71 97 09/01/16 16:12 97 21 I/O 09/01/16 09/01/16 09/01/16 09/02/16 09/02/16 09/02/16 07:00 15:00 23:00 07:00 15:00 23:00 Intake Total 0 ml 840 ml 240 ml Output Total 3 ml Balance 0 ml 837 ml 240 ml Intake Oral 0 ml 840 ml 240 ml Output Urine Total 3 ml # Voids 1 2 # Bowel Movements 0 1 Result Diagram: 09/02/16 0820 09/01/16 1056 Imaging Last Impressions Chest X-Ray 08/30/16 0947 Signed Impressions: Service Date/Time: Tuesday, August 30, 2016 09:45 - CONCLUSION: Normal examination. Julia Martínez MD Objective Remarks General: No acute distress. Heart: Regular rate and rhythm. No murmur. Lungs: Scattered wheeze. Breathing is nonlabored. Abdomen: Soft, nontender, nondistended. Extremities: No lower extremity edema. Psych: Alert and oriented. Procedures None Urinary Catheter: No Vascular Central Line Catheter: No A/P Problem List: (1) Sepsis ICD Code: A41.9 (2) Acute exacerbation of chronic obstructive pulmonary disease (COPD) ICD Code: J44.1 Status: Acute (3) Leukocytosis ICD Code: D72.829 Status: Acute (4) Diabetes mellitus ICD Code: E11.9 Status: Acute (5) Ulcerative colitis ICD Code: K51.90 Status: Acute Assessment and Plan 1. Severe sepsis: Improved. Patient met criteria based on leukocytosis, tachycardia, elevated serum lactic acid level. Presumed source is respiratory. Chest x-ray is negative. Continue empiric antibiotics. Appreciate infectious disease recommendations. WBCs are trending down. Lactic acidosis has resolved. 2. COPD with exacerbation: Continue bronchodilators, steroids, antibiotics, supplemental oxygen. Transition to prednisone. 3. Insulin-dependent diabetes mellitus: Continue basal and prandial insulin. Monitor Accu-Cheks and cover with sliding scale insulin. Glucose has been elevated due to steroids. 4. Anxiety, bipolar disorder: Continue Seroquel, Xanax. 5. GERD: Continue Zantac. 6. Hyperlipidemia: Continue statin. 7. Ulcerative colitis: Continue azathioprine. Continue steroids. 8. Neuropathy: Continue Lyrica. 9. DVT prophylaxis: Subcutaneous heparin. Problem Qualifiers (1) Sepsis: Qualified Code: A41.9 - Sepsis, due to unspecified organism (2) Leukocytosis: Qualified Code: D72.829 - Leukocytosis, unspecified type Lane Harris MD Sep 02, 2016 13:13
[2016-09-02] MEDS: RESP: ALBUTEROL 2.5 MG/IPRATROPIUM 0.5 MG NEB (PRN) NEB (14:02)
[2016-09-02] MEDS: NICOTINE 14 MG/24 HR PATCH T-DERMAL SCH (14:03)
[2016-09-02] MEDS: BENZONATATE 100 MG CAP PO PRN (17:10)
[2016-09-02] MEDS: MELATONIN 5 MG TAB PO SCH (20:55)
[2016-09-02] MEDS: QUEtiapine FUMARATE 200 MG TAB PO SCH (20:55)
[2016-09-02] MEDS: AMITRIPTYLINE HCL 25 MG TAB PO SCH (20:57)
[2016-09-02] MEDS: ATORVASTATIN 20 MG TAB PO SCH (20:57)
[2016-09-02] MEDS ORDERED: REMOVE OLD PATCH T-DERMAL SCH (21:00)
[2016-09-02] MEDS: CYCLOSPORINE OPTH EACH EYE SCH (21:00)
[2016-09-02] MEDS: INSULIN DETEMIR 100 UNITS/ML VIAL SQ SCH (21:01)
[2016-09-03] VITALS: BP 127/65; PULSE 83; RESP 20; TEMP 97.6; O2SAT 93
[2016-09-03] MEDS: ALPRAZolam 0.5 MG TAB PO PRN ×2 (02:39→11:41)
[2016-09-03] MEDS: ACETAMINOPHEN/HYDROcodone 325 MG/5 MG TAB PO PRN (02:42)
[2016-09-03] MEDS: RESP: ALBUTEROL 2.5 MG/IPRATROPIUM 0.5 MG NEB (SCH) NEB ×3 (04:00→15:53)
[2016-09-03 05:19] LABS: AUTOMATED NEUTROPHIL # 12.7 TH/MM3 (1.8-7.7); BASOPHIL % 0.2 % (0.0-2.0); LYMPH % 13.3 % (9.0-44.0); MEAN CELL VOLUME 77.1 FL (80.0-100.0); MEAN CORPUSCULAR HEMOGLOBIN 24.9 PG (27.0-34.0); MEAN CORPUSCULAR HGB CONC 32.2 % (32.0-36.0); MONO % 3.8 % (0.0-8.0); NEUT % 82.7 % (16.0-70.0); PLATELET COUNT 523 TH/MM3 (150-450); RED BLOOD COUNT 4.15 MIL/MM3 (4.00-5.30); RED CELL DISTRIBUTION WIDTH 18.4 % (11.6-17.2); WHITE BLOOD COUNT 15.4 TH/MM3 (4.0-11.0)
[2016-09-03] MEDS: HEPARIN SODIUM - SQ 10,000 UNITS/ML VIAL SQ SCH ×2 (05:41→11:42)
[2016-09-03] MEDS: DIVALPROEX DR 500 MG TABEC PO SCH ×2 (05:41→14:51)
[2016-09-03] MEDS: AMOXICILLIN/CLAVULANATE K 500 MG TAB PO SCH ×2 (05:41→14:52)
[2016-09-03 05:43] LABS: HEMO FLAGS AUTO DIFF
[2016-09-03] MEDS: INSULIN ASPART SUPPLEMENTAL SCALE SQ SCH ×2 (05:44→11:48)
[2016-09-03 06:09] LABS: BICARBONATE 29.2 MEQ/L (21.0-32.0); POTASSIUM 4.5 MEQ/L (3.5-5.1)
[2016-09-03] MEDS: ACETAMINOPHEN/HYDROcodone 325 MG/7.5 MG TAB PO PRN ×3 (07:12→15:48)
[2016-09-03 07:36] LABS: BANDS 10 % (0-6); METAMYELOCYTES 3 % (0-1); MYELOCYTES 1 % (0-0); NEUTROPHIL # MANUAL DIFF 14.2 TH/MM3 (1.8-7.7); OVALOCYTES 1+ (NORMAL); PLATELET ESTIMATE SMEAR HIGH (NORMAL); PLATELET MORPHOLOGY NORMAL (NORMAL); POLYS (SEG NEUTROPHILS) 78 % (16-70); SCAN/DIFF FINAL DIFF MANUAL; WBC DIFF SAMPLE 100
[2016-09-03 08:00] VITALS: BP 125/68; PULSE 88; RESP 16; TEMP 97.9; O2SAT 98
[2016-09-03] MEDS: SODIUM CHLORIDE 0.9% FLUSH 10 ML FLUSH IV FLUSH SCH (09:00)
[2016-09-03] MEDS: methylPREDNISolone SOD SUCC 40 MG/1 ML VIAL IV PUSH SCH (09:09)
[2016-09-03] MEDS: POTASSIUM CHLORIDE 25 MEQ EFFERVESCENT TAB NG SCH (09:09)
[2016-09-03] MEDS: SPIRONOLACTONE 50 MG TAB PO SCH (09:09)
[2016-09-03] MEDS: FAMOTIDINE 20 MG TAB PO SCH (09:10)
[2016-09-03] MEDS: azaTHIOprine 50 MG TAB PO SCH (09:10)
[2016-09-03] MEDS: MESALAMINE HD 800 MG DELAYED RELEASE TAB PO SCH (09:10)
[2016-09-03] MEDS: PREGABALIN 100 MG CAP PO SCH (09:10)
[2016-09-03] MEDS: NICOTINE 14 MG/24 HR PATCH T-DERMAL SCH (09:11)
[2016-09-03] MEDS: BENZONATATE 100 MG CAP PO PRN (09:11)
[2016-09-03] MEDS: INSULIN ASPART 1,000 UNITS/10 ML VIAL SQ SCH ×2 (09:13→11:48)
[2016-09-03] MEDS: SODIUM CHLORIDE 1 GRAM TAB PO SCH (09:14)
[2016-09-03] MEDS: BUDESONIDE-FORMOTEROL 160/4.5 MCG INHALER INH SCH (09:14)
[2016-09-03 09:25] VITALS: O2SAT 99
[2016-09-03 12:00] VITALS: BP 118/73; PULSE 95; RESP 18; TEMP 97.8; O2SAT 95
[2016-09-03] MEDS ORDERED: AUGM500T7 PO (13:15)
[2016-09-03] MEDS ORDERED: PRED20 PO (13:15)
--- NOTE | 2016-09-03 13:16 | HHI.DCPOC ---
Discharge Care Plan Diagnosis: (1) Acute exacerbation of chronic obstructive pulmonary disease (COPD) (2) Sepsis (3) Leukocytosis (4) Diabetes mellitus (5) Ulcerative colitis (6) Chronic Medical Problems (7) Bipolar disorder in full remission Goals to Promote Your Health * To prevent worsening of your condition and complications * To maintain your health at the optimal level Directions to Meet Your Goals Take your medications as prescribed Follow your dietary instruction Follow activity as directed Keep your appointments as scheduled Take your immunizations and boosters as scheduled If your symptoms worsen call your PCP, if no PCP go to Urgent Care Center or Emergency Room Smoking is Dangerous to Your Health. Avoid second hand smoke Call the 24-hour hour crisis hotline for domestic abuse at Cj Levin MD Sep 03, 2016 13:16
--- NOTE | 2016-09-03 13:21 | HHI.DS ---
Discharge Summary Admission Date Aug 30, 2016 at 11:29 Discharge Date: Sep 03, 2016 Admitting Diagnosis Sepsis (1) Sepsis ICD Code: A41.9 Diagnosis: Principal (2) Acute exacerbation of chronic obstructive pulmonary disease (COPD) ICD Code: J44.1 Diagnosis: Principal (3) Leukocytosis ICD Code: D72.829 Diagnosis: Principal (4) Diabetes mellitus ICD Code: E11.9 Diagnosis: Principal (5) Ulcerative colitis ICD Code: K51.90 Diagnosis: Principal (6) Thrombocytosis ICD Code: D47.3 Diagnosis: Principal Procedures None Brief History - From Admission The patient is a 50-year-old female with history of COPD and ulcerative colitis who presented to the emergency department from [facility] for evaluation of possible sepsis. She has had dizziness, cough, chest pain, dyspnea for the past week. Labs were done yesterday at the [facility] and her white blood cells were elevated at 33,000. She reports diarrhea recently. She was diagnosed with ulcerative colitis last month during her hospitalization here. She describes Sternal chest pain. She reports that it feels like a pressure, tightness. She states that the pain is much worse with coughing or taking a deep breath. Sitting straight up makes the pain better. She feels somewhat short of breath and has been wheezing recently. CBC/BMP: 09/03/16 0410 09/03/16 0410 Significant Findings Laboratory Tests Test 09/01/16 09/02/16 09/03/16 10:56 08:20 04:10 White Blood Count 22.7 TH/MM3 18.3 TH/MM3 15.4 TH/MM3 (4.0-11.0) (4.0-11.0) (4.0-11.0) Hemoglobin 10.2 GM/DL 10.0 GM/DL 10.3 GM/DL (11.6-15.3) (11.6-15.3) (11.6-15.3) Hematocrit 32.0 % 29.4 % 32.0 % (35.0-46.0) (35.0-46.0) (35.0-46.0) Mean Corpuscular Volume 77.6 FL 76.1 FL 77.1 FL (80.0-100.0) (80.0-100.0) (80.0-100.0) Mean Corpuscular Hemoglobin 24.7 PG 25.9 PG 24.9 PG (27.0-34.0) (27.0-34.0) (27.0-34.0) Mean Corpuscular Hemoglobin 31.9 % Concent (32.0-36.0) Red Cell Distribution Width 18.7 % 18.1 % 18.4 % (11.6-17.2) (11.6-17.2) (11.6-17.2) Mean Platelet Volume 6.9 FL 6.4 FL 6.6 FL (7.0-11.0) (7.0-11.0) (7.0-11.0) Neutrophils (%) (Auto) 85.1 % 75.4 % 82.7 % (16.0-70.0) (16.0-70.0) (16.0-70.0) Neutrophils # (Auto) 19.3 TH/MM3 13.8 TH/MM3 12.7 TH/MM3 (1.8-7.7) (1.8-7.7) (1.8-7.7) Band Neutrophils % 26 % (0-6) 16 % (0-6) 10 % (0-6) Neutrophils # (Manual) 20.2 TH/MM3 15.4 TH/MM3 14.2 TH/MM3 (1.8-7.7) (1.8-7.7) (1.8-7.7) Metamyelocytes 7 % (0-1) 5 % (0-1) 3 % (0-1) Myelocytes 2 % (0-0) 4 % (0-0) 1 % (0-0) Nucleated Red Blood Cells 1 /100 WBC (0-0) Ovalocytes 1+ (NORMAL) 1+ (NORMAL) 1+ (NORMAL) Acanthocytes OCC (NORMAL) Sodium Level 130 MEQ/L 132 MEQ/L (136-145) (136-145) Chloride Level 95 MEQ/L 93 MEQ/L (98-107) (98-107) Creatinine 0.38 MG/DL (0.50-1.00) Random Glucose 199 MG/DL 326 MG/DL (74-106) (74-106) Calcium Level 8.4 MG/DL (8.5-10.1) Red Blood Count 3.86 MIL/MM3 (4.00-5.30) Platelet Count 494 TH/MM3 523 TH/MM3 (150-450) (150-450) Platelet Estimate HIGH (NORMAL) HIGH (NORMAL) Neutrophils % (Manual) 78 % (16-70) Lymphocytes % 7 % (9-44) Imaging Last Impressions Chest X-Ray 08/30/16 0937 Signed Impressions: Service Date/Time: Tuesday, August 30, 2016 09:45 - CONCLUSION: Normal examination. Julia Martínez MD PE at Discharge General: No acute distress. Heart: Regular rate and rhythm. No murmur. Lungs: Scattered wheeze. Breathing is nonlabored. Abdomen: Soft, nontender, nondistended. Extremities: No lower extremity edema. Psych: Alert and oriented. Pt update on day of discharge Patient states breathing is much improved. Denies fevers/chills and chest pain. Patient wants to back to the rehab where she resides. Hospital Course The patient was admitted to the medical floor. Sepsis present on admission. Patient presented with leukocytosis, tachycardia and elevated serum lactic acid level. Source respiratory. Chest x-ray negative. Patient started on IV antibiotics. ID consulted. CBC with differential monitored during hospital stay. Leukocytosis trending down. Lactic acidosis resolved after IV fluid administration. Sepsis secondary to COPD with acute exacerbation treated with IV steroids, IV antibiotics, supplemental oxygen. Eventually after respiratory status improved IV steroids were transitioned to oral prednisone with which the patient was discharged on a taper. Patient also had insulin-dependent previous monitors. Patient was placed on basal and prandial insulin. Glucose was elevated due to steroids. The patient's chronic problems the patient's anxiety and bipolar disorder where treated with Seroquel and Xanax. Patient was continued on Zantac for GERD which remained stable. Hyperlipidemia was treated with statin which the patient takes at home. Patient has a history of ulcerative colitis which was stable, so therapy was continued. Lyrica was continued for neuropathy and the patient was placed on hypertensive hypertensive for DVT prophylaxis. Pt Condition on Discharge: Stable Discharge Disposition: Discharge to SNF Discharge Time: > 30 minutes Discharge Instructions DIET: Follow Instructions for: Diabetic Diet Activities you can perform: Regular-No Restrictions Activities to Avoid: Prolonged Standing, Strenuous Activity Follow up Referrals: PCP Follow-up - 2-3 Days SNF/CARE HOME/HH with [facility] Continued Medications: Acetaminophen (Acetaminophen) 325 Mg Tab 650 MG PO Q4HR PRN PAIN 1-10 AND/OR FEVER >101F Ref 0 TAB Amitriptyline (Amitriptyline) 25 Mg Tab 25 MG PO HS Control Depression #30 Ref 0 TAB Atorvastatin (Atorvastatin) 20 Mg Tab 20 MG PO HS Cholesterol Management #30 Ref 0 TAB Azathioprine (Azathioprine) 50 Mg Tab 50 MG PO DAILY Hazardous agent use appropriate precautions for handling and disposal. Inflammation #30 Ref 0 TAB Budesonide-Formoterol Inh (Symbicort Inh) 160-4.5 Mcg/Act Aero 1 PUFF INH Q12HR #1 Ref 0 INHALER Cyclosporine Opth Drops (Restasis Opth Drops) 0.05% Emul 2 DROP EACH EYE HS Dry Eye #1 Ref [address] (Depakote ) 500 Mg Tabdr 500 MG PO Q8HR Control Seizures #60 Ref 0 TAB Gabapentin (Neurontin) 300 Mg Cap 900 MG PO TID #90 Ref 0 CAP Insulin Aspart Inj (Novolog Inj) 1,000 Unit/10 Ml Vial 7 UNITS SQ TIDAC Blood Sugar Management #10 Ref 0 ML Insulin Aspart Inj (Novolog Inj) 1,000 Unit/10 Ml Vial 0 SQ DIRECTED Give 7 units along w/Sliding Scale: 0-69=0 unit & call MD, 70- 200=0 units, 201-250=4 units, 251-300=6 units, 301-350=10 units, 351-400=12 units, >400=15 units & call Blood Sugar Management #10 Ref 0 ML Insulin Glargine Inj (Lantus Inj) 1,000 Unit/10 Ml Vial 26 UNITS SQ HS Blood Sugar Management Ref 0 VIAL Ipratropium HFA 12.9 GM Inh (Atrovent HFA 12.9 GM Inh) 17 Mcg/Act Aer 2 PUFF INH QID #1 Ref 0 INHALER Ipratropium-Albuterol Neb (Duoneb) 0.5-2.5 Mg/3 Ml Neb 3 ML NEB Q6HR PRN SHORTNESS OF BREATH #120 Ref 0 NEBULE Melatonin (Melatonin) 3 Mg Tab 6 MG PO HS Insomnia Metformin ER (Metformin ER) 1,000 Mg Ada 1000 MG PO BID With evening meal Blood Sugar Management #30 Ref 0 TAB Oxycodone-Acetaminophen (Oxycodone-Acetaminophen) 10-325 mg Tab 1 TAB PO Q6H PRN PAIN #30 Ref 0 TAB Polyvinyl Alcohol Opth (Liquitears Opth) 1.4% Soln 2 DROP EACH EYE Q2HR PRN DRY EYE Pregabalin (Lyrica) 100 Mg Cap 100 MG PO DAILY #30 Ref 0 CAP Quetiapine (Quetiapine) 200 Mg Tab 400 MG PO HS #30 TAB Ranitidine (Zantac) 150 Mg Tab 150 MG PO BID Reduce Stomach Acid #60 Ref 0 TAB Sennosides-Docusate Sodium (Senna S) 8.6-50 Mg Tab 2 TAB PO HS Sodium Chloride (Sodium Chloride) 1 Gm Tab 1 GM PO DAILY Electrolyte Replacement Ref 0 TAB Spironolactone (Aldactone) 50 Mg Tab 50 MG PO DAILY #30 Ref 0 TAB Discontinued Medications: Cyclobenzaprine (Flexeril) 10 Mg Tab 10 MG PO TID Muscle Spasm #90 Ref 0 TAB Cyclosporine Opth Drops (Restasis Opth Drops) 0.05% Emul 1 DROP EACH EYE HS Dry Eye #1 Ref [address] (Doxycycline Hyclate DR) 100 Mg Tab 100 MG PO BID Infection Ref 0 TAB Ipratropium HFA 12.9 GM Inh (Atrovent HFA 12.9 GM Inh) 17 Mcg/Act Aer 2 PUFF INH QID SHORTNESS OF BREATH #1 Ref 0 INHALER Ipratropium-Albuterol Neb (Duoneb) 0.5-2.5 Mg/3 Ml Neb 1 NEBULE INH Q6HR PRN WHEEZING #30 Ref 0 NEBULE Prednisone (Prednisone) 20 Mg Tab 30 MG PO DAILY #30 TAB Prednisone (21) 10 mg tab Dose Pack (Prednisone (21) 10 mg tab Dose Pack) 10 Mg Pack 10 MG PO DAILY Inflammation Days 7 Ref 0 KARYK Cj Levin MD Sep 03, 2016 13:21
[2016-09-03 16:00] VITALS: BP 115/70; PULSE 90; RESP 18; TEMP 97; O2SAT 94
== END 2016-09-03 16:30 | DRG 872 ==
LOC: NEPC 08:46 → NEDA 11:29 → N04A 13:29
PROVIDERS: ADMIT Hospitalist; ATTEND Hospitalist
DX: A41.9 Sepsis, unspecified organism (principal); E87.2 Acidosis; J44.1 Chronic obstructive pulmonary disease with (acute) exacerbation; K51.90 Ulcerative colitis, unspecified, without complications; G62.9 Polyneuropathy, unspecified; R65.20 Severe sepsis without septic shock; J40 Bronchitis, not specified as acute or chronic; I10 Essential (primary) hypertension; E11.9 Type 2 diabetes mellitus without complications; Z79.84 Long term (current) use of oral hypoglycemic drugs; Z79.4 Long term (current) use of insulin; D75.89 Other specified diseases of blood and blood-forming organs; D72.829 Elevated white blood cell count, unspecified; H91.90 Unspecified hearing loss, unspecified ear; Z79.52 Long term (current) use of systemic steroids; F17.210 Nicotine dependence, cigarettes, uncomplicated; F41.9 Anxiety disorder, unspecified; F31.9 Bipolar disorder, unspecified; K21.9 Gastro-esophageal reflux disease without esophagitis; E78.5 Hyperlipidemia, unspecified; Z85.42 Personal history of malignant neoplasm of other parts of uterus; Z96.651 Presence of right artificial knee joint
CPT/HCPCS: 71010; 80048; 80053; 81001; 82550; 82948; 83605; 84484; 85007; 85027; 85060; 87040; 87070; 87205; 93005; 94640; 94664; 96374; J1644; J1815; J2543; J2920; J3370; J7030; J7050; J7500

== ENCOUNTER 2016-09-22 08:01 | Inpatient (IN) | payer MEDICARE, OTHER ==
[~2016-09-22] VITALS: Ht 167.6 cm; Wt 91.6 kg
[~2016-09-22 08:01] MED LIST changes: +ACET325T PO; +AUGM500T7 PO; -CYCL1TAB29 PO; +MELA3TAB PO; -MELAPOW2 PO; +MESA1TAB2 PO
[2016-09-22 08:08] VITALS: BP 136/64; PULSE 116; RESP 18; TEMP 98.9; O2SAT 100
[2016-09-22 08:20] VITALS: BP 115/60; PULSE 115; RESP 18; O2SAT 99
[2016-09-22] MEDS ORDERED: SODIUM CHLOR 0.9% 1000 ML INJ 1,000 ML IV ONE (08:45)
[2016-09-22 09:18] LABS: AUTOMATED NEUTROPHIL # 12.9 TH/MM3 (1.8-7.7); BASOPHIL # 0.1 TH/MM3 (0-0.2); BASOPHIL % 0.5 % (0.0-2.0); EOSINOPHIL # 0.1 TH/MM3 (0-0.4); EOSINOPHIL % 0.4 % (0.0-4.0); HEMATOCRIT 33.7 % (35.0-46.0); LYMPH % 18.3 % (9.0-44.0); LYMPHOCYTE # 3.6 TH/MM3 (1.0-4.8); MEAN CELL VOLUME 78.6 FL (80.0-100.0); MEAN CORPUSCULAR HEMOGLOBIN 25.6 PG (27.0-34.0); MEAN CORPUSCULAR HGB CONC 32.5 % (32.0-36.0); MONO % 15.3 % (0.0-8.0); NEUT % 65.5 % (16.0-70.0); PLATELET COUNT 348 TH/MM3 (150-450); RED BLOOD COUNT 4.28 MIL/MM3 (4.00-5.30); RED CELL DISTRIBUTION WIDTH 19.5 % (11.6-17.2); WHITE BLOOD COUNT 19.6 TH/MM3 (4.0-11.0)
[2016-09-22 09:19] LABS: HEMO FLAGS AUTO DIFF
[2016-09-22 09:28] LABS: BLOOD, URINE NEG (NEG); COMMENT (UR) CATH-CULT NOT IND; CULTURE IF INDICATED CATH CULTURE NOT IND; GLUCOSE,URINE 70 mg/dL (NEG); HYALINE CAST, URINE 87 /lpf (RARE); KETONE, URINE TRACE mg/dL (NEG); MUCUS URINE FEW /lpf (OCC); NITRITE,URINE NEG (NEG); PH, URINE 5.5 (5.0-8.5); SQUAMOUS EPITHELIAL CELL URINE 1 /hpf (0-5); URINE COLOR DARK-YELLOW (YELLW/STRAW)
[2016-09-22 09:42] LABS: BICARBONATE 22.5 MEQ/L (21.0-32.0); POTASSIUM 3.8 MEQ/L (3.5-5.1)
--- NOTE | 2016-09-22 09:50 | RADRPT ---
EXAM DATE/TIME: 09/22/2016 09:38 [facility] COMPARISON: CHEST SINGLE AP, August 30, 2016, 9:45. INDICATIONS : Cough. MEDICAL HISTORY : None. SURGICAL HISTORY : None. ENCOUNTER: Initial ACUITY: 1 day PAIN SCORE: Non-responsive. LOCATION: Bilateral chest FINDINGS: A single view of the chest demonstrates the lungs to be symmetrically aerated without evidence of mas s, infiltrate or effusion. The cardiomediastinal contours are unremarkable. Osseous structures are intact. Cervical fusion plate seen. CONCLUSION: No acute disease. Bakari Hearn Jr., MD on September 22, 2016 at 9:45 Board Certified Radiologist. This report was verified electronically.
[2016-09-22 09:57] LABS: BANDS 39 % (0-6); METAMYELOCYTES 10 % (0-1); MYELOCYTES 6 % (0-0); NEUTROPHIL # MANUAL DIFF 13.7 TH/MM3 (1.8-7.7); POLYS (SEG NEUTROPHILS) 15 % (16-70); TOXIC GRANULATION 1+ (NORMAL); WBC DIFF SAMPLE 100
[2016-09-22 09:58] LABS: PLATELET ESTIMATE SMEAR NORMAL (NORMAL); PLATELET MORPHOLOGY NORMAL (NORMAL); TOXIC VACUOLATION PRESENT (NONE SEEN)
[2016-09-22 09:59] LABS: OVALOCYTES 1+ (NORMAL)
--- NOTE | 2016-09-22 10:00 | RADRPT ---
EXAM DATE/TIME: 09/22/2016 09:46 [facility] COMPARISON: CT BRAIN W/O CONTRAST, July 30, 2016, 10:19. INDICATIONS : Trauma. Fall. RADIATION DOSE: 56.37 CTDIvol (mGy) MEDICAL HISTORY : Cardiovascular disease. Diabetes mellitus type 2. Hypertension. SURGICAL HISTORY : None. ENCOUNTER: Initial ACUITY: 1 day PAIN SCALE: Non-responsive LOCATION: cranial TECHNIQUE: Multiple contiguous axial images were obtained of the head. Using automated exposure control and adj ustment of the mA and/or kV according to patient size, radiation dose was kept as low as reasonably a chievable to obtain optimal diagnostic quality images. FINDINGS: CEREBRUM: The ventricles are normal for age. No evidence of midline shift, mass lesion, hemorrhage or acute in farction. No extra-axial fluid collections are seen. POSTERIOR FOSSA: The cerebellum and brainstem are intact. The 4th ventricle is midline. The cerebellopontine angle i s unremarkable. EXTRACRANIAL: The visualized portion of the orbits is intact. SKULL: The calvaria is intact. No evidence of skull fracture. CONCLUSION: Normal examination. Bakari Hearn Jr., MD on September 22, 2016 at 9:56 Board Certified Radiologist. This report was verified electronically.
[2016-09-22 10:01] LABS: SCAN/DIFF FINAL DIFF MANUAL
--- NOTE | 2016-09-22 10:04 | PD ---
HPI Chief Complaint: Fall Time Seen by Provider: 08:37 Travel History International Travel<30 days: No Contact w/Intl Traveler<30days: No Traveled to known affect area: No History of Present Illness HPI This is a 50-year-old female who has a history of ulcerative colitis and is on prednisone and azathioprine chronically who presents to the emergency department having had a fall at her shelter facility. The patient doesn 't recall the fall, reports that she's had a little bit of cough but otherwise has no complaints. She is not a good historian and is somewhat sleepy. PFSH Past Medical History Arthritis: No Asthma: No Autoimmune Disease: No Bipolar Disorder: Yes Anxiety: Yes Depression: Yes Heart Rhythm Problems: No Cancer: Yes Cardiovascular Problems: Yes Chemotherapy: No Chest Pain: No Congestive Heart Failure: No COPD: Yes Cerebrovascular Accident: No Diabetes: Yes Patient Takes Glucophage: No Diminished Hearing: Yes Endocrine: Yes Gastrointestinal Disorders: Yes GERD: Yes Genitourinary: No Hiatal Hernia: Yes Hypertension: Yes Immune Disorder: No Implanted Vascular Access Dvce: Yes Musculoskeletal: Yes Neurologic: Yes Psychiatric: Yes Reproductive: No Respiratory: Yes Migraines: No Radiation Therapy: No Seizures: No Sickle Cell Disease: No Sleep Apnea: No Thyroid Disease: No Ulcer: No ?: Not : 3 Para: 1 Past Surgical History Abdominal Surgery: No AICD: No Arteriovenous Shunt: No Cardiac Surgery: No Section: Yes Ear Surgery: No Endocrine Surgery: No Eye Surgery: Yes Genitourinary Surgery: No Gynecologic Surgery: Yes (c section, uterine cancer removal) Hysterectomy: Yes Insulin Pump: No Joint Replacement: Yes (neck screw) Neurologic Surgery: Yes (C SPINE SURGERY; LOWER BACK SURGERY) Oral Surgery: No Pacemaker: No Thoracic Surgery: No Tonsillectomy: Yes Other Surgery: Yes (RIGHT KNEE SURGERY X 2) Social History Alcohol Use: No Tobacco Use: Yes ("few" a day) Substance Use: No Allergies-Medications (Allergen,Severity, Reaction): Coded Allergies: Sulfa (Verified Allergy, Severe, RASH, 09/22/16) Cipro (Verified Allergy, Unknown, 09/22/16) Erythromycin (Verified Allergy, Unknown, 09/22/16) Ofloxacin (Verified Allergy, Unknown, 09/22/16) Reported Meds & Prescriptions Reported Meds & Active Scripts Active Oxycodone-Acetaminophen 10-325 mg Tab 1 Tab PO Q6H PRN Azathioprine 50 Mg Tab 50 Mg PO DAILY Hazardous agent use appropriate precautions for handling and disposal. Quetiapine (Quetiapine Fumarate) 200 Mg Tab 400 Mg PO HS Reported Florastor (Saccharomyces Boulardii) 250 Mg Cap 250 Mg PO BID 14 Days Questran (Cholestyramine) 4 Gm/Dose Powd 4 Gm PO TID PRN 1 level scoopful of powder contains 4 grams of cholestyramine. Starts after qid dosage finished (09/24/2016) Questran (Cholestyramine) 4 Gm/Dose Powd 4 Gm PO QID 3 Days 1 level scoopful of powder contains 4 grams of cholestyramine. Glucagon Emergency Inj Kit (Glucagon (Rdna) Inj Kit) 1 Mg Kit 1 Mg IM ONCE PRN Glucose Gel (Dextrose) 40 % Gel 1 Tube PO ONCE PRN Xanax (Alprazolam) 1 Mg Tab 1 Mg PO BID Acetaminophen 325 Mg Tab 650 Mg PO Q4HR PRN Restasis Opth Drops (Cyclosporine Opth Drops) 0.05% Emul 2 Drop EACH EYE HS Melatonin 3 Mg Tab 6 Mg PO HS Aldactone (Spironolactone) 50 Mg Tab 50 Mg PO DAILY Amitriptyline (Amitriptyline HCl) 25 Mg Tab 25 Mg PO HS Novolog Inj (Insulin Aspart) 1,000 Unit/10 Ml Vial 0 SQ DIRECTED Give 7 units along w/Sliding Scale: 0-69=0 unit & call , 70-200=0 units, 201-250=4 units, 251-300=6 units, 301-350=10 units, 351-400=12 units, >400=15 units & marito SOLORZANO Zantac (Ranitidine HCl) 150 Mg Tab 150 Mg PO BID Senna S (Sennosides-Docusate Sodium) 8.6-50 Mg Tab 2 Tab PO HS Symbicort Inh (Budesonide/Formoterol Fumarate) 160-4.5 Mcg/Act Aero 1 Puff INH Q12HR Atrovent HFA 12.9 GM Inh (Ipratropium [place]) 17 Mcg/Act Aer 2 Puff INH QID Lyrica (Pregabalin) 100 Mg Cap 100 Mg PO DAILY Duoneb (Ipratropium-Albuterol Neb) 0.5-2.5 Mg/3 Ml Neb 3 Ml NEB Q6HR PRN Liquitears Opth (Polyvinyl Alcohol) 1.4% Soln 2 Drop EACH EYE Q2HR PRN Sodium Chloride 1 Gm Tab 1 Gm PO DAILY Metformin ER (Metformin HCl) 1,000 Mg Ada 1,000 Mg PO BID With evening meal Novolog Inj (Insulin Aspart) 1,000 Unit/10 Ml Vial 7 Units SQ TIDAC Depakote DR (Divalproex Sodium) 500 Mg Tabdr 500 Mg PO Q8HR Atorvastatin (Atorvastatin Calcium) 20 Mg Tab 20 Mg PO HS Neurontin (Gabapentin) 300 Mg Cap 900 Mg PO TID Lantus Inj (Insulin Glargine) 1,000 Unit/10 Ml Vial 26 Units SQ HS Review of Systems ROS Limitations: Poor Historian Physical Exam Narrative GENERAL: Chronically ill-appearing SKIN: Dry HEAD: Atraumatic. Normocephalic. EYES: Pupils are dilated, equal and reactive no injection or drainage. ENT: Moist mucous membranes NECK: Trachea midline. CARDIOVASCULAR: Regular rate and rhythm. No murmur appreciated. RESPIRATORY: Clear to auscultation. Breath sounds equal bilaterally. GASTROINTESTINAL: Abdomen soft, non-tender, nondistended. MUSCULOSKELETAL: No obvious deformities. NEUROLOGICAL: Somnolent, mumbles to sternal rub and moves all extremities, answered some questions for the nurses PSYCHIATRIC: Sleepy but awakens to answer questions, normal mood Data Data Last Documented VS Vital Signs Date Time Temp Pulse Resp B/P Pulse Ox O2 Delivery O2 Flow Rate FiO2 09/22/16 08:20 115 18 115/60 99 Nasal Cannula 2 09/22/16 08:08 98.9 Orders Complete Blood Count With Diff (09/22/16 08:38) Basic Metabolic Panel (Bmp) (09/22/16 08:38) Ct Brain W/O Iv Contrast(Rout) (09/22/16 ) Urinalysis - C+S If Indicated (09/22/16 08:42) Cath For Specimen (09/22/16 08:42) Chest, Single Ap (09/22/16 ) Sodium Chlor 0.9% 1000 Ml Inj (Ns 1000 M (09/22/16 08:45) Sodium Chlor 0.9% 1000 Ml Inj (Ns 1000 M (09/22/16 10:15) Blood Culture (09/22/16 10:09) Arterial Blood Gas (Abg) (09/22/16 ) Electrocardiogram (09/22/16 ) Lactic Acid (09/22/16 10:09) Piperacil-Tazo 4.5 Gm Premix (Zosyn 4.5 (09/22/16 10:15) Albuterol-Ipratropium Neb (Duoneb Neb) (09/22/16 10:15) Admit Order (Ed Use Only) (09/22/16 10:19) Ct Thorax/ Chest W Iv Contrast (09/22/16 ) Ct Abd/Pel W Iv Contrast(Rout) (09/22/16 ) Labs Laboratory Tests Test 09/22/16 09/22/16 08:30 08:45 White Blood Count 19.6 TH/MM3 Red Blood Count 4.28 MIL/MM3 Hemoglobin 10.9 GM/DL Hematocrit 33.7 % Mean Corpuscular Volume 78.6 FL Mean Corpuscular Hemoglobin 25.6 PG Mean Corpuscular Hemoglobin 32.5 % Concent Red Cell Distribution Width 19.5 % Platelet Count 348 TH/MM3 Mean Platelet Volume 7.8 FL Neutrophils (%) (Auto) 65.5 % Lymphocytes (%) (Auto) 18.3 % Monocytes (%) (Auto) 15.3 % Eosinophils (%) (Auto) 0.4 % Basophils (%) (Auto) 0.5 % Neutrophils # (Auto) 12.9 TH/MM3 Lymphocytes # (Auto) 3.6 TH/MM3 Monocytes # (Auto) 3.0 TH/MM3 Eosinophils # (Auto) 0.1 TH/MM3 Basophils # (Auto) 0.1 TH/MM3 CBC Comment AUTO DIFF Differential Total Cells 100 Counted Neutrophils % (Manual) 15 % Band Neutrophils % 39 % Lymphocytes % 14 % Monocytes % 16 % Neutrophils # (Manual) 13.7 TH/MM3 Metamyelocytes 10 % Myelocytes 6 % Differential Comment FINAL DIFF MANUAL Atypical Lymphocytes % Toxic Granulation 1+ Toxic Vacuolation PRESENT Platelet Estimate NORMAL Platelet Morphology Comment NORMAL Ovalocytes 1+ Sodium Level 131 MEQ/L Potassium Level 3.8 MEQ/L Chloride Level 94 MEQ/L Carbon Dioxide Level 22.5 MEQ/L Anion Gap 15 MEQ/L Blood Urea Nitrogen 10 MG/DL Creatinine 1.13 MG/DL Estimat Glomerular Filtration 51 ML/MIN Rate Random Glucose 175 MG/DL Calcium Level 7.9 MG/DL Urine Color DARK-YELLOW Urine Turbidity HAZY Urine pH 5.5 Urine Specific [place] 1.026 Urine Protein 30 mg/dL Urine Glucose (UA) 70 mg/dL Urine Ketones TRACE mg/dL Urine Occult Blood NEG Urine Nitrite NEG Urine Bilirubin NEG Urine Urobilinogen LESS THAN 2.0 MG/DL Urine Leukocyte Esterase NEG Urine RBC LESS THAN 1 /hpf Urine WBC 3 /hpf Urine Squamous Epithelial 1 /hpf Cells Urine Hyaline Casts 87 /lpf Urine Mucus FEW /lpf Microscopic Urinalysis Comment CATH-CULT NOT IND MDM Medical Decision Making Medical Screen Exam Complete: Yes Emergency Medical Condition: Yes Interpretation(s) Leukocytosis which is chronic and likely secondary to chronic prednisone use Labs are reassuring Chest x-ray is negative for acute infiltrate CT head is negative for intracranial hemorrhage Differential Diagnosis Intracranial hemorrhage, urinary tract infection, pneumonia, sepsis Narrative Course This is a 50-year-old female who was brought into the emergency Department due to a fall. She has no evidence of acute injury. CT of the head was obtained which was reassuring. She was slightly tachycardic on arrival but afebrile. Labs were obtained which demonstrate a leukocytosis of 19 with a 30% bandemia concerning for sepsis. She is on prednisone chronically so this may be the etiology, however in the setting of persistent tachycardia despite a liter of fluids I think it's reasonable to treat her as sepsis. Cultures were obtained, lactic acid was obtained and the patient was started on IV Zosyn. We don't have an obvious source of infection so CT of the chest abdomen pelvis will be obtained to rule out occult pneumonia or colitis. The patient is also quite somnolent. I suspect this is in the setting of polypharmacy as the patient is on Seroquel, Xanax and Percocet, however she is not arousable enough to safely discharge her home. Patient will be admitted for further evaluation of altered mental status and management a possible sepsis. Diagnosis Primary Impression: Sepsis Qualified Code: A41.9 - Sepsis, due to unspecified organism Additional Impression: Altered mental status Qualified Code: R41.0 - Delirium Admitting Information Admitting Physician Requests: Justine Crespo MD September 22, 2016 10:04
[2016-09-22] MEDS ORDERED: PIPERACIL-TAZO 4.5 GM PREMIX 100 ML IV ONE (10:15)
[2016-09-22] MEDS ORDERED: RESP: ALBUTEROL 2.5 MG/IPRATROPIUM 0.5 MG NEB (SCH) NEB ONE (10:15)
[2016-09-22] MEDS ORDERED: SODIUM CHLOR 0.9% 1000 ML INJ 1,000 ML IV SCH (10:15)
--- NOTE | 2016-09-22 11:03 | HHI.HP ---
[facility] Service Family Medicine Primary Care Physician Unknown Admission Diagnosis sepsis Diagnoses: International Travel<30 Days: No Contact w/Intl Traveler<30days: No Known Affected Area: No History of Present Illness 50-year-old with a complicated past medical history including bipolar disorder, insulin-dependent diabetes; she has been on long-term benzodiazepine, anti- psychotic medications. She comes from [facility] ( [phone]). I spoke with the nurse there. Apparently, she normally is awake alert and oriented 3. She normally ambulates by herself and she can be dramatic at times. She fell yesterday. And she was found on the ground this morning. No one witnessed either of these falls. According to the nurse, she has been "confused, and not acting her normal self." The nurse confirmed her Xanax medication as scheduled 1 mg at 9 and 5; she did not receive her Xanax this morning. She takes Percocets when necessary her last dose was on 09/21 at 3 AM. , She was recently admitted on 08/30 and discharged on 09/03. She was diagnosed with sepsis, acute exacerbation of COPD. Looking at her record, there is concern for polypharmacy, including Xanax 0.5 mg every 8 hours (confirmed with nurse is actually 1 mg scheduled at 9 and 5 per psychiatry recommendations), amitriptyline 25 mg by mouth at bedtime, Percocet 1 tab by mouth every 6 hours when necessary pain, quetiapine. She has a history of ulcerative colitis and is on prednisone and azathioprine. Review of systems and history severely limited. The patient does not recall any falls. On direct questioning, she has a cough. But otherwise she has no complaints. She is not a good historian. Review of Systems ROS Limitations: Altered Mental Status, Poor Historian Past Family Social History Past Medical History Per EMR: History of bipolar disorder History of uterine cancer Diabetes mellitus GERD Anxiety COPD Hypertension Past Surgical History Per EMR: section Cervical spine surgery Lumbar spine surgery Right knee surgery 2 Tonsillectomy Hysterectomy Reported Medications Reported Meds & Active Scripts Active Prednisone 20 Mg Tab 20 Mg PO DIRECTED 40 MG twice a day x 3 days, then 20 MG daily x 3 days, then 10 MG daily x 3 days Augmentin (Amoxicillin-Clavulanate) 500-125 mg Tab 500 Mg PO Q8HR Oxycodone-Acetaminophen 10-325 mg Tab 1 Tab PO Q6H PRN Azathioprine 50 Mg Tab 50 Mg PO DAILY Hazardous agent use appropriate precautions for handling and disposal. Quetiapine (Quetiapine Fumarate) 200 Mg Tab 400 Mg PO HS Xanax (Alprazolam) 0.5 Mg Tab 0.5 Mg PO Q8H PRN Reported Acetaminophen 325 Mg Tab 650 Mg PO Q4HR PRN Restasis Opth Drops (Cyclosporine Opth Drops) 0.05% Emul 2 Drop EACH EYE HS Mesalamine DR (Mesalamine) 800 Mg Tab 1,600 Mg PO BID 7 Days Melatonin 3 Mg Tab 3 Mg PO HS Aldactone (Spironolactone) 50 Mg Tab 50 Mg PO DAILY Amitriptyline (Amitriptyline HCl) 25 Mg Tab 25 Mg PO HS Novolog Inj (Insulin Aspart) 1,000 Unit/10 Ml Vial 0 SQ DIRECTED Sliding Scale as directed. Zantac (Ranitidine HCl) 150 Mg Tab 150 Mg PO BID Senna S (Sennosides-Docusate Sodium) 8.6-50 Mg Tab 2 Tab PO HS Symbicort Inh (Budesonide/Formoterol Fumarate) 160-4.5 Mcg/Act Aero 1 Puff INH Q12HR Atrovent HFA 12.9 GM Inh (Ipratropium [place]) 17 Mcg/Act Aer 2 Puff INH QID Lyrica (Pregabalin) 100 Mg Cap 100 Mg PO DAILY Duoneb (Ipratropium-Albuterol Neb) 0.5-2.5 Mg/3 Ml Neb 1 Nebule INH Q6HR NEB PRN Liquitears Opth (Polyvinyl Alcohol) 1.4% Soln 2 Drop EACH EYE Q2HR PRN [place] (Nystatin (Topical)) 100,000 Unit/Gm Pow 100,000 Units TOP DAILY Sodium Chloride 1 Gm Tab 1 Gm PO DAILY Metformin ER (Metformin HCl) 1,000 Mg Ada 1,000 Mg PO BID With evening meal Novolog Inj (Insulin Aspart) 1,000 Unit/10 Ml Vial 7 Units SQ TIDAC Depakote DR (Divalproex Sodium) 500 Mg Tabdr 500 Mg PO Q8HR Atorvastatin (Atorvastatin Calcium) 20 Mg Tab 20 Mg PO HS Neurontin (Gabapentin) 300 Mg Cap 900 Mg PO TID Lantus Inj (Insulin Glargine) 1,000 Unit/10 Ml Vial 26 Units SQ HS Allergies: Coded Allergies: Sulfa (Verified Allergy, Severe, RASH, 09/22/16) Cipro (Verified Allergy, Unknown, 09/22/16) Erythromycin (Verified Allergy, Unknown, 09/22/16) Ofloxacin (Verified Allergy, Unknown, 09/22/16) Active Ordered Medications Active Medications Acetaminophen (Tylenol) 650 mg Q6H PRN PO; Start 09/22/16 at 12:00 Albuterol/ Ipratropium (Duoneb Neb) 1 ampule ONCE ONCE NEB Last administered on 09/22/16t 11:13; Admin Dose 1 AMPULE; Start 09/22/16 at 10:15; Stop 09/22/16 at 10:16; Status DC Alprazolam (Xanax) 0.5 mg BID PO; Start 09/22/16 at 21:00 Alprazolam (Xanax) 0.5 mg ONCE ONCE PO; Start 09/22/16 at 11:45; Stop 09/22/16 at 12:37; Status DC Amitriptyline HCl (Elavil) 25 mg HS PO; Start 09/22/16 at 21:00 Azathioprine (Imuran) 50 mg DAILY PO; Start 09/23/16 at 09:00 Budesonide/ Formoterol Fumarate (Symbicort 160-4.5 Inh) 1 puff Q12HR INH; Start 09/22/16 at 21:00 Dextrose (D50w (Vial) Inj) 25 ml UNSCH PRN IV PUSH; Start 09/22/16 at 11:45 Divalproex Sodium (Depakote Dr) 500 mg Q8HR PO; Start 09/22/16 at 14:00; Status UNV Enoxaparin Sodium (Lovenox Inj) 40 mg Q24H SQ; Start 09/22/16 at 11:30; Status UNV Famotidine (Pepcid) 20 mg BID PO; Start 09/22/16 at 21:00 Gabapentin (Neurontin) 900 mg TID PO; Start 09/22/16 at 14:00 Glucagon (Glucagon Inj) 1 mg UNSCH PRN OTHER; Start 09/22/16 at 11:45 Insulin Detemir 13 units 13 units HS SQ; Start 09/22/16 at 21:00 Mesalamine (Asacol Hd Dr) 1,600 mg BID PO; Start 09/22/16 at 21:00 Naloxone HCl (Narcan Inj) 0.4 mg UNSCH PRN IV; Start 09/22/16 at 11:45 Naloxone HCl 0.4 mg 0.4 mg UNSCH PRN IV; Start 09/22/16 at 12:00 Non-Formulary Medication 3 mg HS PO; Start 09/22/16 at 21:00; Status UNV Oxycodone/ Acetaminophen (Percocet 10-325 Mg) 1 tab Q6H PRN PO; Start 09/22/16 at 12:00 Piperacillin Sod/ Tazobactam Sod (Zosyn 4.5 Gm Premix) 100 ml @ 200 mls/hr ONCE ONCE IV Last administered on 09/22/16 10:59; Admin Dose 200 MLS/HR; Start 09/22/16 at 10:15; Stop 09/22/16 at 10:44; Status DC Piperacillin Sod/ Tazobactam Sod (Zosyn 4.5 Gm Premix) 100 ml @ 200 mls/hr Q6H IV; Start 09/22/16 at 17:00 Pregabalin (Lyrica) 100 mg DAILY PO; Start 09/23/16 at 09:00; Status UNV Quetiapine Fumarate (SEROquel) 400 mg HS PO; Start 09/22/16 at 21:00 Senna/Docusate Sodium (Ladan-Colace) 2 tab HS PO; Start 09/22/16 at 21:00 Sodium Chloride 1,000 ml @ 999 mls/hr BOLUS ONCE IV Last administered on 09:10; Admin Dose 999 MLS/HR; Start 09/22/16 at 08:45; Stop 09/22/16 at 09:45 ; Status DC Sodium Chloride 1,000 ml @ 999 mls/hr Q1H1M IV Last administered on 09/22/16 10 :34; Admin Dose 999 MLS/HR; Start 09/22/16 at 10:15; Stop 09/22/16 at 11:15; Status DC Sodium Chloride (NS 1000 ml Inj) 1,000 ml @ 125 mls/hr Q8H IV Last administered on 09/22/16 13:16; Admin Dose 125 MLS/HR; Start 09/22/16 at 12:00 Sodium Chloride (NS Flush) 2 ml BID IV FLUSH; Start 09/22/16 at 21:00 Sodium Chloride (NS Flush) 2 ml UNSCH PRN IV FLUSH; Start 09/22/16 at 11:30 Spironolactone (Aldactone) 50 mg DAILY PO; Start 09/23/16 at 09:00 Tiotropium [place] (Spiriva Inh) 18 mcg DAILY INH; Start 09/22/16 at 14:00 Family History Patient does not know her family history. Social History Significant history of smoking. Has cut back considerably, but continues to smoke a few cigarettes daily. Denies alcohol or illicit drug use. Physical Exam Vital Signs Vital Signs Date Time Temp Pulse Resp B/P Pulse Ox O2 Delivery O2 Flow Rate FiO2 09/22/16 08:20 115 18 115/60 99 Nasal Cannula 2 09/22/16 08:08 116 18 100 Nasal Cannula 2 09/22/16 08:08 98.9 116 18 136/64 100 Physical Exam GENERAL: This is a well-nourished, well-developed patient, in no apparent distress. SKIN: No rashes, ecchymoses or lesions. Cool and dry. HEAD: Atraumatic. Normocephalic. No temporal or scalp tenderness. EYES: Pupils equal round and reactive. Extraocular motions intact. No scleral icterus. No injection or drainage. ENT: Nose without bleeding, purulent drainage or septal hematoma. Throat without erythema, tonsillar hypertrophy or exudate. Uvula midline. Airway patent. NECK: Trachea midline. No JVD or lymphadenopathy. Supple, nontender, no meningeal signs. CARDIOVASCULAR: Regular rate and rhythm without murmurs, gallops, or rubs. RESPIRATORY: Clear to auscultation. Breath sounds equal bilaterally. No wheezes , rales, or rhonchi. GASTROINTESTINAL: Abdomen soft, non-tender, nondistended. No hepato-splenomegaly , or palpable masses. No guarding. MUSCULOSKELETAL: Extremities without clubbing, cyanosis, or edema. No joint tenderness, effusion, or edema noted. No calf tenderness. Negative Homans sign bilaterally. NEUROLOGICAL: Awake and alert. Cranial nerves II through XII intact. Motor and sensory grossly within normal limits. Five out of 5 muscle strength in all muscle groups. Normal speech. Laboratory Laboratory Tests Test 09/22/16 09/22/16 08:30 08:45 White Blood Count 19.6 Red Blood Count 4.28 Hemoglobin 10.9 Hematocrit 33.7 Mean Corpuscular Volume 78.6 Mean Corpuscular Hemoglobin 25.6 Mean Corpuscular Hemoglobin 32.5 Concent Red Cell Distribution Width 19.5 Platelet Count 348 Mean Platelet Volume 7.8 Neutrophils (%) (Auto) 65.5 Lymphocytes (%) (Auto) 18.3 Monocytes (%) (Auto) 15.3 Eosinophils (%) (Auto) 0.4 Basophils (%) (Auto) 0.5 Neutrophils # (Auto) 12.9 Lymphocytes # (Auto) 3.6 Monocytes # (Auto) 3.0 Eosinophils # (Auto) 0.1 Basophils # (Auto) 0.1 CBC Comment AUTO DIFF Differential Total Cells 100 Counted Neutrophils % (Manual) 15 Band Neutrophils % 39 Lymphocytes % 14 Monocytes % 16 Neutrophils # (Manual) 13.7 Metamyelocytes 10 Myelocytes 6 Differential Comment FINAL DIFF MANUAL Atypical Lymphocytes Toxic Granulation 1+ Toxic Vacuolation PRESENT Platelet Estimate NORMAL Platelet Morphology Comment NORMAL Ovalocytes 1+ Sodium Level 131 Potassium Level 3.8 Chloride Level 94 Carbon Dioxide Level 22.5 Anion Gap 15 Blood Urea Nitrogen 10 Creatinine 1.13 Estimat Glomerular Filtration 51 Rate Random Glucose 175 Calcium Level 7.9 Urine Color DARK-YELLOW Urine Turbidity HAZY Urine pH 5.5 Urine Specific [place] 1.026 Urine Protein 30 Urine Glucose (UA) 70 Urine Ketones TRACE Urine Occult Blood NEG Urine Nitrite NEG Urine Bilirubin NEG Urine Urobilinogen LESS THAN 2.0 Urine Leukocyte Esterase NEG Urine RBC LESS THAN 1 Urine WBC 3 Urine Squamous Epithelial 1 Cells Urine Hyaline Casts 87 Urine Mucus FEW Microscopic Urinalysis Comment CATH-CULT NOT IND Result Diagram: 09/22/1630 09/22/1630 Imaging Last Impressions Head CT 09/22/16 0000 Signed Impressions: Service Date/Time: Thursday, September 22, 2016 09:46 - CONCLUSION: Normal examination. Bakari Hearn Jr., MD Chest X-Ray 09/22/16 0000 Signed Impressions: Service Date/Time: Thursday, September 22, 2016 09:38 - CONCLUSION: No acute disease. Bakari Hearn Jr., MD Assessment and Plan Assessment and Plan 50[facility]-old [facility] and with compensated past medical history including bipolar disorder, ulcerative colitis presents with altered mental status from her nursing facility. Currently meeting sepsis criteria with a leukocytosis. Chest x-ray is clear, however there is concern for aspiration given history Code Status Full Discussed Condition With Dr. Shine Alejandro at [facility] Problem List: (1) Respiratory acidosis Status: Acute Plan: Concern for polypharmacy, sepsis (See AMS below) PH 7.3, CO2 44, O2 67 History of COPD Pulse oximetry Continue to monitor for signs of respiratory failure (2) Sepsis Status: Acute Plan: Patient meets sepsis criteria with heart rate 115, leukocytosis of 19.6 Urinalysis negative Chest x-ray clear, however concern for aspiration pneumonia versus other. CT abdomen, pelvis, chest ordered. Lactic acid 1.7 Blood cultures pending Sputum culture ordered Legionella and pneumococcal antigen ordered. Continue Zosyn every 6 hours (consider change pending CT scan results) IV fluids as below (3) Altered mental status Status: Resolved Plan: Likely related to sepsis versus polypharmacy versus other Treat sepsis as above Decrease Xanax to 0.5 mg twice a day (from 1 mg twice a day) PT consult Nothing by mouth except meds pending swallow eval Depakote level pending. Additional labs ordered: Ammonia, magnesium, phosphorus, vitamin B1, vitamin B12 , RPR See below for medications from bipolar/anxiety/depressive disorder. (4) FEN/DVT PPX/GI PPX Status: Acute Plan: Fluids: Normal saline 125 mL's per hour Electrolytes: Monitor and replace when necessary Nutrition: Currently nothing by mouth given altered mental status. Speech therapy for swallow eval Prophylaxis: Lovenox 40 mg subcutaneous every 24 hours. Bilateral SCDs. Chronic medical conditions: Diabetes: Hold home metformin. Patient normally takes Lantus 26 units subcutaneous at bedtime with Novolin sliding scale. Given nothing by mouth status, will cover with Levemir 13 units at bedtime, sliding scale insulin. Expect adjustments tomorrow pending sliding scale coverage. Ulcerative colitis: Continue azathioprine 50 mg daily. Mesalamine 1600 mg by mouth twice a day Diabetic polyneuropathy:Continue gabapentin at reduced dose of 400 mg by mouth 3 times a day, continue Lyrica at current home dose COPD: Continue albuterol, DuoNeb's. Hyperlipidemia: Currently holding home atorvastatin Bipolar/depression/panic disorder: Patient gets treatment with Xanax 1 mg by mouth twice a day. Given altered mental status, decreased to 0.5 mg twice a day. Continue Seroquel 400 mg by mouth at bedtime. Continue amitriptyline 25 mg by mouth at bedtime. Continue Depakote 500 mg by mouth every 8 hours. Chronic low back pain: Continue Percocet 10 every 6 hours when necessary pain 6- 10. Morphine IV if unable to swallow. Physician Certification 2 Midnight Certification Type: Admission for Inpatient Services Order for Inpatient Services The services are ordered in accordance with Medicare regulations or non- Medicare payer requirements, as applicable. In the case of services not specified as inpatient-only, they are appropriately provided as inpatient services in accordance with the 2-midnight benchmark. Estimated LOS (days): 3 days is the estimated time the patient will need to remain in the hospital, assuming treatment plan goals are met and no additional complications. Post-Hospital Plan: Not yet determined Problem Qualifiers (1) Sepsis: Qualified Code: A41.9 - Sepsis, due to unspecified organism (2) Altered mental status: Qualified Code: R41.0 - Delirium Fabian Anderson MD R2 September 22, 2016 11:03
[2016-09-22 11:22] LABS: BLOOD GAS BASE EXCESS -4.3 mmol/L (-2-2); BLOOD GAS CARBOXYHEMOGLOBIN 1.4 % (0-4); BLOOD GAS HCO3 21 mmol/L (22-26); BLOOD GAS METHEMOGLOBIN 0.6 % (0-2); BLOOD GAS O2 HGB SATURATION 90 % (90-100); BLOOD GAS PCO2 44 mmHg (38-42); BLOOD GAS PO2 67 mmHG (61-120); BLOOD GAS TOTAL HGB 10.3 G/DL (12.0-16.0); CRITICAL VALUE NO; DRAW SITE LT RADIAL; FIO2 21 %; NUMBER OF ARTERIAL PUNCTURES 1; OXYGEN DEVICE ROOM AIR; STAT YES; TEMP CORR TO 98.6
[2016-09-22] MEDS ORDERED: SODIUM CHLORIDE 0.9% FLUSH 10 ML FLUSH IV FLUSH PRN (11:30)
[2016-09-22] MEDS ORDERED: GLUCAGON 1 MG/ML VIAL OTHER PRN (11:45)
[2016-09-22] MEDS ORDERED: NALOXONE HCL 0.4 MG/ML AMP IV PRN ×2 (11:45→12:00)
[2016-09-22] MEDS ORDERED: ALPRAZolam 0.5 MG TAB PO ONE (11:45)
[2016-09-22] MEDS ORDERED: DEXTROSE 50% IN WATER 50 ML VIAL(D50) IV PUSH PRN (11:45)
[2016-09-22 11:51] VITALS: O2SAT 99
[2016-09-22] MEDS ORDERED: XANA1TAB2 PO (11:52)
[2016-09-22] MEDS: SODIUM CHLOR 0.9% 1000 ML INJ 1,000 ML IV SCH ×3 (12:00→13:16)
[2016-09-22] MEDS ORDERED: FLOR250C PO (12:17)
[2016-09-22] MEDS ORDERED: QUES4POW2 PO ×2 (12:17)
[2016-09-22] MEDS ORDERED: GLUC40GE PO (12:17)
[2016-09-22] MEDS ORDERED: GLUC1KIT IM (12:17)
[2016-09-22 12:40] VITALS: BP 109/56; PULSE 115; RESP 20; O2SAT 100
[2016-09-22] MEDS ORDERED: RESP: ALBUTEROL 2.5 MG/IPRATROPIUM 0.5 MG NEB (PRN) NEB (13:00)
[2016-09-22] MEDS: GABAPENTIN 300 MG CAP PO SCH ×2 (14:00→18:29)
[2016-09-22] MEDS: TIOTROPIUM BROMIDE 18 MCG INH INH SCH (14:00)
[2016-09-22] MEDS: DIVALPROEX DR 500 MG TABEC PO SCH ×2 (14:00→21:02)
[2016-09-22] MEDS: ENOXAPARIN SODIUM 40 MG/0.4 ML SYRINGE SQ SCH (14:00)
[2016-09-22] MEDS: INSULIN ASPART SUPPLEMENTAL SCALE SQ SCH ×2 (14:50→21:00)
[2016-09-22 14:55] LABS: MAGNESIUM 1.5 MG/DL (1.5-2.5)
[2016-09-22 14:57] LABS: INTERNATIONAL NORMALIZED RATIO 1.2 RATIO; PROTHROMBIN TIME - PATIENT 13.8 SEC (9.8-11.6)
[2016-09-22 15:05] VITALS: BP 106/57; PULSE 105; RESP 19; TEMP 98.5; O2SAT 100
[2016-09-22] MEDS ORDERED: IOHEXOL 350 MG/ML 10 ML VIAL (for RAD DIAG) IV ONE (15:54)
--- NOTE | 2016-09-22 16:21 | RADRPT ---
EXAM DATE/TIME: 09/22/2016 15:27 [facility] COMPARISON: No previous studies available for comparison. INDICATIONS : Evaluate for pneumonia. IV CONTRAST: 100 cc Omnipaque 350 (iohexol) IV RADIATION DOSE: 6.08 CTDIvol (mGy) ; Combined studies - Thorax/Abdomen/Pelvis MEDICAL HISTORY : Cardiovascular disease. Hypertension. Diabetes mellitus type 2.COPD SURGICAL HISTORY : section. Hysterectomy. ENCOUNTER: Initial ACUITY: 1 day PAIN SCALE: Non-responsive LOCATION: Bilateral lower chest area. TECHNIQUE: Volumetric scanning of the chest was performed. Using automated exposure control and adjustment of t he mA and/or kV according to patient size, radiation dose was kept as low as reasonably achievable to obtain optimal diagnostic quality images. FINDINGS: LUNGS: Mild linear atelectasis within the posterior basilar segment of the right lower lobe. No infiltrate. No mass. PLEURA: There is no pleural thickening or pleural effusion. MEDIASTINUM: The heart and great vessels demonstrate no acute abnormality. There is no mediastinal or hilar lymph adenopathy. AXILLAE: Within normal limits. No lymphadenopathy. SKELETAL: Within normal limits for patient age. MISCELLANEOUS: The visualized upper abdominal organs demonstrate no acute abnormality. CONCLUSION: 1. No infiltrate or effusion. 2. Mild right basilar atelectasis. Bakari Hearn Jr., MD on September 22, 2016 at 16:16 Board Certified Radiologist. This report was verified electronically.
--- NOTE | 2016-09-22 17:08 | RADRPT ---
EXAM DATE/TIME: 09/22/2016 15:33 [facility] COMPARISON: CT ABDOMEN & PELVIS W CONTRAST, July 31, 2016, 13:04. INDICATIONS : Fever with diffuse abdomen pain. IV CONTRAST: 100 cc Omnipaque 350 (iohexol) IV ORAL CONTRAST: Prescribed oral contrast ingested. RADIATION DOSE: 6.08 CTDIvol (mGy) ; Combined studies - Thorax/Abdomen/Pelvis MEDICAL HISTORY : Cardiovascular disease. Hypertension. Diabetes mellitus type 2.COPD SURGICAL HISTORY : section. Hysterectomy. ENCOUNTER: Initial ACUITY: 1 day PAIN SCALE: Non-responsive LOCATION: Bilateral upper quadrant TECHNIQUE: Volumetric scanning of the abdomen and pelvis was performed. Using automated exposure control and ad justment of the mA and/or kV according to patient size, radiation dose was kept as low as reasonably achievable to obtain optimal diagnostic quality images. FINDINGS: LOWER LUNGS: The visualized lower lungs are clear. LIVER: Homogeneous density without lesion. There is no dilation of the biliary tree. No calcified gallston es. SPLEEN: Normal size without lesion. PANCREAS: Within normal limits. KIDNEYS: Normal in size and shape. There is no mass, stone or hydronephrosis. ADRENAL GLANDS: Within normal limits. VASCULAR: There is no aortic aneurysm. BOWEL/MESENTERY: There is diffuse mild wall thickening involving the colon. This is similar to the previous examinatio n. No dilatation of bowel. No free air or free fluid. Small bowel and stomach are unremarkable. ABDOMINAL WALL: Within normal limits. RETROPERITONEUM: There is no lymphadenopathy. BLADDER: No wall thickening or mass. REPRODUCTIVE: Within normal limits. INGUINAL: There is no lymphadenopathy or hernia. MUSCULOSKELETAL: Within normal limits for patient age. CONCLUSION: Diffuse mild wall thickening involving the colon consistent with pancolitis. Findings are similar to the prior study. Consider C. difficile colitis versus ulcerative colitis. Bakari Hearn Jr., MD on September 22, 2016 at 17:00 Board Certified Radiologist. This report was verified electronically.
[2016-09-22] MEDS: PIPERACIL-TAZO 4.5 GM PREMIX 100 ML IV SCH ×2 (18:29→21:25)
--- NOTE | 2016-09-22 18:44 | MG ---
cc: JASON PUGA Lab No: Date: 09/22/2016 Age: Sex: F Race: INDICATION A 50-year-old history of ulcerative colitis, COPD, depression, cancer. MEDICATIONS 1. Seroquel. 2. Neurontin. 3. Oxycodone. 4. Elavil. 5. Depakote. DESCRIPTION OF RECORDING The recording shows diffuse 8 Hz, 60-70 microvolt rhythm. Recording overall is synchronous and symmetric. No epileptiform or seizure activity was noted. No hemisphere asymmetries are seen. Photic stimulation is performed without significant posterior driving. IMPRESSION A normal awake EEG. No evidence for focal or diffuse abnormality. Jason Puga MD Jason Puga MD DJM/KK /6:06 PM /6:36 PM
[2016-09-22 20:00] VITALS: BP 119/56; PULSE 114; RESP 20; TEMP 99.1; O2SAT 95
[2016-09-22 20:52] LABS: AMPHETAMINE, URINE NEG (NEG); BARBITURATES, URINE NEG (NEG); COCAINE, URINE NEG (NEG)
[2016-09-22] MEDS: INSULIN DETEMIR 100 UNITS/ML VIAL SQ SCH (21:00)
[2016-09-22] MEDS: DOCUSATE SODIUM 50 MG/SENNA 8.6 MG TAB PO SCH (21:00)
[2016-09-22] MEDS ORDERED: AMITRIPTYLINE HCL 25 MG TAB PO SCH (21:00)
[2016-09-22] MEDS ORDERED: QUEtiapine FUMARATE 200 MG TAB PO SCH (21:00)
[2016-09-22] MEDS ORDERED: ALPRAZolam 0.5 MG TAB PO SCH (21:00)
[2016-09-22] MEDS ORDERED: MELATONIN 5 MG TAB PO SCH (21:00)
[2016-09-22] MEDS: SODIUM CHLORIDE 0.9% FLUSH 10 ML FLUSH IV FLUSH SCH (21:00)
[2016-09-22] MEDS: oxyCODONE/ACETAMINOPHEN 10 MG/325 MG TAB PO PRN (21:01)
[2016-09-22] MEDS: FAMOTIDINE 20 MG TAB PO SCH (21:01)
[2016-09-22] MEDS: methylPREDNISolone SOD SUCC 40 MG/1 ML VIAL IV PUSH SCH (21:03)
[2016-09-22] MEDS: BUDESONIDE-FORMOTEROL 160/4.5 MCG INHALER INH SCH (21:24)
[2016-09-22] MEDS: MESALAMINE HD 800 MG DELAYED RELEASE TAB PO SCH (21:24)
[2016-09-23] VITALS (7 sets, daily range): BP systolic 74–130; BP diastolic 47–57; PULSE 88–115; RESP 16–20; TEMP 95.3–99.3; O2SAT 92–99
[2016-09-23] MEDS: PIPERACIL-TAZO 4.5 GM PREMIX 100 ML IV SCH ×4 (05:33→21:27)
[2016-09-23] MEDS: DIVALPROEX DR 500 MG TABEC PO SCH ×3 (05:34→21:26)
[2016-09-23] MEDS: oxyCODONE/ACETAMINOPHEN 10 MG/325 MG TAB PO PRN ×2 (05:34→13:57)
[2016-09-23] MEDS: methylPREDNISolone SOD SUCC 40 MG/1 ML VIAL IV PUSH SCH ×3 (05:35→21:27)
[2016-09-23] MEDS: INSULIN ASPART SUPPLEMENTAL SCALE SQ SCH ×4 (05:39→21:30)
[2016-09-23 08:29] LABS: AUTOMATED NEUTROPHIL # 13.1 TH/MM3 (1.8-7.7); BASOPHIL % 0.3 % (0.0-2.0); LYMPH % 10.5 % (9.0-44.0); LYMPHOCYTE # 1.6 TH/MM3 (1.0-4.8); MEAN CELL VOLUME 77.1 FL (80.0-100.0); MEAN CORPUSCULAR HEMOGLOBIN 25.4 PG (27.0-34.0); MEAN CORPUSCULAR HGB CONC 32.9 % (32.0-36.0); MONO % 2.6 % (0.0-8.0); NEUT % 86.6 % (16.0-70.0); PLATELET COUNT 329 TH/MM3 (150-450); RED BLOOD COUNT 3.88 MIL/MM3 (4.00-5.30); RED CELL DISTRIBUTION WIDTH 20.4 % (11.6-17.2); WHITE BLOOD COUNT 15.1 TH/MM3 (4.0-11.0)
[2016-09-23 08:31] LABS: HEMO FLAGS AUTO DIFF
[2016-09-23 08:54] LABS: ALT (GPT) 10 U/L (10-53); ANION GAP 8 MEQ/L (5-15); AST (GOT) 6 U/L (15-37); BICARBONATE 24.7 MEQ/L (21.0-32.0); BLOOD UREA NITROGEN 7 MG/DL (7-18); CHLORIDE 100 MEQ/L (98-107); GLOMERULAR FILTRATION RATE 173 ML/MIN (>89); POTASSIUM 3.7 MEQ/L (3.5-5.1); SODIUM (NA) 133 MEQ/L (136-145)
[2016-09-23 08:57] LABS: ALKALINE PHOSPHATASE 106 U/L (45-117); TOTAL BILIRUBIN ADULT 0.2 MG/DL (0.2-1.0)
[2016-09-23] MEDS: SODIUM CHLORIDE 0.9% FLUSH 10 ML FLUSH IV FLUSH SCH ×2 (08:58→21:38)
[2016-09-23] MEDS ORDERED: PREGABALIN 100 MG CAP PO SCH (09:00)
[2016-09-23] MEDS: RESP: ALBUTEROL 2.5 MG/IPRATROPIUM 0.5 MG NEB (SCH) NEB ×3 (09:00→20:10)
[2016-09-23 09:01] LABS: BANDS 26 % (0-6); METAMYELOCYTES 1 % (0-1); MYELOCYTES 4 % (0-0); NEUTROPHIL # MANUAL DIFF 13.4 TH/MM3 (1.8-7.7); POLYS (SEG NEUTROPHILS) 58 % (16-70); WBC DIFF SAMPLE 100
[2016-09-23 09:02] LABS: OVALOCYTES 1+ (NORMAL); PLATELET ESTIMATE SMEAR NORMAL (NORMAL); PLATELET MORPHOLOGY NORMAL (NORMAL); SCAN/DIFF FINAL DIFF MANUAL; TOXIC GRANULATION 2+ (NORMAL)
[2016-09-23] MEDS: TIOTROPIUM BROMIDE 18 MCG INH INH SCH ×2 (09:04→09:09)
[2016-09-23] MEDS: BUDESONIDE-FORMOTEROL 160/4.5 MCG INHALER INH SCH ×3 (09:04→21:38)
[2016-09-23] MEDS: SPIRONOLACTONE 50 MG TAB PO SCH ×2 (09:04→09:09)
[2016-09-23] MEDS: azaTHIOprine 50 MG TAB PO SCH ×2 (09:04→09:10)
[2016-09-23] MEDS: MESALAMINE HD 800 MG DELAYED RELEASE TAB PO SCH ×3 (09:04→21:26)
[2016-09-23] MEDS: FAMOTIDINE 20 MG TAB PO SCH ×3 (09:04→21:26)
[2016-09-23] MEDS: GABAPENTIN 300 MG CAP PO SCH ×4 (09:04→17:55)
--- NOTE | 2016-09-23 09:28 | HHI.FPPN ---
Subjective Remarks History limited secondary to drowsiness. Patient is alert to place, she knows it's [facility]. However, she remains tired and uncooperative. Review of systems Limited. (Fabian Anderson MD R2) Objective Vitals Vital Signs Date Time Temp Pulse Resp B/P Pulse Ox O2 Delivery O2 Flow Rate FiO2 09/23/16 04:26 99.2 107 18 130/57 97 09/23/16 00:00 99.3 115 20 95/47 97 09/22/16 20:00 99.1 114 20 119/56 95 09/22/16 16:42 3.00 09/22/16 15:05 98.5 105 19 106/57 100 09/22/16 12:40 115 20 109/56 100 09/22/16 11:51 99 Nasal Cannula 3.00 I/O 09/22/16 09/22/16 09/22/16 09/23/16 09/23/16 09/23/16 07:00 15:00 23:00 07:00 15:00 23:00 Intake Total 240 ml 120 ml Output Total 900 ml Balance 240 ml -780 ml Intake Oral 240 ml 120 ml Output Urine Total 900 ml # Voids 1 # Bowel Movements 2 0 (Fabian Anderson MD R2) Result Diagram: 09/23/16 0812 09/23/16 0812 Imaging Last Impressions Head CT 09/22/16 0000 Signed Impressions: Service Date/Time: Thursday, September 22, 2016 09:46 - CONCLUSION: Normal examination. Bakari Hearn Jr., MD Chest X-Ray 09/22/16 Signed Impressions: Service Date/Time: Thursday, September 22, 2016 09:38 - CONCLUSION: No acute disease. Bakari Hearn Jr., MD Chest CT 09/22/16 0000 Signed Impressions: Service Date/Time: Thursday, September 22, 2016 15:27 - CONCLUSION: 1. No infiltrate or effusion. 2. Mild right basilar atelectasis. Bakari Hearn Jr., MD Abdomen/Pelvis CT 09/22/16 0000 Signed Impressions: Service Date/Time: Thursday, September 22, 2016 15:33 - CONCLUSION: Diffuse mild wall thickening involving the colon consistent with pancolitis. Findings are similar to the prior study. Consider C. difficile colitis versus ulcerative colitis. Bakari Hearn Jr., MD Objective Remarks O. CONSTITUTIONAL/GEN: Obese female, tired and sleepy. ENT: Mouth and pharynx normal. NECK: thyroid midline, carotids symmetrical. LUNGS: Anteriorly wheezing. Normal respiratory effort CARDIOVASCULAR: Tachycardic without murmur or gallop. No significant edema. GI/ABD: soft without masses, without organomegaly. : no CVA tenderness NEURO: No focal deficits. SKIN: color normal, no rashes noted. MUSC: back is normal in appearance. Extremities are normal in appearance. PSYCH/MENTAL STATUS: Alert and oriented x 1. Tired and uncooperative (Fabian Anderson MD R2) A/P Assessment and Plan 50-year-old female from halfway facility and with complicated past medical history including bipolar disorder, ulcerative colitis presents with altered mental status from her nursing facility. Currently meeting sepsis criteria with a leukocytosis. CT abdomen shows pancolitis, unchanged from previous Discharge Planning Pending clinical improvement (Fabian Anderson MD R2) Attending Attestation Patient seen and examined. Case reviewed and discussed with the resident team. Agree with plan of care as discussed with me and documented in the resident note (Jose Davis MD) Problem List: (1) Sepsis Status: Acute Plan: Leukocytosis improving Blood cultures pending Sputum culture ordered Legionella and pneumococcal antigen- negative Continue Zosyn every 6 hours (started /) for pancolitis. Consider changing to Flagyl and ciprofloxacin IV fluids as below Imaging: CT abdomen 5/2 shows pancolitis (unchanged from previous) CT chest 5/2 no infiltrate or effusion. Mild right basilar atelectasis. Labs history: Urinalysis negative Lactic acid 1.7 (2) Altered mental status Status: Resolved Plan: Likely related to sepsis versus polypharmacy versus other Treat sepsis as above Decrease Xanax to 0.5 mg twice a day (from 1 mg twice a day); hold for sedation , drowsiness PT consult See below for medications from bipolar/anxiety/depressive disorder. Labs history: Depakote level within normal limits. Additional labs ordered: Ammonia, magnesium, phosphorus, vitamin B1, vitamin B12 , RPR (3) FEN/DVT PPX/GI PPX Status: Acute Plan: Fluids: Normal saline 125 mL's per hour Electrolytes: Monitor and replace when necessary Nutrition: Speech therapy assessed. Mechanical soft. Prophylaxis: Lovenox 40 mg subcutaneous every 24 hours. Bilateral SCDs. Chronic medical conditions: -Diabetes: Hold home metformin. Patient normally takes Lantus 26 units subcutaneous at bedtime with Novolin sliding scale. Currently Levemir 13 units at bedtime, sliding scale insulin. Expect adjustments pending sliding scale coverage. -Ulcerative colitis: Continue azathioprine 50 mg daily. Mesalamine 1600 mg by mouth twice a day -Diabetic polyneuropathy: Continue gabapentin at reduced dose of 400 mg by mouth 3 times a day, continue Lyrica at current home dose -COPD: Continue albuterol, DuoNeb's. -Hyperlipidemia: Currently holding home atorvastatin -Bipolar/depression/panic disorder: Outpatient regimen is Xanax 1 mg by mouth twice a day. Given altered mental status, decreased to 0.5 mg twice a day ( hold for sedation). Hold Seroquel 400 mg by mouth at bedtime. Hold amitriptyline 25 mg by mouth at bedtime. Continue Depakote 500 mg by mouth every 8 hours. -Chronic low back pain: Continue Percocet 10 every 6 hours when necessary pain 6 -10. Morphine IV if unable to swallow. (Fabian Anderson MD R2) Problem Qualifiers (1) Sepsis: Qualified Code: A41.9 - Sepsis, due to unspecified organism (2) Altered mental status: Qualified Code: R41.0 - Delirium Fabian Anderson MD R2 September 23, 2016 09:28 Jose Davis MD September 23, 2016 15:43
--- NOTE | 2016-09-23 10:01 | EKG ---
Date Performed: 09/22/2016 Time Performed: 10:45:33 PTAGE: 50 years EKG: ECTOPIC ATRIAL TACHYCARDIA LOW QRS VOLTAGE IN EXTREMITY LEADS NONSPECIFIC T-WAVE ABNORMALIT Y ABNORMAL ECG PREVIOUS TRACING : 09/22/2016 10.45 DOCTOR: Gregory Howell Interpretating Date/Time 09/23/2016 10:01:03
[2016-09-23] MEDS: SODIUM CHLOR 0.9% 1000 ML INJ 1,000 ML IV SCH ×2 (10:45→21:31)
[2016-09-23] MEDS: ENOXAPARIN SODIUM 40 MG/0.4 ML SYRINGE SQ SCH (13:04)
[2016-09-23 14:03] LABS: RAPID PLASMA REAGIN SCREEN NON-REACTIVE (NON-REACTVE)
[2016-09-23] MEDS: DOCUSATE SODIUM 50 MG/SENNA 8.6 MG TAB PO SCH (21:25)
[2016-09-23] MEDS: MELATONIN 5 MG TAB PO SCH (21:26)
[2016-09-23] MEDS: INSULIN DETEMIR 100 UNITS/ML VIAL SQ SCH (21:27)
[2016-09-24] VITALS (7 sets, daily range): BP systolic 97–148; BP diastolic 57–66; PULSE 68–82; RESP 16–18; TEMP 95.5–97.3; O2SAT 93–100
[2016-09-24] MEDS: DIVALPROEX DR 500 MG TABEC PO SCH ×3 (04:48→20:55)
[2016-09-24] MEDS: methylPREDNISolone SOD SUCC 40 MG/1 ML VIAL IV PUSH SCH ×3 (04:48→20:55)
[2016-09-24] MEDS: PIPERACIL-TAZO 4.5 GM PREMIX 100 ML IV SCH ×4 (04:48→23:05)
[2016-09-24] MEDS: oxyCODONE/ACETAMINOPHEN 10 MG/325 MG TAB PO PRN ×3 (04:49→18:10)
[2016-09-24] MEDS: INSULIN ASPART SUPPLEMENTAL SCALE SQ SCH ×4 (06:37→20:56)
[2016-09-24 07:41] LABS: BASOPHIL % 0.3 % (0.0-2.0); LYMPH % 14.2 % (9.0-44.0); LYMPHOCYTE # 2.2 TH/MM3 (1.0-4.8); MEAN CELL VOLUME 77.2 FL (80.0-100.0); MEAN CORPUSCULAR HEMOGLOBIN 25.2 PG (27.0-34.0); MEAN CORPUSCULAR HGB CONC 32.7 % (32.0-36.0); MONO % 3.3 % (0.0-8.0); NEUT % 82.2 % (16.0-70.0); PLATELET COUNT 314 TH/MM3 (150-450); RED CELL DISTRIBUTION WIDTH 19.5 % (11.6-17.2); WHITE BLOOD COUNT 15.9 TH/MM3 (4.0-11.0)
[2016-09-24 07:44] LABS: HEMO FLAGS AUTO DIFF
--- NOTE | 2016-09-24 08:07 | HHI.FPPN ---
Subjective Remarks Patient seen and examined this am. Vitals are stable. Patient is awake and alert. Stating she had surgery yesterday and was out of it. She states the other day she took a lot of xanex. Denies CP or difficulty breathing. Reports some abdominal pain. Objective Vitals Vital Signs Date Time Temp Pulse Resp B/P Pulse Ox O2 Delivery O2 Flow Rate FiO2 09/24/16 01:25 97.1 82 18 97/57 97 09/23/16 21:14 98.1 88 16 124/53 99 09/23/16 20:10 97 21 09/23/16 16:00 95.3 92 18 74/51 95 09/23/16 15:06 18 09/23/16 12:27 97.3 90 20 100/53 92 09/23/16 12:24 96 Nasal Cannula 3.00 I/O 09/23/16 09/23/16 09/23/16 09/24/16 09/24/16 09/24/16 07:00 15:00 23:00 07:00 15:00 23:00 Intake Total 120 ml 1926 ml Output Total 900 ml Balance -780 ml 1926 ml Intake Oral 120 ml IV Total 1926 ml Output Urine Total 900 ml # Voids 1 # Bowel Movements 0 2 Result Diagram: 09/24/16 0716 09/23/16 0812 Imaging Last Impressions Head CT 09/22/16 0000 Signed Impressions: Service Date/Time: Thursday, September 22, 2016 09:46 - CONCLUSION: Normal examination. Bakari Hearn Jr., MD Chest X-Ray 09/22/16 0000 Signed Impressions: Service Date/Time: Thursday, September 22, 2016 09:38 - CONCLUSION: No acute disease. Bakari Hearn Jr., MD Chest CT 09/22/16 0000 Signed Impressions: Service Date/Time: Thursday, September 22, 2016 15:27 - CONCLUSION: 1. No infiltrate or effusion. 2. Mild right basilar atelectasis. Bakari Hearn Jr., MD Abdomen/Pelvis CT 09/22/16 0000 Signed Impressions: Service Date/Time: Thursday, September 22, 2016 15:33 - CONCLUSION: Diffuse mild wall thickening involving the colon consistent with pancolitis. Findings are similar to the prior study. Consider C. difficile colitis versus ulcerative colitis. Bakari Hearn Jr., MD Objective Remarks O. CONSTITUTIONAL/GEN: Obese female awake and alert ENT: Mouth and pharynx normal. NECK: thyroid midline, carotids symmetrical. LUNGS: Diffuse wheezing bilaterally, course expiratory sounds worse on the right. Normal respiratory effort CARDIOVASCULAR: Tachycardic without murmur or gallop. No significant edema. GI/ABD: soft without masses, without organomegaly. : no CVA tenderness NEURO: No focal deficits. SKIN: color normal, no rashes noted. MUSC: back is normal in appearance. Extremities are normal in appearance. PSYCH/MENTAL STATUS: A & 0 x 3 A/P Assessment and Plan 50-year-old female from snf facility and with complicated past medical history including bipolar disorder, ulcerative colitis presents with altered mental status from her nursing facility. Currently meeting sepsis criteria with a leukocytosis. CT abdomen shows pancolitis, unchanged from previous Discharge Planning Appear to be back at baseline. Likely back to rehab tomorrow. Problem List: (1) Sepsis Status: Resolved Plan: Presented with sepsis criteria source likely GI, although pancolitis seen on CT abd is similar to previous. Leukocytosis improving Blood cultures negative Sputum culture normal respiratory Legionella and pneumococcal antigen- negative Continue Zosyn every 6 hours (started 5/2) for pancolitis. Per EMR patient refused. IV fluids as below Imaging: CT abdomen 5/2 shows pancolitis (unchanged from previous) CT chest 5/2 no infiltrate or effusion. Mild right basilar atelectasis. Labs history: Urinalysis negative Lactic acid 1.7 (2) Altered mental status Status: Resolved Plan: Likely related to medication side effect Treat sepsis as above PT consult Labs history: Depakote level within normal limits. Additional labs ordered: Ammonia slightly elevated, magnesium wnl, phosphorus wnl, vitamin B1 pending, vitamin B12 pending, RPR not reactive EEG normal (3) Bronchitis Status: Acute Plan: Continues to have significant wheezing on lung exam, also endorses cough. - Duonebs q6hrs while awake, alternate with albuterol - zosyn per above - solumedrol 40 mg IV q8 (4) FEN/DVT PPX/GI PPX Status: Acute Plan: Fluids:HLIV Electrolytes: Monitor and replace when necessary Nutrition: Speech therapy assessed. Mechanical soft. Prophylaxis: Lovenox 40 mg subcutaneous every 24 hours. Bilateral SCDs. Chronic medical conditions: -Diabetes: Hold home metformin. Patient normally takes Lantus 26 units subcutaneous at bedtime with Novolin sliding scale. Currently Levemir 13 units at bedtime, sliding scale insulin. Expect adjustments pending sliding scale coverage. -Ulcerative colitis: Continue azathioprine 50 mg daily. Mesalamine 1600 mg by mouth twice a day -Diabetic polyneuropathy: Continue gabapentin at reduced dose of 400 mg by mouth 3 times a day, continue Lyrica at current home dose -COPD: Continue albuterol, DuoNeb's. -Hyperlipidemia: Currently holding home atorvastatin -Bipolar/depression/panic disorder: Outpatient regimen is Xanax 1 mg by mouth twice a day (HOLD). Seroquel 400 mg by mouth at bedtime (HOLD). Amitriptyline 25 mg PO HS (HOLD) Continue Depakote 500 mg by mouth every 8 hours. -Chronic low back pain: Continue Percocet 10 every 6 hours when necessary pain 6 -10. Morphine IV if unable to swallow. Problem Qualifiers (1) Sepsis: Qualified Code: A41.9 - Sepsis, due to unspecified organism (2) Altered mental status: Qualified Code: R41.0 - Delirium Malathi Al MD R3 September 24, 2016 08:07 Malathi Al MD R3 September 24, 2016 08:07
[2016-09-24 08:08] LABS: ALT (GPT) 16 U/L (10-53); ANION GAP 8 MEQ/L (5-15); AST (GOT) 10 U/L (15-37); BICARBONATE 26.5 MEQ/L (21.0-32.0); BLOOD UREA NITROGEN 8 MG/DL (7-18); CHLORIDE 97 MEQ/L (98-107); GLOMERULAR FILTRATION RATE 140 ML/MIN (>89); POTASSIUM 3.8 MEQ/L (3.5-5.1); SODIUM (NA) 131 MEQ/L (136-145)
[2016-09-24 08:10] LABS: ALKALINE PHOSPHATASE 89 U/L (45-117); TOTAL BILIRUBIN ADULT 0.1 MG/DL (0.2-1.0)
[2016-09-24 08:36] LABS: BANDS 24 % (0-6); METAMYELOCYTES 6 % (0-1); MYELOCYTES 3 % (0-0); NEUTROPHIL # MANUAL DIFF 13.2 TH/MM3 (1.8-7.7); PLATELET ESTIMATE SMEAR NORMAL (NORMAL); PLATELET MORPHOLOGY NORMAL (NORMAL); POLYS (SEG NEUTROPHILS) 50 % (16-70); WBC DIFF SAMPLE 100
[2016-09-24 08:37] LABS: OVALOCYTES 1+ (NORMAL); SCAN/DIFF FINAL DIFF MANUAL
[2016-09-24] MEDS: RESP: ALBUTEROL 2.5 MG/IPRATROPIUM 0.5 MG NEB (SCH) NEB ×3 (08:44→20:49)
[2016-09-24] MEDS: TIOTROPIUM BROMIDE 18 MCG INH INH SCH (09:00)
[2016-09-24] MEDS: azaTHIOprine 50 MG TAB PO SCH (09:31)
[2016-09-24] MEDS: GABAPENTIN 300 MG CAP PO SCH ×3 (09:31→18:06)
[2016-09-24] MEDS: MESALAMINE HD 800 MG DELAYED RELEASE TAB PO SCH ×2 (09:31→20:55)
[2016-09-24] MEDS: SPIRONOLACTONE 50 MG TAB PO SCH (09:31)
[2016-09-24] MEDS: FAMOTIDINE 20 MG TAB PO SCH ×2 (09:31→20:55)
[2016-09-24] MEDS: SODIUM CHLORIDE 0.9% FLUSH 10 ML FLUSH IV FLUSH SCH ×2 (09:31→20:59)
[2016-09-24] MEDS: BUDESONIDE-FORMOTEROL 160/4.5 MCG INHALER INH SCH ×2 (09:32→20:58)
[2016-09-24] MEDS: SODIUM CHLOR 0.9% 1000 ML INJ 1,000 ML IV SCH (09:37)
[2016-09-24] MEDS: RESP: ALBUTEROL 2.5 MG/3 ML NEB (SCH) NEB ×3 (12:04→20:00)
[2016-09-24] MEDS: ENOXAPARIN SODIUM 40 MG/0.4 ML SYRINGE SQ SCH (13:09)
[2016-09-24] MEDS: MELATONIN 5 MG TAB PO SCH (20:55)
[2016-09-24] MEDS: DOCUSATE SODIUM 50 MG/SENNA 8.6 MG TAB PO SCH (20:55)
[2016-09-24] MEDS: INSULIN DETEMIR 100 UNITS/ML VIAL SQ SCH (20:56)
[2016-09-25] VITALS (7 sets, daily range): BP systolic 118–174; BP diastolic 60–86; PULSE 49–70; RESP 17–24; TEMP 96.2–97.9; O2SAT 96–100
[2016-09-25] MEDS: RESP: ALBUTEROL 2.5 MG/3 ML NEB (SCH) NEB ×6 (04:00→19:55)
[2016-09-25] MEDS: PIPERACIL-TAZO 4.5 GM PREMIX 100 ML IV SCH (05:21)
[2016-09-25] MEDS: DIVALPROEX DR 500 MG TABEC PO SCH ×3 (05:21→20:19)
[2016-09-25] MEDS: methylPREDNISolone SOD SUCC 40 MG/1 ML VIAL IV PUSH SCH (05:21)
[2016-09-25] MEDS: INSULIN ASPART SUPPLEMENTAL SCALE SQ SCH ×4 (05:22→20:19)
[2016-09-25] MEDS: RESP: ALBUTEROL 2.5 MG/IPRATROPIUM 0.5 MG NEB (SCH) NEB ×3 (07:59→19:55)
[2016-09-25] MEDS: TIOTROPIUM BROMIDE 18 MCG INH INH SCH (09:00)
[2016-09-25] MEDS: FAMOTIDINE 20 MG TAB PO SCH ×2 (09:21→20:19)
[2016-09-25] MEDS: MESALAMINE HD 800 MG DELAYED RELEASE TAB PO SCH ×2 (09:21→20:19)
[2016-09-25] MEDS: GABAPENTIN 300 MG CAP PO SCH ×3 (09:21→17:24)
[2016-09-25] MEDS: SPIRONOLACTONE 50 MG TAB PO SCH (09:21)
[2016-09-25] MEDS: azaTHIOprine 50 MG TAB PO SCH (09:21)
[2016-09-25] MEDS: oxyCODONE/ACETAMINOPHEN 10 MG/325 MG TAB PO PRN ×2 (09:22→16:18)
[2016-09-25] MEDS: SODIUM CHLORIDE 0.9% FLUSH 10 ML FLUSH IV FLUSH SCH ×2 (09:22→20:20)
[2016-09-25] MEDS: SODIUM CHLOR 0.9% 1000 ML INJ 1,000 ML IV SCH (09:22)
[2016-09-25] MEDS: BUDESONIDE-FORMOTEROL 160/4.5 MCG INHALER INH SCH ×2 (09:23→20:21)
--- NOTE | 2016-09-25 09:43 | HHI.FPPN ---
Subjective Remarks Spoke with nurse regarding patient. Patient is alert and oriented. According to my conversation with the nurse at her nursing facility, patient appears to be coming close to her baseline. Continues to have mild abdominal pain consistent with her history. Denies fevers or chills. Her appetite is not good at this time. Has had 2 bowel movements over the course of yesterday and today. Denies nausea or vomiting. Objective Vitals Vital Signs Date Time Temp Pulse Resp B/P Pulse Ox O2 Delivery O2 Flow Rate FiO2 09/25/16 07:57 96.2 52 17 142/60 100 09/25/16 04:00 97.9 70 24 118/62 98 09/24/16 20:50 98 21 09/24/16 20:23 97.3 73 18 117/58 100 09/24/16 17:08 96.2 72 16 138/63 100 09/24/16 13:11 95.8 81 16 121/60 93 09/24/16 10:37 18 I/O 09/24/16 09/24/16 09/24/16 09/25/16 09/25/16 09/25/16 07:00 15:00 23:00 07:00 15:00 23:00 Output Total 1 ml Balance -1 ml Output Urine Total 1 ml # Voids 1 1 1 # Bowel Movements 2 1 2 2 Result Diagram: 09/24/16 0716 09/24/16 0716 Objective Remarks O. CONSTITUTIONAL/GEN: Obese female awake and alert ENT: Mouth and pharynx normal. NECK: thyroid midline, carotids symmetrical. LUNGS: Diffuse wheezing bilaterally, course expiratory sounds worse on the right. Normal respiratory effort CARDIOVASCULAR: Tachycardic without murmur or gallop. No significant edema. GI/ABD: soft without masses, without organomegaly. : no CVA tenderness NEURO: No focal deficits. SKIN: color normal, no rashes noted. MUSC: back is normal in appearance. Extremities are normal in appearance. PSYCH/MENTAL STATUS: A & 0 x 3. Appears to have some thought blocking. Childlike. A/P Assessment and Plan 50-year-old female from care home facility and with complicated past medical history including bipolar disorder, ulcerative colitis presents with altered mental status from her nursing facility. CT abdomen shows pancolitis, unchanged from previous. Concern for polypharmacy on Xanax, amitriptyline, Seroquel, Depakote Discharge Planning Appear to be back at baseline. Likely back to rehab tomorrow. PT recommends PT and rehabilitation Problem List: (1) Pancolitis Status: Acute Plan: Presented with sepsis criteria source likely GI, although pancolitis seen on CT abd is similar to previous. Change to by mouth Flagyl and Levaquin(allergic reaction to ciprofloxacin); likely for 7 day course starting 09/25. Imaging: CT abdomen 09/22 shows pancolitis (unchanged from previous) CT chest 09/22 no infiltrate or effusion. Mild right basilar atelectasis. Antibiotic history: Zosyn every 6 hours (09/22--) (2) Altered mental status Status: Acute Plan: Appears to be returning to baseline Likely related to medication side effect (see medication adjustments below regarding bipolar/depression/panic disorder) PT consult- recommends PT and rehabilitation Labs history: Depakote level within normal limits. Additional labs ordered: Ammonia slightly elevated, magnesium wnl, phosphorus wnl, vitamin B1 pending, vitamin B12 pending, RPR not reactive EEG normal (3) Bronchitis Status: Acute Plan: Continues to have significant wheezing on lung exam, also endorses cough. - Duonebs q6hrs while awake, alternate with albuterol -Prednisone 50 mg by mouth daily (4) FEN/DVT PPX/GI PPX Status: Acute Plan: Fluids:HLIV Electrolytes: Monitor and replace when necessary Nutrition: Speech therapy assessed. Mechanical soft. Prophylaxis: Lovenox 40 mg subcutaneous every 24 hours. Bilateral SCDs. Chronic medical conditions: -Diabetes: Hold home metformin. Patient normally takes Lantus 26 units subcutaneous at bedtime with Novolin sliding scale. Levemir 20 units at bedtime, sliding scale insulin. Expect adjustments pending sliding scale coverage. -Ulcerative colitis: Continue azathioprine 50 mg daily. Mesalamine 1600 mg by mouth twice a day. Prednisone 50 mg by mouth daily -Diabetic polyneuropathy: Continue gabapentin at reduced dose of 400 mg by mouth 3 times a day, continue Lyrica at current home dose -COPD: Continue albuterol, DuoNeb's. -Hyperlipidemia: Currently holding home atorvastatin -Bipolar/depression/panic disorder: Outpatient regimen is Xanax 1 mg by mouth twice a day (currently on HOLD). Seroquel 400 mg by mouth at bedtime (resuming on 5/5). Amitriptyline 25 mg PO HS (HOLD) Continue Depakote 500 mg by mouth every 8 hours. -Chronic low back pain: Continue Percocet 10 every 6 hours when necessary pain 6 -10. Morphine IV if unable to swallow. (5) Sepsis Status: Resolved Problem Qualifiers (1) Altered mental status: Qualified Code: R41.0 - Delirium (2) Sepsis: Qualified Code: A41.9 - Sepsis, due to unspecified organism Fabian Anderson MD R2 September 25, 2016 09:43
[2016-09-25 10:23] LABS: AUTOMATED NEUTROPHIL # 12.2 TH/MM3 (1.8-7.7); BASOPHIL % 0.2 % (0.0-2.0); HEMATOCRIT 26.2 % (35.0-46.0); LYMPH % 14.9 % (9.0-44.0); LYMPHOCYTE # 2.2 TH/MM3 (1.0-4.8); MEAN CELL VOLUME 76.4 FL (80.0-100.0); MEAN CORPUSCULAR HEMOGLOBIN 25.5 PG (27.0-34.0); MEAN CORPUSCULAR HGB CONC 33.4 % (32.0-36.0); MONO % 4.4 % (0.0-8.0); NEUT % 80.5 % (16.0-70.0); PLATELET COUNT 284 TH/MM3 (150-450); RED BLOOD COUNT 3.43 MIL/MM3 (4.00-5.30); RED CELL DISTRIBUTION WIDTH 20.2 % (11.6-17.2); WHITE BLOOD COUNT 15.1 TH/MM3 (4.0-11.0)
[2016-09-25 10:24] LABS: HEMO FLAGS AUTO DIFF
[2016-09-25 10:51] LABS: ALKALINE PHOSPHATASE 84 U/L (45-117); ALT (GPT) 17 U/L (10-53); ANION GAP 10 MEQ/L (5-15); AST (GOT) 7 U/L (15-37); BLOOD UREA NITROGEN 8 MG/DL (7-18); CHLORIDE 94 MEQ/L (98-107); GLOMERULAR FILTRATION RATE 136 ML/MIN (>89); POTASSIUM 3.6 MEQ/L (3.5-5.1); SODIUM (NA) 130 MEQ/L (136-145); TOTAL BILIRUBIN ADULT 0.2 MG/DL (0.2-1.0)
[2016-09-25 11:08] LABS: BANDS 37 % (0-6); METAMYELOCYTES 5 % (0-1); MYELOCYTES 6 % (0-0); NEUTROPHIL # MANUAL DIFF 12.7 TH/MM3 (1.8-7.7); POLYS (SEG NEUTROPHILS) 33 % (16-70); PROMYELOCYTES 3 % (0-0); WBC DIFF SAMPLE 100
[2016-09-25 11:09] LABS: PLATELET ESTIMATE SMEAR NORMAL (NORMAL); PLATELET MORPHOLOGY NORMAL (NORMAL)
[2016-09-25 11:13] LABS: OVALOCYTES 1+ (NORMAL); TOXIC GRANULATION 2+ (NORMAL)
[2016-09-25 11:14] LABS: SCAN/DIFF FINAL DIFF MANUAL
[2016-09-25] MEDS: metroNIDAZOLE 500 MG TAB PO SCH ×2 (12:55→20:19)
[2016-09-25] MEDS: ENOXAPARIN SODIUM 40 MG/0.4 ML SYRINGE SQ SCH (12:55)
[2016-09-25] MEDS: QUEtiapine FUMARATE 200 MG TAB PO SCH (20:19)
[2016-09-25] MEDS: MELATONIN 5 MG TAB PO SCH (20:19)
[2016-09-25] MEDS: DOCUSATE SODIUM 50 MG/SENNA 8.6 MG TAB PO SCH (20:20)
[2016-09-25] MEDS ORDERED: INSULIN DETEMIR 100 UNITS/ML VIAL SQ SCH (21:00)
[2016-09-26] VITALS (7 sets, daily range): BP systolic 128–148; BP diastolic 64–78; PULSE 79–94; RESP 20; TEMP 97.5–98.8; O2SAT 96–100
[2016-09-26] MEDS: RESP: ALBUTEROL 2.5 MG/3 ML NEB (SCH) NEB ×5 (04:00→16:40)
[2016-09-26] MEDS: metroNIDAZOLE 500 MG TAB PO SCH (05:32)
[2016-09-26] MEDS: DIVALPROEX DR 500 MG TABEC PO SCH ×3 (05:32→22:45)
[2016-09-26] MEDS: INSULIN ASPART SUPPLEMENTAL SCALE SQ SCH ×4 (06:30→22:45)
[2016-09-26] MEDS: RESP: ALBUTEROL 2.5 MG/IPRATROPIUM 0.5 MG NEB (SCH) NEB ×3 (08:00→20:45)
[2016-09-26] MEDS ORDERED: METR-1 PO (08:22)
[2016-09-26] MEDS ORDERED: ALPR.5 PO (08:22)
--- NOTE | 2016-09-26 08:23 | HHI.DCPOC ---
Discharge Care Plan Diagnosis: (1) Altered mental status (2) Pancolitis (3) Sepsis Goals to Promote Your Health * To prevent worsening of your condition and complications * To maintain your health at the optimal level Directions to Meet Your Goals Take your medications as prescribed Follow your dietary instruction Follow activity as directed Keep your appointments as scheduled Take your immunizations and boosters as scheduled If your symptoms worsen call your PCP, if no PCP go to Urgent Care Center or Emergency Room Smoking is Dangerous to Your Health. Avoid second hand smoke Call the 24-hour hour crisis hotline for domestic abuse at Fabian Anderson MD R2 September 26, 2016 08:23
[2016-09-26] MEDS ORDERED: PRED20 PO ×2 (08:28)
[2016-09-26] MEDS ORDERED: PRED50 PO (08:28)
[2016-09-26] MEDS ORDERED: PRED10 PO (08:28)
[2016-09-26] MEDS: GABAPENTIN 300 MG CAP PO SCH ×4 (08:29→17:26)
[2016-09-26] MEDS: SPIRONOLACTONE 50 MG TAB PO SCH ×2 (08:29→09:00)
[2016-09-26] MEDS: MESALAMINE HD 800 MG DELAYED RELEASE TAB PO SCH ×3 (08:30→22:45)
[2016-09-26] MEDS: predniSONE 50 MG TAB PO SCH (08:30)
[2016-09-26] MEDS: FAMOTIDINE 20 MG TAB PO SCH ×3 (08:30→22:45)
[2016-09-26] MEDS: oxyCODONE/ACETAMINOPHEN 10 MG/325 MG TAB PO PRN (08:30)
[2016-09-26] MEDS: azaTHIOprine 50 MG TAB PO SCH ×2 (08:30→09:00)
[2016-09-26] MEDS: BUDESONIDE-FORMOTEROL 160/4.5 MCG INHALER INH SCH ×2 (08:30→22:45)
[2016-09-26] MEDS: TIOTROPIUM BROMIDE 18 MCG INH INH SCH (08:30)
[2016-09-26] MEDS: SODIUM CHLORIDE 0.9% FLUSH 10 ML FLUSH IV FLUSH SCH ×2 (08:31→22:45)
--- NOTE | 2016-09-26 08:33 | HHI.FPPN ---
Subjective Remarks Spoke with nurse regarding overnight events. Patient is likely back to her baseline. Sleeping well overnight. No comply to this time. No fever, chills. Abdominal pain consistent with previous history. Objective Vitals Vital Signs Date Time Temp Pulse Resp B/P Pulse Ox O2 Delivery O2 Flow Rate FiO2 09/26/16 07:43 98.8 83 20 134/65 96 09/26/16 04:00 97.6 81 20 147/78 99 09/25/16 20:00 96.3 61 20 174/76 99 09/25/16 19:56 96 21 09/25/16 17:32 18 09/25/16 16:22 97.7 70 18 153/86 96 09/25/16 12:13 97.0 49 17 132/83 96 09/25/16 11:25 98 21 I/O 09/25/16 09/25/16 09/25/16 09/26/16 09/26/16 09/26/16 07:00 15:00 23:00 07:00 15:00 23:00 Output Total 1 ml Balance -1 ml Output Urine Total 1 ml # Voids 1 6 1 # Bowel Movements 2 2 3 Result Diagram: 09/25/16 0940 09/25/16 0940 Objective Remarks O. CONSTITUTIONAL/GEN: Obese female awake and alert ENT: Mouth and pharynx normal. NECK: thyroid midline, carotids symmetrical. LUNGS: Diffuse wheezing bilaterally, course expiratory sounds worse on the right. Normal respiratory effort CARDIOVASCULAR: Tachycardic without murmur or gallop. No significant edema. GI/ABD: soft without masses, without organomegaly. : no CVA tenderness NEURO: No focal deficits. SKIN: color normal, no rashes noted. MUSC: back is normal in appearance. Extremities are normal in appearance. PSYCH/MENTAL STATUS: A & 0 x 3. Appears to have some thought blocking. Childlike. A/P Assessment and Plan 50-year-old female from intermediate facility and with complicated past medical history including bipolar disorder, ulcerative colitis presents with altered mental status from her nursing facility. CT abdomen shows pancolitis, unchanged from previous. Concern for polypharmacy on Xanax, amitriptyline, Seroquel, Depakote Patient will be discharged on 0.5 mg Xanax every 12 hours when necessary agitation. Discontinue amitriptyline. Continue Seroquel. Continue Depakote. Follow-up with psychiatry and PCP. She also need a steroid taper as she has received high-dose steroids in the past. We will begin taper with prednisone, but this should be followed by physician at her rehabilitation facility. Discharge Planning Discharge today to previous rehabilitation facility. PT recommends physical therapy at discharge. Problem List: (1) Pancolitis Status: Acute Plan: Presented with sepsis criteria source likely GI, although pancolitis seen on CT abd is similar to previous. Change to by mouth Flagyl 500 mg every 8 hours. Continue for 5 more days. Imaging: CT abdomen 09/22 shows pancolitis (unchanged from previous) CT chest 09/22 no infiltrate or effusion. Mild right basilar atelectasis. Antibiotic history: Zosyn every 6 hours (09/22--) (2) Altered mental status Status: Acute Plan: Appears to be returning to baseline Likely related to medication side effect (see medication adjustments below regarding bipolar/depression/panic disorder) PT consult- recommends PT and rehabilitation Labs history: Depakote level within normal limits. Additional labs ordered: Ammonia slightly elevated, magnesium wnl, phosphorus wnl, vitamin B1 pending, vitamin B12 pending, RPR not reactive EEG normal (3) Bronchitis Status: Acute Plan: Continues to have significant wheezing on lung exam, also endorses cough. - Duonebs q6hrs while awake, alternate with albuterol -Prednisone 50 mg by mouth daily - Taper prednisone initiated, and this should be followed by facility physicians at her institution. (4) FEN/DVT PPX/GI PPX Status: Acute Plan: Fluids:HLIV Electrolytes: Monitor and replace when necessary Nutrition: Speech therapy assessed. Mechanical soft. Prophylaxis: Lovenox 40 mg subcutaneous every 24 hours. Bilateral SCDs. Chronic medical conditions: -Diabetes: Hold home metformin. Patient normally takes Lantus 26 units subcutaneous at bedtime with Novolin sliding scale. Levemir 20 units at bedtime, sliding scale insulin. Expect adjustments pending sliding scale coverage. -Ulcerative colitis: Continue azathioprine 50 mg daily. Mesalamine 1600 mg by mouth twice a day. Prednisone 50 mg by mouth daily -Diabetic polyneuropathy: Continue gabapentin at reduced dose of 400 mg by mouth 3 times a day, continue Lyrica at current home dose -COPD: Continue albuterol, DuoNeb's. -Hyperlipidemia: Currently holding home atorvastatin -Bipolar/depression/panic disorder: Concern for polypharmacy. Outpatient regimen is Xanax 1 mg by mouth twice a day [we have switched to Xanax 0.5 mg twice a day when necessary agitation]. Seroquel 400 mg by mouth at bedtime ( resuming on 09/25). Amitriptyline 25 mg PO HS (HOLD/discontinue) Continue Depakote 500 mg by mouth every 8 hours. -Chronic low back pain: Continue Percocet 10 every 6 hours when necessary pain 6 -10. Morphine IV if unable to swallow. (5) Sepsis Status: Resolved Problem Qualifiers (1) Altered mental status: Qualified Code: R41.0 - Delirium (2) Sepsis: Qualified Code: A41.9 - Sepsis, due to unspecified organism Fabian Anderson MD R2 September 26, 2016 08:33
[2016-09-26] MEDS ORDERED: LEVOFLOXACIN 750 MG TAB PO SCH (09:00)
[2016-09-26 09:11] LABS: HEMATOCRIT 31.9 % (35.0-46.0); MEAN CELL VOLUME 76.7 FL (80.0-100.0); MEAN CORPUSCULAR HEMOGLOBIN 25.4 PG (27.0-34.0); MEAN CORPUSCULAR HGB CONC 33.2 % (32.0-36.0); PLATELET COUNT 450 TH/MM3 (150-450); RED BLOOD COUNT 4.16 MIL/MM3 (4.00-5.30); RED CELL DISTRIBUTION WIDTH 20.2 % (11.6-17.2); WHITE BLOOD COUNT 29.4 TH/MM3 (4.0-11.0)
[2016-09-26 09:15] LABS: HEMO FLAGS AUTO DIFF
[2016-09-26 09:44] LABS: ALKALINE PHOSPHATASE 99 U/L (45-117); ALT (GPT) 15 U/L (10-53); ANION GAP 9 MEQ/L (5-15); AST (GOT) 13 U/L (15-37); BICARBONATE 29.7 MEQ/L (21.0-32.0); BLOOD UREA NITROGEN 3 MG/DL (7-18); CHLORIDE 100 MEQ/L (98-107); GLOMERULAR FILTRATION RATE 210 ML/MIN (>89); SODIUM (NA) 139 MEQ/L (136-145); TOTAL BILIRUBIN ADULT 0.2 MG/DL (0.2-1.0)
[2016-09-26 09:59] LABS: BANDS 14 % (0-6); METAMYELOCYTES 2 % (0-1); MYELOCYTES 5 % (0-0); NEUTROPHIL # MANUAL DIFF 22.3 TH/MM3 (1.8-7.7); POLYS (SEG NEUTROPHILS) 54 % (16-70); PROMYELOCYTES 1 % (0-0); WBC DIFF SAMPLE 100
[2016-09-26 10:00] LABS: POTASSIUM 2.7 MEQ/L (3.5-5.1)
[2016-09-26 10:01] LABS: PLATELET ESTIMATE SMEAR NORMAL (NORMAL); PLATELET MORPHOLOGY NORMAL (NORMAL); SCAN/DIFF FINAL DIFF MANUAL; TOXIC GRANULATION 2+ (NORMAL)
[2016-09-26 10:02] LABS: OVALOCYTES 1+ (NORMAL)
[2016-09-26] MEDS ORDERED: POTASSIUM CHLORIDE 25 MEQ EFFERVESCENT TAB PO ONE ×2 (11:00→18:00)
[2016-09-26] MEDS ORDERED: methylPREDNISolone SOD SUCC 40 MG/1 ML VIAL IV PUSH SCH (12:00)
[2016-09-26] MEDS: PIPERACIL-TAZO 4.5 GM PREMIX 100 ML IV SCH ×2 (12:48→17:26)
[2016-09-26] MEDS: NS + KCL 20 MEQ INJ 1,000 ML IV SCH (12:49)
[2016-09-26 13:15] LABS: C. DIFF EPI 027 PRESUMPTIVE NEGATIVE (NEGATIVE); C. DIFF TOXIN PCR NEGATIVE (NEGATIVE)
[2016-09-26] MEDS: ENOXAPARIN SODIUM 40 MG/0.4 ML SYRINGE SQ SCH (14:00)
[2016-09-26] MEDS: MELATONIN 5 MG TAB PO SCH (22:44)
[2016-09-26] MEDS: INSULIN DETEMIR 100 UNITS/ML VIAL SQ SCH (22:45)
[2016-09-26] MEDS: QUEtiapine FUMARATE 200 MG TAB PO SCH (22:45)
[2016-09-26] MEDS: DOCUSATE SODIUM 50 MG/SENNA 8.6 MG TAB PO SCH (22:45)
[2016-09-27] VITALS (7 sets, daily range): BP systolic 138–165; BP diastolic 65–77; PULSE 62–82; RESP 17–20; TEMP 96.6–97.7; O2SAT 96–100
[2016-09-27] MEDS: NS + KCL 20 MEQ INJ 1,000 ML IV SCH ×3 (00:03→17:50)
[2016-09-27] MEDS: PIPERACIL-TAZO 4.5 GM PREMIX 100 ML IV SCH ×4 (00:04→17:50)
[2016-09-27] MEDS: RESP: ALBUTEROL 2.5 MG/3 ML NEB (SCH) NEB ×8 (00:49→19:26)
[2016-09-27] MEDS: DIVALPROEX DR 500 MG TABEC PO SCH ×4 (05:42→22:00)
[2016-09-27] MEDS: INSULIN ASPART SUPPLEMENTAL SCALE SQ SCH ×4 (06:28→22:05)
[2016-09-27 07:57] LABS: AUTOMATED NEUTROPHIL # 18.6 TH/MM3 (1.8-7.7); BASOPHIL # 0.1 TH/MM3 (0-0.2); BASOPHIL % 0.4 % (0.0-2.0); EOSINOPHIL # 0.9 TH/MM3 (0-0.4); EOSINOPHIL % 3.3 % (0.0-4.0); HEMATOCRIT 31.8 % (35.0-46.0); LYMPH % 20.1 % (9.0-44.0); LYMPHOCYTE # 5.3 TH/MM3 (1.0-4.8); MEAN CELL VOLUME 78.4 FL (80.0-100.0); MEAN CORPUSCULAR HGB CONC 33.2 % (32.0-36.0); MONO % 5.3 % (0.0-8.0); NEUT % 70.9 % (16.0-70.0); PLATELET COUNT 474 TH/MM3 (150-450); RED BLOOD COUNT 4.06 MIL/MM3 (4.00-5.30); RED CELL DISTRIBUTION WIDTH 20.6 % (11.6-17.2); WHITE BLOOD COUNT 26.2 TH/MM3 (4.0-11.0)
[2016-09-27 08:02] LABS: HEMO FLAGS AUTO DIFF
[2016-09-27 08:11] LABS: ALKALINE PHOSPHATASE 94 U/L (45-117); TOTAL BILIRUBIN ADULT 0.2 MG/DL (0.2-1.0)
[2016-09-27] MEDS: RESP: ALBUTEROL 2.5 MG/IPRATROPIUM 0.5 MG NEB (SCH) NEB (08:13)
[2016-09-27 08:37] LABS: ALT (GPT) 14 U/L (10-53); ANION GAP 10 MEQ/L (5-15); AST (GOT) 20 U/L (15-37); BICARBONATE 27.7 MEQ/L (21.0-32.0); BLOOD UREA NITROGEN 6 MG/DL (7-18); CHLORIDE 101 MEQ/L (98-107); GLOMERULAR FILTRATION RATE 147 ML/MIN (>89); POTASSIUM 3.4 MEQ/L (3.5-5.1); SODIUM (NA) 139 MEQ/L (136-145)
[2016-09-27] MEDS: TIOTROPIUM BROMIDE 18 MCG INH INH SCH (09:00)
[2016-09-27] MEDS: BUDESONIDE-FORMOTEROL 160/4.5 MCG INHALER INH SCH ×2 (09:00→21:00)
[2016-09-27] MEDS: SPIRONOLACTONE 50 MG TAB PO SCH (09:00)
[2016-09-27] MEDS: azaTHIOprine 50 MG TAB PO SCH (09:00)
[2016-09-27] MEDS: SODIUM CHLORIDE 0.9% FLUSH 10 ML FLUSH IV FLUSH SCH ×2 (09:00→21:00)
[2016-09-27] MEDS: MESALAMINE HD 800 MG DELAYED RELEASE TAB PO SCH ×2 (09:00→21:00)
[2016-09-27] MEDS: GABAPENTIN 300 MG CAP PO SCH ×3 (09:00→17:50)
[2016-09-27] MEDS: FAMOTIDINE 20 MG TAB PO SCH ×2 (09:00→21:00)
[2016-09-27 10:17] LABS: BANDS 10 % (0-6); CORRECTED NUCLEATED RBC 2 /100 WBC (0-0); METAMYELOCYTES 3 % (0-1); MYELOCYTES 13 % (0-0); NEUTROPHIL # MANUAL DIFF 20.4 TH/MM3 (1.8-7.7); POLYS (SEG NEUTROPHILS) 50 % (16-70); PROMYELOCYTES 2 % (0-0); WBC DIFF SAMPLE 100
[2016-09-27 10:18] LABS: OVALOCYTES 1+ (NORMAL); PLATELET ESTIMATE SMEAR HIGH (NORMAL); PLATELET MORPHOLOGY NORMAL (NORMAL); SCAN/DIFF FINAL DIFF MANUAL; TOXIC GRANULATION 1+ (NORMAL)
--- NOTE | 2016-09-27 10:24 | PD.CONS ---
Provisional Diagnosis Admission Date September 22, 2016 at 10:21 [place] I. 1. AMS 2. History of BPAD. [place] II. Deferred History of Present Illness Service Psychiatry Consult Requested By Dr. Anderson Reason for Consult "Refusing medications and refusing to cooperate." Primary Care Physician Unknown HPI Ms. Rockwell is a 50 year-old female with a chart history of BPAD who presented to the ED 09/22 following a fall at her nursing facility. Patient was apparently conversant in the ED and provided some history to the ED provider. She met sepsis criteria and was subsequently admitted to the medical floor for further management. Reviewing the EMR, I see the patient was seen in consultation by Dr. Cristina on 07/2016. Patient seen and examined. Chart reviewed. Case discussed with nurse who reports that over the last few days patient has become non-verbal and has been refusing food and medications. She is taking a small quantity of food this morning, per nursing staff. On my examination today, patient remains non- verbal. She looks forward with no apparent recognition of my presence. She does not follow simple or complex commands. She does exhibit some volitional movements, for example picking her nose. She also has some masticating movements of the jaw but has also recently been eating. There is no posturing, no waxy flexibility, no stereotypies noted besides perhaps the mouth movements. No hypertonia. No spontaneous clonus. Psychiatric interview is limited because patient cannot communicate mental status. Records from facility reviewed. I note patient's home psychotropics include amitriptyline 25mg qHS, Xanax 1mg BID, VPA DR 500mg q8h, melatonin 6mg qHS, and Seroquel 400mg qHS. Review of Systems ROS Limitations: Unresponsive Past Family Social History Coded Allergies: Sulfa (Verified Allergy, Severe, RASH, 09/22/16) Cipro (Verified Allergy, Unknown, 09/22/16) Erythromycin (Verified Allergy, Unknown, 09/22/16) Ofloxacin (Verified Allergy, Unknown, 09/22/16) Past Medical History See EMR Active Scripts Prednisone 20 Mg Tab40 Mg PO DAILY #10 TAB Ref 0 Take 40 mg (2 tablets) daily for 5 days Prov:Fabian Anderson MD R2 09/26/16 Prednisone 20 Mg Tab20 Mg PO DAILY #5 TAB Ref 0 Prov:Fabian Anderson MD R2 09/26/16 Prednisone 10 Mg Tab30 Mg PO DAILY #5 TAB Ref 0 tapering regimen Prov:Fabian Anderson MD R2 09/26/16 Prednisone 50 Mg Tab50 Mg PO DAILY #10 TAB Prov:Fabian Anderson MD R2 09/26/16 Metronidazole (Flagyl)500 Mg [id number] Mg PO Q8HR #15 TAB Prov:Fabian Anderson MD R2 09/26/16 Alprazolam (Xanax)0.5 Mg Tab0.5 Mg PO BID PRN (AGITATION) #30 TAB Prov:Fabian Anderson MD R2 09/26/16 Oxycodone-Acetaminophen 10-325 mg Tab1 Tab PO Q6H PRN (PAIN) #30 TAB Ref 0 Prov:Leidy Shultz MD R1 08/06/16 Azathioprine 50 Mg Tab50 Mg PO DAILY #30 TAB Ref 0 Hazardous agent use appropriate precautions for handling and disposal. Prov:Leidy Shultz MD R1 08/06/16 Quetiapine 200 Mg Nuh384 Mg PO HS #30 TAB Prov:Leidy Shultz MD R1 08/06/16 Reported Medications Saccharomyces Boulardii (Florastor)250 Mg Ghw925 Mg PO BID 14 Days Ref 0 09/22/16 Cholestyramine (Questran)4 Gm/Dose Powd4 Gm PO TID PRN (Colitis) #1 CAN Ref 0 1 level scoopful of powder contains 4 grams of cholestyramine. Starts after qid dosage finished (09/24/2016) 09/22/16 Cholestyramine (Questran)4 Gm/Dose Powd4 Gm PO QID 3 Days Ref 0 1 level scoopful of powder contains 4 grams of cholestyramine. 09/22/16 Glucagon (Rdna) Inj Kit (Glucagon Emergency Inj Kit)1 Mg Kit1 Mg IM ONCE PRN ( CBG <60mg/dl-pt unresponsive) #1 KIT Ref 0 09/22/16 Dextrose Gel (Glucose Gel)40 % Gel1 Tube PO ONCE PRN (If CBG is <60mg/dl) #1 TUBE Ref 0 09/22/16 Alprazolam (Xanax)1 Mg Tab1 Mg PO BID Ref 0 09/22/16 Acetaminophen 325 Mg Dvh021 Mg PO Q4HR PRN (PAIN 1-10 AND/OR FEVER >101F) Ref 0 08/30/16 Cyclosporine Opth Drops (Restasis Opth Drops)0.05% Emul2 Drop EACH EYE HS #1 BOX Ref 0 08/30/16 Melatonin 3 Mg Tab6 Mg PO HS 08/30/16 Spironolactone (Aldactone)50 Mg Tab50 Mg PO DAILY #30 TAB Ref 0 07/30/16 Amitriptyline 25 Mg Tab25 Mg PO HS #30 TAB Ref 0 07/30/16 Insulin Aspart Inj (Novolog Inj)1,000 Unit/10 Ml Vial SQ DIRECTED #10 ML Ref 0 Give 7 units along w/Sliding Scale: 0-69=0 unit & call MD, 70-200=0 units, 201-250=4 units, 251-300=6 units, 301-350=10 units, 351-400=12 units, >400=15 units & call MD 07/30/16 Ranitidine (Zantac)150 Mg Hzh780 Mg PO BID #60 TAB Ref 0 07/30/16 Sennosides-Docusate Sodium (Senna S)8.6-50 Mg Tab2 Tab PO HS 07/30/16 Budesonide-Formoterol Inh (Symbicort Inh)160-4.5 Mcg/Act Aero1 Puff INH Q12HR # 1 INHALER Ref 0 07/30/16 Ipratropium HFA 12.9 GM Inh (Atrovent HFA 12.9 GM Inh)17 Mcg/Act Aer2 Puff INH QID #1 INHALER Ref 0 07/30/16 Pregabalin (Lyrica)100 Mg Ppe213 Mg PO DAILY #30 CAP Ref 0 07/30/16 Ipratropium-Albuterol Neb (Duoneb)0.5-2.5 Mg/3 Ml Neb3 Ml NEB Q6HR PRN ( SHORTNESS OF BREATH) #120 NEBULE Ref 0 07/30/16 Polyvinyl Alcohol Opth (Liquitears Opth)1.4% Soln2 Drop EACH EYE Q2HR PRN (DRY EYE) 07/30/16 Sodium Chloride 1 Gm Tab1 Gm PO DAILY Ref 0 07/30/16 Metformin ER 1,000 Mg Taber1,000 Mg PO BID #30 TAB Ref 0 With evening meal 07/30/16 Insulin Aspart Inj (Novolog Inj)1,000 Unit/10 Ml Vial7 Units SQ TIDAC #10 ML Ref 0 07/30/16 Divalproex (Niharika PEDRAZA)500 Mg [id number] Mg PO Q8HR #60 TAB Ref 0 07/30/16 Atorvastatin 20 Mg Tab20 Mg PO HS #30 TAB Ref 0 07/30/16 Gabapentin (Neurontin)300 Mg Eqq252 Mg PO TID #90 CAP Ref 0 07/30/16 Insulin Glargine Inj (Lantus Inj)1,000 Unit/10 Ml Vial26 Units SQ HS Ref 0 07/30/16 Discontinued Reported Medications Mesalamine DR 800 Mg Tab1,600 Mg PO BID 7 Days Ref 0 08/30/16 Nystatin (Topical) (Nyata)100,000 Unit/Gm Tpp686,000 Units TOP DAILY 07/30/16 Discontinued Scripts Prednisone 20 Mg Tab20 Mg PO DIRECTED #11 TAB Ref 0 40 MG twice a day x 3 days, then 20 MG daily x 3 days, then 10 MG daily x 3 days Prov:Cj Levin MD 09/03/16 Amoxicillin-Clavulanate (Augmentin)500-125 mg Bor373 Mg PO Q8HR #7 TAB Prov:Cj Levin MD 09/03/16 Alprazolam (Xanax)0.5 Mg Tab0.5 Mg PO Q8H PRN (ANXIETY AND/OR AGITATION) #30 TAB Prov:Leidy Shultz MD R1 08/06/16 Current Medications Medications (Trade) Dose Ordered Sig/Krystal Route Start Time Stop Time Status Last Admin (NS Flush) 2 ml UNSCH PRN IV FLUSH 09/22/16 11:30 (NS Flush) 2 ml BID IV FLUSH 09/22/16 21:00 09/26/16 08:31 (Lovenox Inj) 40 mg Q24H SQ 09/22/16 14:00 09/25/16 12:55 (Elavil) 25 mg HS PO 09/22/16 21:00 Hold 09/22/16 21:02 (Imuran) 50 mg DAILY PO 09/23/16 09:00 09/25/16 09:21 (Symbicort 160-4.5 Inh) 1 puff Q12HR INH 09/22/16 21:00 09/26/16 08:30 (Niharika Pedraza) 500 mg Q8HR PO 09/22/16 14:00 09/26/16 05:32 (Neurontin) 900 mg TID PO 09/22/16 14:00 09/25/16 17:24 (Spiriva Inh) 18 mcg DAILY INH 09/22/16 14:00 09/26/16 08:30 (Asacol Hd Dr) 1,600 mg BID PO 09/22/16 21:00 09/25/16 20:19 (Ladan-Colace) 2 tab HS PO 09/22/16 21:00 09/24/16 20:55 (Aldactone) 50 mg DAILY PO 09/23/16 09:00 09/25/16 09:21 (Pepcid) 20 mg BID PO 09/22/16 21:00 09/25/16 20:19 (D50w (Vial) Inj) 25 ml UNSCH PRN IV PUSH 09/22/16 11:45 (Glucagon Inj) 1 mg UNSCH PRN OTHER 09/22/16 11:45 (Xanax) 0.5 mg BID PO 09/22/16 21:00 Hold 09/22/16 21:02 (Tylenol) 650 mg Q6H PRN PO 09/22/16 12:00 (Percocet 10-325 Mg) 1 tab Q6H PRN PO 09/22/16 12:00 09/25/16 16:18 (Narcan Inj) 0.4 mg UNSCH PRN IV 09/22/16 12:00 (Melatonin) 5 mg HS PO 09/23/16 21:00 09/25/16 20:19 (Deltasone) 50 mg DAILY PO 09/26/16 09:00 Hold 09/26/16 08:30 (SEROquel) 400 mg HS PO 09/25/16 21:00 09/25/16 20:19 Insulin Detemir 15 units 15 units HS SQ 09/26/16 21:00 Piperacillin Sod/ Tazobactam Sod 100 ml @ 200 mls/hr Q6H IV 09/26/16 12:00 09/27/16 05:43 (NS + KCl 20 Meq Inj) 1,000 ml @ 140 mls/hr Q7H9M IV 09/26/16 12:39 09/27/16 09:16 Family History Unable to obtain as patient is non-communicative. Social History Unable to obtain as patient is non-communicative. Patient's Strengths (min. 2) In monitored setting. Physical Exam PE completed by primary team. On my exam today, patient is sitting up in bed. No acute physical distress. No abnormal motor movements noted. Labs and vital signs reviewed: Vital Signs Vital Signs Date Time Temp Pulse Resp B/P Pulse Ox O2 Delivery O2 Flow Rate FiO2 09/27/16 08:14 21 09/27/16 08:07 96.7 62 20 157/65 100 09/23/16 12:24 Nasal Cannula 3.00 I/O 09/26/16 09/26/16 09/27/16 08:00 16:00 00:00 Intake Total 120 ml 240 ml Balance 120 ml 240 ml Lab Results Item Value Date Time White Blood Count 26.2 TH/MM3 H 09/27/16 0624 Hemoglobin 10.5 GM/DL L 09/27/16 0624 Platelet Count 474 TH/MM3 H 09/27/16 0624 Sodium Level 139 MEQ/L 09/27/16 0724 Potassium Level 3.4 MEQ/L L 09/27/16 0724 Chloride Level 101 MEQ/L 09/27/16 0724 Carbon Dioxide Level 27.7 MEQ/L 09/27/16 0724 Blood Urea Nitrogen 6 MG/DL L 09/27/16 0724 Creatinine 0.45 MG/DL L 09/27/16 0724 Aspartate Amino Transf (AST/SGOT) 20 U/L 09/27/16 0724 Alanine Aminotransferase (ALT/SGPT) 14 U/L 09/27/16 0724 Alkaline Phosphatase 94 U/L 09/27/16 0724 Thiamine Level 173 nmol/L 09/23/16 0805 Vitamin B12 Level 1191 PG/ML H 09/22/16 1420 Ammonia 38 MCMOL/L H 09/22/16 1422 Rapid Plasma Reagin NON-REACTIVE 09/22/16 1422 Valproic Acid (Depakene) Level 70 MCG/ML 09/22/16 1422 Urine Benzodiazepines Screen POS H 09/22/[address] 09/22/16 0000 Signed Impressions: Service Date/Time: Thursday, September 22, 2016 09:46 - CONCLUSION: Normal examination. Bakari Hearn Jr., MD Chest X-Ray 09/22/16 0000 Signed Impressions: Service Date/Time: Thursday, September 22, 2016 09:38 - CONCLUSION: No acute disease. Bakari Hearn Jr., MD Chest CT 09/22/16 0000 Signed Impressions: Service Date/Time: Thursday, September 22, 2016 15:27 - CONCLUSION: 1. No infiltrate or effusion. 2. Mild right basilar atelectasis. Bakari Hearn Jr., MD Abdomen/Pelvis CT 09/22/16 0000 Signed Impressions: Service Date/Time: Thursday, September 22, 2016 15:33 - CONCLUSION: Diffuse mild wall thickening involving the colon consistent with pancolitis. Findings are similar to the prior study. Consider C. difficile colitis versus ulcerative colitis. Bakari Hearn Jr., MD Mental Status Examination Patient is casually dressed. She is somewhat disheveled. She does exhibit volitional movements but is otherwise non-responsive. She is mute. Unable to perform other elements of MSE as patient is unable to communicate mental status. Insight and judgement are presently absent. Previous Homicide Attempts: No Assessment & Plan Problem List: (1) Altered mental status ICD Code: R41.82 (2) History of bipolar disorder ICD Code: Z86.59 Assessment & Plan This is a 50 year-old female with a chart history of BPAD presently medically admitted following a fall at intermediate. Psychiatry is consulted as patient has become less cooperative and is refusing medications. For me today, patient is unresponsive and mute. She does exhibit volitional movements. Given stuporous state and mutism, catatonia is certainly in the differential from a psychiatric standpoint, but would recommend ruling out medical/neurological causes of AMS/delirium. I note that head imaging/EEG were performed at admission, when patient's mental status was apparently better. I recommend: --Consider neurological consultation for evaluation of AMS --Consider repeat head imaging, EEG. I note patient was mildly hyperammonemic at admission. This may be related to VPA and could be causing valproate induced hyperammonemic encephalopathy. Consider treating with lactulose or Carnitor. Consider checking TFTs. Thiamine/B12 wnl and RPR negative. --If a medical/neurological cause is not suspected and catatonia seems higher in differential, could consider test dose of Ativan 2mg slow IV push over 2 minutes to see if patient's responsiveness improves. If so, could consider starting scheduled benzodiazepine. --Appropriateness of psychotropics depends on underlying cause of AMS (e.g. if delirium, TCA and benzo could worsen mental state; if valproate induced hyperammonemic encephalopathy, VPA may need to be changed; etc.) and so would need to be reassessed pending further workup. --I will ask Dr. Cristina to follow up after the weekend. Case d/w RN. Thank you very much for this consultation. Problem Qualifiers (1) Altered mental status: Qualified Code: R41.82 - Altered mental status, unspecified altered mental status type Jason Rosenberg MD September 27, 2016 10:24
[2016-09-27] MEDS ORDERED: POTASSIUM CHLOR 20 MEQ PREMIX 100 ML IV ONE (11:45)
--- NOTE | 2016-09-27 11:57 | HHI.FPPN ---
Subjective Remarks Pt seen and examined this morning. AFVSS. No acute events overnight. Patient does not respond to any questions on exam. Only opens her eyes with sternal rub. Does not follow commands. Per nursing, she was off and on like this yesterday. Barely ate breakfast today. Objective Vitals Vital Signs Date Time Temp Pulse Resp B/P Pulse Ox O2 Delivery O2 Flow Rate FiO2 09/27/16 08:14 21 09/27/16 08:07 96.7 62 20 157/65 100 09/27/16 04:00 96.6 63 20 155/77 99 09/27/16 00:00 97.0 69 20 138/65 96 09/26/16 20:47 98 21 09/26/16 20:00 98.3 83 20 132/64 97 09/26/16 15:41 97.5 79 20 148/70 100 09/26/16 12:11 97.9 94 20 128/71 99 I/O 09/26/16 09/26/16 09/26/16 09/27/16 09/27/16 09/27/16 07:00 15:00 23:00 07:00 15:00 23:00 Intake Total 120 ml 240 ml Output Total 1 ml Balance 120 ml 240 ml -1 ml Intake Oral 120 ml 240 ml Output Urine Total 1 ml # Voids 1 2 0 # Bowel Movements 2 0 1 Result Diagram: 09/27/16 0624 09/27/16 0724 Objective Remarks GENERAL: WN, WD female sitting up in bed in [facility]. SKIN: Warm and dry. HEENT: AT/NC. Pupils dilated, equal, and round. Responsive to light. HEART: RRR no m/r/g. LUNGS: CTAB without wheezes or crackles. ABDOMEN: Soft, nondistended, patient frowns when lower quadrants palpated. EXTREMITIES: No LE edema. NEURO: Awakens but does not respond to questions or follow commands. A/P Assessment and Plan 50-year-old female from long term facility and with complicated past medical history including bipolar disorder, ulcerative colitis presents with altered mental status from her nursing facility. CT abdomen shows pancolitis, unchanged from previous. Concern for polypharmacy since on Xanax, amitriptyline , Seroquel, Depakote. Other contributing factors may be adrenal insufficiency since she was on [facility] steroids without a taper, seizure, delirium, etc. Psychiatry and neurology consulted. Discharge Planning Unclear discharge timetable. Patient with unexplained leukocytosis and now AMS. Further neurologic work-up to follow. Problem List: (1) Pancolitis Status: Acute Plan: Patient with history of ulcerative colitis. On admission she met sepsis criteria with source likely GI since pancolitis seen on CT, though similar appearance from prior study. - WBC jumped to 29.4 yesterday and slightly down to 26.2 today - Stool studies negative for C. diff - Continue Zosyn IV Q6H - Continue home mesalamine and Azathioprine - Prednisone 50 mg PO daily - Blood cultures negative - Monitor CBC - Consult GI (2) Altered mental status Status: Acute Plan: Patient not responding/following commands/taking meds and refusing to eat. Psych consulted. ?Catatonia vs. underlying medical issue for delirium ( intracranial process, seizure, sepsis, etc.). Continue Depakote 500 mg by mouth every 8 hours. - Check ammonia and TSH - RPR, B12, and thiamine WNL - Depakote level WNL - EEG done on admission normal - CT head on admission negative - Consult neuro for further evaluation - On admission concern for polypharmacy --> holding Xanax, Seroquel, Amitriptyline (3) Bronchitis Status: Acute Plan: DuoNeb PRN. Supplemental O2 PRN. (4) FEN/DVT PPX/GI PPX Status: Acute Plan: Fluids: NS KCl at 140 ml/hr Electrolytes: Monitor and replace when necessary. 20 meq KCl IV x 1 today for mildly low K. Nutrition: Speech therapy assessed. Mechanical soft. Prophylaxis: Lovenox 40 mg subcutaneous every 24 hours. Bilateral SCDs. Chronic medical conditions: - Diabetes: Hold home metformin. Patient normally takes Lantus 26 units subcutaneous at bedtime with Novolin sliding scale. Levemir 20 units at bedtime, sliding scale insulin. Expect adjustments pending sliding scale coverage. - Ulcerative colitis: Continue azathioprine 50 mg daily. Mesalamine 1600 mg by mouth twice a day. Prednisone 50 mg by mouth daily - Diabetic polyneuropathy: Continue gabapentin at reduced dose of 400 mg by mouth 3 times a day, continue Lyrica at current home dose - COPD: Continue albuterol, DuoNeb's. - Hyperlipidemia: Currently holding home atorvastatin -Chronic low back pain: Continue Percocet 10 every 6 hours when necessary pain 6 -10. Morphine IV if unable to swallow. Problem Qualifiers (1) Altered mental status: Qualified Code: R41.82 - Altered mental status, unspecified altered mental status type Ayleen Foote MD September 27, 2016 11:57
[2016-09-27] MEDS ORDERED: PEG (High)/E-LYTE SOLN 4000 ML BTL PO ONE (13:30)
--- NOTE | 2016-09-27 13:49 | MB ---
cc: AVIVA RAMIREZ M.D., KENNETH L. M.D. DATE OF CONSULTATION: 09/27/2016 REASON FOR CONSULTATION: Colitis with a history of ulcerative colitis. HISTORY OF PRESENT ILLNESS: Ms. Rockwell is a 50-year-old lady with significant psych history who is unable to provide me any history at this time. Apparently she was found on the floor and was brought in to the hospital. Workup here reveals possibility of sepsis and exacerbation of COPD. CT scan shows diffuse colitis. The chart does give a history of ulcerative colitis and the patient is on prednisone and azathioprine, unclear to me if she has been taking these medications. REVIEW OF SYSTEMS: Unobtainable. PAST MEDICAL HISTORY: 1. Bipolar disorder. 2. Uterine cancer. 3. Diabetes. 4. GERD. 5. Anxiety. 6. COPD. 7. Ulcerative colitis. PAST SURGICAL HISTORY: . Tonsillectomy. Hysterectomy. Unclear if she has had previous EGD, colonoscopy. MEDICATIONS: 1. Prednisone. 2. Augmentin. 3. Azathioprine. 4. Xanax 5. Quetiapine 6. Melatonin. 7. Asacol. 8. Restasis drops. 9. Zantac. 10. Atrovent. 11. Lyrica. 12. Metformin 13. Insulin 14. Neurontin. ALLERGIES SULFA. CIPRO ERYTHROMYCIN OFLOXACIN PHYSICAL EXAMINATION: The physical examination reveals a well-nourished lady who is not providing any history. She is nonverbal for me. LABORATORY DATA: White cell count 26,000. Hemoglobin 10.5, creatinine 0.45, liver function tests are normal. CT of the abdomen and pelvis reveals significant pancolitis. IMPRESSION: Ulcerative colitis. The patient's stool studies are negative for C. Difficile. RECOMMENDATIONS: Colonoscopy if able to do bowel prep. In her current state, she is not able to do bowel prep. I do not think she would tolerate a nasogastric tube. This has been discussed with the nurse. I have placed orders if the patient is prepped we can scope her tomorrow. Thank you for the referral. Dr. Londono will follow from tomorrow. MD RAMBO Thompson/BC /1:24 PM /1:40 PM
[2016-09-27] MEDS: ENOXAPARIN SODIUM 40 MG/0.4 ML SYRINGE SQ SCH (14:05)
[2016-09-27 15:30] LABS: BLOOD GAS BASE EXCESS 0.1 mmol/L (-2-2); BLOOD GAS CARBOXYHEMOGLOBIN 1.6 % (0-4); BLOOD GAS HCO3 23 mmol/L (22-26); BLOOD GAS METHEMOGLOBIN 1.1 % (0-2); BLOOD GAS O2 HGB SATURATION 95 % (90-100); BLOOD GAS PCO2 29 mmHg (38-42); BLOOD GAS PO2 88 mmHg (61-120); BLOOD GAS TOTAL HGB 9.7 G/DL (12.0-16.0); TEMP CORR TO 98.6
[2016-09-27 15:31] LABS: CRITICAL VALUE YES; DRAW SITE RT RADIAL; FIO2 21 %; NUMBER OF ARTERIAL PUNCTURES 1; STAT YES; ULNAR PULSE PRESENT
--- NOTE | 2016-09-27 15:31 | MB ---
cc: RAUL PUGA DATE OF CONSULTATION: 09/27/2016 HISTORY OF PRESENT ILLNESS: The patient is a 50-year-old woman with a history of ulcerative colitis on prednisone, azathioprine. She lives in a detention facility and she had a fall over there. She did not recall the fall. She had a little bit of a cough. She was sleepy. Not a good historian in the emergency room. She is normally awake, alert and oriented times three and ambulating by herself. She can be dramatic at times. She was found on the ground. Nobody had witnessed it. She was confused and not acting her normal self. She had sepsis and COPD in August of this year. She had normal speech according to the admitting doctor on 09/22. She had an EEG done on 09/22/16 which was normal. She has not been talking today. In the last few days, she became nonverbal refusing food and medications. According to the nurse, she actually did talk yesterday. MEDICATIONS AT THE ASSISTED LIVING FACILITY: 1. Insulin. 2. Neurontin 900 three times a day. 3. Atorvastatin. 4. Depakote 500 q.8. 5. Metformin. 6. Lyrica 100 a day. 7. Zantac. 8. Elavil 25 at bedtime. 9. Aldactone. 10. Melatonin. 11. Tylenol. 12. Xanax 1 milligram twice a day. 13. Questran. 14. Florastor. 15. Azathioprine. 16. Oxycodone. 17. Seroquel 400 at bedtime. MEDICATIONS HERE: 1. Prednisone 50 milligrams a day. 2. Seroquel has been stopped as she refused it last night. 3. She refused her melatonin, the Imuran, and refused all of her medications today. Refused her Depakote, her Neurontin. ALLERGIES: 1. SULFA. 2. CIPRO. 3. ERYTHROMYCIN. 4. ____FLOXACIN. PAST MEDICAL HISTORY: 1. She has a history of bipolar. 2. Long-term antipsychotic and benzodiazepine use. 3. Uterine cancer. 4. Anxiety. PAST SURGICAL HISTORY: 1. History of section. 2. Lumbar spine and cervical spine surgery. SOCIAL HISTORY: Lives at [facility]. PHYSICAL EXAMINATION: VITAL SIGNS: Afebrile, 75, 21, 51/77. NECK: There are no carotid bruits. HEART: Regular rhythm. I do not detect a murmur. NEUROLOGICAL EXAMINATION: Reaction to threat is intact bilaterally. She does look at me and make eye contact. She had normal strength in upper and lower extremities bilaterally. DTRs are trace. Toes are downgoing bilaterally. She moves all of her extremities well. She said, "Ough" on my Babinski testing and a few other words in a sentence which made sense. LABORATORY DATA: White count is 26,000, although it has been high since she came in but she is on chronic steroids and in fact in July it was also high. Platelet count is normal. ABG on 09/22 was normal except for a pH of 7.3, a pA02 of 67. Her sodium was initially 131 and it has gone up to 139. She had a low sodium a year ago of 120. Creatinine is normal. Calcium normal. Liver function tests normal. Total protein normal. CPK on admission was normal. Troponin on admission was normal. Albumin is 2.3. B12 was normal. Thyroid is normal. Thiamine level has been normal. Depakote level was 70 on the 2nd. Her urine drug screen positive for benzos only. Urinalysis was negative. Coags normal. RPR has been negative on this admission. IMAGING STUDIES: She had a CT scan of her brain done the 2nd which was read as normal. Abdominal CT: Pancolitis. Head CT was performed, which was read as normal for her age. Reviewed the films. There appears to be some bifrontal atrophy and could be a little bit more than the age and age-appropriate. She had a CT scan of her chest that was negative. IMPRESSION: Not currently talking. Not sure if it is not psychiatric. RECOMMENDATIONS/PLAN: 1. Will repeat her EEG. 2. I would recheck her blood gases. Her pH was very acidotic before. 3. Will check an MRI of the brain. 4. Also check her sedimentation rate, although she is on steroids. 5. CARLENE. 6. Ammonia level. MD ANTONI Silva/MARILEE /2:59 PM /3:12 PM
[2016-09-27 18:07] LABS: BETA HCG QUANT LESS THAN 1 MIU/ML (0-5)
[2016-09-27] MEDS: DOCUSATE SODIUM 50 MG/SENNA 8.6 MG TAB PO SCH (21:00)
[2016-09-27] MEDS: INSULIN DETEMIR 100 UNITS/ML VIAL SQ SCH (21:00)
[2016-09-27] MEDS: MELATONIN 5 MG TAB PO SCH (21:00)
[2016-09-28] VITALS (7 sets, daily range): BP systolic 138–162; BP diastolic 58–92; PULSE 67–102; RESP 18–24; TEMP 96.6–99.1; O2SAT 93–98
[2016-09-28] MEDS: RESP: ALBUTEROL 2.5 MG/3 ML NEB (SCH) NEB ×3 (00:04→09:43)
[2016-09-28] MEDS: PIPERACIL-TAZO 4.5 GM PREMIX 100 ML IV SCH ×4 (01:03→18:25)
[2016-09-28] MEDS: NS + KCL 20 MEQ INJ 1,000 ML IV SCH ×3 (01:04→14:39)
[2016-09-28] MEDS: ONDANSETRON HCL 4 MG/2 ML VIAL IV PUSH PRN ×2 (05:46→12:19)
[2016-09-28] MEDS: DIVALPROEX DR 500 MG TABEC PO SCH ×2 (05:52→14:20)
[2016-09-28 07:42] LABS: AUTOMATED NEUTROPHIL # 25.7 TH/MM3 (1.8-7.7); BASOPHIL # 0.1 TH/MM3 (0-0.2); BASOPHIL % 0.4 % (0.0-2.0); HEMATOCRIT 34.9 % (35.0-46.0); LYMPH % 10.6 % (9.0-44.0); LYMPHOCYTE # 3.3 TH/MM3 (1.0-4.8); MEAN CELL VOLUME 78.3 FL (80.0-100.0); MEAN CORPUSCULAR HEMOGLOBIN 24.8 PG (27.0-34.0); MEAN CORPUSCULAR HGB CONC 31.7 % (32.0-36.0); MONO % 5.6 % (0.0-8.0); NEUT % 83.4 % (16.0-70.0); PLATELET COUNT 611 TH/MM3 (150-450); RED BLOOD COUNT 4.46 MIL/MM3 (4.00-5.30); RED CELL DISTRIBUTION WIDTH 20.7 % (11.6-17.2); WHITE BLOOD COUNT 30.8 TH/MM3 (4.0-11.0)
[2016-09-28 07:51] LABS: HEMO FLAGS AUTO DIFF
[2016-09-28 07:58] LABS: ALKALINE PHOSPHATASE 104 U/L (45-117); ALT (GPT) 14 U/L (10-53); ANION GAP 14 MEQ/L (5-15); AST (GOT) 14 U/L (15-37); BICARBONATE 24.3 MEQ/L (21.0-32.0); BLOOD UREA NITROGEN 3 MG/DL (7-18); CHLORIDE 99 MEQ/L (98-107); GLOMERULAR FILTRATION RATE 184 ML/MIN (>89); SODIUM (NA) 137 MEQ/L (136-145); TOTAL BILIRUBIN ADULT 0.4 MG/DL (0.2-1.0)
[2016-09-28 08:02] LABS: POTASSIUM 2.9 MEQ/L (3.5-5.1)
--- NOTE | 2016-09-28 08:20 | HHI.PR ---
Objective Vital Signs Date Time Temp Pulse Resp B/P Pulse Ox O2 Delivery O2 Flow Rate FiO2 09/28/16 04:30 98.9 88 20 138/80 98 09/28/16 00:00 98.1 80 18 160/58 98 09/27/16 20:30 97.7 82 17 165/66 99 09/27/16 19:26 97 21 09/27/16 16:07 97.6 73 20 154/74 100 09/27/16 12:32 96.9 75 20 151/77 100 I/O 09/27/16 09/27/16 09/27/16 09/28/16 09/28/16 09/28/16 07:00 15:00 23:00 07:00 15:00 23:00 Intake Total 0 ml 0 ml Output Total 1 ml Balance -1 ml 0 ml 0 ml Intake Oral 0 ml 0 ml Output Urine Total 1 ml # Voids 3 2 4 # Bowel Movements 1 2 0 2 1 Result Diagram: 09/28/16 0651 09/28/16 0651 Objective Remarks smiled non verbal made good eye contact some cogwheeling bue Assessment and Plan Assessment and Plan labs ok recheck cpk make sure no nms i may try a little sinemet on her if no change fu eeg and mri Jason Velazquez MD September 28, 2016 08:20
[2016-09-28 08:36] LABS: ACANTHOCYTES OCC (NORMAL); BANDS 14 % (0-6); CORRECTED NUCLEATED RBC 2 /100 WBC (0-0); KERATOCYTES OCC (NORMAL); METAMYELOCYTES 2 % (0-1); MYELOCYTES 14 % (0-0); NEUTROPHIL # MANUAL DIFF 24.3 TH/MM3 (1.8-7.7); POLYS (SEG NEUTROPHILS) 49 % (16-70); TOXIC GRANULATION 1+ (NORMAL); TOXIC VACUOLATION PRESENT (NONE SEEN); WBC DIFF SAMPLE 100
[2016-09-28 08:37] LABS: OVALOCYTES 1+ (NORMAL); PLATELET ESTIMATE SMEAR HIGH (NORMAL); PLATELET MORPHOLOGY NORMAL (NORMAL); SCAN/DIFF FINAL DIFF MANUAL
--- NOTE | 2016-09-28 08:37 | HHI.FPPN ---
Subjective Remarks Patient continues to refuse to speak. She does however shake yes or no to questions. Continues to refuse by mouth medications. Spoke with nursing. Patient refused bowel prep for colonoscopy. An attempt was made to place an NG tube, and patient coughed it out. She has had 5 bowel movements since yesterday. She has had 3-4 episodes of vomiting clear/green fluid. Review of systems Limited secondary to patient refusing to cooperate. Objective Vitals Vital Signs Date Time Temp Pulse Resp B/P Pulse Ox O2 Delivery O2 Flow Rate FiO2 09/28/16 04:30 98.9 88 20 138/80 98 09/28/16 00:00 98.1 80 18 160/58 98 09/27/16 20:30 97.7 82 17 165/66 99 09/27/16 19:26 97 21 09/27/16 16:07 97.6 73 20 154/74 100 09/27/16 12:32 96.9 75 20 151/77 100 I/O 09/27/16 09/27/16 09/27/16 09/28/16 09/28/16 09/28/16 07:00 15:00 23:00 07:00 15:00 23:00 Intake Total 0 ml 0 ml Output Total 1 ml Balance -1 ml 0 ml 0 ml Intake Oral 0 ml 0 ml Output Urine Total 1 ml # Voids 3 2 4 # Bowel Movements 1 2 0 2 1 Result Diagram: 09/28/16 0651 09/28/16 0651 Objective Remarks GENERAL: WN, WD female sitting up in bed in [facility]. SKIN: Warm and dry. HEENT: AT/NC. Pupils dilated, equal, and round. Responsive to light. HEART: RRR no m/r/g. LUNGS: CTAB without wheezes or crackles. ABDOMEN: Soft, nondistended, appears uncomfortable when lower quadrants palpated. No distention, no guarding. EXTREMITIES: No LE edema. NEURO: Answers yes or no to direct questions. Sometimes refuses any acknowledgment. Nonverbal. A/P Assessment and Plan 50-year-old female from [facility] and with complicated past medical history including bipolar disorder, ulcerative colitis presents with altered mental status from her nursing facility. CT abdomen shows pancolitis, unchanged from previous. Concern for polypharmacy since on Xanax, amitriptyline , Seroquel, Depakote. Other contributing factors may be adrenal insufficiency since she was on technician terminal and repeater steroids without a taper, seizure, delirium, etc. Psychiatry and neurology, infectious disease consulted.. Discharge Planning Unclear discharge timetable. Patient with unexplained leukocytosis and now AMS. Further neurologic work-up to follow. Problem List: (1) Pancolitis Status: Acute Plan: Patient with history of ulcerative colitis. On admission she met sepsis criteria with source likely GI since pancolitis seen on CT, though similar appearance from prior study. -Leukocytosis increased this morning - Infectious disease, gastroenterology consulted - Patient refusing bowel prep, plan was for colonoscopy on 09/28 - Currently not tolerating NG tube Meds: - Continue Zosyn IV Q6H - Continue home mesalamine and Azathioprine -Methylprednisolone 40 mg IV every 12 hours (holding by mouth prednisone while refusing by mouth medications) Labs: - Blood cultures negative - Monitor CBC - Stool studies negative for C. diff (2) Altered mental status Status: Acute Plan: Patient not responding/following commands/taking meds and refusing to eat. Differential includes, Catatonia vs. underlying medical issue for delirium (intracranial process, seizure, sepsis, etc.). - Psychiatry consult - Neurology consulted - EEG done on admission normal - CT head on admission negative - MRI brain ordered - On admission concern for polypharmacy --> holding Xanax, Seroquel, Amitriptyline - Continue Depakote 500 mg by mouth every 8 hours. Labs: - Check ammonia and TSH - RPR, B12, and thiamine WNL - Depakote level WNL (3) Bronchitis Status: Acute Plan: DuoNeb PRN. Supplemental O2 PRN. (4) FEN/DVT PPX/GI PPX Status: Acute Plan: Fluids: NS KCl at 140 ml/hr Electrolytes: Monitor and replace when necessary. Nutrition: Speech therapy assessed. Mechanical soft. Prophylaxis: Lovenox 40 mg subcutaneous every 24 hours. Bilateral SCDs. Chronic medical conditions: - Diabetes: Hold home metformin. Patient normally takes Lantus 26 units subcutaneous at bedtime with Novolin sliding scale. Levemir 15 units at bedtime, sliding scale insulin. Expect adjustments pending sliding scale coverage. - Ulcerative colitis: Continue azathioprine 50 mg daily. Mesalamine 1600 mg by mouth twice a day. - Diabetic polyneuropathy: Continue gabapentin at reduced dose of 400 mg by mouth 3 times a day, continue Lyrica at current home dose - COPD: Continue albuterol, DuoNeb's. - Hyperlipidemia: Currently holding home atorvastatin -Chronic low back pain: Continue Percocet 10 every 6 hours when necessary pain 6 -10. Morphine IV if unable to swallow. Problem Qualifiers (1) Altered mental status: Qualified Code: R41.82 - Altered mental status, unspecified altered mental status type Fabian Anderson MD R2 September 28, 2016 08:37
[2016-09-28] MEDS: methylPREDNISolone SOD SUCC 40 MG/1 ML VIAL IV PUSH SCH ×2 (09:30→23:39)
[2016-09-28] MEDS: POTASSIUM CHLOR 20 MEQ PREMIX 100 ML IV SCH ×2 (09:31→12:19)
[2016-09-28] MEDS: SPIRONOLACTONE 50 MG TAB PO SCH (09:42)
[2016-09-28] MEDS: MESALAMINE HD 800 MG DELAYED RELEASE TAB PO SCH ×2 (09:42→21:00)
[2016-09-28] MEDS: SODIUM CHLORIDE 0.9% FLUSH 10 ML FLUSH IV FLUSH SCH ×2 (09:42→23:39)
[2016-09-28] MEDS: FAMOTIDINE 20 MG TAB PO SCH (09:43)
[2016-09-28] MEDS: GABAPENTIN 300 MG CAP PO SCH ×3 (09:43→17:28)
[2016-09-28] MEDS: azaTHIOprine 50 MG TAB PO SCH (09:43)
[2016-09-28] MEDS: BUDESONIDE-FORMOTEROL 160/4.5 MCG INHALER INH SCH ×2 (09:44→21:00)
[2016-09-28] MEDS: TIOTROPIUM BROMIDE 18 MCG INH INH SCH (09:44)
[2016-09-28] MEDS ORDERED: GADODIAMIDE PF 287 MG/ML 20 ML VIAL (for RAD MRI) IV ONE (10:48)
--- NOTE | 2016-09-28 11:49 | RADRPT ---
EXAM DATE/TIME: 09/28/2016 10:25 [facility] COMPARISON: No previous studies available for comparison. INDICATIONS : Altered mental status. CONTRAST: 18 cc Omniscan (gadodiamide) IV MEDICAL HISTORY : Diabetes mellitus type 2. Hypertension. SURGICAL HISTORY : section. Fusion, cervical. Hysterectomy. ENCOUNTER: Initial ACUITY: 3 day PAIN SCORE: Nonresponsive. LOCATION: Head TECHNIQUE: Multiplanar, multisequence MRI of the brain was performed both prior to and following the administrat ion of paramagnetic contrast. FINDINGS: There is moderate central and cortical atrophy, more pronounced in the cerebellum. There is no restr icted diffusion evident. Midline structures are intact. There is no hemorrhage, mass lesion or acute infarction. Moderate motion artifact is present on the SWI imaging. Following intravenous administration of gadolinium there is no abnormal contrast enhancement. CONCLUSION: Atrophy more pronounced in the cerebellum otherwise negative acute process. Micah Araujo MD FACR on September 28, 2016 at 11:45 Board Certified Radiologist. This report was verified electronically.
[2016-09-28] MEDS: INSULIN ASPART SUPPLEMENTAL SCALE SQ SCH ×4 (12:18→21:00)
--- NOTE | 2016-09-28 14:00 | PD.CONS ---
History of Present Illness Service Infectious disease Consult Requested By Dr Susan Miramontes Reason for Consult Evaluate patient with leukocytosis Primary Care Physician Unknown Diagnoses: History of Present Illness Patient seen and examined. Records reviewed. Patient is a 50-year-old female, [facility], brought into the hospital after she was found on the floor. As a baseline status she is awake and alert and oriented 3, and can normally ambulate. On the day of admission she was apparently found on the floor, and she was noted to be confused and acting differently from her usual self. There was no 1 witnessed the fall. She was brought into the hospital for further evaluation and treatment. Patient has had 2 recent hospitalization. One in July, and at that time she was diagnosed to have ulcerative colitis. CT of her abdomen and pelvis showed evidence of bowel wall thickening. Her stool for C. difficile was negative at that time. In the early part of August she was admitted with possible sepsis and acute exacerbation of COPD. She was discharged on oral antibiotic to treat her tracheobronchitis. No hospitalizations, patient has had persistent leukocytosis. The the lowest WBC that I could see was down to 15,000. On this admission patient was put on Solu-Medrol for her COPD. Her white count had gone up to 2009 thousand couple days ago, went down to 26,000, and it's up to 30 ,000. Patient also has been having diarrhea, and stool for C. difficile is negative. CT of the abdomen and pelvis showed no change compared to her CT from July of this same year. In having vomiting since last night. Her admission chest x-ray is normal. She had an MRI of the brain which did not show any acute disease. Her urinalysis is unremarkable. Infectious disease consultation has been requested to evaluate the patient for her leukocytosis. Has not had any fever since admission. She has no Shaw catheter. She has no central line. Review of Systems ROS Limitations: Clinical Condition, Altered Mental Status Constitutional: DENIES: Fever, Chills Ears, nose, mouth, throat: DENIES: Nasal discharge, Toothache Respiratory: DENIES: Cough, Shortness of breath Cardiovascular: DENIES: Chest pain Gastrointestinal: COMPLAINS OF: Abdominal pain, Diarrhea, Nausea, Vomiting Integumentary: DENIES: Rash Psychiatric: COMPLAINS OF: Confusion Past Family Social History Allergies: Coded Allergies: Sulfa (Verified Allergy, Severe, RASH, 09/22/16) Cipro (Verified Allergy, Unknown, 09/22/16) Erythromycin (Verified Allergy, Unknown, 09/22/16) Ofloxacin (Verified Allergy, Unknown, 09/22/16) Past Medical History Ulcerative colitis History of bipolar disorder History of uterine cancer Diabetes mellitus GERD Anxiety COPD Hypertension Past Surgical History section Cervical spine surgery Lumbar spine surgery Right knee surgery 2 Tonsillectomy Hysterectomy Active Ordered Medications Tylenol Imuran Symbicort Depakote Lovenox Pepcid Neurontin Insulin Melatonin Solu-Medrol Zofran Percocet Zosyn Potassium Ladan-Colace Aldactone Spiriva Social History [facility] in the jail Used to smoke 1 pack per day cigarette, apparently has cut down No alcohol abuse No illicit drugs Physical Exam Vital Signs Vital Signs Date Time Temp Pulse Resp B/P Pulse Ox O2 Delivery O2 Flow Rate FiO2 09/28/16 12:58 97.5 87 20 162/92 95 09/28/16 09:50 21 09/28/16 08:33 96.6 67 18 150/70 98 09/28/16 04:30 98.9 88 20 138/80 98 09/28/16 00:00 98.1 80 18 160/58 98 09/27/16 20:30 97.7 82 17 165/66 99 09/27/16 19:26 97 21 09/27/16 16:07 97.6 73 20 154/74 100 Physical Exam GENERAL: This is a well-nourished, well-developed female, she is awake and alert , she is focusing and responding some, however she is not talking. Does not look toxic appearing, not in respiratory distress. SKIN: Cool and dry. No generalized rash or ecchymosis. Her IV sites look okay with no evidence of phlebitis. HEAD: Atraumatic. Normocephalic. No temporal or scalp tenderness. EYES: Murtaugh conjunctiva, no petechia or hemorrhage. Pupils equal round and reactive. Extraocular motions intact. No scleral icterus. No injection or drainage. ENT: Nose without bleeding, or purulent drainage . Patient did not open her mouth for complete exam, she has moist oral mucosa. NECK: Trachea midline. No JVD or lymphadenopathy. Supple, nontender, no meningeal signs. CARDIOVASCULAR: Regular rate and rhythm without murmurs, gallops, or rubs. RESPIRATORY: Clear to auscultation. Breath sounds equal bilaterally. No wheezes , rales, or rhonchi. GASTROINTESTINAL: Abdomen soft, nondistended, bowel sounds are present and normoactive, she has tenderness on the right side of the abdomen. No guarding or rebound. No hepato-splenomegaly, or palpable masses. MUSCULOSKELETAL: Extremities without clubbing, cyanosis, or edema. No joint effusion, or edema noted. No calf tenderness. Negative Homans sign bilaterally. NEUROLOGICAL: Awake and alert. Cranial nerves II through XII intact. No Babinski. No clonus. Patient really did not my commands as far as hand nurse transition or moving feet. She does move them spontaneously if she wants to. LINE: No evidence of infection Incontinent of green liquid stool Laboratory Laboratory Tests Test 09/27/16 09/27/16 09/28/16 09/28/16 15:20 16:58 06:51 09:43 Blood Gas Puncture Site RT RADIAL Blood Gas Patient Temperature 98.6 Blood Gas HCO3 23 Blood Gas Base Excess 0.1 Blood Gas Oxygen Saturation 95 Arterial Blood pH 7.51 Arterial Blood Partial 29 Pressure CO2 Arterial Blood Partial 88 Pressure O2 Arterial Blood Oxygen Content 13.0 Arterial Blood 1.6 Carboxyhemoglobin Arterial Blood Methemoglobin 1.1 Blood Gas Hemoglobin 9.7 Blood Gas Inspired Oxygen 21 Erythrocyte Sedimentation Rate 18 Ammonia 37 Folate GREATER THAN 20.0 Thyroid Stimulating Hormone 4.110 3rd Gen Human Chorionic Gonadotropin, LESS THAN 1 Quant White Blood Count 30.8 Red Blood Count 4.46 Hemoglobin 11.0 Hematocrit 34.9 Mean Corpuscular Volume 78.3 Mean Corpuscular Hemoglobin 24.8 Mean Corpuscular Hemoglobin 31.7 Concent Red Cell Distribution Width 20.7 Platelet Count 611 Mean Platelet Volume 6.8 Neutrophils (%) (Auto) 83.4 Lymphocytes (%) (Auto) 10.6 Monocytes (%) (Auto) 5.6 Eosinophils (%) (Auto) 0.0 Basophils (%) (Auto) 0.4 Neutrophils # (Auto) 25.7 Lymphocytes # (Auto) 3.3 Monocytes # (Auto) 1.7 Eosinophils # (Auto) 0.0 Basophils # (Auto) 0.1 CBC Comment AUTO DIFF Differential Total Cells 100 Counted Neutrophils % (Manual) 49 Band Neutrophils % 14 Lymphocytes % 13 Monocytes % 8 Neutrophils # (Manual) 24.3 Metamyelocytes 2 Myelocytes 14 Nucleated Red Blood Cells 2 Differential Comment FINAL DIFF MANUAL Toxic Granulation 1+ Toxic Vacuolation PRESENT Platelet Estimate HIGH Platelet Morphology Comment NORMAL Ovalocytes 1+ Acanthocytes OCC Keratocytes OCC Sodium Level 137 Potassium Level 2.9 Chloride Level 99 Carbon Dioxide Level 24.3 Anion Gap 14 Blood Urea Nitrogen 3 Creatinine 0.37 Estimat Glomerular Filtration 184 Rate Random Glucose 184 Calcium Level 8.2 Total Bilirubin 0.4 Aspartate Amino Transf 14 (AST/SGOT) Alanine Aminotransferase 14 (ALT/SGPT) Alkaline Phosphatase 104 Total Protein 5.8 Albumin 2.4 Total Creatine Kinase 18 Date/Time Procedure Status Source Growth 09/26/16 10:50 Cryptosporidium Exam Resulted Stool Stool Pending 09/26/16 10:50 Stool Pus (JENNIFER) - Final Resulted Stool Stool RARE WBC 09/26/16 10:50 Giardia Antigen (JENNIFER) Resulted Stool Stool Pending Result Diagram: 09/28/16 0651 09/28/16 0651 Imaging RADIOLOGY STUDIES/FILMS REVIEWED Brain MRI 09/28/16 0000 Signed Impressions: Service Date/Time: Wednesday, September 28, 2016 10:25 - CONCLUSION: Atrophy more pronounced in the cerebellum otherwise negative acute process. Micah Araujo MD FACR Head CT 09/22/16 0000 Signed Impressions: Service Date/Time: Thursday, September 22, 2016 09:46 - CONCLUSION: Normal examination. Bakari Hearn Jr., MD Chest X-Ray 09/22/16 0000 Signed Impressions: Service Date/Time: Thursday, September 22, 2016 09:38 - CONCLUSION: No acute disease. Bakari Hearn Jr., MD Chest CT 09/22/16 0000 Signed Impressions: Service Date/Time: Thursday, September 22, 2016 15:27 - CONCLUSION: 1. No infiltrate or effusion. 2. Mild right basilar atelectasis. Bakari Hearn Jr., MD Abdomen/Pelvis CT 09/22/16 0000 Signed Impressions: Service Date/Time: Thursday, September 22, 2016 15:33 - CONCLUSION: Diffuse mild wall thickening involving the colon consistent with pancolitis. Findings are similar to the prior study. Consider C. difficile colitis versus ulcerative colitis. Bakari Hearn Jr., MD Assessment and Plan Assessment and Plan IMPRESSION Leukocytosis, likely reactive due to GI process, and due to steroids Ulcerative colitis, ?etiology of her current diarrhea - C diff negative Vomiting, etiology? Known bipolar disorder RECOMMENDATION Check amylase and lipase Repeat CXR On Zosyn - if CXR ok, consider D/C Taper steroids if possible, she is not wheezing anymore, and does not seem to be in resp distress Add Flagyl Check stool for WBC and OB GI following and patient for work-up (but she has refused some meds for prep) Follow CBC Monitor progress I will follow along with you. Thank you for this consultation Discussed Condition With Discussed with Kallie Moreland MD September 28, 2016 14:00
[2016-09-28] MEDS: ENOXAPARIN SODIUM 40 MG/0.4 ML SYRINGE SQ SCH (14:15)
[2016-09-28] MEDS ORDERED: LORazepam 2 MG/ML VIAL IV PUSH STA (14:45)
--- NOTE | 2016-09-28 15:06 | MG ---
cc: SHEYLA URIAS M.D. Lab No: [id number] Date: 09/28/2016 Age: 50 Sex: F Race: DATE OF : [address] Velazquez. Room 1518, repeat study. The patient is not talking or following commands. Last EEG of 08/23/2016 was normal. She is awake. She is status post fall, does not remember, tachycardic on arrival, history of ulcerative colitis. 50-year-old woman, bipolar disease disorder, anxiety, depression, uterine cancer on Zofran, insulin, Zosyn, Lovenox, prednisone. DESCRIPTION OF RECORD There is a lot of muscle artifact. Washcloth was placed on her forehead, eye region, ongoing movement. Unable to tell any background rhythm, may be 5-6 Hz but very poor study. The technicians are having trouble getting her to relax throughout the recording and this is documented, even with a washcloth. At one point she starts vomiting. Very difficult to tell if there is any type of epileptic activity, unfortunately. IMPRESSION Poor study to determine any true epileptiform features. There may be some background slowing but there is gross artifact. I would recommend at this point some mild sedation and a repeat study. Clinical correlation. Sheyla Urias MD DF/JANESSA /12:46 PM /2:55 PM
[2016-09-28] MEDS ORDERED: SODIUM CHLOR 0.9% 1000 ML INJ 1,000 ML IV SCH (15:30)
[2016-09-28 15:49] LABS: HEMATOCRIT 34.3 % (35.0-46.0); MEAN CORPUSCULAR HEMOGLOBIN 25.7 PG (27.0-34.0); MEAN CORPUSCULAR HGB CONC 32.5 % (32.0-36.0); PLATELET COUNT 688 TH/MM3 (150-450); RED BLOOD COUNT 4.34 MIL/MM3 (4.00-5.30); RED CELL DISTRIBUTION WIDTH 21.1 % (11.6-17.2); REVIEW FLAG FINAL; WHITE BLOOD COUNT 28.1 TH/MM3 (4.0-11.0)
[2016-09-28 15:58] LABS: APTT (PATIENT) 24.2 SEC (24.3-30.1); INTERNATIONAL NORMALIZED RATIO 1.1 RATIO; PROTHROMBIN TIME - PATIENT 12.2 SEC (9.8-11.6)
--- NOTE | 2016-09-28 15:58 | RADRPT ---
EXAM DATE/TIME: 09/28/2016 15:30 [facility] COMPARISON: No previous studies available for comparison. INDICATIONS : Short of breath MEDICAL HISTORY : SURGICAL HISTORY : None. ENCOUNTER: Subsequent ACUITY: 1 week PAIN SCORE: Non-responsive. LOCATION: Bilateral chest FINDINGS: A single view of the chest demonstrates the lungs to be symmetrically aerated without evidence of mas s, infiltrate or effusion. The cardiomediastinal contours are unremarkable. Osseous structures are intact. CONCLUSION: No acute disease. Daryl Cook MD on September 28, 2016 at 15:56 Board Certified Radiologist. This report was verified electronically.
[2016-09-28] MEDS ORDERED: FOSPHENYTOIN INJ 1,000 MGPE in SODIUM CHLORIDE 0.9% INJ 50 ML IV ONE (16:00)
[2016-09-28] MEDS: VALPROATE INJ 500 MG in SODIUM CHLORIDE 0.9% INJ 100 ML IV SCH (16:05)
--- NOTE | 2016-09-28 16:29 | HHI.GIFU ---
Subjective Remarks Pt resting in bed, in no apparent distress. She is not good historian, RN helps with hx. She does admit to abd pain and diarrhea but does not qualify further and laughs when asked. Per RN she vomited repeatedly this morning, no blood. She was supposed to have colonoscopy yesterday but refused bowel prep. ( Pao Brady) Objective Vitals I&O Vital Signs Date Time Temp Pulse Resp B/P Pulse Ox O2 Delivery O2 Flow Rate FiO2 09/28/16 12:58 97.5 87 20 162/92 95 09/28/16 09:50 21 09/28/16 08:33 96.6 67 18 150/70 98 09/28/16 04:30 98.9 88 20 138/80 98 09/28/16 00:00 98.1 80 18 160/58 98 09/27/16 20:30 97.7 82 17 165/66 99 09/27/16 19:26 97 21 I/O 09/27/16 09/27/16 09/27/16 09/28/16 09/28/16 09/28/16 07:00 15:00 23:00 07:00 15:00 23:00 Intake Total 0 ml 0 ml 5576 ml Output Total 1 ml Balance -1 ml 0 ml 0 ml 5576 ml Intake Oral 0 ml 0 ml IV Total 5576 ml Output Urine Total 1 ml # Voids 3 2 4 4 # Bowel Movements 1 2 0 2 3 Laboratory Laboratory Tests Test 09/27/16 09/28/16 09/28/16 09/28/16 16:58 06:51 09:43 15:25 Erythrocyte Sedimentation Rate 18 Ammonia 37 Folate GREATER THAN 20.0 Thyroid Stimulating Hormone 4.110 3rd Gen Human Chorionic Gonadotropin, LESS THAN 1 Quant Anti-Nuclear Antibody Screen NEG White Blood Count 30.8 28.1 Red Blood Count 4.46 4.34 Hemoglobin 11.0 11.1 Hematocrit 34.9 34.3 Mean Corpuscular Volume 78.3 79.0 Mean Corpuscular Hemoglobin 24.8 25.7 Mean Corpuscular Hemoglobin 31.7 32.5 Concent Red Cell Distribution Width 20.7 21.1 Platelet Count 611 688 Mean Platelet Volume 6.8 6.7 Neutrophils (%) (Auto) 83.4 Lymphocytes (%) (Auto) 10.6 Monocytes (%) (Auto) 5.6 Eosinophils (%) (Auto) 0.0 Basophils (%) (Auto) 0.4 Neutrophils # (Auto) 25.7 Lymphocytes # (Auto) 3.3 Monocytes # (Auto) 1.7 Eosinophils # (Auto) 0.0 Basophils # (Auto) 0.1 CBC Comment AUTO DIFF Differential Total Cells 100 Counted Neutrophils % (Manual) 49 Band Neutrophils % 14 Lymphocytes % 13 Monocytes % 8 Neutrophils # (Manual) 24.3 Metamyelocytes 2 Myelocytes 14 Nucleated Red Blood Cells 2 Differential Comment FINAL DIFF MANUAL Toxic Granulation 1+ Toxic Vacuolation PRESENT Platelet Estimate HIGH Platelet Morphology Comment NORMAL Ovalocytes 1+ Acanthocytes OCC Keratocytes OCC Sodium Level 137 Potassium Level 2.9 Chloride Level 99 Carbon Dioxide Level 24.3 Anion Gap 14 Blood Urea Nitrogen 3 Creatinine 0.37 Estimat Glomerular Filtration 184 Rate Random Glucose 184 Calcium Level 8.2 Total Bilirubin 0.4 Aspartate Amino Transf 14 (AST/SGOT) Alanine Aminotransferase 14 (ALT/SGPT) Alkaline Phosphatase 104 Total Protein 5.8 Albumin 2.4 Total Creatine Kinase 18 Prothrombin Time 12.2 Prothromb Time International 1.1 Ratio Activated Partial 24.2 Thromboplast Time Date/Time Procedure Status Source Growth 09/26/16 10:50 Cryptosporidium Exam - Final Complete Stool Stool NEGATIVE - NO CRYPTOSPORIDIUM ANTIGEN... 09/26/16 10:50 Stool Pus (JENNIFER) - Final Complete Stool Stool RARE WBC 09/26/16 10:50 Giardia Antigen (JENNIFER) - Final Complete Stool Stool NEGATIVE - NO GIARDIA ANTIGEN DETECTE... Imaging Last Impressions Chest X-Ray 09/28/16 0000 Signed Impressions: Service Date/Time: Wednesday, September 28, 2016 15:30 - CONCLUSION: No acute disease. Daryl Cook MD Brain MRI 09/28/16 0000 Signed Impressions: Service Date/Time: Wednesday, September 28, 2016 10:25 - CONCLUSION: Atrophy more pronounced in the cerebellum otherwise negative acute process. Micah Araujo MD FACR Head CT 09/22/16 0000 Signed Impressions: Service Date/Time: Thursday, September 22, 2016 09:46 - CONCLUSION: Normal examination. Bakari Hearn Jr., MD Chest CT 09/22/16 0000 Signed Impressions: Service Date/Time: Thursday, September 22, 2016 15:27 - CONCLUSION: 1. No infiltrate or effusion. 2. Mild right basilar atelectasis. Bakari Hearn Jr., MD Abdomen/Pelvis CT 09/22/16 0000 Signed Impressions: Service Date/Time: Thursday, September 22, 2016 15:33 - CONCLUSION: Diffuse mild wall thickening involving the colon consistent with pancolitis. Findings are similar to the prior study. Consider C. difficile colitis versus ulcerative colitis. Bakari Hearn Jr., MD Physical Exam HEENT: EOMI; normocephalic; atraumatic; no jaundice. CHEST: Chest is clear to auscultation and percussion. CARDIAC: Regular rate and rhythm with no murmur gallop or rubs. ABDOMEN: Soft, obese, nontender; no hepatosplenomegaly; bowel sounds are present in all four quadrants. EXTREMITIES: No clubbing, cyanosis, or edema. SKIN: Normal; no rash; no jaundice. PERSONAL CARE SERVICE PROVIDER: alert but inappropriate affect. (Pao Brady) Assessment and Plan Plan ASSESSMENT: - n/v with diarrhea - per EMR hx UC. C diff neg, stool cx neg. CT 09-22-16---> Diffuse mild wall thickening involving the colon consistent with pancolitis. Findings are similar to the prior study. Consider C. difficile colitis versus ulcerative colitis. Was scheduled for colonoscopy but refused bowel prep. Today she is willing to try again but her potassium low 2.9 and her affect and reactions are innapropriate,- psych consult for adjustment of meds pending. Per RN she has no family.Will see what psych consult says and hold off until potassium WNL. PLAN - supportive care - Diet per speech therapy- [facility] soft - await psych consult - monitor labs This pt seen by myself and Dr Londono and this note was written on her behalf ( Pao Brady) Physician Comments agree with above colonoscopy at a later date , awaiting psych consult (Serena Londono MD) Pao Brady September 28, 2016 16:29 Serena Londono MD September 28, 2016 21:38
[2016-09-28] MEDS: ACYCLOVIR IV SCH (17:28)
[2016-09-28] MEDS: SODIUM CHLORIDE 0.9% IV SCH (17:28)
[2016-09-28 18:37] LABS: AMYLASE 37 U/L (25-115); ANION GAP 14 MEQ/L (5-15); BICARBONATE 27.2 MEQ/L (21.0-32.0); BLOOD UREA NITROGEN 4 MG/DL (7-18); CHLORIDE 98 MEQ/L (98-107); GLOMERULAR FILTRATION RATE 155 ML/MIN (>89); PHENOBARBITAL LESS THAN 2.1 MCG/ML (15.0-40.0); POTASSIUM 3.2 MEQ/L (3.5-5.1); SODIUM (NA) 139 MEQ/L (136-145)
[2016-09-28] MEDS: LORazepam 2 MG/ML VIAL IV PUSH SCH (20:39)
[2016-09-28] MEDS: DOCUSATE SODIUM 50 MG/SENNA 8.6 MG TAB PO SCH (21:00)
[2016-09-28] MEDS: MELATONIN 5 MG TAB PO SCH (21:00)
[2016-09-28] MEDS: INSULIN DETEMIR 100 UNITS/ML VIAL SQ SCH (21:00)
[2016-09-28] MEDS ORDERED: metroNIDAZOLE 500 MG TAB PO SCH (22:00)
[2016-09-28] MEDS ORDERED: LORazepam 2 MG/ML VIAL IV ONE (23:00)
[2016-09-28] MEDS: metroNIDAZOLE 500 MG INJ 100 ML IV SCH (23:38)
[2016-09-28] MEDS: PANTOPRAZOLE SODIUM 40 MG VIAL IV PUSH SCH (23:38)
[2016-09-28] MEDS: FOSPHENYTOIN SODIUM 100 MG PE/2 ML VIAL IV SCH (23:40)
[2016-09-29] VITALS (12 sets, daily range): BP systolic 141–180; BP diastolic 64–80; PULSE 76–96; RESP 22–32; TEMP 97.9–98.7; O2SAT 93–100
[2016-09-29] MEDS: VALPROATE INJ 500 MG in SODIUM CHLORIDE 0.9% INJ 100 ML IV SCH ×3 (00:14→20:08)
--- NOTE | 2016-09-29 00:28 | PD.CONS ---
HPI Service Critical Care Medicine Consult Requested By Primary Care Physician Unknown History of Present Illness 50-year-old female, resides in the residential, brought into the hospital after she was found on the floor after unwitnessed fall. Per documentation her baseline is awake and alert and oriented 3, and can normally ambulate. On the day of admission she was found on the floor, and she was noted to be confused. In July this year, the patient was diagnosed to have ulcerative colitis. At the beginning of August she was admitted again with possible sepsis and acute exacerbation of COPD. She was discharged on oral antibiotic to treat her tracheobronchitis. Today while patient on the regular medical surgical floor unit she was found to be nonverbal which improved with Ativan injection. This was thought to be nonconvulsive seizure episode and the patient is transferred to ICU for monitoring of possible nonconvulsive status epilepticus. Review of Systems Constitutional: DENIES: Diaphoretic episodes, Fatigue, Fever, Weight gain, Weight loss, Chills, Dizziness, Change in appetite, Night Sweats Endocrine: DENIES: Abnorml menstrual pattern, Heat/cold intolerance, Polydipsia , Polyuria, Polyphagia Eyes: DENIES: Blurred vision, Diplopia, Eye inflammation, Eye pain, Vision loss , Photosensitivity, Double Vision Ears, nose, mouth, throat: DENIES: Tinnitus, Hearing loss, Vertigo, Nasal discharge, Oral lesions, Throat pain, Hoarseness, Ear Pain, Running Nose, Epistaxis, Sinus Pain, Toothache, Odynophagia Respiratory: DENIES: Apneas, Cough, Snoring, Wheezing, Hemoptysis, Sputum production, Shortness of breath Cardiovascular: COMPLAINS OF: Syncope, DENIES: Chest pain, Palpitations, Dyspnea on Exertion, PND, Lower Extremity Edema, Orthopnea, Claudication Gastrointestinal: DENIES: Abdominal pain, Black stools, Bloody stools, Constipation, Diarrhea, Nausea, Vomiting, Difficulty Swallowing, Anorexia Genitourinary: DENIES: Abnormal vaginal bleeding, Dysmenorrhea, Dyspareunia, Sexual dysfunction, Urinary frequency, Urinary incontinence, Urgency, Hematuria , Dysuria, Nocturia, Vaginal discharge Musculoskeletal: DENIES: Joint pain, Muscle aches, Stiffness, Joint Swelling, Back pain, Neck pain Integumentary: DENIES: Abnormal pigmentation, Pruritus, Rash, Nail changes, Breast masses, Breast skin changes, Nipple discharge Hematologic/lymphatic: DENIES: Bruising, Lymphadenopathy Immunologic/allergic: DENIES: Eczema, Urticaria Neurologic: DENIES: Abnormal gait, Headache, Localized weakness, Paresthesias, Seizures, Speech Problems, Tremor, Poor Balance Psychiatric: DENIES: Anxiety, Confusion, Mood changes, Depression, Hallucinations, Agitation, Suicidal Ideation, Homicidal Ideation, Delusions Past Family Social History Allergies: Coded Allergies: Sulfa (Verified Allergy, Severe, RASH, 09/22/16) Cipro (Verified Allergy, Unknown, 09/22/16) Erythromycin (Verified Allergy, Unknown, 09/22/16) Ofloxacin (Verified Allergy, Unknown, 09/22/16) Past Medical History History of bipolar disorder History of uterine cancer Diabetes mellitus GERD Anxiety COPD Hypertension Past Surgical History section Cervical spine surgery Lumbar spine surgery Right knee surgery 2 Tonsillectomy Hysterectomy Reported Medications Reported Meds & Active Scripts Active Prednisone 20 Mg Tab 40 Mg PO DAILY Take 40 mg (2 tablets) daily for 5 days Prednisone 20 Mg Tab 20 Mg PO DAILY Prednisone 10 Mg Tab 30 Mg PO DAILY tapering regimen Prednisone 50 Mg Tab 50 Mg PO DAILY Flagyl (Metronidazole) 500 Mg Tab 500 Mg PO Q8HR Xanax (Alprazolam) 0.5 Mg Tab 0.5 Mg PO BID PRN Oxycodone-Acetaminophen 10-325 mg Tab 1 Tab PO Q6H PRN Azathioprine 50 Mg Tab 50 Mg PO DAILY Hazardous agent use appropriate precautions for handling and disposal. Quetiapine (Quetiapine Fumarate) 200 Mg Tab 400 Mg PO HS Reported Florastor (Saccharomyces Boulardii) 250 Mg Cap 250 Mg PO BID 14 Days Questran (Cholestyramine) 4 Gm/Dose Powd 4 Gm PO TID PRN 1 level scoopful of powder contains 4 grams of cholestyramine. Starts after qid dosage finished (09/24/2016) Questran (Cholestyramine) 4 Gm/Dose Powd 4 Gm PO QID 3 Days 1 level scoopful of powder contains 4 grams of cholestyramine. Glucagon Emergency Inj Kit (Glucagon (Rdna) Inj Kit) 1 Mg Kit 1 Mg IM ONCE PRN Glucose Gel (Dextrose) 40 % Gel 1 Tube PO ONCE PRN Xanax (Alprazolam) 1 Mg Tab 1 Mg PO BID Acetaminophen 325 Mg Tab 650 Mg PO Q4HR PRN Restasis Opth Drops (Cyclosporine Opth Drops) 0.05% Emul 2 Drop EACH EYE HS Melatonin 3 Mg Tab 6 Mg PO HS Aldactone (Spironolactone) 50 Mg Tab 50 Mg PO DAILY Amitriptyline (Amitriptyline HCl) 25 Mg Tab 25 Mg PO HS Novolog Inj (Insulin Aspart) 1,000 Unit/10 Ml Vial 0 SQ DIRECTED Give 7 units along w/Sliding Scale: 0-69=0 unit & call MD, 70-200=0 units, 201-250=4 units, 251-300=6 units, 301-350=10 units, 351-400=12 units, >400=15 units & call Zantac (Ranitidine HCl) 150 Mg Tab 150 Mg PO BID Senna S (Sennosides-Docusate Sodium) 8.6-50 Mg Tab 2 Tab PO HS Symbicort Inh (Budesonide/Formoterol Fumarate) 160-4.5 Mcg/Act Aero 1 Puff INH Q12HR Atrovent HFA 12.9 GM Inh (Ipratropium [place]) 17 Mcg/Act Aer 2 Puff INH QID Lyrica (Pregabalin) 100 Mg Cap 100 Mg PO DAILY Duoneb (Ipratropium-Albuterol Neb) 0.5-2.5 Mg/3 Ml Neb 3 Ml NEB Q6HR PRN Liquitears Opth (Polyvinyl Alcohol) 1.4% Soln 2 Drop EACH EYE Q2HR PRN Sodium Chloride 1 Gm Tab 1 Gm PO DAILY Metformin ER (Metformin HCl) 1,000 Mg Ada 1,000 Mg PO BID With evening meal Novolog Inj (Insulin Aspart) 1,000 Unit/10 Ml Vial 7 Units SQ TIDAC Depakote DR (Divalproex Sodium) 500 Mg Tabdr 500 Mg PO Q8HR Atorvastatin (Atorvastatin Calcium) 20 Mg Tab 20 Mg PO HS Neurontin (Gabapentin) 300 Mg Cap 900 Mg PO TID Lantus Inj (Insulin Glargine) 1,000 Unit/10 Ml Vial 26 Units SQ HS Active Ordered Medications Current Medications Medications (Trade) Dose Ordered Sig/Krystal Route PRN Reason Start Time Stop Time Status Last Admin Dose Admin Sodium Chloride (NS Flush) 2 ml UNSCH PRN IV FLUSH FLUSH AFTER USING IV ACCESS 09/22/16 11:30 Sodium Chloride (NS Flush) 2 ml BID IV FLUSH 09/22/16 21:00 5/8/17 23:39 Amitriptyline HCl (Elavil) 25 mg HS PO 09/22/16 21:00 Hold 09/22/16 21:02 Azathioprine (Imuran) 50 mg DAILY PO 09/23/16 09:00 09/25/16 09:21 Budesonide/ Formoterol Fumarate (Symbicort 160-4.5 Inh) 1 puff Q12HR INH 09/22/16 21:00 09/26/16 08:30 Gabapentin (Neurontin) 900 mg TID PO 09/22/16 14:00 09/25/16 17:24 Tiotropium [place] (Spiriva Inh) 18 mcg DAILY INH 09/22/16 14:00 09/26/16 08:30 Mesalamine (Asacol Hd Dr) 1,600 mg BID PO 09/22/16 21:00 09/25/16 20:19 Senna/Docusate Sodium (Ladan-Colace) 2 tab HS PO 09/22/16 21:00 09/24/16 20:55 Spironolactone (Aldactone) 50 mg DAILY PO 09/23/16 09:00 09/25/16 09:21 Dextrose (D50w (Vial) Inj) 25 ml UNSCH PRN IV PUSH HYPOGLYCEMIA-SEE COMMENTS 09/22/16 11:45 Glucagon (Glucagon Inj) 1 mg UNSCH PRN OTHER HYPOGLYCEMIA-SEE COMMENTS 09/22/16 11:45 Alprazolam (Xanax) 0.5 mg BID PO 09/22/16 21:00 Hold 09/22/16 21:02 Acetaminophen (Tylenol) 650 mg Q6H PRN PO PAIN SCALE 1 TO 5 09/22/16 12:00 Oxycodone/ Acetaminophen (Percocet 10-325 Mg) 1 tab Q6H PRN PO PAIN SCALE 6 TO 10 09/22/16 12:00 09/25/16 16:18 Naloxone HCl (Narcan Inj) 0.4 mg UNSCH PRN IV SEE LABEL COMMENTS 09/22/16 12:00 Melatonin (Melatonin) 5 mg HS PO 09/23/16 21:00 09/25/16 20:19 Prednisone (Deltasone) 50 mg DAILY PO 09/26/16 09:00 Hold 09/26/16 08:30 Quetiapine Fumarate (SEROquel) 400 mg HS PO 09/25/16 21:00 Hold 09/25/16 20:19 Insulin Detemir 15 units 15 units HS SQ 09/26/16 21:00 Potassium Chloride/Sodium Chloride (NS + KCl 20 Meq Inj) 1,000 ml @ 100 mls/hr Q10H IV 09/26/16 12:39 09/28/16 09:30 Ondansetron HCl (Zofran Inj) 4 mg Q6H PRN IV PUSH NAUSEA OR VOMITING 09/28/16 05:45 09/28/16 12:19 Methylprednisolone Sodium Succinate (SoluMEDROL INJ) 40 mg Q12HR IV PUSH 09/28/16 09:00 09/28/16 23:39 Fosphenytoin Sodium (Cerebyx Inj) 100 mgpe Q8HR IV 09/28/16 22:00 09/28/16 23:40 Phenobarbital Sodium 65 mg 65 mg Q12HR IV 09/28/16 16:00 09/29/16 00:13 Valproate Sodium/ Sodium Chloride (Depacon Inj/NS Inj) 105 ml @ 105 mls/hr BID IV 09/28/16 16:00 09/29/16 00:14 Lorazepam 0.5 mg 0.5 mg BID IV PUSH 09/28/16 21:00 09/28/16 20:39 Metronidazole (Flagyl 500 Mg Inj) 100 ml @ 100 mls/hr Q8H IV 09/28/16 22:00 09/28/16 23:38 Pantoprazole Sodium 40 mg 40 mg Q24H IV PUSH 09/28/16 22:00 09/28/16 23:38 Piperacillin Sod/ Tazobactam Sod 100 ml @ 200 mls/hr Q6H IV 09/29/16 02:00 Acyclovir Sodium/ Sodium Chloride (Zovirax Inj/NS Inj) 150 ml @ 150 mls/hr Q8H IV 09/29/16 03:00 Family History Noncontributory Social History Negative 3 Physical Exam Vital Signs Vital Signs Date Time Temp Pulse Resp B/P Pulse Ox O2 Delivery O2 Flow Rate FiO2 09/28/16 16:43 98.7 102 18 147/67 93 09/28/16 12:58 97.5 87 20 162/92 95 09/28/16 09:50 21 09/28/16 08:33 96.6 67 18 150/70 98 09/28/16 04:30 98.9 88 20 138/80 98 Physical Exam GENERAL: Well-nourished, well-developed patient. Pleasantly confused female in no acute distress SKIN: Warm and dry. HEAD: Normocephalic. EYES: No scleral icterus. No injection or drainage. NECK: Supple, trachea midline. No JVD or lymphadenopathy. CARDIOVASCULAR: Regular rate and rhythm without murmurs, gallops, or rubs. RESPIRATORY: Breath sounds equal bilaterally. No accessory muscle use. GASTROINTESTINAL: Abdomen soft, non-tender, nondistended. MUSCULOSKELETAL: No cyanosis, or edema. BACK: Nontender without obvious deformity. No CVA tenderness. EXTREMITIES: No clubbing cyanosis or edema Laboratory Laboratory Tests Test 09/28/16 09/28/16 09/28/16 06:51 09:43 15:25 White Blood Count 30.8 28.1 Red Blood Count 4.46 4.34 Hemoglobin 11.0 11.1 Hematocrit 34.9 34.3 Mean Corpuscular Volume 78.3 79.0 Mean Corpuscular Hemoglobin 24.8 25.7 Mean Corpuscular Hemoglobin 31.7 32.5 Concent Red Cell Distribution Width 20.7 21.1 Platelet Count 611 688 Mean Platelet Volume 6.8 6.7 Neutrophils (%) (Auto) 83.4 Lymphocytes (%) (Auto) 10.6 Monocytes (%) (Auto) 5.6 Eosinophils (%) (Auto) 0.0 Basophils (%) (Auto) 0.4 Neutrophils # (Auto) 25.7 Lymphocytes # (Auto) 3.3 Monocytes # (Auto) 1.7 Eosinophils # (Auto) 0.0 Basophils # (Auto) 0.1 CBC Comment AUTO DIFF Differential Total Cells 100 Counted Neutrophils % (Manual) 49 Band Neutrophils % 14 Lymphocytes % 13 Monocytes % 8 Neutrophils # (Manual) 24.3 Metamyelocytes 2 Myelocytes 14 Nucleated Red Blood Cells 2 Differential Comment FINAL DIFF MANUAL Toxic Granulation 1+ Toxic Vacuolation PRESENT Platelet Estimate HIGH Platelet Morphology Comment NORMAL Ovalocytes 1+ Acanthocytes OCC Keratocytes OCC Sodium Level 137 139 Potassium Level 2.9 3.2 Chloride Level 99 98 Carbon Dioxide Level 24.3 27.2 Anion Gap 14 14 Blood Urea Nitrogen 3 4 Creatinine 0.37 0.43 Estimat Glomerular Filtration 184 155 Rate Random Glucose 184 156 Calcium Level 8.2 7.9 Total Bilirubin 0.4 Aspartate Amino Transf 14 (AST/SGOT) Alanine Aminotransferase 14 (ALT/SGPT) Alkaline Phosphatase 104 Total Protein 5.8 Albumin 2.4 Total Creatine Kinase 18 Amylase Level 37 Lipase 210 Valproic Acid (Depakene) Level 9 Phenobarbital Level LESS THAN 2.1 Prothrombin Time 12.2 Prothromb Time International 1.1 Ratio Activated Partial 24.2 Thromboplast Time Date/Time Procedure Status Source Growth 09/26/16 10:50 Cryptosporidium Exam - Final Complete Stool Stool NEGATIVE - NO CRYPTOSPORIDIUM ANTIGEN... 09/26/16 10:50 Stool Pus (JENNIFER) - Final Complete Stool Stool RARE WBC 09/26/16 10:50 Giardia Antigen (JENNIFER) - Final Complete Stool Stool NEGATIVE - NO GIARDIA ANTIGEN DETECTE... Result Diagram: 09/28/16 1525 09/28/16 0943 Assessment and Plan Assessment and Plan Altered mental status - Workup and management per neurology - MRI negative - Questionable nonconvulsive status epilepticus - Continues EEG - Phenobarbital, valproic acid, fosphenytoin Leukocytosis - Acyclovir and broad-spectrum antibiotics per ID COPD - Formoterol Ulcerative colitis - Azathioprine - Prednisone Hypertension - Spironolactone Diabetes mellitus - Levemir - Insulin Sliding-scale GERD - PPI DVT GI prophylaxis - Teds SCD - PPI Critical Care: The total critical care time was 35 minutes. Time to perform other separately billable procedures was not included in the critical care time. Patient has been seizure-free, pleasantly confused however following commands with no signs of nonconvulsive status epilepticus or any other seizure activity. Critical care medicine will sign off. Please reconsult us if needed. Thank you very much for allowing us to participate in care of this pleasant lady. Maldonado Mcghee MD September 29, 2016 00:28
[2016-09-29] MEDS: PIPERACIL-TAZO 4.5 GM PREMIX 100 ML IV SCH ×3 (02:44→09:00)
[2016-09-29] MEDS: SODIUM CHLORIDE 0.9% IV SCH ×5 (02:45→18:57)
[2016-09-29] MEDS: ACYCLOVIR IV SCH ×5 (02:45→18:57)
[2016-09-29] MEDS: NS + KCL 20 MEQ INJ 1,000 ML IV SCH ×3 (02:45→23:39)
[2016-09-29 03:46] LABS: AUTOMATED NEUTROPHIL # 25.1 TH/MM3 (1.8-7.7); BASOPHIL # 0.1 TH/MM3 (0-0.2); BASOPHIL % 0.4 % (0.0-2.0); HEMATOCRIT 33.4 % (35.0-46.0); LYMPH % 10.6 % (9.0-44.0); LYMPHOCYTE # 3.1 TH/MM3 (1.0-4.8); MEAN CELL VOLUME 78.2 FL (80.0-100.0); MEAN CORPUSCULAR HEMOGLOBIN 24.9 PG (27.0-34.0); MEAN CORPUSCULAR HGB CONC 31.8 % (32.0-36.0); PLATELET COUNT 693 TH/MM3 (150-450); RED BLOOD COUNT 4.26 MIL/MM3 (4.00-5.30); RED CELL DISTRIBUTION WIDTH 21.1 % (11.6-17.2); WHITE BLOOD COUNT 29.6 TH/MM3 (4.0-11.0)
[2016-09-29 04:00] LABS: HEMO FLAGS AUTO DIFF
[2016-09-29 04:05] LABS: ANION GAP 11 MEQ/L (5-15); AST (GOT) 10 U/L (15-37); BICARBONATE 24.7 MEQ/L (21.0-32.0); BLOOD UREA NITROGEN 8 MG/DL (7-18); CHLORIDE 105 MEQ/L (98-107); POTASSIUM 3.6 MEQ/L (3.5-5.1); SODIUM (NA) 141 MEQ/L (136-145)
[2016-09-29 04:09] LABS: ALKALINE PHOSPHATASE 97 U/L (45-117); ALT (GPT) 12 U/L (10-53); GLOMERULAR FILTRATION RATE 164 ML/MIN (>89); PHENOBARBITAL LESS THAN 2.1 MCG/ML (15.0-40.0); TOTAL BILIRUBIN ADULT 0.3 MG/DL (0.2-1.0)
[2016-09-29] MEDS: metroNIDAZOLE 500 MG INJ 100 ML IV SCH ×3 (06:28→23:39)
[2016-09-29] MEDS: FOSPHENYTOIN SODIUM 100 MG PE/2 ML VIAL IV SCH ×3 (06:28→23:39)
[2016-09-29] MEDS: INSULIN ASPART SUPPLEMENTAL SCALE SQ SCH ×4 (06:29→21:00)
--- NOTE | 2016-09-29 08:05 | HHI.PR ---
Objective Vital Signs Date Time Temp Pulse Resp B/P Pulse Ox O2 Delivery O2 Flow Rate FiO2 09/29/16 08:00 100 21 09/29/16 06:00 95 09/29/16 04:00 93 09/29/16 04:00 98.3 93 27 141/64 98 09/29/16 02:00 94 09/29/16 00:00 96 09/29/16 00:00 98.7 96 32 147/68 96 09/28/16 22:00 98 09/28/16 20:00 99.1 102 24 141/71 97 09/28/16 20:00 97 09/28/16 16:43 98.7 102 18 147/67 93 09/28/16 12:58 97.5 87 20 162/92 95 09/28/16 09:50 21 09/28/16 08:33 96.6 67 18 150/70 98 I/O 09/28/16 09/28/16 09/28/16 09/29/16 09/29/16 09/29/16 07:00 15:00 23:00 07:00 15:00 23:00 Intake Total 0 ml 5576 ml 6900 ml 753 ml Output Total 800 ml Balance 0 ml 5576 ml 6900 ml -47 ml Intake Oral 0 ml 0 ml 120 ml IV Total 5576 ml 6900 ml 633 ml Output Urine Total 800 ml # Voids 4 4 1 # Bowel Movements 2 3 1 1 Result Diagram: 09/29/1631709/29/16317 Objective Remarks alert talking now not follow all commands can some Assessment and Plan Assessment and Plan labs ok cpk nl mri neg eeg she was in subclinical status epilepticus yest responded to ativan on vpa dil pbarb eeg this am much better will hold LP for today and ifshe is still confused in am will do it then she was off xanax so maybe sz from withdrawal from that? cont acyclovir for now vpa 48 dil 4.6 Jason Velazquez MD September 29, 2016 08:04
[2016-09-29 08:08] LABS: BANDS 16 % (0-6); METAMYELOCYTES 2 % (0-1); MYELOCYTES 5 % (0-0); NEUTROPHIL # MANUAL DIFF 25.8 TH/MM3 (1.8-7.7); POLYS (SEG NEUTROPHILS) 62 % (16-70); PROMYELOCYTES 2 % (0-0); TOXIC GRANULATION 1+ (NORMAL); WBC DIFF SAMPLE 100
[2016-09-29 08:09] LABS: PLATELET ESTIMATE SMEAR HIGH (NORMAL); PLATELET MORPHOLOGY NORMAL (NORMAL); SCAN/DIFF FINAL DIFF MANUAL
[2016-09-29] MEDS: BUDESONIDE-FORMOTEROL 160/4.5 MCG INHALER INH SCH ×2 (09:00→20:08)
[2016-09-29] MEDS: GABAPENTIN 300 MG CAP PO SCH ×3 (09:01→18:57)
[2016-09-29] MEDS: TIOTROPIUM BROMIDE 18 MCG INH INH SCH (09:01)
[2016-09-29] MEDS: SPIRONOLACTONE 50 MG TAB PO SCH (09:01)
[2016-09-29] MEDS: azaTHIOprine 50 MG TAB PO SCH (09:02)
[2016-09-29] MEDS: MESALAMINE HD 800 MG DELAYED RELEASE TAB PO SCH ×2 (09:02→20:07)
[2016-09-29] MEDS: LORazepam 2 MG/ML VIAL IV PUSH SCH ×2 (09:03→20:07)
[2016-09-29] MEDS: methylPREDNISolone SOD SUCC 40 MG/1 ML VIAL IV PUSH SCH (09:03)
[2016-09-29] MEDS: SODIUM CHLORIDE 0.9% FLUSH 10 ML FLUSH IV FLUSH SCH ×2 (09:04→20:08)
--- NOTE | 2016-09-29 10:14 | HHI.FPPN ---
Subjective Remarks Patient seen and examined this am. Intermittent tachycardia. Sitting comfortably in bed, awake and alert. Friend at bedside, she is in restraints. Spoke with nurse, had overnight continuous EEG, with spikes indicative of seizure activity. She was awake, alert, and responsive during this time, ativan was given, and the EEG returned to normal. Seen by Dr. Velazquez this am who recommends repeat EEG today at 2 pm and likely transfer from ICU tomorrow. Objective Vitals Vital Signs Date Time Temp Pulse Resp B/P Pulse Ox O2 Delivery O2 Flow Rate FiO2 09/29/16 08:00 100 21 09/29/16 06:00 95 09/29/16 04:00 93 09/29/16 04:00 98.3 93 27 141/64 98 09/29/16 02:00 94 09/29/16 00:00 96 09/29/16 00:00 98.7 96 32 147/68 96 09/28/16 22:00 98 09/28/16 20:00 99.1 102 24 141/71 97 09/28/16 20:00 97 09/28/16 16:43 98.7 102 18 147/67 93 09/28/16 12:58 97.5 87 20 162/92 95 I/O 09/28/16 09/28/16 09/28/16 09/29/16 09/29/16 09/29/16 07:00 15:00 23:00 07:00 15:00 23:00 Intake Total 0 ml 5576 ml 6900 ml 753 ml Output Total 800 ml Balance 0 ml 5576 ml 6900 ml -47 ml Intake Oral 0 ml 0 ml 120 ml IV Total 5576 ml 6900 ml 633 ml Output Urine Total 800 ml # Voids 4 4 1 # Bowel Movements 2 3 1 1 Result Diagram: 09/29/16 0318 09/29/16 0318 Imaging Last Impressions Chest X-Ray 09/28/16 0000 Signed Impressions: Service Date/Time: Wednesday, September 28, 2016 15:30 - CONCLUSION: No acute disease. Daryl Cook MD Brain MRI 09/28/16 0000 Signed Impressions: Service Date/Time: Wednesday, September 28, 2016 10:25 - CONCLUSION: Atrophy more pronounced in the cerebellum otherwise negative acute process. Micah Araujo MD FACR Head CT 5/2/17 0000 Signed Impressions: Service Date/Time: Thursday, September 22, 2016 09:46 - CONCLUSION: Normal examination. Bakari Hearn Jr., MD Chest CT 09/22/16 Signed Impressions: Service Date/Time: Thursday, September 22, 2016 15:27 - CONCLUSION: 1. No infiltrate or effusion. 2. Mild right basilar atelectasis. Bakari Hearn Jr., MD Abdomen/Pelvis CT 09/22/16 Signed Impressions: Service Date/Time: Thursday, September 22, 2016 15:33 - CONCLUSION: Diffuse mild wall thickening involving the colon consistent with pancolitis. Findings are similar to the prior study. Consider C. difficile colitis versus ulcerative colitis. Bakari Hearn Jr., MD Objective Remarks GENERAL: WN, WD female sitting up in bed in NAD, wrist restraints SKIN: Warm and dry. HEENT: AT/NC. Pupils dilated, equal, and round. Responsive to light. HEART: RRR no m/r/g. LUNGS: CTAB without wheezes or crackles. ABDOMEN: Soft, nondistended, reports pain, but when palpating abdomen no signs of discomfort. No distention, no guarding. EXTREMITIES: No LE edema. NEURO: Answers yes or no to direct questions. Sometimes answers questions inappropriately. Nonverbal. A/P Assessment and Plan 50-year-old female from long-term facility and with complicated past medical history including bipolar disorder, ulcerative colitis presents with altered mental status from her nursing facility. CT abdomen shows pancolitis, unchanged from previous. Concern for polypharmacy since on Xanax, amitriptyline , Seroquel, Depakote. Other contributing factors may be adrenal insufficiency since she was on fpc steroids without a taper, seizure, delirium, etc. Psychiatry and neurology, infectious disease consulted.. Discharge Planning Unclear discharge timetable. Patient with worsening leukocytosis and intermittent changes in neurological status. Discussed with Dr. Davis Problem List: (1) Pancolitis Status: Acute Plan: Patient with history of ulcerative colitis. On admission she met sepsis criteria with source likely GI since pancolitis seen on CT, though similar appearance from prior study. - Leukocytosis persistent - Infectious disease, gastroenterology consulted - Patient refusing bowel prep, plan was for colonoscopy on 09/28 - Currently not tolerating NG tube Meds: - D/C Zosyn IV Q6H (per ID may consider D/C given negative CXR) - Continue home mesalamine and Azathioprine - Prednisone 50 mg daily Labs: - Blood cultures negative - Monitor CBC - Stool studies negative for C. diff (2) Altered mental status Status: Acute Plan: Improved. Likely related to seizures/post ictal period. - Psychiatry consult placed previously, but canceled in EMR - Neurology: seen & evaluated by Dr. Velazquez, ? nonconvulsive status epilepticus, continues EEG recommended, consulted critical care who saw and evaluated patient and have signed off. Mental status seems to be improving, if worsens will consider LP. Repeat EEG today at 2pm, will leave restraints on bc patient gets confused and tries to take leads off for EEG. Con't acyclovir. - EEG subclinical status epilepticus, repeat improved - CT head on admission negative - MRI brain: atrophy more pronounced in cerebellum, otherwise negative for acute process - On admission concern for polypharmacy --> holding Xanax, Seroquel, Amitriptyline - Continue Depakote 500 mg by mouth every 8 hours & valproate 500 mg BID IV Labs: - Ammonia 37 - TSH slightly elevated, likely acute phase reactant, repeat as an outpatient - RPR, B12, and thiamine WNL - Depakote level WNL (3) Bronchitis Status: Acute Plan: DuoNeb PRN. Supplemental O2 PRN. Wean steroids--> Prednisone 20 mg PO x 5 days started 09/30 (4) FEN/DVT PPX/GI PPX Status: Acute Plan: Fluids: tolerating PO, HLIV Electrolytes: Monitor and replace when necessary. Nutrition: Speech therapy assessed. Mechanical soft. Prophylaxis: Lovenox 40 mg subcutaneous every 24 hours. Bilateral SCDs. Melatonin daily Chronic medical conditions: - Diabetes: Hold home metformin. Patient normally takes Lantus 26 units subcutaneous at bedtime with Novolin sliding scale. Levemir 15 units at bedtime, sliding scale insulin. Expect adjustments pending sliding scale coverage. - Ulcerative colitis: Continue azathioprine 50 mg daily. Mesalamine 1600 mg by mouth twice a day. - Diabetic polyneuropathy: Continue gabapentin at reduced dose of 400 mg by mouth 3 times a day, continue Lyrica at current home dose - COPD: Continue albuterol, DuoNeb's. - Hyperlipidemia: Currently holding home atorvastatin -Chronic low back pain: Continue Percocet 10 every 6 hours when necessary pain 6 -10. Morphine IV if unable to swallow. Problem Qualifiers (1) Altered mental status: Qualified Code: R41.82 - Altered mental status, unspecified altered mental status type Malathi Al MD R3 September 29, 2016 10:14 Malathi Al MD R3 September 29, 2016 10:14
--- NOTE | 2016-09-29 12:04 | HHI.IDPN ---
Subjective Subjective Remarks Notes reviewed Transferred to ICU overnight Temps ok C/O pain all over More awake today, talking but confused MRI brain no evidence of any enhancement WBC still high C diff negative Zosyn stopped today Acyclovir started by neurology EEG yesterday C/W seizure - when this was done yesterday, patient was awake, but non verbal No vomiting today Amylase, lipase ok CXR clear Antibiotics Flagyl Acyclovir Past Medical History Ulcerative colitis History of bipolar disorder History of uterine cancer Diabetes mellitus GERD Anxiety COPD Hypertension Past Surgical History section Cervical spine surgery Lumbar spine surgery Right knee surgery 2 Tonsillectomy Hysterectomy Allergies: Coded Allergies: Sulfa (Verified Allergy, Severe, RASH, 09/22/16) Cipro (Verified Allergy, Unknown, 09/22/16) Erythromycin (Verified Allergy, Unknown, 09/22/16) Ofloxacin (Verified Allergy, Unknown, 09/22/16) Objective . Vital Signs Date Time Temp Pulse Resp B/P Pulse Ox O2 Delivery O2 Flow Rate FiO2 09/29/16 08:00 100 21 09/29/16 06:00 95 09/29/16 04:00 93 09/29/16 04:00 98.3 93 27 141/64 98 09/29/16 02:00 94 09/29/16 00:00 96 09/29/16 00:00 98.7 96 32 147/68 96 09/28/16 22:00 98 09/28/16 20:00 99.1 102 24 141/71 97 09/28/16 20:00 97 09/28/16 16:43 98.7 102 18 147/67 93 09/28/16 12:58 97.5 87 20 162/92 95 09/28/16 09/28/16 09/29/16 15:00 23:00 07:00 Intake Total 5576 ml 6900 ml 753 ml Output Total 800 ml Balance 5576 ml 6900 ml -47 ml Intake Oral 0 ml 120 ml IV Total 5576 ml 6900 ml 633 ml Output Urine Total 800 ml # Voids 4 1 # Bowel Movements 3 1 1 . Laboratory Tests Test 09/27/16 09/28/16 09/28/16 09/29/16 16:58 06:51 15:25 03:18 Erythrocyte Sedimentation Rate 18 mm/hr White Blood Count 30.8 TH/MM3 28.1 TH/MM3 29.6 TH/MM3 Red Blood Count 4.46 MIL/MM3 4.34 MIL/MM3 4.26 MIL/MM3 Hemoglobin 11.0 GM/DL 11.1 GM/DL 10.6 GM/DL Hematocrit 34.9 % 34.3 % 33.4 % Mean Corpuscular Volume 78.3 FL 79.0 FL 78.2 FL Mean Corpuscular Hemoglobin 24.8 PG 25.7 PG 24.9 PG Mean Corpuscular Hemoglobin 31.7 % 32.5 % 31.8 % Concent Red Cell Distribution Width 20.7 % 21.1 % 21.1 % Platelet Count 611 TH/MM3 688 TH/MM3 693 TH/MM3 Mean Platelet Volume 6.8 FL 6.7 FL 6.6 FL Neutrophils (%) (Auto) 83.4 % 85.0 % Lymphocytes (%) (Auto) 10.6 % 10.6 % Monocytes (%) (Auto) 5.6 % 4.0 % Eosinophils (%) (Auto) 0.0 % 0.0 % Basophils (%) (Auto) 0.4 % 0.4 % Neutrophils # (Auto) 25.7 TH/MM3 25.1 TH/MM3 Lymphocytes # (Auto) 3.3 TH/MM3 3.1 TH/MM3 Monocytes # (Auto) 1.7 TH/MM3 1.2 TH/MM3 Eosinophils # (Auto) 0.0 TH/MM3 0.0 TH/MM3 Basophils # (Auto) 0.1 TH/MM3 0.1 TH/MM3 CBC Comment AUTO DIFF AUTO DIFF Differential Total Cells 100 100 Counted Neutrophils % (Manual) 49 % 62 % Band Neutrophils % 14 % 16 % Lymphocytes % 13 % 10 % Monocytes % 8 % 3 % Neutrophils # (Manual) 24.3 TH/MM3 25.8 TH/MM3 Metamyelocytes 2 % 2 % Myelocytes 14 % 5 % Nucleated Red Blood Cells 2 /100 WBC Differential Comment FINAL DIFF FINAL DIFF MANUAL MANUAL Toxic Granulation 1+ 1+ Toxic Vacuolation PRESENT Platelet Estimate HIGH HIGH Platelet Morphology Comment NORMAL NORMAL Ovalocytes 1+ Acanthocytes OCC Keratocytes OCC Promyelocytes 2 % Laboratory Tests Test 09/27/16 09/28/16 09/28/16 09/29/16 16:58 06:51 09:43 03:18 Ammonia 37 MCMOL/L Folate GREATER THAN 20.0 NG/ML Thyroid Stimulating Hormone 4.110 uIU/ML 3rd Gen Human Chorionic Gonadotropin, LESS THAN 1 Quant MIU/ML Sodium Level 137 MEQ/L 139 MEQ/L 141 MEQ/L Potassium Level 2.9 MEQ/L 3.2 MEQ/L 3.6 MEQ/L Chloride Level 99 MEQ/L 98 MEQ/L 105 MEQ/L Carbon Dioxide Level 24.3 MEQ/L 27.2 MEQ/L 24.7 MEQ/L Anion Gap 14 MEQ/L 14 MEQ/L 11 MEQ/L Blood Urea Nitrogen 3 MG/DL 4 MG/DL 8 MG/DL Creatinine 0.37 MG/DL 0.43 MG/DL 0.41 MG/DL Estimat Glomerular Filtration 184 ML/MIN 155 ML/MIN 164 ML/MIN Rate Random Glucose 184 MG/DL 156 MG/DL 218 MG/DL Calcium Level 8.2 MG/DL 7.9 MG/DL 8.0 MG/DL Total Bilirubin 0.4 MG/DL 0.3 MG/DL Aspartate Amino Transf 14 U/L 10 U/L (AST/SGOT) Alanine Aminotransferase 14 U/L 12 U/L (ALT/SGPT) Alkaline Phosphatase 104 U/L 97 U/L Total Protein 5.8 GM/DL 5.9 GM/DL Albumin 2.4 GM/DL 2.4 GM/DL Total Creatine Kinase 18 U/L Amylase Level 37 U/L Lipase 210 U/L Imaging Last Impressions Chest X-Ray 09/28/16 Signed Impressions: Service Date/Time: Wednesday, September 28, 2016 15:30 - CONCLUSION: No acute disease. Daryl Cook MD Brain MRI 09/28/16 Signed Impressions: Service Date/Time: Wednesday, September 28, 2016 10:25 - CONCLUSION: Atrophy more pronounced in the cerebellum otherwise negative acute process. Micah Araujo MD FACR Head CT 09/22/16 Signed Impressions: Service Date/Time: Thursday, September 22, 2016 09:46 - CONCLUSION: Normal examination. Bakari Hearn Jr., MD Chest CT 09/22/16 Signed Impressions: Service Date/Time: Thursday, September 22, 2016 15:27 - CONCLUSION: 1. No infiltrate or effusion. 2. Mild right basilar atelectasis. Bakari Hearn Jr., MD Abdomen/Pelvis CT 09/22/16 Signed Impressions: Service Date/Time: Thursday, September 22, 2016 15:33 - CONCLUSION: Diffuse mild wall thickening involving the colon consistent with pancolitis. Findings are similar to the prior study. Consider C. difficile colitis versus ulcerative colitis. Bakari Hearn Jr., MD Physical Exam GENERAL: she is awake and alert, talking, confused. SKIN: Cool and dry. No generalized rash or ecchymosis. Her IV sites look okay with no evidence of phlebitis. HEAD: Atraumatic. Normocephalic. No temporal or scalp tenderness. EYES: [place] conjunctiva, no petechia or hemorrhage. Pupils dilated, equal round and reactive. Extraocular motions intact. No scleral icterus. No injection or drainage. ENT: Nose without bleeding, or purulent drainage . She has moist oral mucosa. NECK: Trachea midline. No JVD or lymphadenopathy. Supple, nontender, no meningeal signs. CARDIOVASCULAR: Regular rate and rhythm without murmurs, gallops, or rubs. RESPIRATORY: Clear to auscultation. Breath sounds equal bilaterally. No wheezes , rales, or rhonchi. GASTROINTESTINAL: Abdomen soft, nondistended, bowel sounds are present and normoactive, she has diffuse tenderness. No guarding or rebound. No hepato- splenomegaly, or palpable masses. MUSCULOSKELETAL: Extremities without clubbing, cyanosis, or edema. No joint effusion, or edema noted. No calf tenderness. Negative Homans sign bilaterally. NEUROLOGICAL: Awake and alert. Cranial nerves II through XII intact. No Babinski. No clonus. Moves all extremities LINE: No evidence of infection Assessment & Plan Remarks IMPRESSION Leukocytosis, likely reactive due to GI process, and due to steroids Ulcerative colitis, ?etiology of her current diarrhea - C diff negative Vomiting, etiology? Known bipolar disorder Change in mental status, clinically does not look infectious - possible seizure, ?withdrawal RECOMMENDATION Agree with stopping Zosyn Continue Flagyl for now On Acyclovir - started by neurology; ok to D/C from ID standpoint Follow stool studies Neuro work-up in progress Taper steroids if possible, she is not wheezing anymore, and does not seem to be in resp distress GI following and patient for work-up (but she has refused some meds for prep) Follow CBC Monitor progress D/W Kallie Moreland MD September 29, 2016 12:03
--- NOTE | 2016-09-29 13:01 | HHI.GIFU ---
Subjective Remarks Resting in bed. Confused. States she was having significant abdominal pain yesterday- improved today. She could not tell me if she has had any diarrhea- but 5 documented in EMR. (Yudelka Tijerina) Objective Vitals I&O Vital Signs Date Time Temp Pulse Resp B/P Pulse Ox O2 Delivery O2 Flow Rate FiO2 09/29/16 08:00 100 21 09/29/16 06:00 95 09/29/16 04:00 93 09/29/16 04:00 98.3 93 27 141/64 98 09/29/16 02:00 94 09/29/16 00:00 96 09/29/16 00:00 98.7 96 32 147/68 96 09/28/16 22:00 98 09/28/16 20:00 99.1 102 24 141/71 97 09/28/16 20:00 97 09/28/16 16:43 98.7 102 18 147/67 93 09/28/16 12:58 97.5 87 20 162/92 95 I/O 09/28/16 09/28/16 09/28/16 09/29/16 09/29/16 09/29/16 07:00 15:00 23:00 07:00 15:00 23:00 Intake Total 0 ml 5576 ml 6900 ml 753 ml Output Total 800 ml Balance 0 ml 5576 ml 6900 ml -47 ml Intake Oral 0 ml 0 ml 120 ml IV Total 5576 ml 6900 ml 633 ml Output Urine Total 800 ml # Voids 4 4 1 # Bowel Movements 2 3 1 1 Laboratory Laboratory Tests Test 09/28/16 09/29/16 15:25 03:18 White Blood Count 28.1 29.6 Red Blood Count 4.34 4.26 Hemoglobin 11.1 10.6 Hematocrit 34.3 33.4 Mean Corpuscular Volume 79.0 78.2 Mean Corpuscular Hemoglobin 25.7 24.9 Mean Corpuscular Hemoglobin 32.5 31.8 Concent Red Cell Distribution Width 21.1 21.1 Platelet Count 688 693 Mean Platelet Volume 6.7 6.6 Prothrombin Time 12.2 Prothromb Time International 1.1 Ratio Activated Partial 24.2 Thromboplast Time Neutrophils (%) (Auto) 85.0 Lymphocytes (%) (Auto) 10.6 Monocytes (%) (Auto) 4.0 Eosinophils (%) (Auto) 0.0 Basophils (%) (Auto) 0.4 Neutrophils # (Auto) 25.1 Lymphocytes # (Auto) 3.1 Monocytes # (Auto) 1.2 Eosinophils # (Auto) 0.0 Basophils # (Auto) 0.1 CBC Comment AUTO DIFF Differential Total Cells 100 Counted Neutrophils % (Manual) 62 Band Neutrophils % 16 Lymphocytes % 10 Monocytes % 3 Neutrophils # (Manual) 25.8 Metamyelocytes 2 Myelocytes 5 Promyelocytes 2 Differential Comment FINAL DIFF MANUAL Toxic Granulation 1+ Platelet Estimate HIGH Platelet Morphology Comment NORMAL Sodium Level 141 Potassium Level 3.6 Chloride Level 105 Carbon Dioxide Level 24.7 Anion Gap 11 Blood Urea Nitrogen 8 Creatinine 0.41 Estimat Glomerular Filtration 164 Rate Random Glucose 218 Calcium Level 8.0 Total Bilirubin 0.3 Aspartate Amino Transf 10 (AST/SGOT) Alanine Aminotransferase 12 (ALT/SGPT) Alkaline Phosphatase 97 Total Protein 5.9 Albumin 2.4 Phenytoin (Dilantin) Level 4.6 Valproic Acid (Depakene) Level 48 Phenobarbital Level LESS THAN 2.1 Date/Time Procedure Status Source Growth 09/26/16 10:50 Cryptosporidium Exam - Final Complete Stool Stool NEGATIVE - NO CRYPTOSPORIDIUM ANTIGEN... 09/26/16 10:50 Stool Pus (JENNIFER) - Final Complete Stool Stool RARE WBC 09/26/16 10:50 Giardia Antigen (JENNIFER) - Final Complete Stool Stool NEGATIVE - NO GIARDIA ANTIGEN DETECTE... Imaging Last Impressions Chest X-Ray 09/28/16 0000 Signed Impressions: Service Date/Time: Wednesday, September 28, 2016 15:30 - CONCLUSION: No acute disease. Daryl Cook MD Brain MRI 09/28/16 0000 Signed Impressions: Service Date/Time: Wednesday, September 28, 2016 10:25 - CONCLUSION: Atrophy more pronounced in the cerebellum otherwise negative acute process. Micah Araujo MD FACR Head CT 09/22/16 0000 Signed Impressions: Service Date/Time: Thursday, September 22, 2016 09:46 - CONCLUSION: Normal examination. Bakari Hearn Jr., MD Chest CT 09/22/16 0000 Signed Impressions: Service Date/Time: Thursday, September 22, 2016 15:27 - CONCLUSION: 1. No infiltrate or effusion. 2. Mild right basilar atelectasis. Bakari Hearn Jr., MD Abdomen/Pelvis CT 09/22/16 0000 Signed Impressions: Service Date/Time: Thursday, September 22, 2016 15:33 - CONCLUSION: Diffuse mild wall thickening involving the colon consistent with pancolitis. Findings are similar to the prior study. Consider C. difficile colitis versus ulcerative colitis. aBkari Hearn Jr., MD Physical Exam HEENT: Normocephalic; atraumatic CHEST: CTA CARDIAC: RRR ABDOMEN: Soft, obese, nontender; mildly bloated no hepatosplenomegaly; bowel sounds are present in all four quadrants. EXTREMITIES: No clubbing, cyanosis, or edema. SKIN: Normal; no rash; no jaundice. [place]: alert but confused (Yudelka Tijerina) Assessment and Plan Plan ASSESSMENT: - Pancolitis with known U.C. Abdomen/Pelvis CT (09/22/16)-----> Diffuse mild wall thickening involving the colon consistent with pancolitis. Findings are similar to the prior study. Consider C. difficile colitis versus ulcerative colitis. CDiff negative. S/P Colonoscopy (08/03/16)------> 1. Circumferential diffuse abnormal mucosa was found throughout the entire examined colon; The mucosa was congested, erythematous, friable and had granularity and superficial ulcers; multiple biopsies were performed using cold forceps 2. Retroflexed views revealed internal hemorrhoids 3. Retroflexed views revealed small internal hemorrhoids, 4. Revealed external hemorrhoids. Pathology with moderately active chronic colitis of the ascending, sigmoid, rectum. She was given steroids and asacol during that hospitalization. It appears she was on a taper of prednisone- down to 10mg po daily, Asacol 1600mg BID, azathioprine 50mg daily, based on office records from 09/10. She is currently confused- unable to tell me about diarrhea- but 5 documented today. States she had abdominal pain yesterday, bloated but no significant tenderness on exam today. Azathioprine, Asacol. Recommend continuing steroids for now if not contraindicated. - N/V/D. No further problem with n/v. Tolerating diet. Still with diarrhea. - Leukocytosis. WBC 29.6. ID following. ? partly related to inflammatory bowel disease. - AMS, Sz D/O. Tx to unit over night. LP on hold. Neurology following, Psychiatry following. PLAN - Mechanical soft diet - Prednisone to be restarted tomorrow- did have dose today. Agree with restarting this for her IBD if not contraindicated. - Cont. Asacol HD - Cont. Azathioprine - Neurology workup in progress - Supportive care - Further recommendations to follow based on results of above - Pt seen and examined by Dr. Londono and myself and this note is written on her behalf (Yudelka Tijerina) Physician Comments seen, examined agree with above may need iv steroids val, rfactor mra abdomen-vasculitis ? (Serena Londono MD) Yudelka Tijerina September 29, 2016 13:01 Serena Londono MD September 29, 2016 19:16
--- NOTE | 2016-09-29 16:12 | MG ---
cc: JAE MUNIZ M.D. Lab No: [id number] Date:09/29/2016 Age: 50 Sex: F Race: REFERRING PHYSICIAN Dr. Vila ROOM: 1313. PROCEDURE: Photic stimulation repeat study. The patient talking, noted to be awake, MRI showing atrophy more in the cerebellum. EEG from yesterday was very poor study with a lot of artifact, this is a repeat study with a history of patient with ulcerative colitis, chronic obstructive pulmonary disease, bipolar disorder, falls, tachycardic on arrival, hypertension. On acyclovir, Zosyn Cerebyx, metronidazole, Protonix, Lotrel, Depakote and Solu-Medrol. DESCRIPTION OF RECORD: The patient exhibited some background slowly 3,006 hertz, [place] frequency some sharp wave activities noted as well as what looked like some phase reversals over the right frontal temporal region, not continuous, small, there is also some sharp wave activity seen laterally. With quite a bit of eye movement artifact. We put a wash cloth over her eyes. She is talking and photic stimulation does show a driving response. IMPRESSION Abnormal EEG due to some sharps as well as phase reversals as described may be still focus for epileptogenicity in this patient, currently on three antiepileptics by the patient and her chart. Clinical correlation. MD VALERIY Roldan/carlie /3:59 PM /4:05 PM
--- NOTE | 2016-09-29 16:20 | MG ---
cc: JAE MUNIZ M.D. Lab No: Date: 09/29/2016 Age: Sex: F Race: DATE OF 1965 EEG NUMBER [id number] Velazquez. ROOM This is a 2 p.m. study, repeat in the same room 1313. INDICATION Confused. Photic was done. Eyes open throughout the study with washcloth on for two minutes before the patient . MEDICATIONS No change as far as medications listed. Same history. Repeat study. DESCRIPTION OF RECORD The patient still has some slowing, 5-6 Hz. A lot of muscle artifact with her eyes. Some sharp waves seen. Bilateral sharps. Not continuous but visible. Sharp waves occur paroxysmally not continuous. Photic stimulation performed seems to be more sharp wave activity, she will have eye movement. IMPRESSION Abnormal EEG due to slowing and bihemispheric sharp waves with some increase with photic stimulation. Significant for possible epileptic focus. Clinical correlation. MD VALERIY Roldan/GO /4:02 PM /4:07 PM
[2016-09-29 18:36] LABS: BLOOD, URINE NEG (NEG); COMMENT (UR) CULT NOT INDICATED; CULTURE IF INDICATED CULT NOT INDICATED; GLUCOSE,URINE NEG (NEG); KETONE, URINE 10 mg/dL (NEG); MUCUS URINE FEW /lpf (OCC); NITRITE,URINE NEG (NEG); SQUAMOUS EPITHELIAL CELL URINE <1 /hpf (0-5); URINE COLOR YELLOW (YELLW/STRAW)
[2016-09-29] MEDS: DOCUSATE SODIUM 50 MG/SENNA 8.6 MG TAB PO SCH (20:07)
[2016-09-29] MEDS: MELATONIN 5 MG TAB PO SCH (20:07)
[2016-09-29] MEDS: ONDANSETRON HCL 4 MG/2 ML VIAL IV PUSH PRN (20:26)
[2016-09-29] MEDS: INSULIN DETEMIR 100 UNITS/ML VIAL SQ SCH (21:00)
[2016-09-29] MEDS: PANTOPRAZOLE SODIUM 40 MG VIAL IV PUSH SCH (23:39)
[2016-09-30] VITALS (12 sets, daily range): BP systolic 125–150; BP diastolic 56–71; PULSE 79–98; RESP 16–26; TEMP 97.4–98.5; O2SAT 94–100
[2016-09-30] MEDS: SODIUM CHLORIDE 0.9% IV SCH (03:40)
[2016-09-30] MEDS: ACYCLOVIR IV SCH (03:40)
[2016-09-30 05:05] LABS: AUTOMATED NEUTROPHIL # 23.7 TH/MM3 (1.8-7.7); BASOPHIL # 0.1 TH/MM3 (0-0.2); BASOPHIL % 0.4 % (0.0-2.0); EOSINOPHIL % 0.1 % (0.0-4.0); HEMATOCRIT 30.5 % (35.0-46.0); LYMPH % 15.3 % (9.0-44.0); LYMPHOCYTE # 4.7 TH/MM3 (1.0-4.8); MEAN CELL VOLUME 78.5 FL (80.0-100.0); MEAN CORPUSCULAR HEMOGLOBIN 25.4 PG (27.0-34.0); MEAN CORPUSCULAR HGB CONC 32.4 % (32.0-36.0); MONO % 6.6 % (0.0-8.0); NEUT % 77.6 % (16.0-70.0); PLATELET COUNT 674 TH/MM3 (150-450); RED BLOOD COUNT 3.89 MIL/MM3 (4.00-5.30); RED CELL DISTRIBUTION WIDTH 21.2 % (11.6-17.2); WHITE BLOOD COUNT 30.5 TH/MM3 (4.0-11.0)
[2016-09-30 05:25] LABS: HEMO FLAGS AUTO DIFF
[2016-09-30 05:31] LABS: RHEUMATOID FACTOR TRIGGER LESS THAN 10.0 IU/ML (0.0-14.9)
[2016-09-30 05:37] LABS: BICARBONATE 27.2 MEQ/L (21.0-32.0); PHENOBARBITAL 4.9 MCG/ML (15.0-40.0)
[2016-09-30 05:53] LABS: POTASSIUM 2.9 MEQ/L (3.5-5.1)
[2016-09-30] MEDS: NS + KCL 20 MEQ INJ 1,000 ML IV SCH ×4 (05:53→21:12)
[2016-09-30] MEDS: FOSPHENYTOIN SODIUM 100 MG PE/2 ML VIAL IV SCH (05:58)
[2016-09-30] MEDS: metroNIDAZOLE 500 MG INJ 100 ML IV SCH ×3 (05:59→21:11)
[2016-09-30] MEDS: INSULIN ASPART SUPPLEMENTAL SCALE SQ SCH ×4 (07:09→21:00)
[2016-09-30] MEDS ORDERED: NS + KCL 40 MEQ INJ 1,000 ML IV SCH (08:00)
[2016-09-30 08:05] LABS: BANDS 14 % (0-6); METAMYELOCYTES 4 % (0-1); NEUTROPHIL # MANUAL DIFF 25.6 TH/MM3 (1.8-7.7); PLATELET ESTIMATE SMEAR HIGH (NORMAL); PLATELET MORPHOLOGY NORMAL (NORMAL); POLYS (SEG NEUTROPHILS) 66 % (16-70); SCAN/DIFF FINAL DIFF MANUAL; WBC DIFF SAMPLE 100
--- NOTE | 2016-09-30 08:12 | HHI.PR ---
Objective Vital Signs Date Time Temp Pulse Resp B/P Pulse Ox O2 Delivery O2 Flow Rate FiO2 09/30/16 06:00 94 09/30/16 04:00 98 09/30/16 04:00 98.5 98 24 146/68 99 09/30/16 02:00 92 09/30/16 00:00 98.2 81 26 150/71 100 09/30/16 00:00 81 09/29/16 22:00 90 09/29/16 20:00 87 09/29/16 20:00 97.9 78 22 180/80 98 09/29/16 18:00 76 09/29/16 16:00 98.1 80 31 173/79 100 09/29/16 16:00 80 09/29/16 14:00 86 09/29/16 12:00 81 09/29/16 12:00 98.3 81 29 154/72 93 09/29/16 10:00 90 I/O 09/29/16 09/29/16 09/29/16 09/30/16 09/30/16 09/30/16 07:00 15:00 23:00 07:00 15:00 23:00 Intake Total 753 ml 1288 ml 831 ml 1017 ml Output Total 800 ml 1000 ml 900 ml Balance -47 ml 1288 ml -169 ml 117 ml Intake Oral 120 ml 240 ml 240 ml 60 ml IV Total 633 ml 1048 ml 591 ml 957 ml Output Urine Total 800 ml 1000 ml 900 ml # Voids 1 # Bowel Movements 1 1 3 1 Result Diagram: 09/30/16 0448 09/30/16 0448 Objective Remarks alert talking ox3 follows all commands speech a little slurred Assessment and Plan Assessment and Plan labs ok cpk nl mri neg eeg she was in subclinical status epilepticus yest responded to ativan on vpa dil pbarb eeg this am much better will hold LP for today and ifshguy is still confused in am will do it then she was off xanax so maybe sz from withdrawal from that? cont acyclovir for now vpa 48 dil 4.6 09/30/16 much better today will dc dil and stay on pbarb and vpa for now give back xanax oob ok to tele floor dc lp eeg still some left sharps ok for dvt prophylaxis if needed Jason Velazquez MD September 30, 2016 08:11
[2016-09-30] MEDS: azaTHIOprine 50 MG TAB PO SCH (08:28)
[2016-09-30] MEDS: SPIRONOLACTONE 50 MG TAB PO SCH (08:28)
[2016-09-30] MEDS: MESALAMINE HD 800 MG DELAYED RELEASE TAB PO SCH ×2 (08:28→21:10)
[2016-09-30] MEDS: GABAPENTIN 300 MG CAP PO SCH ×3 (08:28→17:41)
[2016-09-30] MEDS ORDERED: predniSONE 20 MG TAB PO SCH (09:00)
[2016-09-30] MEDS: SODIUM CHLORIDE 0.9% FLUSH 10 ML FLUSH IV FLUSH SCH ×2 (09:00→21:09)
[2016-09-30] MEDS: ALPRAZolam 0.5 MG TAB PO SCH ×2 (09:12→21:10)
[2016-09-30] MEDS: DIVALPROEX SODIUM E.R. 250 MG TAB PO SCH ×2 (09:13→21:00)
[2016-09-30] MEDS: TIOTROPIUM BROMIDE 18 MCG INH INH SCH (09:14)
[2016-09-30] MEDS: BUDESONIDE-FORMOTEROL 160/4.5 MCG INHALER INH SCH ×2 (09:14→21:09)
[2016-09-30] MEDS ORDERED: POTASSIUM CHLORIDE 25 MEQ EFFERVESCENT TAB PO ONE (09:30)
[2016-09-30] MEDS: oxyCODONE/ACETAMINOPHEN 10 MG/325 MG TAB PO PRN ×2 (09:37→15:51)
--- NOTE | 2016-09-30 09:52 | HHI.FPPN ---
Subjective Remarks Feels better today. Tolerating PO. Still having abdominal pain, but controlled with meds. No fever/chills. Nursing requesting OOB with assistance. Objective Vitals Vital Signs Date Time Temp Pulse Resp B/P Pulse Ox O2 Delivery O2 Flow Rate FiO2 09/30/16 06:00 94 09/30/16 04:00 98 09/30/16 04:00 98.5 98 24 146/68 99 09/30/16 02:00 92 09/30/16 00:00 98.2 81 26 150/71 100 09/30/16 00:00 81 09/29/16 22:00 90 09/29/16 20:00 87 09/29/16 20:00 97.9 78 22 180/80 98 09/29/16 18:00 76 09/29/16 16:00 98.1 80 31 173/79 100 09/29/16 16:00 80 09/29/16 14:00 86 09/29/16 12:00 81 09/29/16 12:00 98.3 81 29 154/72 93 09/29/16 10:00 90 I/O 09/29/16 09/29/16 09/29/16 09/30/16 09/30/16 09/30/16 06:59 14:59 22:59 06:59 14:59 22:59 Intake Total 753 ml 1288 ml 831 ml 1017 ml Output Total 800 ml 1000 ml 900 ml Balance -47 ml 1288 ml -169 ml 117 ml Intake Oral 120 ml 240 ml 240 ml 60 ml IV Total 633 ml 1048 ml 591 ml 957 ml Output Urine Total 800 ml 1000 ml 900 ml # Voids 1 # Bowel Movements 1 1 3 1 Result Diagram: 09/30/1644709/30/16447 Objective Remarks GENERAL: WN, WD female sitting up in bed in NAD, wrist restraints SKIN: Warm and dry. HEENT: AT/NC. Pupils dilated, equal, and round. Responsive to light. HEART: RRR no m/r/g. LUNGS: CTAB without wheezes or crackles. ABDOMEN: Soft, nondistended, reports pain, but when palpating abdomen no signs of discomfort. No distention, no guarding. EXTREMITIES: No LE edema. NEURO: Answers yes or no to direct questions. Sometimes answers questions inappropriately. Nonverbal. A/P Assessment and Plan 50-year-old female from longterm facility and with complicated past medical history including bipolar disorder, ulcerative colitis presents with altered mental status from her nursing facility. CT abdomen shows pancolitis, unchanged from previous. Concern for polypharmacy since on Xanax, amitriptyline , Seroquel, Depakote. Psychiatry and neurology, infectious disease consulted.. Discharge Planning Pending clinical improvement and rec's from specialists. Problem List: (1) Pancolitis Status: Acute Plan: Patient with history of ulcerative colitis. On admission she met sepsis criteria with source likely GI since pancolitis seen on CT, though similar appearance from prior study. - Leukocytosis persistent - Infectious disease, gastroenterology consulted - Patient refusing bowel prep, plan was for colonoscopy on 09/28 Meds: - D/C Zosyn IV Q6H per ID - Flagyl 500 IV q8 hr - Continue home mesalamine and Azathioprine - Prednisone 50 mg daily Labs: - Blood cultures negative - Monitor CBC - Stool studies negative for C. diff (2) Altered mental status Status: Acute Plan: Improved. Likely related to seizures/post ictal period. - Psychiatry consulted - Neurology consult - Continue Depakote 500 mg by mouth every 8 hours & valproate 500 mg BID IV - Currently phenobarbital 60 PO q12 hours - Continue xanax 0.5 mg PO bid Labs: - Ammonia 37 - TSH slightly elevated, likely acute phase reactant, repeat as an outpatient - RPR, B12, and thiamine WNL - Depakote level WNL Imaging/EEG History: - EEG subclinical status epilepticus, repeat improved - CT head on admission negative - MRI brain: atrophy more pronounced in cerebellum, otherwise negative for acute process (3) Bronchitis Status: Acute Plan: DuoNeb PRN. Supplemental O2 PRN. Steroids for colitis as above (4) FEN/DVT PPX/GI PPX Status: Acute Plan: Fluids: NS 100 ml/hr with 20 KCl Electrolytes: Monitor and replace when necessary. Nutrition: Speech therapy assessed. Mechanical soft. Prophylaxis: Lovenox 40 mg subcutaneous every 24 hours. Bilateral SCDs. Melatonin daily Chronic medical conditions: - Diabetes: Hold home metformin. Patient normally takes Lantus 26 units subcutaneous at bedtime with Novolin sliding scale. Levemir 15 units at bedtime, sliding scale insulin. Expect adjustments pending sliding scale coverage. - Ulcerative colitis: GI consult. Continue azathioprine 50 mg daily. Mesalamine 1600 mg by mouth twice a day. - Diabetic polyneuropathy: Continue gabapentin at reduced dose of 400 mg by mouth 3 times a day, continue Lyrica at current home dose - COPD: Continue albuterol, DuoNeb's. - Hyperlipidemia: Currently holding home atorvastatin -Chronic low back pain: Continue Percocet 10 every 6 hours when necessary pain 6 -10. Morphine IV if unable to swallow. Problem Qualifiers (1) Altered mental status: Qualified Code: R41.82 - Altered mental status, unspecified altered mental status type Fabian Anderson MD R2 September 30, 2016 09:52 status type Fabian Anderson MD R2 September 30, 2016 09:52
[2016-09-30] MEDS: predniSONE 50 MG TAB PO SCH (10:14)
[2016-09-30] MEDS: ENOXAPARIN SODIUM 40 MG/0.4 ML SYRINGE SQ SCH (10:42)
[2016-09-30] MEDS ORDERED: GADODIAMIDE PF 287 MG/ML 10 ML VIAL (for RAD MRI) IV ONE (13:09)
--- NOTE | 2016-09-30 13:14 | HHI.GIFU ---
Subjective Remarks Up in chair. Mental status much improved today. Alert and oriented. C/O abdominal pain. Multiple bowel movements. Going for MRI. (Yudelka Tijerina) Objective Vitals I&O Vital Signs Date Time Temp Pulse Resp B/P Pulse Ox O2 Delivery O2 Flow Rate FiO2 09/30/16 12:00 80 09/30/16 12:00 98.1 80 16 146/68 95 09/30/16 10:00 85 09/30/16 08:00 97.7 86 24 149/63 98 09/30/16 06:00 94 09/30/16 04:00 98 09/30/16 04:00 98.5 98 24 146/68 99 09/30/16 02:00 92 09/30/16 00:00 98.2 81 26 150/71 100 09/30/16 00:00 81 09/29/16 22:00 90 09/29/16 20:00 87 09/29/16 20:00 97.9 78 22 180/80 98 09/29/16 18:00 76 09/29/16 16:00 98.1 80 31 173/79 100 09/29/16 16:00 80 09/29/16 14:00 86 I/O 09/29/16 09/29/16 09/29/16 09/30/16 09/30/16 09/30/16 07:00 15:00 23:00 07:00 15:00 23:00 Intake Total 753 ml 1288 ml 831 ml 1017 ml Output Total 800 ml 1000 ml 900 ml Balance -47 ml 1288 ml -169 ml 117 ml Intake Oral 120 ml 240 ml 240 ml 60 ml IV Total 633 ml 1048 ml 591 ml 957 ml Output Urine Total 800 ml 1000 ml 900 ml # Voids 1 # Bowel Movements 1 1 3 1 Laboratory Laboratory Tests Test 09/29/16 09/30/16 17:15 04:48 Urine Color YELLOW Urine Turbidity CLEAR Urine pH 6.0 Urine Specific Boyle 1.017 Urine Protein NEG Urine Glucose (UA) NEG Urine Ketones 10 Urine Occult Blood NEG Urine Nitrite NEG Urine Bilirubin NEG Urine Urobilinogen LESS THAN 2.0 Urine Leukocyte Esterase NEG Urine RBC LESS THAN 1 Urine WBC 2 Urine Squamous Epithelial <1 Cells Urine Mucus FEW Urine Yeast (Budding) OCC Microscopic Urinalysis Comment CULT NOT INDICATED White Blood Count 30.5 Red Blood Count 3.89 Hemoglobin 9.9 Hematocrit 30.5 Mean Corpuscular Volume 78.5 Mean Corpuscular Hemoglobin 25.4 Mean Corpuscular Hemoglobin 32.4 Concent Red Cell Distribution Width 21.2 Platelet Count 674 Mean Platelet Volume 6.3 Neutrophils (%) (Auto) 77.6 Lymphocytes (%) (Auto) 15.3 Monocytes (%) (Auto) 6.6 Eosinophils (%) (Auto) 0.1 Basophils (%) (Auto) 0.4 Neutrophils # (Auto) 23.7 Lymphocytes # (Auto) 4.7 Monocytes # (Auto) 2.0 Eosinophils # (Auto) 0.0 Basophils # (Auto) 0.1 CBC Comment AUTO DIFF Differential Total Cells 100 Counted Neutrophils % (Manual) 66 Band Neutrophils % 14 Lymphocytes % 9 Monocytes % 7 Neutrophils # (Manual) 25.6 Metamyelocytes 4 Differential Comment FINAL DIFF MANUAL Platelet Estimate HIGH Platelet Morphology Comment NORMAL Sodium Level 144 Potassium Level 2.9 Chloride Level 105 Carbon Dioxide Level 27.2 Anion Gap 12 Blood Urea Nitrogen 7 Creatinine 0.39 Estimat Glomerular Filtration 173 Rate Random Glucose 160 Calcium Level 7.8 Phenytoin (Dilantin) Level 3.9 Valproic Acid (Depakene) Level 37 Phenobarbital Level 4.9 Rheumatoid Factor Screen NEGATIVE Rheumatoid Factor Titer Date/Time Procedure Status Source Growth 09/26/16 10:50 Cryptosporidium Exam - Final Complete Stool Stool NEGATIVE - NO CRYPTOSPORIDIUM ANTIGEN... 09/26/16 10:50 Stool Pus (JENNIFER) - Final Complete Stool Stool RARE WBC 09/26/16 10:50 Giardia Antigen (JENNIFER) - Final Complete Stool Stool NEGATIVE - NO GIARDIA ANTIGEN DETECTE... Imaging Last Impressions Chest X-Ray 09/28/16 0000 Signed Impressions: Service Date/Time: Wednesday, September 28, 2016 15:30 - CONCLUSION: No acute disease. Daryl Cook MD Brain MRI 09/28/16 0000 Signed Impressions: Service Date/Time: Wednesday, September 28, 2016 10:25 - CONCLUSION: Atrophy more pronounced in the cerebellum otherwise negative acute process. Micah Araujo MD FACR Head CT 09/22/16 0000 Signed Impressions: Service Date/Time: Thursday, September 22, 2016 09:46 - CONCLUSION: Normal examination. Bakari Hearn Jr., MD Chest CT 09/22/16 0000 Signed Impressions: Service Date/Time: Thursday, September 22, 2016 15:27 - CONCLUSION: 1. No infiltrate or effusion. 2. Mild right basilar atelectasis. Bakari Hearn Jr., MD Abdomen/Pelvis CT 09/22/16 0000 Signed Impressions: Service Date/Time: Thursday, September 22, 2016 15:33 - CONCLUSION: Diffuse mild wall thickening involving the colon consistent with pancolitis. Findings are similar to the prior study. Consider C. difficile colitis versus ulcerative colitis. Bakari Hearn Jr., MD Physical Exam HEENT: Normocephalic; atraumatic CHEST: CTA CARDIAC: RRR ABDOMEN: Soft, mild diffuse tenderness, mildly bloated no hepatosplenomegaly; bowel sounds are present in all four quadrants. EXTREMITIES: No clubbing, cyanosis, or edema. SKIN: Normal; no rash; no jaundice. IMPORT EXPORT COORDINATOR: Lethargic, oriented to place, person, and month (Yudelka TijerinaP ) Assessment and Plan Plan ASSESSMENT: - Pancolitis with known U.C. Abdomen/Pelvis CT (09/22/16)-----> Diffuse mild wall thickening involving the colon consistent with pancolitis. Findings are similar to the prior study. Consider C. difficile colitis versus ulcerative colitis. CDiff negative. S/P Colonoscopy (08/03/16)------> 1. Circumferential diffuse abnormal mucosa was found throughout the entire examined colon; The mucosa was congested, erythematous, friable and had granularity and superficial ulcers; multiple biopsies were performed using cold forceps 2. Retroflexed views revealed internal hemorrhoids 3. Retroflexed views revealed small internal hemorrhoids, 4. Revealed external hemorrhoids. Pathology with moderately active chronic colitis of the ascending, sigmoid, rectum. She was given steroids and asacol during that hospitalization. It appears she was on a taper of prednisone- down to 10mg po daily, Asacol 1600mg BID, azathioprine 50mg daily, based on office records from 09/10. She is currently on prednisone, azathioprine, asacol hd. She has mild diffuse abdominal tenderness on exam, still with multiple bowel movements. CARLENE negative. RF negative. Going down for MRI/MRA abdomen. Flagyl. - N/V/D. No further problem with n/v. Tolerating diet. Multiple loose bowel movements this am. Stool studies negative for cryptosporidium, giardia, cdiff- rare WBC. - Leukocytosis. WBC 30.5. ID following. Flagyl - AMS, Sz D/O. LP on hold. Neurology following, Psychiatry following. Improved. Now oriented to self, person, place. PLAN - Mechanical soft diet - Await MRI/MRA abdomen - Cont. Prednisone 50mg po daily - Cont. Asacol HD - Cont. Azathioprine - Cont. Flagyl - Monitor labs - Supportive care - Further recommendations to follow based on results of above - Pt seen and examined by Dr. Londono and myself and this note is written on her behalf (Yudelka Tijerina) Physician Comments seen, examined agree with above (Serena Londono MD) Yudelka Tijerina September 30, 2016 13:14 Serena Londono MD September 30, 2016 19:37
--- NOTE | 2016-09-30 15:01 | HHI.IDPN ---
Subjective Subjective Remarks Notes reviewed D/W RN Patient A/O x 3 Just finished her EEG Up in a chair Temps ok MRI brain no evidence of any enhancement WBC still high C diff negative Acyclovir has been D/C Cultures reviewed Antibiotics Flagyl Past Medical History Ulcerative colitis History of bipolar disorder History of uterine cancer Diabetes mellitus GERD Anxiety COPD Hypertension Past Surgical History section Cervical spine surgery Lumbar spine surgery Right knee surgery 2 Tonsillectomy Hysterectomy Allergies: Coded Allergies: Sulfa (Verified Allergy, Severe, RASH, 09/22/16) Cipro (Verified Allergy, Unknown, 09/22/16) Erythromycin (Verified Allergy, Unknown, 09/22/16) Ofloxacin (Verified Allergy, Unknown, 09/22/16) Objective . Vital Signs Date Time Temp Pulse Resp B/P Pulse Ox O2 Delivery O2 Flow Rate FiO2 09/30/16 12:00 80 09/30/16 12:00 98.1 80 16 146/68 95 09/30/16 10:00 85 09/30/16 08:00 97.7 86 24 149/63 98 09/30/16 06:00 94 09/30/16 04:00 98 09/30/16 04:00 98.5 98 24 146/68 99 09/30/16 02:00 92 09/30/16 00:00 98.2 81 26 150/71 100 09/30/16 00:00 81 09/29/16 22:00 90 09/29/16 20:00 87 09/29/16 20:00 97.9 78 22 180/80 98 09/29/16 18:00 76 09/29/16 16:00 98.1 80 31 173/79 100 09/29/16 16:00 80 09/29/16 09/29/16 09/30/16 15:00 23:00 07:00 Intake Total 1288 ml 831 ml 1017 ml Output Total 1000 ml 900 ml Balance 1288 ml -169 ml 117 ml Intake Oral 240 ml 240 ml 60 ml IV Total 1048 ml 591 ml 957 ml Output Urine Total 1000 ml 900 ml # Voids 1 # Bowel Movements 1 3 1 . Laboratory Tests Test 09/28/16 09/29/16 09/30/16 15:25 03:18 04:48 White Blood Count 28.1 TH/MM3 29.6 TH/MM3 30.5 TH/MM3 Red Blood Count 4.34 MIL/MM3 4.26 MIL/MM3 3.89 MIL/MM3 Hemoglobin 11.1 GM/DL 10.6 GM/DL 9.9 GM/DL Hematocrit 34.3 % 33.4 % 30.5 % Mean Corpuscular Volume 79.0 FL 78.2 FL 78.5 FL Mean Corpuscular Hemoglobin 25.7 PG 24.9 PG 25.4 PG Mean Corpuscular Hemoglobin 32.5 % 31.8 % 32.4 % Concent Red Cell Distribution Width 21.1 % 21.1 % 21.2 % Platelet Count 688 TH/MM3 693 TH/MM3 674 TH/MM3 Mean Platelet Volume 6.7 FL 6.6 FL 6.3 FL Neutrophils (%) (Auto) 85.0 % 77.6 % Lymphocytes (%) (Auto) 10.6 % 15.3 % Monocytes (%) (Auto) 4.0 % 6.6 % Eosinophils (%) (Auto) 0.0 % 0.1 % Basophils (%) (Auto) 0.4 % 0.4 % Neutrophils # (Auto) 25.1 TH/MM3 23.7 TH/MM3 Lymphocytes # (Auto) 3.1 TH/MM3 4.7 TH/MM3 Monocytes # (Auto) 1.2 TH/MM3 2.0 TH/MM3 Eosinophils # (Auto) 0.0 TH/MM3 0.0 TH/MM3 Basophils # (Auto) 0.1 TH/MM3 0.1 TH/MM3 CBC Comment AUTO DIFF AUTO DIFF Differential Total Cells 100 100 Counted Neutrophils % (Manual) 62 % 66 % Band Neutrophils % 16 % 14 % Lymphocytes % 10 % 9 % Monocytes % 3 % 7 % Neutrophils # (Manual) 25.8 TH/MM3 25.6 TH/MM3 Metamyelocytes 2 % 4 % Myelocytes 5 % Promyelocytes 2 % Differential Comment FINAL DIFF FINAL DIFF MANUAL MANUAL Toxic Granulation 1+ Platelet Estimate HIGH HIGH Platelet Morphology Comment NORMAL NORMAL Laboratory Tests Test 09/29/16 09/30/16 03:18 04:48 Sodium Level 141 MEQ/L 144 MEQ/L Potassium Level 3.6 MEQ/L 2.9 MEQ/L Chloride Level 105 MEQ/L 105 MEQ/L Carbon Dioxide Level 24.7 MEQ/L 27.2 MEQ/L Anion Gap 11 MEQ/L 12 MEQ/L Blood Urea Nitrogen 8 MG/DL 7 MG/DL Creatinine 0.41 MG/DL 0.39 MG/DL Estimat Glomerular Filtration 164 ML/MIN 173 ML/MIN Rate Random Glucose 218 MG/DL 160 MG/DL Calcium Level 8.0 MG/DL 7.8 MG/DL Total Bilirubin 0.3 MG/DL Aspartate Amino Transf 10 U/L (AST/SGOT) Alanine Aminotransferase 12 U/L (ALT/SGPT) Alkaline Phosphatase 97 U/L Total Protein 5.9 GM/DL Albumin 2.4 GM/DL Imaging Last Impressions Chest X-Ray 09/28/16 Signed Impressions: Service Date/Time: Wednesday, September 28, 2016 15:30 - CONCLUSION: No acute disease. Daryl Cook MD Brain MRI 09/28/16 Signed Impressions: Service Date/Time: Wednesday, September 28, 2016 10:25 - CONCLUSION: Atrophy more pronounced in the cerebellum otherwise negative acute process. Micah Araujo MD FACR Head CT 09/22/16 Signed Impressions: Service Date/Time: Thursday, September 22, 2016 09:46 - CONCLUSION: Normal examination. Bakari Hearn Jr., MD Chest CT 09/22/16 Signed Impressions: Service Date/Time: Thursday, September 22, 2016 15:27 - CONCLUSION: 1. No infiltrate or effusion. 2. Mild right basilar atelectasis. Bakari Hearn Jr., MD Abdomen/Pelvis CT 09/22/16 Signed Impressions: Service Date/Time: Thursday, September 22, 2016 15:33 - CONCLUSION: Diffuse mild wall thickening involving the colon consistent with pancolitis. Findings are similar to the prior study. Consider C. difficile colitis versus ulcerative colitis. Bakari Hearn Jr., MD Physical Exam GENERAL: she is awake and alert, NAD SKIN: Cool and dry. No generalized rash. Her IV sites look okay with no evidence of phlebitis. HEAD: Atraumatic. Normocephalic. No temporal or scalp tenderness. EYES: Irwin conjunctiva, no petechia or hemorrhage. No scleral icterus. No injection or drainage. ENT: Nose without bleeding, or purulent drainage . She has moist oral mucosa. NECK: Trachea midline. No JVD or lymphadenopathy. Supple, nontender, no meningeal signs. CARDIOVASCULAR: Regular rate and rhythm without murmurs, gallops, or rubs. RESPIRATORY: Clear to auscultation. Breath sounds equal bilaterally. No wheezes , rales, or rhonchi. GASTROINTESTINAL: Abdomen soft, nondistended, bowel sounds are present and normoactive, she has mild diffuse tenderness. No guarding or rebound. No hepato -splenomegaly, or palpable masses. MUSCULOSKELETAL: Extremities without clubbing, cyanosis, or edema. No joint effusion, or edema noted. No calf tenderness. Negative Homans sign bilaterally. NEUROLOGICAL: Awake and alert. Cranial nerves II through XII intact. No Babinski. No clonus. Moves all extremities LINE: No evidence of infection Assessment & Plan Remarks IMPRESSION Leukocytosis, likely reactive due to GI process, and due to steroids - persistent - worl-up no identified so far Ulcerative colitis - C diff negative Vomiting, etiology? resolved Known bipolar disorder Change in mental status, clinically does not look infectious - possible seizure, ?withdrawal RECOMMENDATION Stop Flagyl Follow CBC Monitor off Abx Monitor progress Clinically doing well from ID standpoint D/W RN D/W C Breezy STINSON (GI) Kallie Page MD September 30, 2016 15:01
--- NOTE | 2016-09-30 15:25 | RADRPT ---
EXAM DATE/TIME: 09/30/2016 12:50 [facility] COMPARISON: No previous studies available for comparison. INDICATIONS : Ischemia. CONTRAST: 30 cc Omniscan (gadodiamide) IV MEDICAL HISTORY : Hypertension. Diabetes mellitus type 2. Uterine ca SURGICAL HISTORY : Fusion, cervical. Fusion, lumbar. Hysterectomy. ENCOUNTER: Subsequent ACUITY: 4-6 days PAIN SCORE: 2/10 LOCATION: Abdomen TECHNIQUE: Bolus infused MR angiography was performed with multiplanar, sliding thin slab and 3-D reconstruction . FINDINGS: There is minimal atherosclerotic vascular disease in the proximal superior mesenteric artery. Celiac artery is widely patent. Right and left renal arteries are widely patent. Very minimal calcific vascular disease is evident. Portions of the liver and spleen identified are free of focal defects. There is no evidence for gallstones. Very mild perinephric stranding is seen about both kidneys. CONCLUSION: 1. There is no evidence for superior mesenteric artery disease. 2. The inferior mesenteric artery is visualized as well. Micah Araujo MD FACR on September 30, 2016 at 14:59 Board Certified Radiologist. This report was verified electronically.
[2016-09-30] MEDS: INSULIN DETEMIR 100 UNITS/ML VIAL SQ SCH (21:00)
[2016-09-30] MEDS: MELATONIN 5 MG TAB PO SCH (21:10)
[2016-09-30] MEDS: DOCUSATE SODIUM 50 MG/SENNA 8.6 MG TAB PO SCH (21:10)
[2016-09-30] MEDS: PANTOPRAZOLE SODIUM 40 MG VIAL IV PUSH SCH (21:11)
[2016-10-01] VITALS (11 sets, daily range): BP systolic 115–141; BP diastolic 59–71; PULSE 64–89; RESP 20–24; TEMP 96.9–98.8; O2SAT 94–100
[2016-10-01] MEDS: oxyCODONE/ACETAMINOPHEN 10 MG/325 MG TAB PO PRN ×3 (02:55→18:15)
--- NOTE | 2016-10-01 05:18 | MG ---
cc: SHEYLA URIAS M.D. Lab No: [id number] Date: 09/30/2016 Age: 50 Sex: F Race: DATE OF 1965 AGE [age] years old REQUESTING PHYSICIAN MD Caroline EEG NUMBER [id number] ROOM 1313 NOTE Awake, drowsy, asleep. Photic done. INDICATIONS MRI - Atrophy, pronounced cerebellum. Follow-up EEG. History of ulcerative colitis. Tachycardia. Fall. Hypertension. MEDICATIONS 1. Acyclovir. 2. Zosyn. 3. Cerebyx. 4. Metronidazole. 5. Depakote. 6. Phenobarbital. 7. Solu-Medrol. DESCRIPTION OF RECORD Apparently the patient is sitting in a recliner, talking during the recording. She has some mild slowing predominately of 6-7 Hz. EKG looks to be in sinus rhythm. Photic stimulation did elicit a driving response. Some eye movement noted from that portion. Some minor sharps still seen on occasion, seen before and during the photic stimulatory phase. There is a phase reversal at photic 21 Hz at epoch 43 at T3-T5, T501. No active seizures. Some leg jerking but it does not correlate with any seizure-like activity. She is snoring at one point. IMPRESSION Abnormal EEG due to some background slowing predominately of theta frequency at times with some occasional phase reversals and some sharp waves but improved overall. Clinical correlation. Sheyla Urias MD DF/SSB /8:48 PM /5:05 AM
[2016-10-01] MEDS: metroNIDAZOLE 500 MG INJ 100 ML IV SCH (06:21)
[2016-10-01] MEDS: INSULIN ASPART SUPPLEMENTAL SCALE SQ SCH ×4 (06:38→21:13)
[2016-10-01 06:54] LABS: AUTOMATED NEUTROPHIL # 19.6 TH/MM3 (1.8-7.7); BASOPHIL # 0.1 TH/MM3 (0-0.2); BASOPHIL % 0.3 % (0.0-2.0); EOSINOPHIL % 0.1 % (0.0-4.0); HEMATOCRIT 27.1 % (35.0-46.0); LYMPH % 18.3 % (9.0-44.0); LYMPHOCYTE # 4.7 TH/MM3 (1.0-4.8); MEAN CELL VOLUME 77.4 FL (80.0-100.0); MEAN CORPUSCULAR HEMOGLOBIN 25.7 PG (27.0-34.0); MEAN CORPUSCULAR HGB CONC 33.1 % (32.0-36.0); MONO % 5.4 % (0.0-8.0); NEUT % 75.9 % (16.0-70.0); PLATELET COUNT 546 TH/MM3 (150-450); RED BLOOD COUNT 3.49 MIL/MM3 (4.00-5.30); WHITE BLOOD COUNT 25.8 TH/MM3 (4.0-11.0)
[2016-10-01 06:57] LABS: HEMO FLAGS AUTO DIFF
[2016-10-01 07:21] LABS: BICARBONATE 26.9 MEQ/L (21.0-32.0)
[2016-10-01 07:23] LABS: PHENOBARBITAL 4.5 MCG/ML (15.0-40.0)
--- NOTE | 2016-10-01 08:39 | HHI.PR ---
Subjective Remarks no new sz Objective Vital Signs Date Time Temp Pulse Resp B/P Pulse Ox O2 Delivery O2 Flow Rate FiO2 10/01/16 06:00 76 10/01/16 04:00 74 10/01/16 04:00 98.4 75 20 141/62 94 10/01/16 02:00 78 10/01/16 00:00 85 10/01/16 00:00 98.8 82 24 115/59 94 09/30/16 22:00 92 09/30/16 20:00 86 09/30/16 20:00 98.0 82 22 148/56 94 09/30/16 18:00 90 09/30/16 16:00 91 09/30/16 16:00 97.4 91 26 125/63 95 09/30/16 14:00 90 09/30/16 12:00 80 09/30/16 12:00 98.1 80 16 146/68 95 09/30/16 10:00 85 I/O 09/30/16 09/30/16 09/30/16 10/01/16 10/01/16 10/01/16 07:00 15:00 23:00 07:00 15:00 23:00 Intake Total 1017 ml 1120 ml 1072 ml 918 ml Output Total 900 ml 600 ml 800 ml 400 ml Balance 117 ml 520 ml 272 ml 518 ml Intake Oral 60 ml 480 ml 360 ml 240 ml IV Total 957 ml 640 ml 712 ml 678 ml Output Urine Total 900 ml 600 ml 800 ml 400 ml # Bowel Movements 1 1 1 Result Diagram: 10/01/16 0552 10/01/16 0552 Objective Remarks alert talking ox3 follows all commands speech less slurred in chair Assessment and Plan Assessment and Plan labs ok cpk nl mri neg eeg she was in subclinical status epilepticus yest responded to ativan on vpa dil pbarb eeg this am much better will hold LP for today and iflinette is still confused in am will do it then she was off xanax so maybe sz from withdrawal from that? cont acyclovir for now vpa 48 dil 4.6 09/30/16 much better today will dc dil and stay on pbarb and vpa for now give back xanax oob ok to tele floor dc lp eeg still some left sharps ok for dvt prophylaxis if needed 10/01/16 no more sz vpa 46 750 bid pbarb 4.5 doing well long yannick xanax 1 mg tid so will put back on that was on vpa at home eeg still some left sharps recheck today ok to floor ambulate more Jason Velazquez MD October 01, 2016 08:39
[2016-10-01] MEDS: MESALAMINE HD 800 MG DELAYED RELEASE TAB PO SCH ×2 (08:43→21:04)
[2016-10-01] MEDS: GABAPENTIN 300 MG CAP PO SCH ×3 (08:43→18:14)
[2016-10-01] MEDS: SPIRONOLACTONE 50 MG TAB PO SCH (08:43)
[2016-10-01] MEDS: ENOXAPARIN SODIUM 40 MG/0.4 ML SYRINGE SQ SCH (08:44)
[2016-10-01] MEDS: predniSONE 50 MG TAB PO SCH (08:44)
[2016-10-01] MEDS: azaTHIOprine 50 MG TAB PO SCH (08:44)
[2016-10-01] MEDS: SODIUM CHLORIDE 0.9% FLUSH 10 ML FLUSH IV FLUSH SCH ×2 (08:45→21:07)
[2016-10-01] MEDS: DIVALPROEX SODIUM E.R. 250 MG TAB PO SCH ×2 (08:45→21:29)
[2016-10-01] MEDS: TIOTROPIUM BROMIDE 18 MCG INH INH SCH (08:46)
[2016-10-01] MEDS: BUDESONIDE-FORMOTEROL 160/4.5 MCG INHALER INH SCH ×2 (08:46→21:07)
[2016-10-01 08:49] LABS: BANDS 12 % (0-6); METAMYELOCYTES 1 % (0-1); MYELOCYTES 1 % (0-0); NEUTROPHIL # MANUAL DIFF 19.6 TH/MM3 (1.8-7.7); POLYS (SEG NEUTROPHILS) 62 % (16-70); WBC DIFF SAMPLE 100
[2016-10-01 08:50] LABS: OVALOCYTES 1+ (NORMAL); PLATELET ESTIMATE SMEAR HIGH (NORMAL); PLATELET MORPHOLOGY NORMAL (NORMAL); SCAN/DIFF FINAL DIFF MANUAL
[2016-10-01] MEDS: ALPRAZolam 1 MG TAB PO SCH ×3 (08:59→18:14)
[2016-10-01] MEDS ORDERED: POTASSIUM CHLORIDE 10 MEQ CONTROLLED RELEASE TAB PO ONE (10:15)
--- NOTE | 2016-10-01 10:24 | HHI.FPPN ---
Subjective Remarks Patient seen and examined this am. Vitals are stable and the patient is afebrile. Just finished EEG. Slept during the entire study. She is tired this morning but awakens and answers questions appropriately. Objective Vitals Vital Signs Date Time Temp Pulse Resp B/P Pulse Ox O2 Delivery O2 Flow Rate FiO2 10/01/16 09:44 16 10/01/16 06:00 76 10/01/16 04:00 74 10/01/16 04:00 98.4 75 20 141/62 94 10/01/16 02:00 78 10/01/16 00:00 85 10/01/16 00:00 98.8 82 24 115/59 94 09/30/16 22:00 92 09/30/16 20:00 86 09/30/16 20:00 98.0 82 22 148/56 94 09/30/16 18:00 90 09/30/16 16:00 91 09/30/16 16:00 97.4 91 26 125/63 95 09/30/16 14:00 90 09/30/16 12:00 80 09/30/16 12:00 98.1 80 16 146/68 95 I/O 09/30/16 09/30/16 09/30/16 10/01/16 10/01/16 10/01/16 07:00 15:00 23:00 07:00 15:00 23:00 Intake Total 1017 ml 1120 ml 1072 ml 918 ml Output Total 900 ml 600 ml 800 ml 400 ml Balance 117 ml 520 ml 272 ml 518 ml Intake Oral 60 ml 480 ml 360 ml 240 ml IV Total 957 ml 640 ml 712 ml 678 ml Output Urine Total 900 ml 600 ml 800 ml 400 ml # Bowel Movements 1 1 1 Result Diagram: 10/01/16 0552 10/01/16 0552 Imaging Last Impressions Abdomen MRI 09/30/16 0000 Signed Impressions: Service Date/Time: Friday, September 30, 2016 12:50 - CONCLUSION: 1. There is no evidence for superior mesenteric artery disease. 2. The inferior mesenteric artery is visualized as well. Micah Araujo MD FACR Chest X-Ray 09/28/16 0000 Signed Impressions: Service Date/Time: Wednesday, September 28, 2016 15:30 - CONCLUSION: No acute disease. Daryl Cook MD Brain MRI 09/28/16 0000 Signed Impressions: Service Date/Time: Wednesday, September 28, 2016 10:25 - CONCLUSION: Atrophy more pronounced in the cerebellum otherwise negative acute process. Micah Araujo MD FACR Head CT 09/22/16 0000 Signed Impressions: Service Date/Time: Thursday, September 22, 2016 09:46 - CONCLUSION: Normal examination. Bakari Hearn Jr., MD Chest CT 09/22/16 0000 Signed Impressions: Service Date/Time: Thursday, September 22, 2016 15:27 - CONCLUSION: 1. No infiltrate or effusion. 2. Mild right basilar atelectasis. Bakari Hearn Jr., MD Abdomen/Pelvis CT 09/22/16 0000 Signed Impressions: Service Date/Time: Thursday, September 22, 2016 15:33 - CONCLUSION: Diffuse mild wall thickening involving the colon consistent with pancolitis. Findings are similar to the prior study. Consider C. difficile colitis versus ulcerative colitis. Bakari Hearn Jr., MD Objective Remarks GENERAL: WN, WD female sitting in chair, resting comfortably SKIN: Warm and dry. HEENT: AT/NC. Pupils dilated, equal, and round. Responsive to light. HEART: RRR no m/r/g. LUNGS: Lateral breath sounds are CTAB without wheezes or crackles. ABDOMEN: Soft, nondistended, reports pain, but when palpating abdomen no signs of discomfort. No distention, no guarding. EXTREMITIES: No LE edema. NEURO: Answers yes or no to direct questions. Sometimes answers questions inappropriately. A/P Assessment and Plan 50-year-old female from care home facility and with complicated past medical history including bipolar disorder, ulcerative colitis presents with altered mental status from her nursing facility. CT abdomen shows pancolitis, unchanged from previous. Concern for polypharmacy since on Xanax, amitriptyline , Seroquel, Depakote. Psychiatry and neurology, infectious disease consulted.. Discharge Planning Pending clinical improvement and rec's from specialists. Transfer to regular medical floor. Problem List: (1) Pancolitis Status: Acute Plan: Patient with history of ulcerative colitis. See CT above. Clinically improving. Per GI "/P Colonoscopy (08/03/16)------> 1. Circumferential diffuse abnormal mucosa was found throughout the entire examined colon; The mucosa was congested , erythematous, friable and had granularity and superficial ulcers; multiple biopsies were performed using cold forceps 2. Retroflexed views revealed internal hemorrhoids 3. Retroflexed views revealed small internal hemorrhoids , 4. Revealed external hemorrhoids. Pathology with moderately active chronic colitis of the ascending, sigmoid, rectum. She was given steroids and asacol during that hospitalization. It appears she was on a taper of prednisone- down to 10mg po daily, Asacol 1600mg BID, azathioprine 50mg daily, based on office records from 09/10. She is currently on prednisone, azathioprine, asacol hd. She has mild diffuse abdominal tenderness on exam, still with multiple bowel movements. CARLENE negative. RF negative. " - S/P MRI with no evidence of SMA disease. - Leukocytosis improving. Meds: - D/C Zosyn IV Q6H per ID - Flagyl 500 IV q8 hr - Continue home mesalamine and Azathioprine - ue ContinPrednisone 50 mg daily Labs: - Blood cultures negative - Monitor CBC - Stool studies negative for C. diff (2) Altered mental status Status: Acute Plan: Improved. Likely related to seizures/post ictal period. - Psychiatry consulted - Neurology consult - Continue Depakote 500 mg by mouth every 8 hours & valproate 500 mg BID IV - Currently phenobarbital 60 PO q12 hours - Continue xanax 1 mg PO TID Labs: - Ammonia 37 - TSH slightly elevated, likely acute phase reactant, repeat as an outpatient - RPR, B12, and thiamine WNL - Depakote level WNL Imaging/EEG History: - EEG still with left sharp per Neuro, to be repeated today - CT head on admission negative - MRI brain: atrophy more pronounced in cerebellum, otherwise negative for acute process (3) Bronchitis Status: Resolved Plan: DuoNeb PRN. Supplemental O2 PRN. Steroids for colitis as above (4) FEN/DVT PPX/GI PPX Status: Acute Plan: Fluids: NS 100 ml/hr with 20 KCl Electrolytes:K 3.0, repleated orally Nutrition: Speech therapy assessed. Mechanical soft. Prophylaxis: Lovenox 40 mg subcutaneous every 24 hours. Bilateral SCDs. Melatonin daily Chronic medical conditions: - Diabetes: Hold home metformin. Patient normally takes Lantus 26 units subcutaneous at bedtime with Novolin sliding scale. Levemir 15 units at bedtime, sliding scale insulin. Expect adjustments pending sliding scale coverage. - Ulcerative colitis: GI consult. Continue azathioprine 50 mg daily. Mesalamine 1600 mg by mouth twice a day. - Diabetic polyneuropathy: Continue gabapentin at reduced dose of 400 mg by mouth 3 times a day, continue Lyrica at current home dose - COPD: Continue albuterol, DuoNeb's. - Hyperlipidemia: Currently holding home atorvastatin -Chronic low back pain: Continue Percocet 10 every 6 hours when necessary pain 6 -10. Morphine IV if unable to swallow. Problem Qualifiers (1) Altered mental status: Qualified Code: R41.82 - Altered mental status, unspecified altered mental status type Malathi Al MD R3 October 01, 2016 10:24
--- NOTE | 2016-10-01 13:07 | HHI.IDPN ---
Subjective Subjective Remarks Notes reviewed Clinically doing well from ID standpoint Temps ok Up in chair Off Abx Antibiotics None Past Medical History Ulcerative colitis History of bipolar disorder History of uterine cancer Diabetes mellitus GERD Anxiety COPD Hypertension Past Surgical History section Cervical spine surgery Lumbar spine surgery Right knee surgery 2 Tonsillectomy Hysterectomy Allergies: Coded Allergies: Sulfa (Verified Allergy, Severe, RASH, 09/22/16) Cipro (Verified Allergy, Unknown, 09/22/16) Erythromycin (Verified Allergy, Unknown, 09/22/16) Ofloxacin (Verified Allergy, Unknown, 09/22/16) Objective . Vital Signs Date Time Temp Pulse Resp B/P Pulse Ox O2 Delivery O2 Flow Rate FiO2 10/01/16 12:14 95 Nasal Cannula 2.00 10/01/16 12:00 98.0 77 22 129/63 95 10/01/16 12:00 77 10/01/16 09:44 16 10/01/16 08:00 97.9 87 22 141/64 100 10/01/16 08:00 87 10/01/16 06:00 76 10/01/16 04:00 74 10/01/16 04:00 98.4 75 20 141/62 94 10/01/16 02:00 78 10/01/16 00:00 85 10/01/16 00:00 98.8 82 24 115/59 94 09/30/16 22:00 92 09/30/16 20:00 86 09/30/16 20:00 98.0 82 22 148/56 94 09/30/16 18:00 90 09/30/16 16:00 91 09/30/16 16:00 97.4 91 26 125/63 95 09/30/16 14:00 90 09/30/16 09/30/16 10/01/16 14:59 22:59 06:59 Intake Total 1120 ml 1072 ml 918 ml Output Total 600 ml 800 ml 400 ml Balance 520 ml 272 ml 518 ml Intake Oral 480 ml 360 ml 240 ml IV Total 640 ml 712 ml 678 ml Output Urine Total 600 ml 800 ml 400 ml # Bowel Movements 1 1 . Laboratory Tests Test 09/30/16 10/01/16 04:48 05:52 White Blood Count 30.5 TH/MM3 25.8 TH/MM3 Red Blood Count 3.89 MIL/MM3 3.49 MIL/MM3 Hemoglobin 9.9 GM/DL 9.0 GM/DL Hematocrit 30.5 % 27.1 % Mean Corpuscular Volume 78.5 FL 77.4 FL Mean Corpuscular Hemoglobin 25.4 PG 25.7 PG Mean Corpuscular Hemoglobin 32.4 % 33.1 % Concent Red Cell Distribution Width 21.2 % 21.0 % Platelet Count 674 TH/MM3 546 TH/MM3 Mean Platelet Volume 6.3 FL 6.8 FL Neutrophils (%) (Auto) 77.6 % 75.9 % Lymphocytes (%) (Auto) 15.3 % 18.3 % Monocytes (%) (Auto) 6.6 % 5.4 % Eosinophils (%) (Auto) 0.1 % 0.1 % Basophils (%) (Auto) 0.4 % 0.3 % Neutrophils # (Auto) 23.7 TH/MM3 19.6 TH/MM3 Lymphocytes # (Auto) 4.7 TH/MM3 4.7 TH/MM3 Monocytes # (Auto) 2.0 TH/MM3 1.4 TH/MM3 Eosinophils # (Auto) 0.0 TH/MM3 0.0 TH/MM3 Basophils # (Auto) 0.1 TH/MM3 0.1 TH/MM3 CBC Comment AUTO DIFF AUTO DIFF Differential Total Cells 100 100 Counted Neutrophils % (Manual) 66 % 62 % Band Neutrophils % 14 % 12 % Lymphocytes % 9 % 21 % Monocytes % 7 % 3 % Neutrophils # (Manual) 25.6 TH/MM3 19.6 TH/MM3 Metamyelocytes 4 % 1 % Differential Comment FINAL DIFF FINAL DIFF MANUAL MANUAL Platelet Estimate HIGH HIGH Platelet Morphology Comment NORMAL NORMAL Myelocytes 1 % Ovalocytes 1+ Laboratory Tests Test 09/30/16 10/01/16 04:48 05:52 Sodium Level 144 MEQ/L 141 MEQ/L Potassium Level 2.9 MEQ/L 3.0 MEQ/L Chloride Level 105 MEQ/L 106 MEQ/L Carbon Dioxide Level 27.2 MEQ/L 26.9 MEQ/L Anion Gap 12 MEQ/L 8 MEQ/L Blood Urea Nitrogen 7 MG/DL 5 MG/DL Creatinine 0.39 MG/DL 0.24 MG/DL Estimat Glomerular Filtration 173 ML/MIN 303 ML/MIN Rate Random Glucose 160 MG/DL 88 MG/DL Calcium Level 7.8 MG/DL 7.7 MG/DL Imaging Last Impressions Chest X-Ray 5/8/17 0000 Signed Impressions: Service Date/Time: Wednesday, September 28, 2016 15:30 - CONCLUSION: No acute disease. Daryl Cook MD Brain MRI 09/28/16 Signed Impressions: Service Date/Time: Wednesday, September 28, 2016 10:25 - CONCLUSION: Atrophy more pronounced in the cerebellum otherwise negative acute process. Micah Araujo MD FACR Head CT 09/22/16 Signed Impressions: Service Date/Time: Thursday, September 22, 2016 09:46 - CONCLUSION: Normal examination. Bakari Hearn Jr., MD Chest CT 09/22/16 Signed Impressions: Service Date/Time: Thursday, September 22, 2016 15:27 - CONCLUSION: 1. No infiltrate or effusion. 2. Mild right basilar atelectasis. Bakari Hearn Jr., MD Abdomen/Pelvis CT 09/22/16 Signed Impressions: Service Date/Time: Thursday, September 22, 2016 15:33 - CONCLUSION: Diffuse mild wall thickening involving the colon consistent with pancolitis. Findings are similar to the prior study. Consider C. difficile colitis versus ulcerative colitis. Bakari Hearn Jr., MD Physical Exam GENERAL: she is awake and alert, NAD. Up in chair SKIN: Cool and dry. No generalized rash. HEAD: Atraumatic. Normocephalic. No temporal or scalp tenderness. EYES: [place] conjunctiva, no petechia or hemorrhage. No scleral icterus. No injection or drainage. ENT: Nose without bleeding, or purulent drainage . She has moist oral mucosa. NECK: Trachea midline. No JVD or lymphadenopathy. Supple, nontender, no meningeal signs. CARDIOVASCULAR: Regular rate and rhythm without murmurs, gallops, or rubs. RESPIRATORY: Clear to auscultation. Breath sounds equal bilaterally. No wheezes , rales, or rhonchi. GASTROINTESTINAL: Abdomen soft, nondistended, bowel sounds are present and normoactive, she has mild diffuse tenderness. No guarding or rebound. No hepato -splenomegaly, or palpable masses. MUSCULOSKELETAL: Extremities without clubbing, cyanosis, or edema. No calf tenderness. NEUROLOGICAL: Non-focal LINE: No evidence of infection Assessment & Plan Remarks IMPRESSION Leukocytosis, likely reactive due to GI process, and due to steroids - decreasing - work-up no infection identified Ulcerative colitis - C diff negative Vomiting, etiology? resolved Known bipolar disorder Change in mental status, clinically does not look infectious - possible seizure, ?withdrawal RECOMMENDATION Clinically doing well from ID standpoint She is off Abx I will sign off Please reconsult if with any new ID issue or question Kallie Page MD October 01, 2016 13:07
--- NOTE | 2016-10-01 13:38 | MG ---
cc: JAE MUNIZ M.D. Lab No: [id number] Date: 10/01/2016 Age: 50 Sex: F Race: __ DATE OF [address] Jason Velazquez TECHNIQUE In room 1313 with the patient awake, drowsy and photic stimulation. Follow-up EEG. MEDICATIONS Currently on Depakote and phenobarbital. DESCRIPTION OF RECORD There is an overall background of 7 Hz at times. Noticed she is talking with a lot of muscle artifact during that portion. She is sitting in a chair in a recliner. A couple of sharps were seen at EPOCH 93 with phase reversal PE over the parietal region and transverse not continuous, then again goes back to normal rhythm. Photic stimulation did elicit a driving response and some phase reversals centrally as well as parietal regions at 12 Hz. IMPRESSION Abnormal EEG due to some phase reversals and sharps as described. However, seems to be somewhat improved from prior studies. Clinical correlation. MD VALERIY Roldan/JEAN-PIERRE /1:22 PM /1:33 PM
[2016-10-01] MEDS: NS + KCL 20 MEQ INJ 1,000 ML IV SCH ×2 (15:30→21:30)
--- NOTE | 2016-10-01 17:08 | HHI.GIFU ---
Subjective Remarks Resting in bed. Nurse reports that she eats her meals without difficulty. She complains of diffuse abdominal pain to me. One bowel movement today. (Yudelka Tijerina) Objective Vitals I&O Vital Signs Date Time Temp Pulse Resp B/P Pulse Ox O2 Delivery O2 Flow Rate FiO2 10/01/16 16:00 77 10/01/16 16:00 98.0 77 24 129/63 95 10/01/16 12:14 95 Nasal Cannula 2.00 10/01/16 12:00 98.0 77 22 129/63 95 10/01/16 12:00 77 10/01/16 09:44 16 10/01/16 08:00 97.9 87 22 141/64 100 10/01/16 08:00 87 10/01/16 06:00 76 10/01/16 04:00 74 10/01/16 04:00 98.4 75 20 141/62 94 10/01/16 02:00 78 10/01/16 00:00 85 10/01/16 00:00 98.8 82 24 115/59 94 09/30/16 22:00 92 09/30/16 20:00 86 09/30/16 20:00 98.0 82 22 148/56 94 09/30/16 18:00 90 I/O 09/30/16 09/30/16 09/30/16 10/01/16 10/01/16 10/01/16 06:59 14:59 22:59 06:59 14:59 22:59 Intake Total 1017 ml 1120 ml 1072 ml 918 ml 786 ml Output Total 900 ml 600 ml 800 ml 400 ml 750 ml Balance 117 ml 520 ml 272 ml 518 ml 36 ml Intake Oral 60 ml 480 ml 360 ml 240 ml 430 ml IV Total 957 ml 640 ml 712 ml 678 ml 356 ml Output Urine Total 900 ml 600 ml 800 ml 400 ml 750 ml # Bowel Movements 1 1 1 1 Laboratory Laboratory Tests Test 10/01/16 05:52 White Blood Count 25.8 Red Blood Count 3.49 Hemoglobin 9.0 Hematocrit 27.1 Mean Corpuscular Volume 77.4 Mean Corpuscular Hemoglobin 25.7 Mean Corpuscular Hemoglobin 33.1 Concent Red Cell Distribution Width 21.0 Platelet Count 546 Mean Platelet Volume 6.8 Neutrophils (%) (Auto) 75.9 Lymphocytes (%) (Auto) 18.3 Monocytes (%) (Auto) 5.4 Eosinophils (%) (Auto) 0.1 Basophils (%) (Auto) 0.3 Neutrophils # (Auto) 19.6 Lymphocytes # (Auto) 4.7 Monocytes # (Auto) 1.4 Eosinophils # (Auto) 0.0 Basophils # (Auto) 0.1 CBC Comment AUTO DIFF Differential Total Cells 100 Counted Neutrophils % (Manual) 62 Band Neutrophils % 12 Lymphocytes % 21 Monocytes % 3 Neutrophils # (Manual) 19.6 Metamyelocytes 1 Myelocytes 1 Differential Comment FINAL DIFF MANUAL Platelet Estimate HIGH Platelet Morphology Comment NORMAL Ovalocytes 1+ Sodium Level 141 Potassium Level 3.0 Chloride Level 106 Carbon Dioxide Level 26.9 Anion Gap 8 Blood Urea Nitrogen 5 Creatinine 0.24 Estimat Glomerular Filtration 303 Rate Random Glucose 88 Calcium Level 7.7 Phenytoin (Dilantin) Level 1.9 Valproic Acid (Depakene) Level 46 Phenobarbital Level 4.5 Imaging Last Impressions Abdomen MRI 09/30/16 Signed Impressions: Service Date/Time: Friday, September 30, 2016 12:50 - CONCLUSION: 1. There is no evidence for superior mesenteric artery disease. 2. The inferior mesenteric artery is visualized as well. Micah Araujo MD FACR Chest X-Ray 09/28/16 Signed Impressions: Service Date/Time: Wednesday, September 28, 2016 15:30 - CONCLUSION: No acute disease. Daryl Cook MD Brain MRI 09/28/16 Signed Impressions: Service Date/Time: Wednesday, September 28, 2016 10:25 - CONCLUSION: Atrophy more pronounced in the cerebellum otherwise negative acute process. Micah Araujo MD FACR Head CT 09/22/16 Signed Impressions: Service Date/Time: Thursday, September 22, 2016 09:46 - CONCLUSION: Normal examination. Bakari Hearn Jr., MD Chest CT 09/22/16 Signed Impressions: Service Date/Time: Thursday, September 22, 2016 15:27 - CONCLUSION: 1. No infiltrate or effusion. 2. Mild right basilar atelectasis. Bakari Hearn Jr., MD Abdomen/Pelvis CT 09/22/16 Signed Impressions: Service Date/Time: Thursday, September 22, 2016 15:33 - CONCLUSION: Diffuse mild wall thickening involving the colon consistent with pancolitis. Findings are similar to the prior study. Consider C. difficile colitis versus ulcerative colitis. Bakari Hearn Jr., MD Physical Exam HEENT: Normocephalic; atraumatic CHEST: CTA CARDIAC: RRR ABDOMEN: Soft, mild diffuse tenderness, mildly distended, no hepatosplenomegaly ; bowel sounds are present in all four quadrants. EXTREMITIES: No clubbing, cyanosis, or edema. SKIN: Normal; no rash; no jaundice. VENDER: Lethargic, oriented to place, person, and month (Yudelka Tijerina [employer]ING ENG[employer] CHIEF ) Assessment and Plan Plan ASSESSMENT: - Pancolitis with known U.C. Abdomen/Pelvis CT (09/22/16)-----> Diffuse mild wall thickening involving the colon consistent with pancolitis. Findings are similar to the prior study. Consider C. difficile colitis versus ulcerative colitis. CDiff negative. S/P Colonoscopy (08/03/16)------> 1. Circumferential diffuse abnormal mucosa was found throughout the entire examined colon; The mucosa was congested, erythematous, friable and had granularity and superficial ulcers; multiple biopsies were performed using cold forceps 2. Retroflexed views revealed internal hemorrhoids 3. Retroflexed views revealed small internal hemorrhoids, 4. Revealed external hemorrhoids. Pathology with moderately active chronic colitis of the ascending, sigmoid, rectum. She was given steroids and asacol during that hospitalization. It appears she was on a taper of prednisone- down to 10mg po daily, Asacol 1600mg BID, azathioprine 50mg daily, based on office records from 09/10. Abdomen MRI (09/30/16)----> 1. There is no evidence for superior mesenteric artery disease. 2. The inferior mesenteric artery is visualized as well. Unable to have MRA. She is currently on prednisone, azathioprine, asacol hd. She has mild diffuse abdominal tenderness on exam, one bowel movement today. CARLENE negative. RF negative. Celiac pending. - N/V/D. No further problem with n/v. Tolerating diet. Multiple loose bowel movements this am. Stool studies negative for cryptosporidium, giardia, cdiff- rare WBC. - Leukocytosis. WBC improving today, 25.8. ID following. - AMS, Sz D/O. LP on hold. Neurology following, Psychiatry following. Improved. Now oriented to self, person, place. PLAN - Mechanical soft diet - Cont. Prednisone 50mg po daily - Cont. Asacol HD - Cont. Azathioprine - Monitor labs - Await celiac panel - Unable to have MRA - Supportive care - Further recommendations to follow based on results of above - Pt seen and examined by Dr. Londono and myself and this note is written on her behalf (Yudelka Tijerina) Yudelka Tijerina October 01, 2016 17:08 Serena Londono MD October 01, 2016 18:59
[2016-10-01] MEDS: DOCUSATE SODIUM 50 MG/SENNA 8.6 MG TAB PO SCH (21:00)
[2016-10-01] MEDS: PANTOPRAZOLE SODIUM 40 MG VIAL IV PUSH SCH (21:04)
[2016-10-01] MEDS: ACETAMINOPHEN 325 MG TAB PO PRN (21:05)
[2016-10-01] MEDS: MELATONIN 5 MG TAB PO SCH (21:05)
[2016-10-01] MEDS: INSULIN DETEMIR 100 UNITS/ML VIAL SQ SCH (21:14)
[2016-10-02] VITALS (10 sets, daily range): BP systolic 118–135; BP diastolic 64–75; PULSE 61–87; RESP 18–20; TEMP 95.9–97.7; O2SAT 93–99
[2016-10-02] MEDS: oxyCODONE/ACETAMINOPHEN 10 MG/325 MG TAB PO PRN ×4 (03:11→18:35)
[2016-10-02] MEDS: INSULIN ASPART SUPPLEMENTAL SCALE SQ SCH ×4 (06:33→21:09)
[2016-10-02 08:32] LABS: ANION GAP 9 MEQ/L (5-15); BICARBONATE 24.1 MEQ/L (21.0-32.0); BLOOD UREA NITROGEN 6 MG/DL (7-18); CHLORIDE 105 MEQ/L (98-107); GLOMERULAR FILTRATION RATE 226 ML/MIN (>89); PHENOBARBITAL 6.3 MCG/ML (15.0-40.0); POTASSIUM 3.3 MEQ/L (3.5-5.1); SODIUM (NA) 138 MEQ/L (136-145)
--- NOTE | 2016-10-02 08:53 | HHI.FPPN ---
Subjective Remarks Patient is feeling depressed this morning because she is in the hospital and she is not sleeping very well. However, she also prefers the hospital to the facility she came from. Overall though, she feels better. Her pain is improved , no fevers or chills, her appetite is very good. 2 bowel movements in the last 24 hours. Denies vomiting or shortness of breath. No headache. Objective Vitals Vital Signs Date Time Temp Pulse Resp B/P Pulse Ox O2 Delivery O2 Flow Rate FiO2 10/02/16 08:36 97 Nasal Cannula 2.00 10/02/16 04:00 95.9 76 20 118/64 97 10/02/16 00:00 97.5 67 20 120/71 99 10/01/16 23:30 72 10/01/16 20:00 97.3 89 20 118/71 97 10/01/16 19:15 16 10/01/16 17:13 96.9 64 20 128/66 99 10/01/16 16:00 77 10/01/16 16:00 98.0 77 24 129/63 95 10/01/16 12:14 95 Nasal Cannula 2.00 10/01/16 12:00 98.0 77 22 129/63 95 10/01/16 12:00 77 I/O 10/01/16 10/01/16 10/01/16 10/02/16 10/02/16 10/02/16 07:00 15:00 23:00 07:00 15:00 23:00 Intake Total 918 ml 786 ml 240 ml 210 ml Output Total 400 ml 750 ml 300 ml 700 ml Balance 518 ml 36 ml -60 ml -490 ml Intake Oral 240 ml 430 ml 240 ml 210 ml IV Total 678 ml 356 ml Output Urine Total 400 ml 750 ml 300 ml 700 ml # Bowel Movements 1 1 0 1 Result Diagram: 10/01/16 0552 10/02/16 0736 Objective Remarks GENERAL: WN, WD female sitting in chair, resting comfortably SKIN: Warm and dry. HEENT: AT/NC. Pupils dilated, equal, and round. Responsive to light. HEART: RRR no m/r/g. LUNGS: Lateral breath sounds are CTAB without wheezes or crackles. ABDOMEN: Soft, nondistended, reports pain, but when palpating abdomen no signs of discomfort. No distention, no guarding. EXTREMITIES: No LE edema. NEURO: Awake alert and oriented 3. Answers questions appropriately. Speech normal. A/P Assessment and Plan 50-year-old female from [facility] facility and with complicated past medical history including bipolar disorder, ulcerative colitis presents with altered mental status from her nursing facility. CT abdomen shows pancolitis, unchanged from previous. Concern for polypharmacy since on Xanax, amitriptyline , Seroquel, Depakote. Psychiatry, GI, neurology, infectious disease consulted. ID has signed off. Discharge Planning Pending clinical improvement and rec's from specialists. ID has signed off. PT recommends PT and rehabilitation. Problem List: (1) Pancolitis Status: Acute Plan: GI consulted. Mechanical soft diet, continue prednisone, continue asacol hd, continue azathioprine Await celiac labs Leukocytosis improving. Meds: (ID signed off 10/01) - D/C Zosyn IV Q6H per ID - DC Flagyl 500 IV q8 hr - Continue home mesalamine and Azathioprine - ue ContinPrednisone 50 mg daily Labs: - Blood cultures negative - Monitor CBC - Stool studies negative for C. diff Imaging: -Colonoscopy 08/03/16--> reviewed, see GI report - S/P MRI with no evidence of SMA disease. (2) Altered mental status Status: Acute Plan: Improved. Likely related to seizures/post ictal period. - Psychiatry consulted - Neurology consult - Continue Depakote 500 mg by mouth every 8 hours & valproate 500 mg BID IV - Currently phenobarbital 60 PO q12 hours - Continue xanax 1 mg PO TID Labs: - Ammonia 37 - TSH slightly elevated, likely acute phase reactant, repeat as an outpatient - RPR, B12, and thiamine WNL - Depakote level WNL Imaging/EEG History: - EEG still with left sharp per Neuro, to be repeated today - CT head on admission negative - MRI brain: atrophy more pronounced in cerebellum, otherwise negative for acute process (3) Bronchitis Status: Resolved Plan: DuoNeb PRN. Supplemental O2 PRN. Steroids for colitis as above (4) FEN/DVT PPX/GI PPX Status: Acute Plan: Fluids: NS 100 ml/hr with 20 KCl Electrolytes:K 3.0, repleated orally Nutrition: Speech therapy assessed. Mechanical soft. Prophylaxis: Lovenox 40 mg subcutaneous every 24 hours. Bilateral SCDs. Melatonin daily Chronic medical conditions: - Diabetes: Hold home metformin. Patient normally takes Lantus 26 units subcutaneous at bedtime with Novolin sliding scale. Levemir 15 units at bedtime, sliding scale insulin. Expect adjustments pending sliding scale coverage. - Ulcerative colitis: GI consult. Continue azathioprine 50 mg daily. Mesalamine 1600 mg by mouth twice a day. - Diabetic polyneuropathy: Continue gabapentin at reduced dose of 400 mg by mouth 3 times a day, continue Lyrica at current home dose - COPD: Continue albuterol, DuoNeb's. - Hyperlipidemia: Currently holding home atorvastatin -Chronic low back pain: Continue Percocet 10 every 6 hours when necessary pain 6 -10. Morphine IV if unable to swallow. Problem Qualifiers (1) Altered mental status: Qualified Code: R41.82 - Altered mental status, unspecified altered mental status type Fabian Anderson MD R2 October 02, 2016 08:53 -10. Morphine IV if unable to swallow. Problem Qualifiers (1) Altered mental status: Qualified Code: R41.82 - Altered mental status, unspecified altered mental status type Fabian Anderson MD R2 October 02, 2016 08:53
[2016-10-02] MEDS: POTASSIUM CHLORIDE 25 MEQ EFFERVESCENT TAB PO ONE ×2 (09:00→12:38)
[2016-10-02] MEDS: DIVALPROEX SODIUM E.R. 250 MG TAB PO SCH ×2 (09:00→21:13)
[2016-10-02] MEDS: SODIUM CHLORIDE 0.9% FLUSH 10 ML FLUSH IV FLUSH SCH ×2 (09:00→21:27)
--- NOTE | 2016-10-02 09:04 | HHI.PR ---
Subjective Remarks no new sz Objective Vital Signs Date Time Temp Pulse Resp B/P Pulse Ox O2 Delivery O2 Flow Rate FiO2 10/02/16 08:36 97 Nasal Cannula 2.00 10/02/16 08:00 97.6 72 20 122/74 95 10/02/16 04:00 95.9 76 20 118/64 97 10/02/16 00:00 97.5 67 20 120/71 99 10/01/16 23:30 72 10/01/16 20:00 97.3 89 20 118/71 97 10/01/16 19:15 16 10/01/16 17:13 96.9 64 20 128/66 99 10/01/16 16:00 77 10/01/16 16:00 98.0 77 24 129/63 95 10/01/16 12:14 95 Nasal Cannula 2.00 10/01/16 12:00 98.0 77 22 129/63 95 10/01/16 12:00 77 I/O 10/01/16 10/01/16 10/01/16 10/02/16 10/02/16 10/02/16 07:00 15:00 23:00 07:00 15:00 23:00 Intake Total 918 ml 786 ml 240 ml 210 ml Output Total 400 ml 750 ml 300 ml 700 ml Balance 518 ml 36 ml -60 ml -490 ml Intake Oral 240 ml 430 ml 240 ml 210 ml IV Total 678 ml 356 ml Output Urine Total 400 ml 750 ml 300 ml 700 ml # Bowel Movements 1 1 0 1 Result Diagram: 10/01/16 0552 10/02/16 0736 Objective Remarks alert talking ox3 follows all commands speech nl in chair Assessment and Plan Assessment and Plan labs ok cpk nl mri neg eeg she was in subclinical status epilepticus yest responded to ativan on vpa dil pbarb eeg this am much better will hold LP for today and ifshguy is still confused in am will do it then she was off xanax so maybe sz from withdrawal from that? cont acyclovir for now vpa 48 dil 4.6 09/30/16 much better today will dc dil and stay on pbarb and vpa for now give back xanax oob ok to tele floor dc lp eeg still some left sharps ok for dvt prophylaxis if needed 10/01/16 no more sz vpa 46 750 bid pbarb 4.5 doing well long yannick xanax 1 mg tid so will put back on that was on vpa at home eeg still some left sharps recheck today ok to floor ambulate more 10/02/16 doing better no new sz will review yest eeg inc vpa she could go to rehab or home or psych psych needs to wiegh in on her psych disposition Jason Velazquez MD October 02, 2016 09:04
[2016-10-02] MEDS: ENOXAPARIN SODIUM 40 MG/0.4 ML SYRINGE SQ SCH (09:08)
[2016-10-02] MEDS: azaTHIOprine 50 MG TAB PO SCH (09:09)
[2016-10-02] MEDS: ALPRAZolam 1 MG TAB PO SCH ×3 (09:09→18:26)
[2016-10-02] MEDS: MESALAMINE HD 800 MG DELAYED RELEASE TAB PO SCH ×2 (09:09→21:12)
[2016-10-02] MEDS: GABAPENTIN 300 MG CAP PO SCH ×3 (09:09→18:26)
[2016-10-02] MEDS: SPIRONOLACTONE 50 MG TAB PO SCH (09:09)
[2016-10-02] MEDS: predniSONE 50 MG TAB PO SCH (09:09)
[2016-10-02] MEDS: TIOTROPIUM BROMIDE 18 MCG INH INH SCH (09:11)
[2016-10-02] MEDS: BUDESONIDE-FORMOTEROL 160/4.5 MCG INHALER INH SCH ×2 (09:11→21:27)
[2016-10-02 11:07] LABS: AUTOMATED NEUTROPHIL # 18.4 TH/MM3 (1.8-7.7); BASOPHIL # 0.2 TH/MM3 (0-0.2); BASOPHIL % 0.9 % (0.0-2.0); EOSINOPHIL % 0.2 % (0.0-4.0); HEMATOCRIT 28.8 % (35.0-46.0); LYMPH % 15.8 % (9.0-44.0); LYMPHOCYTE # 3.7 TH/MM3 (1.0-4.8); MEAN CELL VOLUME 78.8 FL (80.0-100.0); MEAN CORPUSCULAR HEMOGLOBIN 25.5 PG (27.0-34.0); MEAN CORPUSCULAR HGB CONC 32.3 % (32.0-36.0); MONO % 4.6 % (0.0-8.0); NEUT % 78.5 % (16.0-70.0); PLATELET COUNT 427 TH/MM3 (150-450); RED BLOOD COUNT 3.66 MIL/MM3 (4.00-5.30); RED CELL DISTRIBUTION WIDTH 21.5 % (11.6-17.2); WHITE BLOOD COUNT 23.4 TH/MM3 (4.0-11.0)
[2016-10-02 11:08] LABS: HEMO FLAGS AUTO DIFF
[2016-10-02] MEDS: NS + KCL 20 MEQ INJ 1,000 ML IV SCH (11:15)
[2016-10-02 11:53] LABS: IGA SERUM 121 mg/dL (81-463); TISSUE TRANSGLUTAMINASE AB IGG ND U/mL (())
[2016-10-02 12:33] LABS: BANDS 8 % (0-6); KERATOCYTES OCC (NORMAL); METAMYELOCYTES 1 % (0-1); MYELOCYTES 1 % (0-0); NEUTROPHIL # MANUAL DIFF 18.7 TH/MM3 (1.8-7.7); OVALOCYTES 1+ (NORMAL); PLATELET ESTIMATE SMEAR NORMAL (NORMAL); PLATELET MORPHOLOGY NORMAL (NORMAL); POLYS (SEG NEUTROPHILS) 70 % (16-70); SCAN/DIFF FINAL DIFF MANUAL; WBC DIFF SAMPLE 100
[2016-10-02] MEDS ORDERED: POTASSIUM CHLORIDE 10 MEQ CONTROLLED RELEASE TAB PO ONE (15:00)
--- NOTE | 2016-10-02 16:37 | HHI.GIFU ---
Subjective Remarks Pt resting in bed, somnolent. She says she has abdominal pain in the epigastric area, nausea, bloating. NO vomit. (Pao Brady) Objective Vitals I&O Vital Signs Date Time Temp Pulse Resp B/P Pulse Ox O2 Delivery O2 Flow Rate FiO2 10/02/16 14:15 71 10/02/16 13:45 18 10/02/16 12:00 97.7 87 18 135/71 96 10/02/16 08:36 97 Nasal Cannula 2.00 10/02/16 08:00 97.6 72 20 122/74 95 10/02/16 04:00 95.9 76 20 118/64 97 10/02/16 00:00 97.5 67 20 120/71 99 10/01/16 23:30 72 10/01/16 20:00 97.3 89 20 118/71 97 10/01/16 17:13 96.9 64 20 128/66 99 I/O 10/01/16 10/01/16 10/01/16 10/02/16 10/02/16 10/02/16 07:00 15:00 23:00 07:00 15:00 23:00 Intake Total 918 ml 786 ml 240 ml 210 ml Output Total 400 ml 750 ml 300 ml 700 ml Balance 518 ml 36 ml -60 ml -490 ml Intake Oral 240 ml 430 ml 240 ml 210 ml IV Total 678 ml 356 ml Output Urine Total 400 ml 750 ml 300 ml 700 ml # Bowel Movements 1 1 0 1 Laboratory Laboratory Tests Test 10/02/16 10/02/16 07:36 10:56 Sodium Level 138 Potassium Level 3.3 Chloride Level 105 Carbon Dioxide Level 24.1 Anion Gap 9 Blood Urea Nitrogen 6 Creatinine 0.31 Estimat Glomerular Filtration 226 Rate Random Glucose 195 Calcium Level 7.9 Phenytoin (Dilantin) Level LESS THAN 0.4 Valproic Acid (Depakene) Level 35 Phenobarbital Level 6.3 White Blood Count 23.4 Red Blood Count 3.66 Hemoglobin 9.3 Hematocrit 28.8 Mean Corpuscular Volume 78.8 Mean Corpuscular Hemoglobin 25.5 Mean Corpuscular Hemoglobin 32.3 Concent Red Cell Distribution Width 21.5 Platelet Count 427 Mean Platelet Volume 7.1 Neutrophils (%) (Auto) 78.5 Lymphocytes (%) (Auto) 15.8 Monocytes (%) (Auto) 4.6 Eosinophils (%) (Auto) 0.2 Basophils (%) (Auto) 0.9 Neutrophils # (Auto) 18.4 Lymphocytes # (Auto) 3.7 Monocytes # (Auto) 1.1 Eosinophils # (Auto) 0.0 Basophils # (Auto) 0.2 CBC Comment AUTO DIFF Differential Total Cells 100 Counted Neutrophils % (Manual) 70 Band Neutrophils % 8 Lymphocytes % 15 Monocytes % 5 Neutrophils # (Manual) 18.7 Metamyelocytes 1 Myelocytes 1 Differential Comment FINAL DIFF MANUAL Platelet Estimate NORMAL Platelet Morphology Comment NORMAL Ovalocytes 1+ Keratocytes OCC Hematology Comments Imaging Last Impressions Abdomen MRI 09/30/16 Signed Impressions: Service Date/Time: Friday, September 30, 2016 12:50 - CONCLUSION: 1. There is no evidence for superior mesenteric artery disease. 2. The inferior mesenteric artery is visualized as well. Micah Araujo MD FACR Chest X-Ray 09/28/16 Signed Impressions: Service Date/Time: Wednesday, September 28, 2016 15:30 - CONCLUSION: No acute disease. Daryl Cook MD Brain MRI 09/28/16 Signed Impressions: Service Date/Time: Wednesday, September 28, 2016 10:25 - CONCLUSION: Atrophy more pronounced in the cerebellum otherwise negative acute process. Micah Araujo MD FACR Head CT 09/22/16 Signed Impressions: Service Date/Time: Thursday, September 22, 2016 09:46 - CONCLUSION: Normal examination. Bakari Hearn Jr., MD Chest CT 09/22/16 Signed Impressions: Service Date/Time: Thursday, September 22, 2016 15:27 - CONCLUSION: 1. No infiltrate or effusion. 2. Mild right basilar atelectasis. Bakari Hearn Jr., MD Abdomen/Pelvis CT 09/22/16 Signed Impressions: Service Date/Time: Thursday, September 22, 2016 15:33 - CONCLUSION: Diffuse mild wall thickening involving the colon consistent with pancolitis. Findings are similar to the prior study. Consider C. difficile colitis versus ulcerative colitis. Bakari Hearn Jr., MD Physical Exam HEENT: Normocephalic; atraumatic CHEST: CTA CARDIAC: RRR ABDOMEN: Soft, TTP epigastric region, mildly distended, no hepatosplenomegaly; bowel sounds are present in all four quadrants. EXTREMITIES: No clubbing, cyanosis, or edema. SKIN: Normal; no rash; no jaundice. CUT OUT STITCHER: Lethargic, oriented to place, person, and month (Pao Brady) Assessment and Plan Plan ASSESSMENT: - Pancolitis with known U.C. Abdomen/Pelvis CT (09/22/16)-----> Diffuse mild wall thickening involving the colon consistent with pancolitis. Findings are similar to the prior study. Consider C. difficile colitis versus ulcerative colitis. CDiff negative. S/P Colonoscopy (08/03/16)------> 1. Circumferential diffuse abnormal mucosa was found throughout the entire examined colon; The mucosa was congested, erythematous, friable and had granularity and superficial ulcers; multiple biopsies were performed using cold forceps 2. Retroflexed views revealed internal hemorrhoids 3. Retroflexed views revealed small internal hemorrhoids, 4. Revealed external hemorrhoids. Pathology with moderately active chronic colitis of the ascending, sigmoid, rectum. She was given steroids and asacol during that hospitalization. It appears she was on a taper of prednisone- down to 10mg po daily, Asacol 1600mg BID, azathioprine 50mg daily, based on office records from 09/10. Abdomen MRI (09/30/16)----> 1. There is no evidence for superior mesenteric artery disease. 2. The inferior mesenteric artery is visualized as well. Unable to have MRA. She is currently on prednisone, azathioprine, asacol hd. She has mild diffuse abdominal tenderness on exam, one bowel movement today. CARLENE negative. RF negative. Celiac pending. - N/V/D. No further problem with n/v. Tolerating diet. Celiac panel pending. epigastric discomfort. Stool studies negative for cryptosporidium, giardia, cdiff- rare WBC. Consider EGD - Leukocytosis. WBC improving today, 25.8. ID following. - AMS, Sz D/O. LP on hold. Neurology following, Psychiatry following. Improved. Now oriented to self, person, place. PLAN - Mechanical soft diet - Cont. Prednisone 50mg po daily - Cont. Asacol HD - Cont. Azathioprine - Monitor labs - Await celiac panel - Unable to have MRA - Supportive care - Further recommendations to follow based on results of above - Pt seen and examined by Dr. Londono and myself and this note is written on her behalf (Pao Brady) Pao Brady October 02, 2016 16:37 Serena Londono MD October 02, 2016 18:01
[2016-10-02 17:52] LABS: ENDOMYSIAL AB TITER ND (<1:5); TISSUE TRANSGLUTAMINASE AB LESS THAN 1 U/mL (())
[2016-10-02] MEDS: DOCUSATE SODIUM 50 MG/SENNA 8.6 MG TAB PO SCH (21:00)
[2016-10-02] MEDS: INSULIN DETEMIR 100 UNITS/ML VIAL SQ SCH (21:10)
[2016-10-02] MEDS: MELATONIN 5 MG TAB PO SCH (21:13)
[2016-10-02] MEDS: PANTOPRAZOLE SODIUM 40 MG VIAL IV PUSH SCH (21:14)
[2016-10-03] VITALS (7 sets, daily range): BP systolic 119–150; BP diastolic 56–84; PULSE 70–96; RESP 18–20; TEMP 96.6–98.7; O2SAT 93–98
[2016-10-03] MEDS: oxyCODONE/ACETAMINOPHEN 10 MG/325 MG TAB PO PRN ×4 (03:24→21:58)
[2016-10-03] MEDS: NS + KCL 20 MEQ INJ 1,000 ML IV SCH (03:31)
[2016-10-03] MEDS: INSULIN ASPART SUPPLEMENTAL SCALE SQ SCH ×4 (06:19→21:53)
--- NOTE | 2016-10-03 07:59 | HHI.FPPN ---
Subjective Remarks Patient seen and examined this am. Vitals are stable. She endorses diffuse abdominal pain. She states she has to eat small bites or gets GI upset. She has loose stools, states they happen every morning where she thinks she is passing flatus but ends up having loss of stool. She is awake and alert and in good spirits. Objective Vitals Vital Signs Date Time Temp Pulse Resp B/P Pulse Ox O2 Delivery O2 Flow Rate FiO2 10/03/16 04:00 98.7 80 20 127/62 93 10/03/16 00:00 97.3 79 18 148/82 96 10/02/16 19:30 97.1 81 18 130/69 97 10/02/16 18:15 93 21 10/02/16 18:00 62 10/02/16 16:00 97.6 61 18 135/75 93 10/02/16 14:15 71 10/02/16 13:45 18 10/02/16 12:00 97.7 87 18 135/71 96 10/02/16 08:36 97 Nasal Cannula 2.00 10/02/16 08:00 97.6 72 20 122/74 95 I/O 10/02/16 10/02/16 10/02/16 10/03/16 10/03/16 10/03/16 07:00 15:00 23:00 07:00 15:00 23:00 Intake Total 210 ml 240 ml Output Total 700 ml Balance -490 ml 240 ml Intake Oral 210 ml 240 ml Output Urine Total 700 ml # Voids 2 4 # Bowel Movements 1 3 Result Diagram: 10/02/16 1056 10/02/16 0736 Imaging Last Impressions Abdomen MRI 09/30/16 0000 Signed Impressions: Service Date/Time: Friday, September 30, 2016 12:50 - CONCLUSION: 1. There is no evidence for superior mesenteric artery disease. 2. The inferior mesenteric artery is visualized as well. Micah Araujo MD FACR Chest X-Ray 09/28/16 0000 Signed Impressions: Service Date/Time: Wednesday, September 28, 2016 15:30 - CONCLUSION: No acute disease. Daryl Cook MD Brain MRI 09/28/16 0000 Signed Impressions: Service Date/Time: Wednesday, September 28, 2016 10:25 - CONCLUSION: Atrophy more pronounced in the cerebellum otherwise negative acute process. Micah Araujo MD FACR Head CT 09/22/16 0000 Signed Impressions: Service Date/Time: Thursday, September 22, 2016 09:46 - CONCLUSION: Normal examination. Bakari Hearn Jr., MD Chest CT 09/22/16 0000 Signed Impressions: Service Date/Time: Thursday, September 22, 2016 15:27 - CONCLUSION: 1. No infiltrate or effusion. 2. Mild right basilar atelectasis. Bakari Hearn Jr., MD Abdomen/Pelvis CT 09/22/16 0000 Signed Impressions: Service Date/Time: Thursday, September 22, 2016 15:33 - CONCLUSION: Diffuse mild wall thickening involving the colon consistent with pancolitis. Findings are similar to the prior study. Consider C. difficile colitis versus ulcerative colitis. Bakari Hearn Jr., MD Objective Remarks GENERAL: WN, WD female sitting in chair, conversant SKIN: Warm and dry. HEENT: AT/NC. Pupils dilated, equal, and round. Responsive to light. HEART: RRR no m/r/g. LUNGS: Lateral breath sounds are CTAB without wheezes or crackles. ABDOMEN: Soft, nondistended, tenderness to palpation of epigastric area. EXTREMITIES: Trace LE edema, no calf tenderness NEURO: Awake alert and oriented 3. Answers questions appropriately. Speech normal. A/P Assessment and Plan 50-year-old female from snf facility and with complicated past medical history including bipolar disorder, ulcerative colitis presents with altered mental status from her nursing facility. CT abdomen shows pancolitis, unchanged from previous. Concern for polypharmacy since on Xanax, amitriptyline , Seroquel, Depakote. Psychiatry, GI, neurology, infectious disease consulted. ID has signed off. Discharge Planning D/C to SNF pending GI clearance. ID has signed off. PT recommends PT and rehabilitation. Problem List: (1) Pancolitis Status: Acute Plan: GI consulted. Mechanical soft diet, continue prednisone, continue asacol hd, continue azathioprine No evidence of celiac disease. Leukocytosis improving. Meds: (ID signed off 10/01) - D/C Zosyn IV Q6H per ID - DC Flagyl 500 IV q8 hr - Continue home mesalamine and Azathioprine - Continue Prednisone 50 mg daily Labs: - Blood cultures negative - Monitor CBC - Stool studies negative for C. diff Imaging: - Colonoscopy 08/03/16--> reviewed, see GI report - S/P MRI with no evidence of SMA disease. (2) Altered mental status Status: Acute Plan: Improved. Likely related to seizures/post ictal period. - Neurology consult--> cleared to go to SNF. no new seizure. - Continue Depakote 1,000 mg PO BID & valproate 500 mg BID IV - Currently phenobarbital 60 PO q12 hours - Continue xanax 1 mg PO TID Labs: - Ammonia 37 - TSH slightly elevated, likely acute phase reactant, repeat as an outpatient - RPR, B12, and thiamine WNL - Depakote level WNL Imaging/EEG History: - EEG still with left sharp per Neuro - CT head on admission negative - MRI brain: atrophy more pronounced in cerebellum, otherwise negative for acute process (3) Bronchitis Status: Resolved Plan: DuoNeb PRN. Supplemental O2 PRN. Steroids for colitis as above (4) FEN/DVT PPX/GI PPX Status: Acute Plan: Fluids: HLIV Electrolytes: cmp pending this am Nutrition: Speech therapy assessed. Mechanical soft. Prophylaxis: Lovenox 40 mg subcutaneous every 24 hours. Bilateral SCDs. Melatonin daily Chronic medical conditions: - Diabetes: Hold home metformin. Patient normally takes Lantus 26 units subcutaneous at bedtime with Novolin sliding scale. Levemir 15 units at bedtime, sliding scale insulin. Expect adjustments pending sliding scale coverage. - Ulcerative colitis: GI consult. Continue azathioprine 50 mg daily. Mesalamine 1600 mg by mouth twice a day. - Diabetic polyneuropathy: Continue gabapentin at reduced dose of 400 mg by mouth 3 times a day, continue Lyrica at current home dose - COPD: Continue albuterol, DuoNeb's. - Hyperlipidemia: Currently holding home atorvastatin -Chronic low back pain: Continue Percocet 10 every 6 hours when necessary pain 6 -10. Morphine IV if unable to swallow. Problem Qualifiers (1) Altered mental status: Qualified Code: R41.82 - Altered mental status, unspecified altered mental status type Malathi Al MD R3 October 03, 2016 07:59
[2016-10-03] MEDS: GABAPENTIN 300 MG CAP PO SCH ×3 (08:56→17:10)
[2016-10-03] MEDS: predniSONE 50 MG TAB PO SCH (08:57)
[2016-10-03] MEDS: azaTHIOprine 50 MG TAB PO SCH (08:57)
[2016-10-03] MEDS: MESALAMINE HD 800 MG DELAYED RELEASE TAB PO SCH ×2 (08:57→21:58)
[2016-10-03] MEDS: SPIRONOLACTONE 50 MG TAB PO SCH (08:58)
[2016-10-03] MEDS: ALPRAZolam 1 MG TAB PO SCH ×3 (08:58→17:09)
[2016-10-03] MEDS: ENOXAPARIN SODIUM 40 MG/0.4 ML SYRINGE SQ SCH (08:59)
[2016-10-03] MEDS: SODIUM CHLORIDE 0.9% FLUSH 10 ML FLUSH IV FLUSH SCH ×2 (08:59→22:00)
[2016-10-03] MEDS: TIOTROPIUM BROMIDE 18 MCG INH INH SCH (09:00)
[2016-10-03] MEDS: BUDESONIDE-FORMOTEROL 160/4.5 MCG INHALER INH SCH ×2 (09:00→22:00)
[2016-10-03 09:02] LABS: AUTOMATED NEUTROPHIL # 10.6 TH/MM3 (1.8-7.7); BASOPHIL # 0.1 TH/MM3 (0-0.2); BASOPHIL % 0.8 % (0.0-2.0); EOSINOPHIL % 0.3 % (0.0-4.0); HEMATOCRIT 26.9 % (35.0-46.0); LYMPH % 31.5 % (9.0-44.0); LYMPHOCYTE # 5.6 TH/MM3 (1.0-4.8); MEAN CORPUSCULAR HEMOGLOBIN 25.2 PG (27.0-34.0); MEAN CORPUSCULAR HGB CONC 32.3 % (32.0-36.0); MONO % 7.6 % (0.0-8.0); NEUT % 59.8 % (16.0-70.0); PLATELET COUNT 470 TH/MM3 (150-450); RED BLOOD COUNT 3.45 MIL/MM3 (4.00-5.30); RED CELL DISTRIBUTION WIDTH 21.8 % (11.6-17.2); WHITE BLOOD COUNT 17.8 TH/MM3 (4.0-11.0)
[2016-10-03] MEDS: DIVALPROEX SODIUM E.R. 250 MG TAB PO SCH ×2 (09:05→21:57)
[2016-10-03 09:06] LABS: HEMO FLAGS AUTO DIFF
[2016-10-03 09:20] LABS: ALKALINE PHOSPHATASE 85 U/L (45-117); ALT (GPT) 8 U/L (10-53); ANION GAP 11 MEQ/L (5-15); AST (GOT) 6 U/L (15-37); BICARBONATE 25.5 MEQ/L (21.0-32.0); BLOOD UREA NITROGEN 5 MG/DL (7-18); CHLORIDE 102 MEQ/L (98-107); GLOMERULAR FILTRATION RATE 203 ML/MIN (>89); PHENOBARBITAL 8.7 MCG/ML (15.0-40.0); POTASSIUM 3.1 MEQ/L (3.5-5.1); SODIUM (NA) 138 MEQ/L (136-145); TOTAL BILIRUBIN ADULT LESS THAN 0.1 MG/DL (0.2-1.0)
[2016-10-03 10:07] LABS: BANDS 11 % (0-6); METAMYELOCYTES 1 % (0-1); MYELOCYTES 2 % (0-0); NEUTROPHIL # MANUAL DIFF 10.5 TH/MM3 (1.8-7.7); PLATELET ESTIMATE SMEAR HIGH (NORMAL); POLYS (SEG NEUTROPHILS) 45 % (16-70); WBC DIFF SAMPLE 100
[2016-10-03 10:08] LABS: OVALOCYTES 1+ (NORMAL); PLATELET MORPHOLOGY NORMAL (NORMAL); SCAN/DIFF FINAL DIFF MANUAL
[2016-10-03] MEDS: ACETAMINOPHEN 325 MG TAB PO PRN (11:36)
--- NOTE | 2016-10-03 18:07 | HHI.GIFU ---
Subjective Remarks Up in chair. Feeling better. Still with diffuse abdominal tenderness. Tolerating diet. States she is "eating like a pig." 1 bm today (TijerinaYudelka Cormier MILAD) Objective Vitals I&O Vital Signs Date Time Temp Pulse Resp B/P Pulse Ox O2 Delivery O2 Flow Rate FiO2 10/03/16 16:11 16 10/03/16 16:00 97.9 78 19 141/74 94 10/03/16 12:00 97.6 74 19 142/74 96 10/03/16 08:05 70 10/03/16 08:00 98.2 82 19 136/71 94 10/03/16 04:00 98.7 80 20 127/62 93 10/03/16 00:00 97.3 79 18 148/82 96 10/02/16 19:30 97.1 81 18 130/69 97 10/02/16 18:15 93 21 I/O 10/02/16 10/02/16 10/02/16 10/03/16 10/03/16 10/03/16 07:00 15:00 23:00 07:00 15:00 23:00 Intake Total 210 ml 240 ml Output Total 700 ml Balance -490 ml 240 ml Intake Oral 210 ml 240 ml Output Urine Total 700 ml # Voids 2 4 # Bowel Movements 1 3 1 Laboratory Laboratory Tests Test 10/03/16 08:36 White Blood Count 17.8 Red Blood Count 3.45 Hemoglobin 8.7 Hematocrit 26.9 Mean Corpuscular Volume 78.0 Mean Corpuscular Hemoglobin 25.2 Mean Corpuscular Hemoglobin 32.3 Concent Red Cell Distribution Width 21.8 Platelet Count 470 Mean Platelet Volume 7.0 Neutrophils (%) (Auto) 59.8 Lymphocytes (%) (Auto) 31.5 Monocytes (%) (Auto) 7.6 Eosinophils (%) (Auto) 0.3 Basophils (%) (Auto) 0.8 Neutrophils # (Auto) 10.6 Lymphocytes # (Auto) 5.6 Monocytes # (Auto) 1.4 Eosinophils # (Auto) 0.0 Basophils # (Auto) 0.1 CBC Comment AUTO DIFF Differential Total Cells 100 Counted Neutrophils % (Manual) 45 Band Neutrophils % 11 Lymphocytes % 36 Monocytes % 5 Neutrophils # (Manual) 10.5 Metamyelocytes 1 Myelocytes 2 Differential Comment FINAL DIFF MANUAL Platelet Estimate HIGH Platelet Morphology Comment NORMAL Ovalocytes 1+ Sodium Level 138 Potassium Level 3.1 Chloride Level 102 Carbon Dioxide Level 25.5 Anion Gap 11 Blood Urea Nitrogen 5 Creatinine 0.34 Estimat Glomerular Filtration 203 Rate Random Glucose 152 Calcium Level 7.8 Total Bilirubin LESS THAN 0.1 Aspartate Amino Transf 6 (AST/SGOT) Alanine Aminotransferase 8 (ALT/SGPT) Alkaline Phosphatase 85 Total Protein 5.4 Albumin 2.1 Phenytoin (Dilantin) Level LESS THAN 0.4 Valproic Acid (Depakene) Level 37 Phenobarbital Level 8.7 Imaging Last Impressions Abdomen MRI 09/30/16 Signed Impressions: Service Date/Time: Friday, September 30, 2016 12:50 - CONCLUSION: 1. There is no evidence for superior mesenteric artery disease. 2. The inferior mesenteric artery is visualized as well. Micah Araujo MD FACR Chest X-Ray 09/28/16 Signed Impressions: Service Date/Time: Wednesday, September 28, 2016 15:30 - CONCLUSION: No acute disease. Daryl Cook MD Brain MRI 09/28/16 Signed Impressions: Service Date/Time: Wednesday, September 28, 2016 10:25 - CONCLUSION: Atrophy more pronounced in the cerebellum otherwise negative acute process. Micah Araujo MD FACR Head CT 09/22/16 Signed Impressions: Service Date/Time: Thursday, September 22, 2016 09:46 - CONCLUSION: Normal examination. Bakari Hearn Jr., MD Chest CT 09/22/16 Signed Impressions: Service Date/Time: Thursday, September 22, 2016 15:27 - CONCLUSION: 1. No infiltrate or effusion. 2. Mild right basilar atelectasis. Bakari Hearn Jr., MD Abdomen/Pelvis CT 09/22/16 Signed Impressions: Service Date/Time: Thursday, September 22, 2016 15:33 - CONCLUSION: Diffuse mild wall thickening involving the colon consistent with pancolitis. Findings are similar to the prior study. Consider C. difficile colitis versus ulcerative colitis. Bakari Hearn Jr., MD Physical Exam HEENT: Normocephalic; atraumatic CHEST: CTA CARDIAC: RRR ABDOMEN: Soft, mild diffuse tenderness, mildly distended, no hepatosplenomegaly ; bowel sounds are present in all four quadrants. EXTREMITIES: No clubbing, cyanosis, or edema. SKIN: Normal; no rash; no jaundice. COOK VEGETABLE: Lethargic, oriented to place, person, and month (Yudelka Tijerina ) Assessment and Plan Plan ASSESSMENT: - Pancolitis with known U.C. Abdomen/Pelvis CT (09/22/16)-----> Diffuse mild wall thickening involving the colon consistent with pancolitis. Findings are similar to the prior study. Consider C. difficile colitis versus ulcerative colitis. CDiff negative. S/P Colonoscopy (08/03/16)------> 1. Circumferential diffuse abnormal mucosa was found throughout the entire examined colon; The mucosa was congested, erythematous, friable and had granularity and superficial ulcers; multiple biopsies were performed using cold forceps 2. Retroflexed views revealed internal hemorrhoids 3. Retroflexed views revealed small internal hemorrhoids, 4. Revealed external hemorrhoids. Pathology with moderately active chronic colitis of the ascending, sigmoid, rectum. She was given steroids and asacol during that hospitalization. It appears she was on a taper of prednisone- down to 10mg po daily, Asacol 1600mg BID, azathioprine 50mg daily, based on office records from 09/10. Abdomen MRI (09/30/16)----> 1. There is no evidence for superior mesenteric artery disease. 2. The inferior mesenteric artery is visualized as well. Unable to have MRA. She is currently on prednisone, azathioprine, asacol hd. CARLENE negative. RF negative. Celiac neg. She has mild diffuse abdominal tenderness on exam, one bowel movement today. - N/V/D. No further problem with n/v. Tolerating diet. Celiac panel pending. epigastric discomfort. Stool studies negative for cryptosporidium, giardia, cdiff- rare WBC. - Leukocytosis. WBC improving today, 17.8. ID following. - AMS, Sz D/O. LP on hold. Neurology following, Psychiatry following. Improved. Now oriented to self, person, place. PLAN - Mechanical soft diet - Cont. Prednisone 50mg po daily - Cont. Asacol HD - Cont. Azathioprine - Unable to have MRA - Supportive care - Further recommendations to follow based on results of above - Pt seen and examined by Dr. Londono and myself and this note is written on her behalf (Yudelka Tijerina) Physician Comments seen, examined agree with above we will add Canasa supp we will switch to iv Solumedrol for 1-2 days trial of probiotics and Bentyl if not better colonoscopy next week we will send tb QuantaSure and hep b dna in the event she will need to start Humira or Remicade (Serena Londono MD) Yudelka Tijerina October 03, 2016 18:07 Serena Londono MD October 03, 2016 20:14
[2016-10-03] MEDS: DOCUSATE SODIUM 50 MG/SENNA 8.6 MG TAB PO SCH (21:00)
[2016-10-03] MEDS: INSULIN DETEMIR 100 UNITS/ML VIAL SQ SCH (21:55)
[2016-10-03] MEDS: MELATONIN 5 MG TAB PO SCH (21:58)
[2016-10-03] MEDS: methylPREDNISolone SOD SUCC 40 MG/1 ML VIAL IV PUSH SCH (21:58)
[2016-10-03] MEDS: PANTOPRAZOLE SODIUM 40 MG VIAL IV PUSH SCH (21:59)
[2016-10-03] MEDS: ONDANSETRON HCL 4 MG/2 ML VIAL IV PUSH PRN (22:16)
[2016-10-04] VITALS (7 sets, daily range): BP systolic 108–191; BP diastolic 56–85; PULSE 67–90; RESP 18–20; TEMP 97.1–98.7; O2SAT 92–96
[2016-10-04] MEDS: MESALAMINE 1000 MG SUPP RECTAL SCH ×2 (01:12→21:00)
[2016-10-04] MEDS: ONDANSETRON HCL 4 MG/2 ML VIAL IV PUSH PRN ×3 (03:52→20:08)
[2016-10-04] MEDS: oxyCODONE/ACETAMINOPHEN 10 MG/325 MG TAB PO PRN ×4 (03:52→21:50)
[2016-10-04] MEDS: methylPREDNISolone SOD SUCC 40 MG/1 ML VIAL IV PUSH SCH ×3 (05:22→21:50)
[2016-10-04] MEDS: INSULIN ASPART SUPPLEMENTAL SCALE SQ SCH ×4 (05:32→21:49)
[2016-10-04 07:12] LABS: AUTOMATED NEUTROPHIL # 10.2 TH/MM3 (1.8-7.7); BASOPHIL % 0.2 % (0.0-2.0); HEMATOCRIT 25.6 % (35.0-46.0); LYMPH % 23.2 % (9.0-44.0); LYMPHOCYTE # 3.3 TH/MM3 (1.0-4.8); MEAN CELL VOLUME 78.6 FL (80.0-100.0); MEAN CORPUSCULAR HEMOGLOBIN 25.3 PG (27.0-34.0); MEAN CORPUSCULAR HGB CONC 32.2 % (32.0-36.0); MONO % 5.4 % (0.0-8.0); NEUT % 71.2 % (16.0-70.0); PLATELET COUNT 420 TH/MM3 (150-450); RED BLOOD COUNT 3.26 MIL/MM3 (4.00-5.30); RED CELL DISTRIBUTION WIDTH 21.7 % (11.6-17.2); WHITE BLOOD COUNT 14.3 TH/MM3 (4.0-11.0)
[2016-10-04 07:25] LABS: HEMO FLAGS AUTO DIFF
[2016-10-04] MEDS ORDERED: POTASSIUM CHLORIDE 10 MEQ CONTROLLED RELEASE TAB PO ONE (07:45)
[2016-10-04 08:16] LABS: BICARBONATE 29.3 MEQ/L (21.0-32.0); PHENOBARBITAL 8.9 MCG/ML (15.0-40.0); POTASSIUM 3.2 MEQ/L (3.5-5.1)
[2016-10-04] MEDS: SPIRONOLACTONE 50 MG TAB PO SCH (08:42)
[2016-10-04] MEDS: LACTOBACILLUS ACIDOPHILUS 1 GM PACKET PO SCH ×3 (08:43→17:14)
[2016-10-04] MEDS: ALPRAZolam 1 MG TAB PO SCH ×3 (08:43→17:13)
[2016-10-04] MEDS: SODIUM CHLORIDE 0.9% FLUSH 10 ML FLUSH IV FLUSH SCH ×2 (08:44→20:08)
[2016-10-04] MEDS: BUDESONIDE-FORMOTEROL 160/4.5 MCG INHALER INH SCH ×2 (08:44→20:11)
[2016-10-04] MEDS: TIOTROPIUM BROMIDE 18 MCG INH INH SCH (08:44)
[2016-10-04] MEDS: DICYCLOMINE HCL 20 MG TAB PO SCH ×3 (08:45→17:13)
[2016-10-04] MEDS: MESALAMINE HD 800 MG DELAYED RELEASE TAB PO SCH ×2 (08:45→21:50)
[2016-10-04] MEDS: azaTHIOprine 50 MG TAB PO SCH (08:45)
[2016-10-04] MEDS: GABAPENTIN 300 MG CAP PO SCH ×3 (08:45→17:14)
[2016-10-04] MEDS: ENOXAPARIN SODIUM 40 MG/0.4 ML SYRINGE SQ SCH (08:45)
[2016-10-04] MEDS: DIVALPROEX SODIUM E.R. 250 MG TAB PO SCH ×2 (08:45→21:51)
[2016-10-04] MEDS ORDERED: hydrALAZINE HCL 10 MG TAB PO PRN (09:15)
--- NOTE | 2016-10-04 09:15 | HHI.FPPN ---
Subjective Remarks Patient is doing better this morning. Had one bowel movement overnight. Abdominal pain improved from previous. Nausea improved with Zofran. Denies fever, chills, headache. Objective Vitals Vital Signs Date Time Temp Pulse Resp B/P Pulse Ox O2 Delivery O2 Flow Rate FiO2 10/04/16 08:24 90 10/04/16 08:00 97.9 67 18 191/85 96 10/04/16 04:00 97.6 70 20 150/67 94 10/04/16 00:00 97.1 77 20 127/61 93 10/03/16 20:00 96.6 96 20 119/56 96 10/03/16 16:11 16 10/03/16 16:00 97.9 78 19 141/74 94 10/03/16 12:00 97.6 74 19 142/74 96 I/O 10/03/16 10/03/16 10/03/16 10/04/16 10/04/16 10/04/16 07:00 15:00 23:00 07:00 15:00 23:00 Intake Total 360 ml 60 ml Balance 360 ml 60 ml Intake Oral 360 ml 60 ml # Voids 4 2 1 # Bowel Movements 3 1 0 0 Result Diagram: 10/04/1640 10/04/16 0640 Objective Remarks GENERAL: WN, WD female sitting in chair, conversant SKIN: Warm and dry. HEENT: AT/NC. Pupils dilated, equal, and round. Responsive to light. HEART: RRR no m/r/g. LUNGS: Lateral breath sounds are CTAB without wheezes or crackles. ABDOMEN: Soft, nondistended, tenderness to palpation of epigastric area. EXTREMITIES: Trace LE edema, no calf tenderness NEURO: Awake alert and oriented 3. Answers questions appropriately. Speech normal. A/P Assessment and Plan 50-year-old female from custodial facility and with complicated past medical history including bipolar disorder, ulcerative colitis presents with altered mental status from her nursing facility. CT abdomen shows pancolitis, unchanged from previous. Concern for polypharmacy since on Xanax, amitriptyline , Seroquel, Depakote. Psychiatry, GI, neurology, infectious disease consulted. ID has signed off. Discharge Planning D/C to SNF pending GI clearance. ID has signed off. PT recommends PT and rehabilitation. [id number] signed. Problem List: (1) Pancolitis Status: Acute Plan: GI consulted. Mechanical soft diet, continue prednisone, continue asacol hd, continue azathioprine No evidence of celiac disease. Leukocytosis improving. GI planning trial of probiotic and Bentyl, if not better, colonoscopy in the coming week. Meds: (ID signed off 10/01) - D/C Zosyn IV Q6H per ID - DC Flagyl 500 IV q8 hr - Continue home mesalamine and Azathioprine - Continue Prednisone 50 mg daily Labs: - Blood cultures negative - Monitor CBC - Stool studies negative for C. diff Imaging: - Colonoscopy 08/03/16--> reviewed, see GI report - S/P MRI with no evidence of SMA disease. (2) Altered mental status Status: Acute Plan: Improved. Likely related to seizures/post ictal period. - Neurology consult--> cleared to go to SNF. no new seizure. - Continue Depakote 1,000 mg PO BID & valproate 500 mg BID IV - Currently phenobarbital 60 PO q12 hours - Continue xanax 1 mg PO TID Labs: - Ammonia 37 - TSH slightly elevated, likely acute phase reactant, repeat as an outpatient - RPR, B12, and thiamine WNL - Depakote level WNL Imaging/EEG History: - EEG still with left sharp per Neuro - CT head on admission negative - MRI brain: atrophy more pronounced in cerebellum, otherwise negative for acute process (3) Bronchitis Status: Resolved Plan: DuoNeb PRN. Supplemental O2 PRN. Steroids for colitis as above (4) FEN/DVT PPX/GI PPX Status: Acute Plan: Fluids: HLIV Electrolytes: cmp pending this am Nutrition: Speech therapy assessed. Mechanical soft. Prophylaxis: Lovenox 40 mg subcutaneous every 24 hours. Bilateral SCDs. Melatonin daily Chronic medical conditions: - Diabetes: Hold home metformin. Patient normally takes Lantus 26 units subcutaneous at bedtime with Novolin sliding scale. Levemir 15 units at bedtime, sliding scale insulin. Expect adjustments pending sliding scale coverage. - Ulcerative colitis: GI consult. Continue azathioprine 50 mg daily. Mesalamine 1600 mg by mouth twice a day. - Diabetic polyneuropathy: Continue gabapentin at reduced dose of 400 mg by mouth 3 times a day, continue Lyrica at current home dose - COPD: Continue albuterol, DuoNeb's. - Hyperlipidemia: Currently holding home atorvastatin -Chronic low back pain: Continue Percocet 10 every 6 hours when necessary pain 6 -10. Morphine IV if unable to swallow. Problem Qualifiers (1) Altered mental status: Qualified Code: R41.82 - Altered mental status, unspecified altered mental status type Fabian Anderson MD R2 October 04, 2016 09:15
--- NOTE | 2016-10-04 09:26 | HHI.FPPN ---
Addendum to progress note ADDENDUM Reason for addendum: Additonal documentation Additional information Off service note: This is a 50-year-old female with past medical history including ulcerative colitis, bipolar disorder (on long-term benzodiazepine, antipsychotic medication ). She comes from [facility]. She presented on 09/22 with altered mental status. Her benzodiazepine, amitriptyline, Seroquel were held initially. The following day her altered mental status improved. She was also started on IV Zosyn. However, on 09/30 the patient's white count increased to 30,000 and she started refusing by mouth medications. We then consulted neurology, psychiatry, GI, infectious disease. Infectious disease continued Zosyn IV, and added Flagyl IV. CT abdomen and pelvis showed pancolitis. The patient's mental status started improving after interventions made by neurology including continuing Depakote 1000 g by mouth twice a day and valproate 500 mg twice a day. She was also placed on phenobarbital 60 mg by mouth every 12 hours. Her Xanax medication was adjusted to 1 mg by mouth 3 times a day. Infectious disease signed off on 10/01 and discontinued all antibiotics. As of 10/04, the patient appears back to her baseline mental status. Gastroenterology is planning on providing IV Solu-Medrol for 1-2 days, trial of probiotic and bentyl. If there is no improvement, plan on colonoscopy early next week. Fabian Anderson MD R2 October 04, 2016 09:26
[2016-10-04 09:35] LABS: BANDS 7 % (0-6); METAMYELOCYTES 1 % (0-1); MYELOCYTES 4 % (0-0); NEUTROPHIL # MANUAL DIFF 10.7 TH/MM3 (1.8-7.7); OVALOCYTES 1+ (NORMAL); PLATELET ESTIMATE SMEAR NORMAL (NORMAL); PLATELET MORPHOLOGY NORMAL (NORMAL); POLYS (SEG NEUTROPHILS) 63 % (16-70); SCAN/DIFF FINAL DIFF MANUAL; WBC DIFF SAMPLE 100
[2016-10-04] MEDS: ACETAMINOPHEN 325 MG TAB PO PRN (11:54)
--- NOTE | 2016-10-04 13:54 | HHI.GIFU ---
Subjective Remarks Patient sitting up on the side of her bed. No apparent distress. Tolerating diet well. Continues to have diffuse abdominal pain. (Yu Reina) Objective Vitals I&O Vital Signs Date Time Temp Pulse Resp B/P Pulse Ox O2 Delivery O2 Flow Rate FiO2 10/04/16 12:00 97.6 76 18 108/56 92 10/04/16 10:15 16 10/04/16 08:24 90 10/04/16 08:00 97.9 67 18 191/85 96 10/04/16 04:00 97.6 70 20 150/67 94 10/04/16 00:00 97.1 77 20 127/61 93 10/03/16 20:00 96.6 96 20 119/56 96 10/03/16 16:00 97.9 78 19 141/74 94 I/O 10/03/16 10/03/16 10/03/16 10/04/16 10/04/16 10/04/16 07:00 15:00 23:00 07:00 15:00 23:00 Intake Total 360 ml 60 ml Balance 360 ml 60 ml Intake Oral 360 ml 60 ml # Voids 4 2 1 # Bowel Movements 3 1 0 0 Laboratory Laboratory Tests Test 10/04/16 06:40 White Blood Count 14.3 Red Blood Count 3.26 Hemoglobin 8.2 Hematocrit 25.6 Mean Corpuscular Volume 78.6 Mean Corpuscular Hemoglobin 25.3 Mean Corpuscular Hemoglobin 32.2 Concent Red Cell Distribution Width 21.7 Platelet Count 420 Mean Platelet Volume 7.3 Neutrophils (%) (Auto) 71.2 Lymphocytes (%) (Auto) 23.2 Monocytes (%) (Auto) 5.4 Eosinophils (%) (Auto) 0.0 Basophils (%) (Auto) 0.2 Neutrophils # (Auto) 10.2 Lymphocytes # (Auto) 3.3 Monocytes # (Auto) 0.8 Eosinophils # (Auto) 0.0 Basophils # (Auto) 0.0 CBC Comment AUTO DIFF Differential Total Cells 100 Counted Neutrophils % (Manual) 63 Band Neutrophils % 7 Lymphocytes % 24 Monocytes % 1 Neutrophils # (Manual) 10.7 Metamyelocytes 1 Myelocytes 4 Differential Comment FINAL DIFF MANUAL Platelet Estimate NORMAL Platelet Morphology Comment NORMAL Ovalocytes 1+ Sodium Level 135 Potassium Level 3.2 Chloride Level 97 Carbon Dioxide Level 29.3 Anion Gap 9 Blood Urea Nitrogen 5 Creatinine 0.35 Estimat Glomerular Filtration 196 Rate Random Glucose 282 Calcium Level 7.8 Phenytoin (Dilantin) Level 0.7 Valproic Acid (Depakene) Level 46 Phenobarbital Level 8.9 Imaging Last Impressions Abdomen MRI 09/30/16 Signed Impressions: Service Date/Time: Friday, September 30, 2016 12:50 - CONCLUSION: 1. There is no evidence for superior mesenteric artery disease. 2. The inferior mesenteric artery is visualized as well. Micah Araujo MD FACR Chest X-Ray 09/28/16 Signed Impressions: Service Date/Time: Wednesday, September 28, 2016 15:30 - CONCLUSION: No acute disease. Daryl Cook MD Brain MRI 09/28/16 Signed Impressions: Service Date/Time: Wednesday, September 28, 2016 10:25 - CONCLUSION: Atrophy more pronounced in the cerebellum otherwise negative acute process. Micah Araujo MD FACR Head CT 09/22/16 Signed Impressions: Service Date/Time: Thursday, September 22, 2016 09:46 - CONCLUSION: Normal examination. Bakari Hearn Jr., MD Chest CT 09/22/16 Signed Impressions: Service Date/Time: Thursday, September 22, 2016 15:27 - CONCLUSION: 1. No infiltrate or effusion. 2. Mild right basilar atelectasis. Bakari Hearn Jr., MD Abdomen/Pelvis CT 09/22/16 Signed Impressions: Service Date/Time: Thursday, September 22, 2016 15:33 - CONCLUSION: Diffuse mild wall thickening involving the colon consistent with pancolitis. Findings are similar to the prior study. Consider C. difficile colitis versus ulcerative colitis. Bakari Hearn Jr., MD Physical Exam HEENT: PERRLA. Normocephalic; atraumatic CHEST: CTA CARDIAC: RRR ABDOMEN: Soft, mild diffuse tenderness, mildly distended, no hepatosplenomegaly ; bowel sounds x4 quadrants EXTREMITIES: No clubbing, cyanosis, or edema. SKIN: Normal; no rash; no jaundice. SURGICAL INSTRUMENTS INSPECTOR: Lethargic, oriented to place, person, and month (Yu Reina) Assessment and Plan Plan ASSESSMENT: - Pancolitis with known U.C. Abdomen/Pelvis CT (09/22/16)-----> Diffuse mild wall thickening involving the colon consistent with pancolitis. Findings are similar to the prior study. Consider C. difficile colitis versus ulcerative colitis. CDiff negative. S/P Colonoscopy (08/03/16)------> 1. Circumferential diffuse abnormal mucosa was found throughout the entire examined colon; The mucosa was congested, erythematous, friable and had granularity and superficial ulcers; multiple biopsies were performed using cold forceps 2. Retroflexed views revealed internal hemorrhoids 3. Retroflexed views revealed small internal hemorrhoids, 4. Revealed external hemorrhoids. Pathology with moderately active chronic colitis of the ascending, sigmoid, rectum. She was given steroids and asacol during that hospitalization. It appears she was on a taper of prednisone- down to 10mg po daily, Asacol 1600mg BID, azathioprine 50mg daily, based on office records from 09/10. Abdomen MRI (09/30/16)----> 1. There is no evidence for superior mesenteric artery disease. 2. The inferior mesenteric artery is visualized as well. Unable to have MRA. She is currently on azathioprine, asacol hd. Started on IV Solumedrol, Bentyl, Canasa suppository, and probiotics. CARLENE negative. RF negative. Celiac neg. Sent Tb Quantasure and Hep B DNA (pending) in the event she will need to start Humira or Remicade. She has mild diffuse abdominal tenderness on exam, one bowel movement today. - N/V/D. No further problem with n/v. Tolerating diet. Celiac panel pending. epigastric discomfort. Stool studies negative for cryptosporidium, giardia, cdiff- rare WBC. - Leukocytosis. WBC improving today, 14.3. ID following. - AMS, Sz D/O. LP on hold. Neurology following, Psychiatry following. Improved. Now oriented to self, person, place. PLAN - Will consider colonoscopy next week, if no improvement - Mechanical soft diet - Cont IV Solumedrol - Trial probiotics and Bentyl - Cont. Asacol HD - Cont. Azathioprine - Unable to have MRA - Supportive care - Further recommendations to follow based on results of above Patient seen and examined by Dr. Londono and myself and this note is written on her behalf (Yu ReinaP) Physician Comments seen, examined agree with above she actually had mra on 09/30-negative for mesenteric ischemia fu tb QuantaSure, hep b dna , if not better consider starting Humira or Remicade (Serena Londono MD) Yu Reina October 04, 2016 13:54 Serena Londono MD October 04, 2016 16:58
[2016-10-04] MEDS: INSULIN DETEMIR 100 UNITS/ML VIAL SQ SCH (21:49)
[2016-10-04] MEDS: PANTOPRAZOLE SODIUM 40 MG VIAL IV PUSH SCH (21:50)
[2016-10-04] MEDS: MELATONIN 5 MG TAB PO SCH (21:50)
[2016-10-04] MEDS: DOCUSATE SODIUM 50 MG/SENNA 8.6 MG TAB PO SCH (21:51)
[2016-10-05] VITALS (9 sets, daily range): BP systolic 124–193; BP diastolic 63–106; PULSE 53–78; RESP 20–21; TEMP 96.3–97.5; O2SAT 94–97
[2016-10-05] MEDS: ONDANSETRON HCL 4 MG/2 ML VIAL IV PUSH PRN ×2 (03:36→17:32)
[2016-10-05] MEDS: oxyCODONE/ACETAMINOPHEN 10 MG/325 MG TAB PO PRN ×4 (03:36→23:59)
[2016-10-05] MEDS: methylPREDNISolone SOD SUCC 40 MG/1 ML VIAL IV PUSH SCH (06:41)
[2016-10-05] MEDS: INSULIN ASPART SUPPLEMENTAL SCALE SQ SCH ×4 (06:41→20:58)
[2016-10-05 06:59] LABS: AUTOMATED NEUTROPHIL # 12.5 TH/MM3 (1.8-7.7); BASOPHIL % 0.2 % (0.0-2.0); HEMATOCRIT 25.8 % (35.0-46.0); LYMPH % 16.5 % (9.0-44.0); LYMPHOCYTE # 2.6 TH/MM3 (1.0-4.8); MEAN CELL VOLUME 78.8 FL (80.0-100.0); MEAN CORPUSCULAR HEMOGLOBIN 25.8 PG (27.0-34.0); MEAN CORPUSCULAR HGB CONC 32.8 % (32.0-36.0); MONO % 4.4 % (0.0-8.0); NEUT % 78.9 % (16.0-70.0); PLATELET COUNT 406 TH/MM3 (150-450); RED BLOOD COUNT 3.28 MIL/MM3 (4.00-5.30); RED CELL DISTRIBUTION WIDTH 21.3 % (11.6-17.2); WHITE BLOOD COUNT 15.9 TH/MM3 (4.0-11.0)
[2016-10-05 07:03] LABS: HEMO FLAGS AUTO DIFF
[2016-10-05 07:29] LABS: ANION GAP 9 MEQ/L (5-15); BICARBONATE 28.2 MEQ/L (21.0-32.0); BLOOD UREA NITROGEN 9 MG/DL (7-18); CHLORIDE 95 MEQ/L (98-107); GLOMERULAR FILTRATION RATE 159 ML/MIN (>89); POTASSIUM 4.4 MEQ/L (3.5-5.1); SODIUM (NA) 132 MEQ/L (136-145)
[2016-10-05 08:03] LABS: OVALOCYTES 1+ (NORMAL); SCAN/DIFF AUTO DIFF CONFIRMED
[2016-10-05] MEDS: ALPRAZolam 1 MG TAB PO SCH ×3 (09:23→17:05)
[2016-10-05] MEDS: DICYCLOMINE HCL 20 MG TAB PO SCH ×3 (09:23→17:05)
[2016-10-05] MEDS: SPIRONOLACTONE 50 MG TAB PO SCH (09:24)
[2016-10-05] MEDS: azaTHIOprine 50 MG TAB PO SCH (09:24)
[2016-10-05] MEDS: DIVALPROEX SODIUM E.R. 250 MG TAB PO SCH ×2 (09:25→20:50)
[2016-10-05] MEDS: GABAPENTIN 300 MG CAP PO SCH ×3 (09:26→17:05)
[2016-10-05] MEDS: MESALAMINE HD 800 MG DELAYED RELEASE TAB PO SCH ×2 (09:26→20:51)
[2016-10-05] MEDS: LACTOBACILLUS ACIDOPHILUS 1 GM PACKET PO SCH ×3 (09:27→17:06)
[2016-10-05] MEDS: BUDESONIDE-FORMOTEROL 160/4.5 MCG INHALER INH SCH ×2 (11:13→21:00)
[2016-10-05] MEDS: TIOTROPIUM BROMIDE 18 MCG INH INH SCH (11:13)
--- NOTE | 2016-10-05 11:13 | HHI.FPPN ---
Subjective Remarks Ms. Rockwell is doing well this morning. She was sitting in a chair about to get an EEG performed. She has had 3 bowel movements this morning, the first 2 were diarrheal and the last was formed. She wants to know when she can go home and had questions about [facility]. She said her abdominal pain was much improved. She continues to have nausea and asked to be discharged with nausea medication. Objective Vitals Vital Signs Date Time Temp Pulse Resp B/P Pulse Ox O2 Delivery O2 Flow Rate FiO2 10/05/16 09:36 57 10/05/16 08:00 96.5 63 21 180/95 95 10/05/16 04:00 96.9 54 20 193/82 96 10/05/16 02:04 70 10/05/16 00:00 96.4 73 20 153/71 94 10/04/16 20:00 98.7 71 20 128/61 94 10/04/16 16:12 16 10/04/16 16:00 98.4 73 18 149/80 93 10/04/16 12:00 97.6 76 18 108/56 92 I/O 10/04/16 10/04/16 10/04/16 10/05/16 10/05/16 10/05/16 07:00 15:00 23:00 07:00 15:00 23:00 Intake Total 60 ml 240 ml 120 ml Balance 60 ml 240 ml 120 ml Intake Oral 60 ml 240 ml 120 ml # Voids 1 1 2 # Bowel Movements 0 0 0 Result Diagram: 10/05/16 0547 10/05/16 0547 Objective Remarks GENERAL: WN, WD female sitting in chair, conversant SKIN: Warm and dry. HEENT: AT/NC. Pupils dilated, equal, and round. Responsive to light. HEART: RRR no m/r/g. LUNGS: Lateral breath sounds are CTAB without wheezes or crackles. ABDOMEN: Soft, nondistended, not tender to mild palpation of her abdomen EXTREMITIES: Trace LE edema, no calf tenderness NEURO: Awake alert and oriented 3. Answers questions appropriately. Speech normal. A/P Assessment and Plan 50-year-old female from halfway facility and with complicated past medical history including bipolar disorder, ulcerative colitis presents with altered mental status from her nursing facility. CT abdomen shows pancolitis, unchanged from previous. Concern for polypharmacy since on Xanax, amitriptyline , Seroquel, Depakote. Psychiatry, GI, neurology, infectious disease consulted. ID has signed off. Seen and examined with Dr. Jimenez Discharge Planning D/C to SNF pending GI clearance. ID has signed off. PT recommends PT and rehabilitation. [id number] signed. Problem List: (1) Pancolitis Status: Acute Plan: GI consulted. Mechanical soft diet, continue prednisone, continue asacol hd, continue azathioprine No evidence of celiac disease. Leukocytosis stable GI planning trial of probiotic and Bentyl, if not better, colonoscopy this week Meds: (ID signed off 10/01) - D/C Zosyn IV Q6H per ID - DC Flagyl 500 IV q8 hr - Continue home mesalamine and Azathioprine - Continue Prednisone 50 mg daily Labs: - Blood cultures negative - Monitor CBC - Stool studies negative for C. diff Imaging: - Colonoscopy 08/03/16--> reviewed, see GI report - S/P MRI with no evidence of SMA disease. (2) Altered mental status Status: Acute Plan: Improved. Likely related to seizures/post ictal period. - Neurology consult--> cleared to go to SNF. no new seizure. - Continue Depakote 1,000 mg PO BID & valproate 500 mg BID IV - Currently phenobarbital 60 PO q12 hours - Continue xanax 1 mg PO TID Labs: - Ammonia 37 - TSH slightly elevated, likely acute phase reactant, repeat as an outpatient - RPR, B12, and thiamine WNL - Depakote level WNL Imaging/EEG History: - EEG still with left sharp per Neuro - CT head on admission negative - MRI brain: atrophy more pronounced in cerebellum, otherwise negative for acute process (3) Bronchitis Status: Resolved Plan: DuoNeb PRN. Supplemental O2 PRN. Steroids for colitis as above (4) FEN/DVT PPX/GI PPX Status: Acute Plan: Fluids: HLIV Electrolytes: Potassium much improved to 4.4 today Nutrition: Speech therapy assessed. Mechanical soft. Prophylaxis: Lovenox 40 mg subcutaneous every 24 hours. Bilateral SCDs. Melatonin daily Chronic medical conditions: - Diabetes: Hold home metformin. Patient normally takes Lantus 26 units subcutaneous at bedtime with Novolin sliding scale. Increase Levemir to 20 units at bedtime, continue sliding scale insulin. - Ulcerative colitis: GI consult. Continue azathioprine 50 mg daily. Mesalamine 1600 mg by mouth twice a day. - Diabetic polyneuropathy: Continue gabapentin at reduced dose of 400 mg by mouth 3 times a day, continue Lyrica at current home dose - COPD: Continue albuterol, DuoNeb's. - Hyperlipidemia: Currently holding home atorvastatin -Chronic low back pain: Continue Percocet 10 every 6 hours when necessary pain 6 -10. Morphine IV if unable to swallow. Problem Qualifiers (1) Altered mental status: Qualified Code: R41.82 - Altered mental status, unspecified altered mental status type Dulce Guajardo MD R1 October 05, 2016 11:13
[2016-10-05] MEDS: ENOXAPARIN SODIUM 40 MG/0.4 ML SYRINGE SQ SCH (12:01)
[2016-10-05] MEDS: SODIUM CHLORIDE 0.9% FLUSH 10 ML FLUSH IV FLUSH SCH ×2 (12:02→21:00)
--- NOTE | 2016-10-05 17:01 | HHI.GIFU ---
Subjective Remarks Resting in bed. States she feels great and is hoping to go home. No n/v. No abdominal pain. Tolerating diet. No tenderness on exam today. Objective Vitals I&O Vital Signs Date Time Temp Pulse Resp B/P Pulse Ox O2 Delivery O2 Flow Rate FiO2 10/05/16 16:00 97.5 69 20 132/63 94 10/05/16 12:00 97.1 53 20 171/106 97 10/05/16 09:36 57 10/05/16 08:00 96.5 63 21 180/95 95 10/05/16 04:00 96.9 54 20 193/82 96 10/05/16 02:04 70 10/05/16 00:00 96.4 73 20 153/71 94 10/04/16 20:00 98.7 71 20 128/61 94 I/O 10/04/16 10/04/16 10/04/16 10/05/16 10/05/16 10/05/16 07:00 15:00 23:00 07:00 15:00 23:00 Intake Total 60 ml 240 ml 120 ml Balance 60 ml 240 ml 120 ml Intake Oral 60 ml 240 ml 120 ml # Voids 1 1 2 4 # Bowel Movements 0 0 0 3 Laboratory Laboratory Tests Test 10/04/16 10/05/16 22:31 05:47 Random Glucose 424 312 White Blood Count 15.9 Red Blood Count 3.28 Hemoglobin 8.5 Hematocrit 25.8 Mean Corpuscular Volume 78.8 Mean Corpuscular Hemoglobin 25.8 Mean Corpuscular Hemoglobin 32.8 Concent Red Cell Distribution Width 21.3 Platelet Count 406 Mean Platelet Volume 7.6 Neutrophils (%) (Auto) 78.9 Lymphocytes (%) (Auto) 16.5 Monocytes (%) (Auto) 4.4 Eosinophils (%) (Auto) 0.0 Basophils (%) (Auto) 0.2 Neutrophils # (Auto) 12.5 Lymphocytes # (Auto) 2.6 Monocytes # (Auto) 0.7 Eosinophils # (Auto) 0.0 Basophils # (Auto) 0.0 CBC Comment AUTO DIFF Differential Comment AUTO DIFF CONFIRMED Ovalocytes 1+ Sodium Level 132 Potassium Level 4.4 Chloride Level 95 Carbon Dioxide Level 28.2 Anion Gap 9 Blood Urea Nitrogen 9 Creatinine 0.42 Estimat Glomerular Filtration 159 Rate Calcium Level 8.4 Phenytoin (Dilantin) Level LESS THAN 0.4 Valproic Acid (Depakene) Level 46 Phenobarbital Level 10.0 Imaging Last Impressions Abdomen MRI 09/30/16 0000 Signed Impressions: Service Date/Time: Friday, September 30, 2016 12:50 - CONCLUSION: 1. There is no evidence for superior mesenteric artery disease. 2. The inferior mesenteric artery is visualized as well. Micah Araujo MD FACR Chest X-Ray 09/28/16 Signed Impressions: Service Date/Time: Wednesday, September 28, 2016 15:30 - CONCLUSION: No acute disease. Daryl Cook MD Brain MRI 09/28/16 Signed Impressions: Service Date/Time: Wednesday, September 28, 2016 10:25 - CONCLUSION: Atrophy more pronounced in the cerebellum otherwise negative acute process. Micah Araujo MD FACR Head CT 09/22/16 Signed Impressions: Service Date/Time: Thursday, September 22, 2016 09:46 - CONCLUSION: Normal examination. Bakari Hearn Jr., MD Chest CT 09/22/16 Signed Impressions: Service Date/Time: Thursday, September 22, 2016 15:27 - CONCLUSION: 1. No infiltrate or effusion. 2. Mild right basilar atelectasis. Bkaari Hearn Jr., MD Abdomen/Pelvis CT 09/22/16 Signed Impressions: Service Date/Time: Thursday, September 22, 2016 15:33 - CONCLUSION: Diffuse mild wall thickening involving the colon consistent with pancolitis. Findings are similar to the prior study. Consider C. difficile colitis versus ulcerative colitis. Bakari Hearn Jr., MD Physical Exam HEENT: PERRLA. Normocephalic; atraumatic CHEST: CTA CARDIAC: RRR ABDOMEN: Soft, mild diffuse tenderness, mildly distended, no hepatosplenomegaly ; bowel sounds x4 quadrants EXTREMITIES: No clubbing, cyanosis, or edema. SKIN: Normal; no rash; no jaundice. CORPORATE DIRECTOR: Lethargic, oriented to place, person, and month Assessment and Plan Plan ASSESSMENT: - Pancolitis with known U.C. Abdomen/Pelvis CT (09/22/16)-----> Diffuse mild wall thickening involving the colon consistent with pancolitis. Findings are similar to the prior study. Consider C. difficile colitis versus ulcerative colitis. CDiff negative. S/P Colonoscopy (08/03/16)------> 1. Circumferential diffuse abnormal mucosa was found throughout the entire examined colon; The mucosa was congested, erythematous, friable and had granularity and superficial ulcers; multiple biopsies were performed using cold forceps 2. Retroflexed views revealed internal hemorrhoids 3. Retroflexed views revealed small internal hemorrhoids, 4. Revealed external hemorrhoids. Pathology with moderately active chronic colitis of the ascending, sigmoid, rectum. She was given steroids and asacol during that hospitalization. It appears she was on a taper of prednisone- down to 10mg po daily, Asacol 1600mg BID, azathioprine 50mg daily, based on office records from 09/10. Abdomen MRI (09/30/16)----> 1. There is no evidence for superior mesenteric artery disease. 2. The inferior mesenteric artery is visualized as well. Unable to have MRA. She is currently on azathioprine, asacol hd, Solumedrol, Bentyl, Canasa suppository, and probiotics. CARLENE negative. RF negative. Celiac neg. Sent Tb Quantasure and Hep B DNA (pending) in anticipation of needing to possibly start Humira or Remicade as outpatient. She is much improved today. She denies abdominal pain and has no tenderness on exam today. She is tolerating diet and hoping to go home today or tomorrow. States 2 small bowel movement today, none yesterday. - N/V/D. No further problem with n/v. Tolerating diet. Celiac panel negative. epigastric discomfort. Stool studies negative for cryptosporidium, giardia, cdiff- rare WBC. - Leukocytosis. WBC improving today, 15.9. ID following. - AMS, Sz D/O. LP on hold. Neurology following, Psychiatry following. Improved. Now oriented to self, person, place. PLAN - Okay to d/c home from GI standpoint - Low residue diet - Prednisone 50mg po daily x 10 days 40mg po daily x 10 days 30mg po daily x 10 days 20mg po daily x 10 days 10mg po daily x 10 days - Cont. Lactinex - Cont. Asacol HD - Cont. Canasa suppositories - TB Quantiferon/Hep B pending - FU DANIEL 1-[address] Bratu - Pt seen and examined by Dr. Dwyer and myself and this note is written on his behalf Yudelka Tijerina October 05, 2016 17:01
--- NOTE | 2016-10-05 17:50 | HHI.PR ---
Subjective Remarks no new sz still Objective Vital Signs Date Time Temp Pulse Resp B/P Pulse Ox O2 Delivery O2 Flow Rate FiO2 10/05/16 16:00 97.5 69 20 132/63 94 10/05/16 12:00 97.1 53 20 171/106 97 10/05/16 09:36 57 10/05/16 08:00 96.5 63 21 180/95 95 10/05/16 04:00 96.9 54 20 193/82 96 10/05/16 02:04 70 10/05/16 00:00 96.4 73 20 153/71 94 10/04/16 20:00 98.7 71 20 128/61 94 I/O 10/04/16 10/04/16 10/04/16 10/05/16 10/05/16 10/05/16 07:00 15:00 23:00 07:00 15:00 23:00 Intake Total 60 ml 240 ml 120 ml Balance 60 ml 240 ml 120 ml Intake Oral 60 ml 240 ml 120 ml # Voids 1 1 2 4 # Bowel Movements 0 0 0 3 Result Diagram: 10/05/16 0547 10/05/16 0547 Objective Remarks alert talking ox3 follows all commands speech nl in chair nl gait mood good Assessment and Plan Assessment and Plan labs ok cpk nl mri neg eeg she was in subclinical status epilepticus yest responded to ativan on vpa dil pbarb eeg this am much better will hold LP for today and ifshe is still confused in am will do it then she was off xanax so maybe sz from withdrawal from that? cont acyclovir for now vpa 48 dil 4.6 09/30/16 much better today will dc dil and stay on pbarb and vpa for now give back xanax oob ok to tele floor dc lp eeg still some left sharps ok for dvt prophylaxis if needed 10/01/16 no more sz vpa 46 750 bid pbarb 4.5 doing well long yannick xanax 1 mg tid so will put back on that was on vpa at home eeg still some left sharps recheck today ok to floor ambulate more 10/02/16 doing better no new sz will review yest eeg inc vpa she could go to rehab or home or psych psych needs to weigh in on her psych disposition 10/05/16 doing great pbarb 10 vpa 46 i will fu eeg today has had persistent left temp dc ok to dc to rehab by me and fu my office 2 -3 weeks Jason Velazquez MD October 05, 2016 17:50
[2016-10-05] MEDS: PANTOPRAZOLE SODIUM 40 MG VIAL IV PUSH SCH (20:49)
[2016-10-05] MEDS: MELATONIN 5 MG TAB PO SCH (20:51)
[2016-10-05] MEDS: DOCUSATE SODIUM 50 MG/SENNA 8.6 MG TAB PO SCH (20:51)
[2016-10-05] MEDS: MESALAMINE 1000 MG SUPP RECTAL SCH (21:00)
[2016-10-05] MEDS ORDERED: INSULIN DETEMIR 100 UNITS/ML VIAL SQ SCH (21:00)
[2016-10-06] VITALS: BP 131/62; PULSE 74; RESP 20; TEMP 96.8; O2SAT 99
[2016-10-06 05:38] VITALS: BP 160/85; PULSE 70; RESP 20; TEMP 96.9; O2SAT 96
[2016-10-06] MEDS: INSULIN ASPART SUPPLEMENTAL SCALE SQ SCH ×2 (07:16→11:00)
--- NOTE | 2016-10-06 07:41 | MG ---
cc: RAUL PUGA Lab No: [id number] Date: 10/06/2016 Age: 50 Sex: F Race: __ INDICATIONS This is a 50-year-old woman. Hyperventilation not performed with colitis and anxiety. MEDICATIONS 1. Apresoline 2. Depakote 3. Xanax 4. Phenobarb 5. Protonix 6. Insulin DESCRIPTION A 12 Hz symmetric posterior rhythm is noted. A lot of movement artifact is seen. She had a history of left phase reversing sharp waves and still a little bit of sharply contoured theta rhythms occasionally over the left essentially at epoch 63 and alpha rhythms, but it is much improved. Hyperventilation is not performed. Photic stimulation was performed without significant posterior driving. IMPRESSION Much improved EEG, still some very slight asymmetry on the left temporal lobe, but much better than prior and no mikey spikes are noted on the left. MD ANTONI Silva/JEAN-PIERRE /6:27 AM /7:36 AM
[2016-10-06 08:00] VITALS: PULSE 84
[2016-10-06 08:02] VITALS: BP 122/63; PULSE 68; RESP 20; TEMP 97.5; O2SAT 97
[2016-10-06] MEDS: ONDANSETRON HCL 4 MG/2 ML VIAL IV PUSH PRN (08:04)
[2016-10-06] MEDS: GABAPENTIN 300 MG CAP PO SCH ×2 (08:05→12:11)
[2016-10-06] MEDS: SPIRONOLACTONE 50 MG TAB PO SCH (08:06)
[2016-10-06] MEDS: DICYCLOMINE HCL 20 MG TAB PO SCH ×2 (08:06→12:15)
[2016-10-06] MEDS: ALPRAZolam 1 MG TAB PO SCH ×2 (08:06→12:14)
[2016-10-06] MEDS: LACTOBACILLUS ACIDOPHILUS 1 GM PACKET PO SCH ×2 (08:06→12:14)
[2016-10-06] MEDS: DIVALPROEX SODIUM E.R. 250 MG TAB PO SCH (08:06)
[2016-10-06] MEDS: oxyCODONE/ACETAMINOPHEN 10 MG/325 MG TAB PO PRN ×2 (08:07→14:59)
[2016-10-06] MEDS: azaTHIOprine 50 MG TAB PO SCH (08:07)
[2016-10-06] MEDS: SODIUM CHLORIDE 0.9% FLUSH 10 ML FLUSH IV FLUSH SCH (08:08)
[2016-10-06] MEDS: TIOTROPIUM BROMIDE 18 MCG INH INH SCH (08:08)
[2016-10-06] MEDS: MESALAMINE HD 800 MG DELAYED RELEASE TAB PO SCH (08:08)
[2016-10-06] MEDS: BUDESONIDE-FORMOTEROL 160/4.5 MCG INHALER INH SCH (08:08)
--- NOTE | 2016-10-06 09:29 | HHI.FPPN ---
Subjective Remarks Ms Rockwell was sitting up in bed this morning. She states that she feels good and is excited that she can go home today. She had 3 bowel movements this morning that were loose to semi-formed. She continues to have nausea and abdominal pain but the abdominal pain is much improved. She would like a letter stating her dietary restrictions so she can give it to the honey liquefier at her [place] [facility]. Objective Vitals Vital Signs Date Time Temp Pulse Resp B/P Pulse Ox O2 Delivery O2 Flow Rate FiO2 10/06/16 08:02 97.5 68 20 122/63 97 10/06/16 05:38 96.9 70 20 160/85 96 10/06/16 00:00 96.8 74 20 131/62 99 10/05/16 20:00 96.3 78 20 124/75 95 10/05/16 19:30 60 10/05/16 16:00 97.5 69 20 132/63 94 10/05/16 12:00 97.1 53 20 171/106 97 10/05/16 09:36 57 I/O 10/05/16 10/05/16 10/05/16 10/06/16 10/06/16 10/06/16 07:00 15:00 23:00 07:00 15:00 23:00 Intake Total 120 ml 720 ml Balance 120 ml 720 ml Intake Oral 120 ml 720 ml # Voids 2 4 4 2 # Bowel Movements 0 3 0 1 Result Diagram: 10/05/16 0547 10/05/16 0547 Objective Remarks GENERAL: WN, WD female sitting up in bed, conversant SKIN: Warm and dry. HEENT: AT/NC. Pupils equal, and round. Responsive to light. HEART: RRR no m/r/g. LUNGS: CTAB without wheezes or crackles. ABDOMEN: Soft, nondistended, not tender to mild palpation of her abdomen EXTREMITIES: Trace LE edema, no calf tenderness NEURO: Awake alert and oriented 3. Answers questions appropriately. Speech normal. A/P Assessment and Plan 50-year-old female from group home facility and with complicated past medical history including bipolar disorder, ulcerative colitis presents with altered mental status from her nursing facility. CT abdomen shows pancolitis, unchanged from previous. Concern for polypharmacy since on Xanax, amitriptyline , Seroquel, Depakote. Psychiatry, GI, neurology, infectious disease consulted. ID has signed off. Cleared for discharge from infectious disease standpoint. Discussed with Dr. Gillette, PGY-2 Discharge Planning D/C to SNF pending GI clearance. ID has signed off. PT recommends PT and rehabilitation. [id number] signed. Problem List: (1) Pancolitis Status: Acute Plan: GI consulted. Mechanical soft diet, prednisone taper for discharge, continue asacol hd, continue azathioprine No evidence of celiac disease. Leukocytosis stable GI planning trial of probiotic and Bentyl, if not better, colonoscopy this week Meds: (ID signed off 10/01) - D/C Zosyn IV Q6H per ID - DC Flagyl 500 IV q8 hr - Continue home mesalamine and Azathioprine Labs: - Blood cultures negative - Monitor CBC - Stool studies negative for C. diff Imaging: - Colonoscopy 08/03/16--> reviewed, see GI report - S/P MRI with no evidence of SMA disease. (2) Altered mental status Status: Acute Plan: Improved. Likely related to seizures/post ictal period. - Neurology consult--> cleared to go to SNF, follow in office in 2-3 weeks. no new seizure. - Continue Depakote 1,000 mg PO BID & valproate 500 mg BID IV - Currently phenobarbital 60 PO q12 hours - Continue xanax 1 mg PO TID Labs: - Ammonia 37 - RPR, B12, and thiamine WNL - Depakote level WNL Imaging/EEG History: - EEG performed on 10/05 - Impression: Much improved EEG, still some very slight asymmetry on the left temporal lobe, but much better than prior and no mikey spikes are noted on the left. - CT head on admission negative - MRI brain: atrophy more pronounced in cerebellum, otherwise negative for acute process (3) Bronchitis Status: Resolved Plan: DuoNeb PRN. Supplemental O2 PRN. Steroids for colitis as above (4) FEN/DVT PPX/GI PPX Status: Acute Plan: Fluids: HLIV Electrolytes: Will monitor and replace as needed Nutrition: Speech therapy assessed. Mechanical soft. Prophylaxis: Lovenox 40 mg subcutaneous every 24 hours. Bilateral SCDs. Melatonin daily Chronic medical conditions: - Diabetes: Hold home metformin. Patient normally takes Lantus 26 units subcutaneous at bedtime with Novolin sliding scale. Continue Levemir to 20 units at bedtime, continue sliding scale insulin. - Ulcerative colitis: GI consult. Continue azathioprine 50 mg daily. Mesalamine 1600 mg by mouth twice a day. - Diabetic polyneuropathy: Continue gabapentin at reduced dose of 400 mg by mouth 3 times a day, continue Lyrica at current home dose - COPD: Continue albuterol, DuoNeb's. - Hyperlipidemia: Currently holding home atorvastatin -Chronic low back pain: Continue Percocet 10 every 6 hours when necessary pain 6 -10. Morphine IV if unable to swallow. Problem Qualifiers (1) Altered mental status: Qualified Code: R41.82 - Altered mental status, unspecified altered mental status type Dulce Guajardo MD R1 October 06, 2016 09:29
[2016-10-06] MEDS ORDERED: PRED10 PO ×3 (10:08→10:13)
[2016-10-06] MEDS ORDERED: PRED20 PO ×2 (10:12→10:13)
[2016-10-06] MEDS ORDERED: ZOFR4TAB PO (10:14)
[2016-10-06] MEDS ORDERED: DEPA500T3 PO (11:15)
[2016-10-06] MEDS ORDERED: PHEN-524 PO ×2 (11:15→11:24)
[2016-10-06 11:20] LABS: AUTOMATED NEUTROPHIL # 11.6 TH/MM3 (1.8-7.7); BASOPHIL # 0.1 TH/MM3 (0-0.2); BASOPHIL % 0.7 % (0.0-2.0); EOSINOPHIL % 0.2 % (0.0-4.0); HEMATOCRIT 29.8 % (35.0-46.0); HEMO FLAGS AUTO DIFF; LYMPH % 26.9 % (9.0-44.0); LYMPHOCYTE # 4.7 TH/MM3 (1.0-4.8); MEAN CELL VOLUME 78.9 FL (80.0-100.0); MEAN CORPUSCULAR HEMOGLOBIN 25.7 PG (27.0-34.0); MEAN CORPUSCULAR HGB CONC 32.5 % (32.0-36.0); MONO % 6.2 % (0.0-8.0); PLATELET COUNT 473 TH/MM3 (150-450); RED BLOOD COUNT 3.77 MIL/MM3 (4.00-5.30); RED CELL DISTRIBUTION WIDTH 22.6 % (11.6-17.2); WHITE BLOOD COUNT 17.6 TH/MM3 (4.0-11.0)
[2016-10-06] MEDS: ENOXAPARIN SODIUM 40 MG/0.4 ML SYRINGE SQ SCH (11:31)
[2016-10-06 11:39] LABS: BICARBONATE 31.9 MEQ/L (21.0-32.0); POTASSIUM 3.7 MEQ/L (3.5-5.1)
[2016-10-06 12:00] VITALS: BP 127/72; PULSE 82; RESP 20; TEMP 99.2; O2SAT 90
[2016-10-06 12:05] LABS: OVALOCYTES 1+ (NORMAL); SCAN/DIFF AUTO DIFF CONFIRMED
[2016-10-06] MEDS ORDERED: XANA1TAB2 PO (12:07)
[2016-10-06] MEDS ORDERED: CANA10002 RECTAL (12:20)
[2016-10-06] MEDS ORDERED: MESA1TAB2 PO (12:22)
--- NOTE | 2016-10-06 14:02 | HHI.DS ---
Discharge Summary Admission Date September 22, 2016 at 10:21 Discharge Date: October 06, 2016 Admitting Diagnosis sepsis (1) Pancolitis Diagnosis: Principal (2) Altered mental status Diagnosis: Principal (3) Bronchitis Diagnosis: Secondary Consultants Gastroenterology Neurology Psychiatry Infectious disease Brief History 50-year-old with a complicated past medical history including bipolar disorder, insulin-dependent diabetes; she has been on long-term benzodiazepine, anti- psychotic medications. She comes from [facility] ( [phone]). I spoke with the nurse there. Apparently, she normally is awake alert and oriented 3. She normally ambulates by herself and she can be dramatic at times. She fell yesterday. And she was found on the ground this morning. No one witnessed either of these falls. According to the nurse, she has been "confused, and not acting her normal self." The nurse confirmed her Xanax medication as scheduled 1 mg at 9 and 5; she did not receive her Xanax this morning. She takes Percocets when necessary her last dose was on 09/21 at 3 AM. , She was recently admitted on 08/30 and discharged on 09/03. She was diagnosed with sepsis, acute exacerbation of COPD. Looking at her record, there is concern for polypharmacy, including Xanax 0.5 mg every 8 hours (confirmed with nurse is actually 1 mg scheduled at 9 and 5 per psychiatry recommendations), amitriptyline 25 mg by mouth at bedtime, Percocet 1 tab by mouth every 6 hours when necessary pain, quetiapine. She has a history of ulcerative colitis and is on prednisone and azathioprine. Review of systems and history severely limited. The patient does not recall any falls. On direct questioning, she has a cough. But otherwise she has no complaints. She is not a good historian. CBC/BMP: 10/06/16 1104 10/06/16 1104 Significant Findings Laboratory Tests Test 10/04/16 10/04/16 10/05/16 10/06/16 06:40 22:31 05:47 11:04 White Blood Count 14.3 TH/MM3 15.9 TH/MM3 17.6 TH/MM3 (4.0-11.0) (4.0-11.0) (4.0-11.0) Red Blood Count 3.26 MIL/MM3 3.28 MIL/MM3 3.77 MIL/MM3 (4.00-5.30) (4.00-5.30) (4.00-5.30) Hemoglobin 8.2 GM/DL 8.5 GM/DL 9.7 GM/DL (11.6-15.3) (11.6-15.3) (11.6-15.3) Hematocrit 25.6 % 25.8 % 29.8 % (35.0-46.0) (35.0-46.0) (35.0-46.0) Mean Corpuscular Volume 78.6 FL 78.8 FL 78.9 FL (80.0-100.0) (80.0-100.0) (80.0-100.0) Mean Corpuscular Hemoglobin 25.3 PG 25.8 PG 25.7 PG (27.0-34.0) (27.0-34.0) (27.0-34.0) Red Cell Distribution Width 21.7 % 21.3 % 22.6 % (11.6-17.2) (11.6-17.2) (11.6-17.2) Neutrophils (%) (Auto) 71.2 % 78.9 % (16.0-70.0) (16.0-70.0) Neutrophils # (Auto) 10.2 TH/MM3 12.5 TH/MM3 11.6 TH/MM3 (1.8-7.7) (1.8-7.7) (1.8-7.7) Band Neutrophils % 7 % (0-6) Neutrophils # (Manual) 10.7 TH/MM3 (1.8-7.7) Myelocytes 4 % (0-0) Ovalocytes 1+ (NORMAL) 1+ (NORMAL) 1+ (NORMAL) Sodium Level 135 MEQ/L 132 MEQ/L (136-145) (136-145) Potassium Level 3.2 MEQ/L (3.5-5.1) Chloride Level 97 MEQ/L 95 MEQ/L 94 MEQ/L (98-107) (98-107) (98-107) Blood Urea Nitrogen 5 MG/DL (7-18) Creatinine 0.35 MG/DL 0.42 MG/DL 0.35 MG/DL (0.50-1.00) (0.50-1.00) (0.50-1.00) Random Glucose 282 MG/DL 424 MG/DL 312 MG/DL 241 MG/DL (74-106) (74-106) (74-106) (74-106) Calcium Level 7.8 MG/DL 8.4 MG/DL 8.3 MG/DL (8.5-10.1) (8.5-10.1) (8.5-10.1) Phenytoin (Dilantin) Level 0.7 MCG/ML LESS THAN 0.4 (10.0-20.0) MCG/ML (10.0-20.0) Valproic Acid (Depakene) Level 46 MCG/ML 46 MCG/ML (50-100) (50-100) Phenobarbital Level 8.9 MCG/ML 10.0 MCG/ML (15.0-40.0) (15.0-40.0) Platelet Count 473 TH/MM3 (150-450) Monocytes # (Auto) 1.1 TH/MM3 (0-0.9) PE at Discharge GENERAL: WN, WD female sitting up in bed, conversant SKIN: Warm and dry. HEENT: AT/NC. Pupils equal, and round. Responsive to light. HEART: RRR no m/r/g. LUNGS: CTAB without wheezes or crackles. ABDOMEN: Soft, nondistended, not tender to mild palpation of her abdomen EXTREMITIES: Trace LE edema, no calf tenderness NEURO: Awake alert and oriented 3. Answers questions appropriately. Speech normal. Hospital Course Ms Rockwell is a 50-year-old female with past medical history including ulcerative colitis, bipolar disorder (on long-term benzodiazepine, antipsychotic medication). She came from [facility] presenting on 09/22 with altered mental status. Her benzodiazepine , amitriptyline, Seroquel were held initially. The following day her altered mental status improved. She was also started on IV Zosyn. However, on 09/30 the patient's white count increased to 30,000 and she started refusing by mouth medications. We then consulted neurology, psychiatry, GI, infectious disease. Infectious disease continued Zosyn IV, and added Flagyl IV. CT abdomen and pelvis showed pancolitis. Initial EEG showed subclinical status epilepticus which prompted the neurologist to change her medications by increasing Depakote to 1000 g by mouth twice a day and starting phenobarbital 60 mg by mouth every 12 hours. Her Xanax medication was adjusted to 1 mg by mouth 3 times a day. Her mental status improved dramatically after these changes and a second EEG performed on 10/06 showed much improvement in seizure activity. As of today 10/06, the patient appears back to her baseline mental status. Infectious disease signed off on 10/01 and discontinued all antibiotics. Gastroenterology managed her IBD/pancolitis with mesalamine suppository as well as oral medications. She continues to have a couple loose stools mostly in the morning but overall, her abdominal pain is much improved. She would continue on a prednisone taper and will follow up with gastroenterology in 2 weeks. In the meantime, she is to start a LOW RESIDUE diet. Neurology follow up is also set for 2-3 weeks. Pt Condition on Discharge: Stable Discharge Disposition: Discharge to SNF Discharge Instructions DIET: Follow Instructions for: Diabetic Diet, Low Residue Diet Additional Diet Instructions: LOW RESIDUE DIET: Limit high-fiber foods, like whole-grain breads and cereals, nuts, seeds, raw or dried fruits, and vegetables Activities you can perform: See Additionl Instruction Other Activity Instructions: Per PT Follow up Referrals: Gastroenterology - 2 Weeks with Serena Londono MD Neurology - 2 Weeks with Jason Velazquez MD PCP Follow-up - 1 Week Psychiatry Adult - 1 Week SNF/LONG TERM/ with [facility] New Orders: CBC WITH DIFF - 1 Week COMP MET PROF (CMP) - 1 Week DEPAKENE - 1 Week PHENOBARBITAL - 1 Week New Medications: Divalproex ER (Depakote ER) 500 Mg Ada 1000 MG PO BID Control Seizures #120 Ref 0 TAB Ondansetron (Zofran) 4 Mg Tab 4 MG PO Q6HR PRN NAUSEA OR VOMITING #30 Ref 0 TAB Phenobarbital (Phenobarbital) 60 Mg Tab 60 MG PO Q12HR Control Seizures #60 Ref 0 TAB Prednisone (Prednisone) 20 Mg Tab 40 MG PO DAILY Take 40 mg (2 tablets) daily for 5 days #10 Ref 0 TAB Prednisone (Prednisone) 10 Mg Tab 10 MG PO DAILY #10 Ref 0 TAB Prednisone (Prednisone) 10 Mg Tab 30 MG PO DAILY tapering regimen #10 Ref 0 TAB Prednisone (Prednisone) 20 Mg Tab 20 MG PO DAILY #10 Ref 0 TAB Alprazolam (Xanax) 1 Mg Tab 1 MG PO TID #[address] (Mesalamine DR) 800 Mg Tab 1600 MG PO BID #60 TAB Mesalamine Supp (Canasa Supp) 1,000 Mg Supp 1000 MG RECTAL HS #30 SUPP Prednisone (Prednisone) 50 Mg Tab 50 MG PO DAILY #10 TAB Continued Medications: Acetaminophen (Acetaminophen) 325 Mg Tab 650 MG PO Q4HR PRN PAIN 1-10 AND/OR FEVER >101F Ref 0 TAB Atorvastatin (Atorvastatin) 20 Mg Tab 20 MG PO HS Cholesterol Management #30 Ref 0 TAB Azathioprine (Azathioprine) 50 Mg Tab 50 MG PO DAILY Hazardous agent use appropriate precautions for handling and disposal. Inflammation #30 Ref 0 TAB Budesonide-Formoterol Inh (Symbicort Inh) 160-4.5 Mcg/Act Aero 1 PUFF INH Q12HR #1 Ref 0 INHALER Cholestyramine (Questran) 4 Gm/Dose Powd 4 GM PO QID 1 level scoopful of powder contains 4 grams of cholestyramine. Colitis Days 3 Ref 0 CAN Cholestyramine (Questran) 4 Gm/Dose Powd 4 GM PO TID 1 level scoopful of powder contains 4 grams of cholestyramine. Starts after qid dosage finished (09/24/2016) PRN Colitis #1 Ref 0 CAN Cyclosporine Opth 0.05% (Restasis Opth 0.05%) 0.05% Emul 2 DROP EACH EYE HS Dry Eye #1 Ref 0 BOX Dextrose Gel (Glucose Gel) 40 % Gel 1 TUBE PO ONCE PRN If CBG is <60mg/dl #1 Ref 0 TUBE Gabapentin (Neurontin) 300 Mg Cap 900 MG PO TID #90 Ref 0 CAP Glucagon (Rdna) Inj Kit (Glucagon Emergency Inj Kit) 1 Mg Kit 1 MG IM ONCE PRN CBG <60mg/dl-pt unresponsive #1 Ref 0 KIT Insulin Aspart Inj (Novolog Inj) 1,000 Unit/10 Ml Vial 7 UNITS SQ TIDAC Blood Sugar Management #10 Ref 0 ML Insulin Aspart Inj (Novolog Inj) 1,000 Unit/10 Ml Vial 0 SQ DIRECTED Give 7 units along w/Sliding Scale: 0-69=0 unit & call MD, 70- 200=0 units, 201-250=4 units, 251-300=6 units, 301-350=10 units, 351-400=12 units, >400=15 units & call Blood Sugar Management #10 Ref 0 ML Insulin Glargine Inj (Lantus Inj) 1,000 Unit/10 Ml Vial 26 UNITS SQ HS Blood Sugar Management Ref 0 VIAL Ipratropium HFA 12.9 GM Inh (Atrovent HFA 12.9 GM Inh) 17 Mcg/Act Aer 2 PUFF INH QID #1 Ref 0 INHALER Ipratropium-Albuterol Neb (Duoneb) 0.5-2.5 Mg/3 Ml Neb 3 ML NEB Q6HR PRN SHORTNESS OF BREATH #120 Ref 0 NEBULE Melatonin (Melatonin) 3 Mg Tab 6 MG PO HS Insomnia Metformin ER (Metformin ER) 1,000 Mg Ada 1000 MG PO BID With evening meal Blood Sugar Management #30 Ref 0 TAB Oxycodone-Acetaminophen (Oxycodone-Acetaminophen) 10-325 mg Tab 1 TAB PO Q6H PRN PAIN #30 Ref 0 TAB Polyvinyl Alcohol Opth (Liquitears Opth) 1.4% Soln 2 DROP EACH EYE Q2HR PRN DRY EYE Ranitidine (Zantac) 150 Mg Tab 150 MG PO BID Reduce Stomach Acid #60 Ref 0 TAB Saccharomyces Boulardii (Florastor) 250 Mg Cap 250 MG PO BID Nutritional Supplement Days 14 Ref 0 CAP Sennosides-Docusate Sodium (Senna S) 8.6-50 Mg Tab 2 TAB PO HS Sodium Chloride (Sodium Chloride) 1 Gm Tab 1 GM PO DAILY Electrolyte Replacement Ref 0 TAB Spironolactone (Aldactone) 50 Mg Tab 50 MG PO DAILY #30 Ref 0 TAB Discontinued Medications: Alprazolam (Xanax) 1 Mg Tab 1 MG PO BID Anxiety Ref 0 TAB Amitriptyline (Amitriptyline) 25 Mg Tab 25 MG PO HS Control Depression #30 Ref [address] (Depakote DR) 500 Mg Tabdr 500 MG PO Q8HR Control Seizures #60 Ref 0 TAB Pregabalin (Lyrica) 100 Mg Cap 100 MG PO DAILY #30 Ref 0 CAP Quetiapine (Quetiapine) 200 Mg Tab 400 MG PO HS #30 TAB Dulce Guajardo MD R1 October 06, 2016 14:02
[2016-10-06 15:58] LABS: NIL RESULT 0.04 IU/mL (()); QUANTIFERON TB GOLD RESULT Negative (Negative)
[2016-10-07 03:51] LABS: HEP B DNA R1 LESS THAN 20 IU/mL (()); HEP B DNA R2 LESS THAN 1.30 (())
[2016-10-07] MEDS ORDERED: predniSONE 50 MG TAB PO SCH (09:00)
== END 2016-10-06 15:23 | DRG 386 ==
LOC: NEPC 08:01 → NEDA 10:21 → N05B 15:48 → N03B 09-28 19:00 → N05B 10-01 16:42
PROVIDERS: ADMIT Family Medicine; ATTEND Family Medicine
DX: K51.90 Ulcerative colitis, unspecified, without complications (principal); E87.2 Acidosis; E72.20 Disorder of urea cycle metabolism, unspecified; E11.42 Type 2 diabetes mellitus with diabetic polyneuropathy; G31.9 Degenerative disease of nervous system, unspecified; J98.11 Atelectasis; G40.901 Epilepsy, unspecified, not intractable, with status epilepticus; J44.9 Chronic obstructive pulmonary disease, unspecified; I10 Essential (primary) hypertension; F31.9 Bipolar disorder, unspecified; K21.9 Gastro-esophageal reflux disease without esophagitis; E78.5 Hyperlipidemia, unspecified; J20.9 Acute bronchitis, unspecified; T38.0X5A Adverse effect of glucocorticoids and synthetic analogues, initial encounter; M54.5 Low back pain; G89.29 Other chronic pain; H91.90 Unspecified hearing loss, unspecified ear; F41.0 Panic disorder [episodic paroxysmal anxiety]; F17.210 Nicotine dependence, cigarettes, uncomplicated; W19.XXXA Unspecified fall, initial encounter; Y92.129 Unspecified place in nursing home as the place of occurrence of the external cause; Z78.1 Physical restraint status; Z79.4 Long term (current) use of insulin; Z85.42 Personal history of malignant neoplasm of other parts of uterus; Z88.1 Allergy status to other antibiotic agents; Z88.2 Allergy status to sulfonamides
CPT/HCPCS: 36600; 70450; 70553; 71010; 71260; 74177; 74183; 76937; 80048; 80053; 80164; 80184; 80185; 80307; 81001; 82140; 82150; 82550; 82607; 82746; 82784; 82805; 82947; 82948; 83516; 83605; 83690; 83735; 84100; 84425; 84443; 84484; 84702; 85007; 85025; 85027; 85610; 85652; 85730; 86038; 86430; 86480; 86592; 87015; 87040; 87070; 87205; 87328; 87329; 87449; 87493; 87517; 93005; 94640; 94664; 95819; 96360; A9579; C8900; C9113; J0133; J1650; J1815; J2060; J2405; J2543; J2560; J2920; J3480; J7030; J7500; J7512; J7613; P9612; Q2009; Q9967